=== PATIENT | female | born 1955 | race Caucasian/White ===

== ENCOUNTER 2020-08-05 09:47 | Outpatient (REF) | payer MEDICARE, MEDICAID, SELFPAY ==
--- NOTE | 2020-08-05 | MM_ITS ---
EXAMINATION: STEREOTACTIC TOMOSYNTHESIS-GUIDED VACUUM-ASSISTED BREAST BIOPSY, LEFT SPECIMEN RADIOGRAPH, LEFT POST PROCEDURE DIGITAL BREAST TOMOSYNTHESIS, LEFT CLINICAL INFORMATION: 2 irregular asymmetric densities with subtle radiating lines mid central left breast central and central outer aspect, only one visible on ultrasound. Age 65. Angy Score 6%. Stereotactic biopsy performed immediately following ultrasound-guided core biopsy left breast lesion, described in separate report. COMPARISON: Mammography 07/08/2020, 07/21/2020, left breast ultrasound 07/21/2020 and ultrasound-guided left breast biopsy 08/05/2020. TECHNIQUE/PROCEDURE: Informed consent was obtained from the patient after discussion of the benefits, risks, and alternatives to biopsy today. Patient appeared to understand. Gave opportunity for questions. Patient signed consent form. BIOPSY TABLE: [email or web address] Prone Biopsy System. LESION: Subtle asymmetric density mid central left breast. LOCAL ANESTHESIA: 4 mL 1% lidocaine; 10 mL 1% lidocaine with epinephrine. DERMATOTOMY: Single skin fang dermatotomy performed. NEEDLE: [employer] Eviva 9-gauge vacuum assisted core biopsy device. APPROACH: craniocaudal. TARGETING: Digital breast tomosynthesis used for targeting. CORES: Total 12 cores - for comprehensive sampling, 6 cores taken at Z depth and 6 cores taken 6 mm deeper. CLIP: RED - [employer] T-shaped marker. SPECIMEN RADIOGRAPH: Specimen radiograph is taken in separate room using digital mammography. There are scattered fibroglandular densities in the cores as expected. POST PROCEDURE UNILATERAL DIGITAL BREAST TOMOSYNTHESIS, LEFT: The post biopsy mammogram is performed in separate room using separate digital tomography equipment from the biopsy procedure. CC and ML views are obtained. Synthesized 2-D images are obtained from the 3-D tomography. There are scattered areas of fibroglandular density (breast composition category: b). There are 2 clip markers in position as expected, hydroureter butterfly shaped clip slightly lateral to midline corresponding to the ultrasound-guided core sampling and T shaped biopsy clip marker central breast corresponding to the stereotactic core sampling. No gross hematoma. The patient tolerated the procedure well. No immediate complications. Home instructions reviewed with the patient. Final pathology results are pending. IMPRESSION: 1. Digital tomosynthesis-guided core biopsy left breast with clip placement. 2. Ultrasound-guided core biopsy left breast also performed same visit, separate report 3. Specimen radiograph taken and post procedure mammogram. There is satisfactory positioning of the two biopsy clip markers. 4. Final pathology results pending. An addendum report will be issued.
--- NOTE | 2020-08-05 | US_ITS ---
EXAMINATION: ULTRASOUND GUIDED CORE BIOPSY BREAST, LEFT CLINICAL INFORMATION: 2 irregular asymmetric densities with subtle radiating lines mid central left breast central and central outer aspect, only one visible on ultrasound. Age 65. Angy Score 6%. COMPARISON: Mammography 07/08/2020, 07/21/2020, targeted left breast ultrasound 07/21/2020. FINDINGS: Proper informed consent is obtained from the patient after discussion of the procedure, potential risks and complications, and alternatives. Patient was given an opportunity for questions. The patient appeared to understand. The patient consented to the procedure and signed the consent form. GUIDANCE: Ultrasound-guided; aseptic technique. Prior to the biopsy procedure, targeted diagnostic ultrasound of the left breast is performed in order to reassess for ultrasound visualization of the second lesion noted on mammography. This imaging fails to reveal the second lesion which is subsequently sampled under stereotactic guidance, separate report. LESION: Irregular hypoechoic mass 1:00 position 2 cm from nipple measuring under 5 mm. Mild posterior shadowing. APPROACH: Mediolateral. ANESTHESIA: 8 mL 1% lidocaine. DERMATOTOMY: Single skin fang dermatotomy performed. NEEDLE: 14-gauge Achieve core biopsy device with 13.5-gauge co-axial guide needle. CORES: 6. CLIP: [employer]; shape: butterfly. The patient tolerated the procedure well. No immediate complications. Postprocedure mammography performed after the subsequent left breast stereotactic biopsy described in separate report. Pathology pending. IMPRESSION: 1. Status post ultrasound-guided core biopsy left breast. Clip placed: [employer]; shape: butterfly. 2. Stereotactic left breast biopsy subsequently performed same visit, separate report. 3. Pathology pending (two sites left breast). An addendum report will be issued.
== END 2020-08-05 09:48 | disposition home or self-care (01) ==
LOC: HO.MAMMO 09:47
PROVIDERS: PCP Internal Medicine; Visit Provider Surgery
DX: C50.412 Malignant neoplasm of upper-outer quadrant of left female breast (principal); Z17.0 Estrogen receptor positive status [ER+]; Z80.9 Family history of malignant neoplasm, unspecified; Z90.49 Acquired absence of other specified parts of digestive tract
CPT/HCPCS: 19081; 19083; 19283; 76642; 88305; 88342; 88360; 99203; A4648

== ENCOUNTER → 2020-08-11 13:54 | Outpatient (BNVA) | payer MEDICARE, MEDICAID, SELFPAY | PROVIDERS: PCP Internal Medicine; Referring Provider Internal Medicine; Visit Provider Surgery | DX: C50.912 Malignant neoplasm of unspecified site of left female breast (principal); Z98.890 Other specified postprocedural states | CPT/HCPCS: 99213 ==

== ENCOUNTER 2020-08-27 17:04 | Inpatient (IN) | payer MEDICARE, MEDICAID, SELFPAY ==
[2020-08-25 19:55] VITALS: BMI 23.0
--- NOTE | 2020-08-26 11:55 | HO.ANESPROP2 ---
HPI - Anesthesia Eval Consult details Narrative: 65yo F for L breast lumbpectomy, L sentinel node biopsy PMFSH Past Medical History Medical History Basal cell carcinoma Chronic cough Chronic kidney disease (CKD) Colonoscopy planned Depression Gout History of colon polyps (~2015) Invasive lobular carcinoma of left breast in female Melanoma Schizoaffective disorder Family History Family History Maternal Grandfather History of cancer of unknown primary site Other History of skin cancer Surgical History Surgical History H/O left breast biopsy History of partial colectomy Social History Social History Household Members: None Housing: Apartment Alcohol intake: never Smoking Status: Current every day smoker Tobacco Type: Cigar Packs Per Day: 1 Cigarettes Per Day: 20.0 Years Smoked: 55 Smoked in Last 30 Days: Yes Patient Interested in Nicotine Replacement: No Patient Given Instructions on How to Stop Smoking: Yes Date Education Initiated: 08/25/20 Second Hand Smoke Exposure: No Use of substances other than those prescribed or required for medical reasons: No Substance Use Type Other:: CRACK COCAINE H-NO CURRENT Currently Displaying Signs/Symptoms of Drug Intoxication Withdrawal: No Have you been hit, kicked, punched, or otherwise hurt by someone within the past year? If so, by whom?: No Do you feel safe in your current relationship?: No Current Relationship Advance Directives: No Advance Directives Information Provided: No Advance Directives on File: No Do you have thoughts of harming others: None Do you have a plan to hurt others: No Plan Recently lost weight without trying: No service: No Current occupational status: disabled Meds Allergies Allergy/AdvReac Type Severity Reaction Status Date / Time No Known Allergies Allergy Verified 08/11/20 15:57 Home Medications Medication Instructions Recorded Confirmed Type allopurinol 100 mg tablet 200 mg PO DAILY 08/05/20 08/25/20 History bupropion HCl 150 mg 24 hr tablet, 150 mg PO DAILY 08/05/20 08/25/20 History extended release cholecalciferol (vitamin D3) 25 25 mcg PO DAILY 08/05/20 08/25/20 History mcg (1,000 unit) capsule mecobalamin (vitamin B12) 1,000 1,000 mcg SUBLINGUAL DAILY 08/05/20 08/25/20 History mcg disintegrating tablet,sublingual olanzapine 15 mg tablet 15 mg PO BEDTIME 08/05/20 08/25/20 History Exam Exam Date and Time: August 26, 2020 1155 Height,Weight and Vital Signs: Height 5 ft 1 in Weight 55.338 kg Assessment and Plan Assessment Anesthesia Assessment: Chart Reviewed
[2020-08-27] VITALS (32 sets, daily range): BP systolic 80–126; BP diastolic 39–83; PULSE 64–117; RESP 12–20; TEMP 36.3–36.9; O2SAT 90–99
--- NOTE | 2020-08-27 | NM_ITS ---
EXAMINATION: NM LYMPH SCINTIGRAPHY CLINICAL INFORMATION: Left breast cancer. COMPARISON: None TECHNIQUE: Following explaining left breast lymphoscintigraphy procedure, benefits and risk a written consent was obtained in conjunction with the left breast needle localization. 2% lidocaine jelly cream was applied around the left breast areola 30 minutes prior to the procedure. The gel was cleaned in usual sterile manner. The area was cleaned with clear of consolidation. 0.5 mCi of lymphocytic divided in 4 equal doses was subdermally injected in 4 quadrants around the areola. Imaging was obtained at 30 and 50 minutes. FINDINGS: There is isotope activity seen in the 4 quadrants around the areola. At 50 minutes there is a solitary sentinel node activity seen in the left anterior axilla. No additional areas of activity seen. The soft tissues are normal. NM/NM sentinel node w imaging IMPRESSION: Solitary sentinel node activity in the left anterior axilla on left breast lymphoscintigraphy.
--- NOTE | 2020-08-27 07:59 | MM_ITS ---
EXAMINATION: MM MAMMOGRAM GUIDED NEEDLE LOCALIZATION BREAST, LEFT MM NEEDLE LOCALIZATION SPECIMEN FROM THE LEFT BREAST CLINICAL INFORMATION: 2 regions of invasive lobular carcinoma of the left breast. COMPARISON: August 05, 2020 and July 21, 2020 TECHNIQUE NEEDLE LOC: Proper informed consent is obtained from the patient after discussion of the procedure, potential risks and complications, and alternatives including declining the procedure today. Patient was given an opportunity for questions. The patient appeared to understand. The patient consented to the procedure and signed the consent form. GUIDANCE: Digital mammography. APPROACH: Superior. TARGET: Top hat and coil marker clips. ANESTHESIA: lidocaine 1%: 6 mL. The skin is prepped and local anesthesia administered. The needles are positioned and position assessed with mammography. The wires are hooked into position. [place] needle protector placed. The patient tolerated the procedure well and had no immediate complication. Following the procedure, 4% lidocaine ointment was administered to the left areola and covered with Tegaderm in anticipation of nuclear lymphoscintigraphy injection for sentinel lymph node mapping TECHNIQUE SPECIMEN RADIOGRAPH: Imaging of the excised specimen is performed using digital mammography in 1 view. FINDINGS SPECIMEN RADIOGRAPH: The specimen shows the needles and hookwires are delivered intact. The biopsy clip markers are identified in the specimen. Results were called to Dr. Herminio Jean in the operating room at the time of imaging. MM/MM needle loc LT IMPRESSION: 1. Status post left breast needle localization with wire hooked into position. 2. Post operative specimen radiograph obtained.
--- NOTE | 2020-08-27 08:01 | MM_ITS ---
EXAMINATION: MM MAMMOGRAM GUIDED NEEDLE LOCALIZATION BREAST, LEFT MM NEEDLE LOCALIZATION SPECIMEN FROM THE LEFT BREAST CLINICAL INFORMATION: 2 regions of invasive lobular carcinoma of the left breast. COMPARISON: August 05, 2020 and July 21, 2020 TECHNIQUE NEEDLE LOC: Proper informed consent is obtained from the patient after discussion of the procedure, potential risks and complications, and alternatives including declining the procedure today. Patient was given an opportunity for questions. The patient appeared to understand. The patient consented to the procedure and signed the consent form. GUIDANCE: Digital mammography. APPROACH: Superior. TARGET: Top hat and coil marker clips. ANESTHESIA: lidocaine 1%: 6 mL. The skin is prepped and local anesthesia administered. The needles are positioned and position assessed with mammography. The wires are hooked into position. [place] needle protector placed. The patient tolerated the procedure well and had no immediate complication. Following the procedure, 4% lidocaine ointment was administered to the left areola and covered with Tegaderm in anticipation of nuclear lymphoscintigraphy injection for sentinel lymph node mapping TECHNIQUE SPECIMEN RADIOGRAPH: Imaging of the excised specimen is performed using digital mammography in 1 view. FINDINGS SPECIMEN RADIOGRAPH: The specimen shows the needles and hookwires are delivered intact. The biopsy clip markers are identified in the specimen. Results were called to Dr. Herminio Jean in the operating room at the time of imaging. MM/MM needle loc ea add IMPRESSION: 1. Status post left breast needle localization with wire hooked into position. 2. Post operative specimen radiograph obtained.
--- NOTE | 2020-08-27 08:29 | MHC.SHP ---
Pre-Procedural Eval Section A Changes since office visit: Yes Patient answered all questions; No Cold of Flu in the past 2 weeks, No New Medical Problems and No Changes in Medication The History & Physical has been completed within 30 days and I have reviewed it.: Yes Section B Chief Complaint: Invasive Lobular Carcinoma of Left Breast Allergies: Allergies Allergy/AdvReac Type Severity Reaction Status Date / Time No Known Allergies Allergy Verified 08/11/20 15:57 Plan Diagnosis/Plan: Unchanged Patient has been examined and remains a candidate for the planned procedure
[2020-08-27] MEDS: ceFAZolin Sodium/Dextrose,Iso 2 GM/50 ML PIGGYBACK IV (08:33)
--- NOTE | 2020-08-27 13:16 | P.BOP_ITS ---
Brief Operative Note Date of procedure: 08/27/20 Pre-op diagnosis: Invasive lobular carcinoma left breast Post-op diagnosis: same Procedure: LEFT BREAST LUMPECTOMY WITH NEEDLE LOCALIZATION, SENTINEL NODE BIOPSY LEFT AXILLA Implants: NONE Surgeon: Herminio Jean MD Anesthesia: [facility] [employer] Indirect Fire Crewmember: Cecily Martin Estimated blood loss (mL): 20 Pathology: other ( LEFT BREAST LUMPECTOMY, SENTINEL NODES) Condition: stable Disposition: PACU
--- NOTE | 2020-08-27 13:19 | W.PM.OPN ---
Operative Note Operative Note Narrative: Date of procedure: 08/27/20 Pre-op diagnosis: Invasive lobular carcinoma left breast Post-op diagnosis: same Procedure: Left breast lumpectomy with needle localization, left sentinel node biopsy Indications for procedure: 65-year-old female patient with 2 areas of density located in the left breast in the central portion, status post ultrasound-guided and stereotactic guided core biopsies. Both lesions revealed invasive lobular carcinoma. She presents today for a needle localized lumpectomy left breast with sentinel node excision. Operative findings: Patient was found to have the marking clips and localizing wire within the specimen X-ray. Procedure details: The patient was brought to the OR and placed in a supine position. After administering general anesthesia the patient's left breast was prepped with ChloraPrep and draped in a sterile fashion. A surgical time-out was called and the consent confirmed. Patient received preoperative antibiotics and Venodyne boots were in place. Local anesthesia consisting of 0.75% Sensorcaine was infiltrated between the 2 localizing wires in the upper mid breast left side. This is in a transverse fashion. Incision was then made with a 15 blade carried out through subcutaneous tissue. Superior and inferior skin flaps were then created using electrocautery. A core of tissue to encompass the 2 localizing needles was performed and extended down to chest wall including the pectoralis muscle fascia posteriorly. The lesion including the 2 localizing needles was sent to Radiology for specimen x-ray. The specimen was then sent to pathology for immediate gross evaluation. Was determined that the margins were close in the inferior lateral portion of the specimen. Additional specimen of this margin was then obtained and sent as a permanent specimen. Attention was then directed to the left axilla. The gamma probe was used to localize areas of increased reactivity. A curvilinear incision was made below the hairline of the left axilla. This was then carried down through subcutaneous tissue up to the clavipectoral fascia. The axillary space was then entered. Using the gamma probe as a guide 3 radioactivity active lymph nodes were removed. These were sent as sentinel nodes. No additional palpable nodes could be identified within the axilla. No other radio activity was noted within the axillary compartment. Both incisions were irrigated with saline solution and suctioned dry. Both sites were checked for hemostasis which was assured using electrocautery. Beginning with the breast incision the deep breast fascia was reapproximated using interrupted 3 0 Polysorb sutures. The dermis was reapproximated using interrupted 3-0 Polysorb sutures. Skin was then closed using a running subcuticular 4-0 Polysorb suture. The axillary incision was closed in layers of once again using 3-0 Polysorb in the cloudy pectoral fascia and dermis. Skin was then closed using a running 4-0 Polysorb suture. Steri-Strips 2 x 2 gauze and Tegaderm were then applied to both incisions. The patient tolerated the procedure well. Sponge , instrument, and needle counts reported as correct. She was transported to PACU in stable condition. Implants: none Surgeon: Herminio Jean MD Anesthesia: GLMA Bucket Chucker: Cecily Martin Estimated blood loss (mL): 20 Pathology: other (left breast mass, sentinel nodes , inferior lateral border margin) Condition: stable Disposition: PACU Breast [place] Node Biopsy Substrate(s) used for sentinel node biopsy in the non-neoadjuvant setting: Radiotracer Substrate(s) used for sentinel node biopsy in the neoadjuvant setting: N/A All colored nodes or non-colored nodes present at the end of a dye filled lymphatic channel were removed, if dye was used as the substrate for localization: N/A All significantly radioactive nodes were removed, if radionuclide was used as the substrate for localization: Yes All palpably suspicious nodes were removed, if present: Yes If clips were placed in pathology-involved nodes, those nodes were identified and removed: N/A General Surg. - Synoptic Notes Breast [place] Node Biopsy Substrate(s) used for sentinel node biopsy in the non-neoadjuvant setting: Radiotracer Substrate(s) used for sentinel node biopsy in the neoadjuvant setting: N/A All colored nodes or non-colored nodes present at the end of a dye filled lymphatic channel were removed, if dye was used as the substrate for localization: N/A All significantly radioactive nodes were removed, if radionuclide was used as the substrate for localization: Yes All palpably suspicious nodes were removed, if present: Yes If clips were placed in pathology-involved nodes, those nodes were identified and removed: N/A
[2020-08-27] MEDS: Acetaminophen 325 MG TABLET 650 MG PO (14:19)
[2020-08-27] MEDS: oxyCODONE HCl Immed Release 5 MG TABLET PO (14:20)
[2020-08-27] MEDS: Albuterol Sulfate (0.083%) 2.5 MG/3 ML VIAL.NEB INHALE (15:06)
--- NOTE | 2020-08-27 16:41 | PC.NURSE ---
PATIENT BREAST DRESSING REMAINS CLEAN DRY INTACT. SOFT. NON-TENDER TO TOUCH
--- NOTE | 2020-08-27 16:47 | PC.NURSE ---
DR. SENIOR UPDATED PATIENT SBP 78-80'S ASYMPTOMATIC AT THIS TIME. LIKELY NEED TO BE ADMITTED
--- NOTE | 2020-08-27 16:53 | PC.NURSE ---
DR. ZAMBRANO AT BEDSIDE PLAN ORDERS LABS AND ADMIT OVERNIGHT FOR MONITORING. DR. SENIOR ANESTHESIA UPDATED PER M.D. NO ADDITIONAL IVF BOLUS OR EVELYN GTT AT THIS TIME
--- NOTE | 2020-08-27 17:12 | PC.NURSE ---
PHLEBOTOMY AT BEDSIDE FOR LABS
--- NOTE | 2020-08-27 17:17 | PM.EVENT ---
Event Note Event Note: Postoperatively, patient noted to be hypotensive and tachycardic after having an updraft treatment and pain medication; required several fluid boluses. Patient is awake and alert and denies any symptoms at this time. She reports feeling tired. Left breast incision is clean and intact without hematoma. Plan: Will keep patient as an extended stay in IM. Hospitalist consultation requested as well. Discussed with patient's daughter Ciara ([phone]).
[2020-08-27 17:29] LABS: Basophils Percent Auto 0.1 % (0-2); Eosinophils Percent Auto 0.1 % (0-4); Hematocrit 35.2 % (37-47); Hemoglobin 11.6 g/dl (12.0-16.0); Imm Gran Abs Auto 0.07 X10*3/uL (0.00-0.03); Imm Gran Pct Auto 0.5 % (0.0-0.4); Lymphocytes Absolute Auto 0.2 X10*3/uL (1.2-4.9); Lymphocytes Percent Auto 1.1 % (20-40); MANUAL DIFF FLAG SCAN; Mean Corpuscular Hemoglobin 35.7 pg (27.0-33.0); Mean Corpuscular Volume 108.3 fL (80-98); Mean Platelet Volume 9.6 fL (9.4-12.3); Monocytes Absolute Auto 0.2 X10*3/uL (0.1-1.2); Monocytes Percent Auto 1.1 % (2-11); Neutrophils Absolute Auto 14.5 X10*3/uL (2.0-8.3); Neutrophils Percent Auto 97.1 % (45-73); Platelet Count 119 X10*3/uL (160-400); Red Blood Count 3.25 X10*6/uL (4.20-5.50); Red Cell Distribution Width 13.2 % (11.0-16.0); SCAN SMEAR FLAG 1
[2020-08-27 17:53] LABS: Anion Gap 14 (12-20); Blood Urea Nitrogen 21 mg/dL (9-16); Calcium 7.6 mg/dL (8.4-10.2); Carbon Dioxide 21 mmol/L (22-29); Chloride 112 mmol/L (96-108); Creatinine Clr Calc Pharmacy 16.8; Estimated Glomerular Filt Rate 19; Glucose Random 207 mg/dL (60-115); Magnesium 1.6 mg/dL (1.6-2.6); Phosphorus 3.7 mg/dL (2.7-4.5); Potassium 3.4 mmol/l (3.3-5.1); Sodium 144 mmol/L (135-145)
[2020-08-27] MEDS: Dextrose 5 % and Lactated Ring 1,000 ML 80 ML IVCONT (18:18)
[2020-08-27 19:14] LABS: SLIDE REVIEW VERIFIED
[2020-08-27] MEDS: 0.9 % Sodium Chloride 1,000 ML 150 ML IVCONT (19:33)
[2020-08-27] MEDS: Midodrine HCl 5 MG TABLET PO ×2 (19:33→23:49)
--- NOTE | 2020-08-27 21:30 | CONS_ITS ---
DATE OF SERVICE: REASON FOR CONSULTATION: Postprocedure hypotension. HISTORY OF PRESENTING ILLNESS: This is a 65-year-old female patient with past medical history significant for chronic kidney disease stage 4, history of gout, history of schizoaffective disorder and bipolar disorder. The patient underwent an elective left breast lumpectomy with needle localization and left sentinel node biopsy. The patient was scheduled to be discharged home, but during the procedure and post procedure, the patient remained hypotensive with systolic blood pressure in high 80s, therefore the patient was admitted for close monitoring and treatment. During the procedure, the patient received 2 L of IV fluid, but BP remains low. Currently, patient is on IV fluids. BP remains 88/52. The patient is awake, alert, denies any symptoms of lightheadedness, dizziness. The patient is not aware of her baseline blood pressure. She denies any chest pain, palpitation. She has had no recent bout of fever, chills. She denies any recent bout of nausea, vomiting, diarrhea. She denies urinary symptoms of urgency, frequency, she has no cough or sputum production. The patient's labs from this morning revealed a WBC count of 15,000, hematocrit of 35, elevated MCV of 108, and platelet count of 119. Her electrolytes are stable except that the creatinine is elevated at 2.51 with the last creatinine of 1.86 on August of 2018. The patient's blood sugar is 207, although patient is not aware of diagnosis of diabetes. PAST MEDICAL HISTORY: Significant for: 1. History of schizoaffective disorder/bipolar disorder. 2. History of chronic kidney disease stage 4. 3. History of gout. 4. The patient has history of cocaine abuse in remote past. SOCIAL HISTORY: The patient lives alone. She denies history of alcohol abuse or illicit drug use. She continued to smoke 1 pack per day. FAMILY HISTORY: The patient's parents are . The patient's mother had history of stroke and father of respiratory issues. ALLERGIES: THE PATIENT HAS NO KNOWN DRUG ALLERGIES. CURRENT MEDICATIONS: Tylenol 650 mg q.6 hours as needed, albuterol inhaler as needed, allopurinol 200 mg daily, bupropion 150 mg daily, and vitamin D 25 mcg by mouth daily. The patient is also on vitamin B12 1000 mcg tablet daily, vitamin D3 25 mcg daily, and olanzapine 50 mg by mouth at bedtime. REVIEW OF SYSTEMS: GENERAL: The patient denies any fever, chills. CVS: No chest pain. No palpitations. SKIN: No rashes. GI: No nausea, vomiting, diarrhea. PHYSICAL EXAMINATION: GENERAL: The patient is resting comfortably, does not appear to be in acute distress. VITAL SIGNS: She is afebrile with O2 saturation 95% on 1.5 L nasal cannula. Respiratory rate is 14, pulse of 68, and blood pressure 88/52. HEENT: Pupils equal, round, and reactive to light and accommodation. NECK: Supple. No increased JVD. LUNGS: Clear to auscultation bilaterally with no wheeze or rhonchi. HEART: Regular rate rhythm. ABDOMEN: Soft, nontender. Bowel sounds are audible. EXTREMITIES: Without edema. BREASTS: There is an is small incision at left breast with no drainage and no surrounding hyperemia or swelling. NEURO: Nonfocal. LABORATORY DATA: Showed a sodium 144, potassium 3.4, chloride 112, bicarb of 21, BUN 21, and a creatinine of 2.51, blood sugar 207, calcium 7.6. WBC 15,000, hematocrit 35.2, neutrophil 97%. ASSESSMENT AND PLAN: This is a 65-year-old female patient, admitted for an elective left breast lumpectomy with needle localization and left sentinel node biopsy due to recently diagnosed invasive lobular carcinoma of left breast. During procedure, the patient became hypotensive and hence being admitted for continued monitoring and treatment. 1. Hypotension. The patient has no prior history of hypotension. The patient is not on any antihypertensive medications. Likely low blood pressure is secondary to anesthesia and olanzapine,will hold the medication. There is no evidence of infection or sepsis, but due to elevated WBC count, we will obtain a urinalysis. We will treat the patient with IV fluid. We will give midodrine. Follow blood pressure closely. Continue tele monitor to r/o arrythmias. If there is no improvement in the patient's blood pressure, then escalate care and transfer patient to ICU for pressors, but since the patient is asymptomatic, continue tele monitoring. 2. Acute on chronic kidney disease likely due to hypotension. Follow BMP at a.m. 3. Leukocytosis, likely reactive. We will rule out urinary tract infection and check a urinalysis. 4. History of bipolar disorder. Continue home medications. 5. History of gout with no acute exacerbation. MD Herminio Gannon MD NG/TYE / [id number] MTDD
[2020-08-27] MEDS: Lactated Ringers 500 ML 999 ML IVCONT ×2 (22:57→23:46)
--- NOTE | 2020-08-27 23:11 | PC.NURSE ---
P: BP 84/53, HR 74 I: Pt assessed. Pt drowsy but arousable. States I just feel tired. MD made aware. MD ordered 1L LR bolus. 2nd IV placed for maintenance fluids. Pt also has NS running at 150 ml/hr. E: Pt BP rechecked after LR bolus and still low 83/58 with machine and 90/60 manually. MD made aware. Will continue to monitor and reassess.
[2020-08-27] MEDS: 0.9 % Sodium Chloride Flush 3 ML SYRINGE IVFLUSH (23:47)
[2020-08-28] VITALS (9 sets, daily range): BP systolic 81–118; BP diastolic 48–78; PULSE 51–91; RESP 16–18; TEMP 36.1–37.2; O2SAT 91–100
--- NOTE | 2020-08-28 01:31 | PC.NURSE ---
P: midnight vital signs BP 85/50. I:assessed pt , no complaints of dizzyness, lightheadness.MD made aware, second dose of Midodrine 5mg ordered and given and second LR bolus given. E: Reassessed BP after bolus Pt ambulated to bathroom voiding clear yellow urine, clean catch sent to lab. BP 104/78 HR 91. Will continue to monitor BP's.
[2020-08-28 02:03] LABS: Glucose Urine UA NEG (NEG); Leukocyte Esterase Urine NEG (NEG); Nitrite Urine NEG (NEG); Urine Blood NEG (NEG); Urine Ketones NEG (NEG); Urine Protein NEG (NEG-TRACE)
[2020-08-28 02:11] LABS: Appearance Urine CLEAR; Color Urine STRAW
[2020-08-28] MEDS: 0.9 % Sodium Chloride 1,000 ML 150 ML IVCONT ×2 (03:22→19:10)
[2020-08-28 06:42] LABS: Basophils Percent Auto 0.2 % (0-2); Eosinophils Percent Auto 0.2 % (0-4); Hematocrit 30.1 % (37-47); Imm Gran Abs Auto 0.07 X10*3/uL (0.00-0.03); Imm Gran Pct Auto 0.5 % (0.0-0.4); Lymphocytes Absolute Auto 0.8 X10*3/uL (1.2-4.9); Lymphocytes Percent Auto 6.1 % (20-40); MANUAL DIFF FLAG SCAN; Mean Corpuscular HGB Conc 33.2 g/dl (31.0-35.0); Mean Corpuscular Hemoglobin 35.6 pg (27.0-33.0); Mean Corpuscular Volume 107.1 fL (80-98); Monocytes Absolute Auto 0.3 X10*3/uL (0.1-1.2); Monocytes Percent Auto 2.7 % (2-11); Neutrophils Absolute Auto 11.5 X10*3/uL (2.0-8.3); Neutrophils Percent Auto 90.3 % (45-73); Platelet Count 115 X10*3/uL (160-400); Red Blood Count 2.81 X10*6/uL (4.20-5.50); Red Cell Distribution Width 13.1 % (11.0-16.0); SCAN SMEAR FLAG 1; White Blood Count 12.7 X10*3/uL (4.8-10.8)
[2020-08-28 07:06] LABS: Anion Gap 14 (12-20); Blood Urea Nitrogen 23 mg/dL (9-16); Calcium 6.6 mg/dL (8.4-10.2); Carbon Dioxide 22 mmol/L (22-29); Chloride 114 mmol/L (96-108); Creatinine Clr Calc Pharmacy 17.9; Estimated Glomerular Filt Rate 21; Glucose Random 107 mg/dL (60-115); Potassium 3.9 mmol/l (3.3-5.1); Sodium 146 mmol/L (135-145)
--- NOTE | 2020-08-28 08:28 | P.PNGS_ITS ---
Subjective Subjective Interval history: A little more sore at left breast/axilla today but comfortable. Continues to deny dizziness/lightheadedness. OOB to bathroom. <Cecily Martin PA-C - Last Filed: 08/28/20 08:33> Physical Exam Vital Signs: Vital Signs: Vital Signs Temp Pulse Resp BP Pulse Ox 08/28/20 07:37 98.9 F 65 16 81/59 L 92 08/28/20 03:35 98.5 F 78 18 100/66 92 08/28/20 01:27 91 104/78 08/27/20 23:49 64 82/58 L 08/27/20 23:24 97.4 F 64 16 82/58 L 95 08/27/20 23:00 90/60 91 L 08/27/20 21:20 74 84/53 L 91 L 08/27/20 19:33 67 97/69 08/27/20 18:18 97.9 F 68 14 88/52 L 95 08/27/20 17:51 80 20 92/60 99 08/27/20 17:38 84 20 85/63 L 99 08/27/20 17:23 97.9 F 08/27/20 17:18 87 20 92/54 L 95 08/27/20 17:04 87 20 93/60 97 08/27/20 17:00 99 20 87/55 L 97 08/27/20 16:56 89 20 82/58 L 97 08/27/20 16:41 90 20 85/53 L 97 08/27/20 16:33 89 20 87/48 L 97 08/27/20 16:12 86 12 84/61 L 99 08/27/20 16:09 88 12 90/61 99 08/27/20 16:01 88 12 80/47 L 94 08/27/20 15:52 88 12 80/50 L 94 08/27/20 15:35 93 12 84/53 L 94 08/27/20 15:20 96 16 80/51 L 95 08/27/20 15:10 102 H 16 90/64 90 L 08/27/20 14:54 117 H 20 81/39 L 93 08/27/20 14:23 94 20 92 08/27/20 14:11 95 08/27/20 14:08 96 20 92 08/27/20 13:52 88 20 97 08/27/20 13:40 96 20 109/66 97 08/27/20 13:38 97 20 112/83 97 08/27/20 13:25 98 16 92/57 L 97 08/27/20 13:20 98 16 126/82 93 Body Mass Index 23.0 <Cecily Martin PA-C - Last Filed: 08/28/20 08:33> Const: General: comfortable, no acute distress and alert <Cecily Martin PA-C - Last Filed: 08/28/20 08:33> Orientation/consciousness: patient oriented x3 <Cecily Martin PA-C Last Filed: 08/28/20 08:33> Eyes: Sclerae: sclerae normal <Cecily Martin PA-C Last Filed: 08/28/20 08:33> Chest: Other: left breast/axillary dressings c/d/i, mild tenderness surrounding, no evidence of hematoma or erythema noted <Cecily Martin PA-C Last Filed: 08/28/20 08:33> Resp: Effort & Inspection: normal respiratory effort <Cecily Martin PA-C Last Filed: 08/28/20 08:33> Cardio: Rate: regular rate <Cecily Martin PA-C Last Filed: 08/28/20 08:33> Skin: General skin exam: no rashes or lesions noted <Cecily Martin PA-C Sherri Last Filed: 08/28/20 08:33> Neuro: General: patient oriented x3 <Cecily Martin PA-C Last Filed: 08/28/20 08:33> Extrem: General: Yes no clubbing, cyanosis or edema <Cecily Martin PA-C - Last Filed: 08/28/20 08:33> Progress Note: A&P Assessment and plan (1) Invasive lobular carcinoma of left breast in female: Status: Acute <REY Mejia Last Filed: 08/28/20 08:33> Assessment and Plan: Doing well post op, comfortable. Dressings c/d/i. Stable from surgical standpoint. <Cecily Martin REY - Last Filed: 08/28/20 08:33> (2) Kidney disease: Status: Acute <Cecily Martin REY - Last Filed: 08/28/20 08:33> Assessment and Plan: Renal function improved this am. Nephrology consult pending. < Cecily Bustamanteboderaina REY - Last Filed: 08/28/20 08:33> (3) Hypotension: Status: Acute <Cecily Martin REY - Last Filed: 08/28/20 08:33> Assessment and Plan: SBP remains low 80s despite IVF, midodrine (received 2 doses) but she remains asymptomatic. AM labs improved this am- Cr improved, WBC down. No evidence of infection. Hospitalists following, cont midodrine and IVF. Cont to monitor BP. <Cecily BustamanteREY aguilar - Last Filed: 08/28/20 08:33> Still with intermittent hypotension this morning. Discussed with Dr. Leonard; may be related to medications interacting with anesthesia. Discussed with patient's daughter this morning. Patient will need additional observation beyond the anesthesia. Agree with the above assessment and plan. Will check back later and reassess for discharge. <Herminio Jean MD - Last Filed: 08/28/20 08:41> Fall Risk Details Current Medications: Current Medications Generic Name Dose Route Start Last Admin Trade Name Freq PRN Reason Stop Dose Admin Acetaminophen 650 mg 08/27/20 17:47 Acetaminophen Supp 650 Mg Supp.Rect NE Q6H PRN Pain, Mild (Pain Scale 1-3) Allopurinol 200 mg 08/28/20 09:00 Allopurinol 100 Mg Tablet PO DAILY MATTHEW Bupropion HCl 150 mg 08/28/20 09:00 Bupropion Hcl Xl 150 Mg Tab.Er.24h PO DAILY MATTHEW Sodium Chloride 1,000 mls @ 150 mls/hr 08/27/20 18:45 08/28/20 03:22 Ns IVCONT 150 mls/hr .Q6H40M MATTHEW Administration Olanzapine 15 mg 08/27/20 21:00 08/27/20 22:10 Olanzapine 7.5 Mg Tablet PO Not Given BEDTIME MATTHEW Ondansetron HCl 4 mg 08/27/20 17:47 Ondansetron Hcl 4 Mg/2 Ml Vial IVPUSH Q8H PRN Nausea and Vomiting Oxycodone HCl 5 mg 08/27/20 17:47 Oxycodone Hcl Immed Release 5 Mg Tablet PO Q4H PRN Pain, Severe (Pain Scale 7-10) Sodium Chloride 3 ml 08/28/20 00:00 08/27/20 23:47 0.9 % Sodium Chloride Flush 3 Ml Syringe IVFLUSH 3 ml QSHIFT MATTHEW Administration Vitamin D 25 mcg 08/28/20 09:00 Cholecalciferol (Vitamin D3) 25 Mcg Tablet PO DAILY MATTHEW <Cecily Martin PA-C - Last Filed: 08/28/20 08:33> Time Spent With Patient Time: Total time spent is greater than 50% in coordination of care (as documented) at patient's floor/unit and/or counseling patient: <Cecily Martin PA-C - Last Filed: 08/28/20 08:33> Time with patient: 15 - 24 minutes <Cecily Martin PA-C - Last Filed: 08/28/20 08:33>
--- NOTE | 2020-08-28 08:42 | MHC.CM.PN ---
Patient rents a room and lives alone. Patient is functionally independent and her goal is to return home. CM has initiated and will follow for dc planning. Patient is here under Extended Stay and therefor does not require an IMM. PCP is from [facility].
[2020-08-28] MEDS: buPROPion HCl XL 150 MG TAB.ER.24H PO (09:11)
[2020-08-28] MEDS: Midodrine HCl 10 MG TABLET PO (09:11)
[2020-08-28] MEDS: allopurinoL 100 MG TABLET 200 MG PO (09:11)
[2020-08-28] MEDS: Cholecalciferol (Vitamin D3) 25 MCG TABLET PO (09:12)
[2020-08-28] MEDS: 0.9 % Sodium Chloride Flush 3 ML SYRINGE IVFLUSH ×2 (09:12→15:23)
--- NOTE | 2020-08-28 11:31 | ECG_ITS ---
Test Reason : CP Blood Pressure : / mmHG Vent. Rate : 049 BPM Atrial Rate : 049 BPM P-R Int : 150 ms QRS Dur : 082 ms QT Int : 462 ms P-R-T Axes : 026 047 052 degrees QTc Int : 417 ms Sinus bradycardia Low voltage QRS Nonspecific ST abnormality Abnormal ECG When compared with ECG of 13-JAN-2004 07:25, QRS voltage has decreased Heart rate has decreased Referred By: Rajeev Leonard Electronically Signed By:JACQUE MCCRARY MD
--- NOTE | 2020-08-28 12:10 | CA_ITS ---
Transthoracic Echocardiogram Patient (Last, First, Middle): Kim Love, Gender: Female Date of : 1955 Age: 65 Procedure Date: 08/28/2020 Procedure Type: Transthoracic Echocardiogram Location: [facility] [place] Height: 154.94 cm Weight: 54.43 kg BSA: 1.52 m2 Heart Rate: bpm BP: 81 / 59 mmHg Sole Molder: Referring MD: Ernesto Choe MD Software Installation Engineer: Ernesto Choe MD Symptoms: Low BP Study Quality: Fair ECG Rhythm: Sinus Conclusions: - 1. Normal LV systolic function with impaired relaxation filling pattern 2. Normal cardiac valvular Doppler 3. Normal RV systolic pressure with elevated right atrial pressure 4. No pericardial effusion Findings Left Ventricle Normal left ventricular size, thickness, and systolic function. The visually estimated ejection fraction is between 65-70%. Spectral Doppler is indicative of an impaired relaxation filling pattern. E/E prime ratio is between 8 and 15 consistent with indeterminate filling pressures. Right Ventricle Normal right ventricular cavity size and systolic function. Atria Both atria are normal in size. There is no evidence of interatrial shunt. Aortic Valve Normal aortic valve structure and function. There is no aortic valve stenosis. There is no aortic valve regurgitation. Mitral Valve Normal mitral valve structure and function. There is trace mitral valve regurgitation. There is no mitral valve stenosis. Pulmonic Valve The pulmonic valve is likely normal. Tricuspid Valve Normal tricuspid valve structure. There is mild tricuspid valve regurgitation. The right ventricular systolic pressure is normal. The right ventricular systolic pressure is 33 mmHg. Mildly elevated right atrial pressure. There is no evidence of pulmonary hypertension. Venous The inferior vena cava is mildly dilated and collapses less than 50% with inspiration. Pericardium/Pleural There is no evidence of pericardial effusion. Prior Study Comparison No prior study available for comparison. Measurements 2D Linear Measurements IVSd: 0.96 0.6-0.9/0.6-1.0 cm LVIDd: 4.39 3.9-5.3/4.2-5.9 cm LVIDd Index: 2.89 2.4-3.2/2.2-3.1 cm/m2 LVIDs: 2.65 2.0-3.6 cm LVPWd: 1.11 0.7-1.1 cm Ao Root: 2.90 2.1-3.5 cm LA Diam: 2.40 2.7-3.8/3.0-4.0 cm LAIDs Index: 1.58 1.5-2.3 cm/m2 LV Mass: 191.86 67-162/88-224 g LV Mass Index: 126.22 43-95/49-115 g/m2 LVOT Diam: 2.20 3.0+(-)1.3 cm Mitral Valve MV Pk E: 0.92 MV PK A: 0.85 MV Decel Time: 242.00 E/A: 1.10 E'Lateral: 9.68 E'Medial: 9.90 E/E' Med: 9.30 E/E' Lat: 9.50 PHT: 71.00 MVA PHT: 3.10 Decel [place]: 3.79 Aortic Valve AoV Pk Richi: 2.03 AoV Mn Richi: 1.47 AoV VTI: 0.48 AoV Pk Grad: 16.00 Aov Mn Grad: 10.00 KEM Cont.VTI: 2.73 LVOT LVOT Pk Richi: 1.38 LVOT Mn Richi: 0.96 LVOT VTI: 0.34 LVOT Pk Grad: 8.00 LVOT Mn Grad: 4.00 LVOT Diam: 2.20 LVOT Area: 3.80 Diastolic Function MV Pk E: 0.92 MV Pk A: 0.85 E/A: 1.10 E'Medial: 9.90 E/E' Med: 9.30 E' Laterial: 9.68 E/E' Lat: 9.50 Tricuspid Valve TR Pk Richi: 2.49 TR Pk Grad: 25.00 RA Press: 8.00 RVSP: 33.00 Great Vessels Aorta Ao Root-2D: 2.90 2.0-3.7 cm Pulmonary Valve PV Pk Richi: 1.38 Peak PV Grad: 8.00 Updated in Other Vendor System with Status of Final Ernesto Choe MD electronically signed on 08/29/2020 10:19:58 AM with status of Final
--- NOTE | 2020-08-28 13:00 | P.PNIM_ITS ---
Subjective Subjective Date of Service: 08/28/20 Interval History: patient offers no complaints denies pain denies lightheadedness dizziness, denies chest pain, no acute issues overnight blood pressure remains low. Review of Systems General no headache no dizziness no fever chills. CVS no chest pain, no palpitation. Respiratory no cough , no shortness of breath. Gastrointestinal no nausea ,no vomiting, no abdominal pain Physical Exam Vital Signs: Vital Signs: Selected Entries 08/28/20 11:01 Temperature 98.8 F Pulse Rate 53 Respiratory Rate 18 Blood Pressure 95/62 General patient resting comfortably in no acute distress. Neck is supple no JVD. CVS regular rate rhythm, Respiratory lungs clear to auscultation, no respiratory distress, no wheeze, no rhonchi. Gastrointestinal abdomen soft, nontender, bowel sounds audible, no no guarding , no rigidity. Extremities no clubbing cyanosis or edema. Neuro nonfocal patient moving all 4 extremity speech clear. Skin no rash Objective Data Current Medications Generic Name Dose Route Start Last Admin Trade Name Freq PRN Reason Stop Dose Admin Acetaminophen 650 mg 08/27/20 17:47 Acetaminophen Supp 650 Mg Supp.Rect [place] Q6H PRN Pain, Mild (Pain Scale 1-3) Allopurinol 200 mg 08/28/20 09:00 08/28/20 09:11 Allopurinol 100 Mg Tablet PO 200 mg DAILY MATTHEW Administration Bupropion HCl 150 mg 08/28/20 09:00 08/28/20 09:11 Bupropion Hcl Xl 150 Mg Tab.Er.24h PO 150 mg DAILY MATTHEW Administration Sodium Chloride 1,000 mls @ 150 mls/hr 08/27/20 18:45 08/28/20 12:43 Ns IVCONT Not Given .Q6H40M MATTHEW Olanzapine 15 mg 08/27/20 21:00 08/27/20 22:10 Olanzapine 7.5 Mg Tablet PO Not Given BEDTIME MATTHEW Ondansetron HCl 4 mg 08/27/20 17:47 Ondansetron Hcl 4 Mg/2 Ml Vial IVPUSH Q8H PRN Nausea and Vomiting Oxycodone HCl 5 mg 08/27/20 17:47 Oxycodone Hcl Immed Release 5 Mg Tablet PO Q4H PRN Pain, Severe (Pain Scale 7-10) Sodium Chloride 3 ml 08/28/20 00:00 08/28/20 09:12 0.9 % Sodium Chloride Flush 3 Ml Syringe IVFLUSH 3 ml QSHIFT MATTHEW Administration Vitamin D 25 mcg 08/28/20 09:00 08/28/20 09:12 Cholecalciferol (Vitamin D3) 25 Mcg Tablet PO 25 mcg DAILY MATTHEW Administration Labs CBC & Chem 7: 08/28/20 05:24 08/28/20 05:24 Assessment and Plan (1) Hypotension: Status: Acute (2) Acute worsening of stage 4 chronic kidney disease: Status: Acute (3) Invasive lobular carcinoma of left breast in female: Status: Acute (4) Bradycardia: Status: Acute Assessment and Plan: This is a 65-year-old female patient, admitted for an elective left breast lumpectomy with needle localization and left sentinel node biopsy due to recently diagnosed invasive lobular carcinoma of left breast. During procedure, the patient became hypotensive and hence being admitted for continued monitoring and treatment. 1. Hypotension/ bradycardia. persistent low blood pressure this morning patient remains asymptomatic, with no chest pain no shortness of breath no lightheadedness or dizziness tele monitor showed heart rate in mid 40s patient remained asymptomatic, will continue IV fluid my do drain, obtain ca rdiology consultation will hold olanzapine, no evidence of infection or sepsis, WBC trending down urinalysis unremarkable, continue tele monitor to rule out arrhythmia or heart block, if hypotension persists and patient become symptomatic then will escalate care and transfer patient to ICU for pressors, but since the patient is asymptomatic, continue tele monitoring. 2. Acute on chronic kidney disease stage IV likely due to hypotension. creatinine gradually trending down Follow BMP 3. Leukocytosis, likely reactive. trending down 4. History of bipolar disorder. Continue home medications. 5. History of gout with no acute exacerbation. 6. DVT prophylaxis on compression boots
--- NOTE | 2020-08-28 13:30 | HO.POSTANES ---
Post Anesthesia Evaluation Post Anesthesia Evaluation Vital Signs: Vital Signs Temp Pulse Resp BP Pulse Ox 08/28/20 11:01 98.8 F 53 18 95/62 92 08/28/20 09:11 86/48 L 08/28/20 07:37 98.9 F 65 16 81/59 L 92 08/28/20 03:35 98.5 F 78 18 100/66 92 Anesthesia: General LMA Mental Status: Awake Pain Control: Satisfactory Nausea/Vomiting: None Hydration: Adequate Anesthesia-Related Issues: No Anes. Related Issues
--- NOTE | 2020-08-28 13:57 | PM.CNCAR ---
History of Present Illness History of Present Illness Date of Consult: August 28, 2020 Requesting physician: Rajeev Leonard Consult reason: post-op evaluation and hypotension Chief complaint: hypotension post op s/p lft breast lumpectomy,copd Narrative: Thank you for consulting us on Kim for cardiology evaluation of low blood pressure and noted low heart rate with sinus bradycardia. She is a pleasant 65-year-old woman with prior history of bipolar disorder, chronic kidney disease, came in yesterday for elective surgery for breast cancer. Postoperatively noted to have persistent low blood pressure, she received more than 2 L of Ringer lactate and then more IV fluids. Blood pressure remained on the lower side. She was completely asymptomatic during this time without any symptoms of lightheadedness. Workup so far has been negative. EKG done this morning shows sinus bradycardia at 49 beats per minute. Patient denies chest pain, palpitations, lightheadedness, syncope, shortness of breath. She is on olanzapine and bupropion for her bipolar disorder. Both of these can cause orthostatic hypertension. Orthostatic vitals were not checked. Her heart rate was in the 80s and after getting midodrine this a.m. the heart rate are in the upper 40s. Review of Systems Review of Systems: Yes all other systems are reviewed and are negative PMFSH Past Medical History Medical History Basal cell carcinoma Chronic cough Chronic kidney disease (CKD) Colonoscopy planned Depression Gout History of colon polyps (~2015) Invasive lobular carcinoma of left breast in female Melanoma Schizoaffective disorder Family History Family History Maternal Grandfather History of cancer of unknown primary site Other History of skin cancer Surgical History Surgical History H/O left breast biopsy History of partial colectomy Social History Social History Household Members: None Housing: Apartment Alcohol intake: never Smoking Status: Current every day smoker Tobacco Type: Cigar Packs Per Day: 1 Cigarettes Per Day: 20.0 Years Smoked: 55 Smoked in Last 30 Days: Yes Patient Interested in Nicotine Replacement: No Patient Given Instructions on How to Stop Smoking: Yes Date Education Initiated: 08/25/20 Second Hand Smoke Exposure: No Use of substances other than those prescribed or required for medical reasons: No Substance Use Type Other:: CRACK COCAINE H-NO CURRENT Currently Displaying Signs/Symptoms of Drug Intoxication Withdrawal: No Have you been hit, kicked, punched, or otherwise hurt by someone within the past year? If so, by whom?: No Do you feel safe in your current relationship?: No Current Relationship Advance Directives: No Advance Directives Information Provided: No Advance Directives on File: No Do you have thoughts of harming others: None Do you have a plan to hurt others: No Plan Recently lost weight without trying: No service: No Current occupational status: disabled Meds Allergies Allergy/AdvReac Type Severity Reaction Status Date / Time No Known Allergies Allergy Verified 08/11/20 15:57 Home Medications Medication Instructions Recorded Confirmed Type allopurinol 100 mg tablet 200 mg PO DAILY 08/05/20 08/25/20 History bupropion HCl 150 mg 24 hr tablet, 150 mg PO DAILY 08/05/20 08/25/20 History extended release cholecalciferol (vitamin D3) 25 25 mcg PO DAILY 08/05/20 08/25/20 History mcg (1,000 unit) capsule mecobalamin (vitamin B12) 1,000 1,000 mcg SUBLINGUAL DAILY 08/05/20 08/25/20 History mcg disintegrating tablet,sublingual olanzapine 15 mg tablet 15 mg PO BEDTIME 08/05/20 08/25/20 History Physical Exam Vital Signs: Vital Signs: Vital Signs Temp Pulse Resp BP Pulse Ox 08/28/20 11:01 98.8 F 53 18 95/62 92 08/28/20 09:11 86/48 L 08/28/20 07:37 98.9 F 65 16 81/59 L 92 08/28/20 03:35 98.5 F 78 18 100/66 92 08/28/20 01:27 91 104/78 08/27/20 23:49 64 82/58 L 08/27/20 23:24 97.4 F 64 16 82/58 L 95 08/27/20 23:00 90/60 91 L 08/27/20 21:20 74 84/53 L 91 L 08/27/20 19:33 67 97/69 08/27/20 18:18 97.9 F 68 14 88/52 L 95 08/27/20 17:51 80 20 92/60 99 08/27/20 17:38 84 20 85/63 L 99 08/27/20 17:23 97.9 F 08/27/20 17:18 87 20 92/54 L 95 08/27/20 17:04 87 20 93/60 97 08/27/20 17:00 99 20 87/55 L 97 08/27/20 16:56 89 20 82/58 L 97 08/27/20 16:41 90 20 85/53 L 97 08/27/20 16:33 89 20 87/48 L 97 08/27/20 16:12 86 12 84/61 L 99 08/27/20 16:09 88 12 90/61 99 08/27/20 16:01 88 12 80/47 L 94 08/27/20 15:52 88 12 80/50 L 94 08/27/20 15:35 93 12 84/53 L 94 08/27/20 15:20 96 16 80/51 L 95 08/27/20 15:10 102 H 16 90/64 90 L 08/27/20 14:54 117 H 20 81/39 L 93 08/27/20 14:23 94 20 92 08/27/20 14:11 95 08/27/20 14:08 96 20 92 Body Mass Index 23.0 Const: General: cooperative, comfortable, no acute distress, well developed, alert and awake Nutritional Appearance: average body habitus Orientation/consciousness: patient oriented x3 Limitations: no limitations HENMT: Head: Yes normal to inspection, Yes normocephalic and Yes atraumatic Eyes: General: appearance normal, both eyes and all related structures Neck: Neck: Yes trachea midline and Yes no JVD Chest: Chest palpation & inspection: normal inspection of the chest Resp: Effort & Inspection: normal respiratory effort Auscultation: clear to auscultation bilaterally Cardio: Palpation: normal PMI Rate: regular rate and bradycardic Rhythm: regular rhythm Heart sounds: S1 normal heart sound present and S2 normal heart sound present Peripheral pulses: Peripheral pulses 2+ throughout GI: Inspection: Yes normal to inspection Auscultation: normal bowel sounds Skin: General skin exam: elasticity normal and turgor normal Neuro: General: patient oriented x3 and no focal motor deficits Extrem: General: Yes no clubbing, cyanosis or edema Psych: Mental Status: mental status grossly normal Speech and movement: Clear speech present Affect: normal affect Attitude: cooperative Thought process: Normal thought process present Results Labs and Meds Result diagrams: 08/28/20 05:24 08/28/20 05:24 Lab results: Laboratory Results - last 24 hr 08/27/20 08/27/20 08/28/20 17:15 17:15 01:18 WBC 15.0 H RBC 3.25 L Hgb 11.6 L Hct 35.2 L MCV 108.3 H MCH 35.7 H MCHC 33.0 RDW 13.2 Plt Count 119 L MPV 9.6 Immature Gran % (Auto) 0.5 H Neut % (Auto) 97.1 H Lymph % (Auto) 1.1 L [place] % (Auto) 1.1 L Eos % (Auto) 0.1 Baso % (Auto) 0.1 Lymph # (Auto) 0.2 L [place] # (Auto) 0.2 Eos # (Auto) 0.0 Baso # (Auto) 0.0 Abs Immat Gran (auto) 0.07 H Absolute Neuts (auto) 14.5 H Absolute Nucleated RBC 0.000 Nucleated RBC % (auto) 0.0 Smear Tech's Comments VERIFIED Sodium 144 Potassium 3.4 Chloride 112 H Carbon Dioxide 21 L Anion Gap 14 BUN 21 H Creatinine 2.51 H Estim Creat Clear Calc 16.8 Estimated GFR 19 Random Glucose 207 H Calcium 7.6 L Phosphorus 3.7 Magnesium 1.6 Urine Color STRAW Urine Appearance CLEAR Urine pH 6.0 Ur Specific Kimberly 1.010 Urine Protein NEG Urine Glucose (UA) NEG Urine Ketones NEG Urine Blood NEG Urine Nitrite NEG Ur Leukocyte Esterase NEG 08/28/20 08/28/20 05:24 05:24 WBC 12.7 H RBC 2.81 L Hgb 10.0 L Hct 30.1 L MCV 107.1 H MCH 35.6 H MCHC 33.2 RDW 13.1 Plt Count 115 L MPV 10.0 Immature Gran % (Auto) 0.5 H Neut % (Auto) 90.3 H Lymph % (Auto) 6.1 L [place] % (Auto) 2.7 Eos % (Auto) 0.2 Baso % (Auto) 0.2 Lymph # (Auto) 0.8 L [place] # (Auto) 0.3 Eos # (Auto) 0.0 Baso # (Auto) 0.0 Abs Immat Gran (auto) 0.07 H Absolute Neuts (auto) 11.5 H Absolute Nucleated RBC 0.000 Nucleated RBC % (auto) 0.0 Smear Tech's Comments Sodium 146 H Potassium 3.9 Chloride 114 H Carbon Dioxide 22 Anion Gap 14 BUN 23 H Creatinine 2.36 H Estim Creat Clear Calc 17.9 Estimated GFR 21 Random Glucose 107 D Calcium 6.6 L Phosphorus Magnesium Urine Color Urine Appearance Urine pH Ur Specific Kimberly Urine Protein Urine Glucose (UA) Urine Ketones Urine Blood Urine Nitrite Ur Leukocyte Esterase EKG shows sinus bradycardia with low-voltage QRS otherwise normal EKG Assessment and Plan (1) Hypotension: Problem details: low blood pressure without any clear symptoms. Not clearly suggestive of hypotension. Etiology is unclear, could be related to postanesthesia medication effect versus vaso dilatation from psychotropic medications, again unusual. Patient is completely asymptomatic at this time. Continue IV fluids. Continue to hold psychotropic medications if possible. Agree with midodrine, can lower the dose to 5 mg t.i.d.. See below. There is no indication for ICU monitoring or vasopressor therapy at this point in time. Continue to monitor BMP. No other interventions required. Status: Acute (2) Bradycardia: Problem details: Sinus bradycardia, developed after oral administration of midodrine therapy. This is interesting phenomenon. This is most likely due to vaso constriction induced by alpha agonist therapy and increased SVR. No indication for pacing. Continue to monitor on cardiac telemetry. Will sign of the case at current time. Status: Acute
--- NOTE | 2020-08-28 17:22 | CONS_ITS ---
DATE OF SERVICE: 08/28/2020 REASON FOR CONSULTATION: I was called to see this patient to assist in the management of chronic kidney disease and hypotension. HISTORY OF PRESENT ILLNESS: To summarize, Kim is a 65-year-old woman with history of schizoaffective disorder. 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 She also has chronic kidney disease stage 3 with baseline creatinine between 1.6 and 1.7 mg/dL. She underwent elective left breast lumpectomy with needle localization and left sentinel node biopsy. Subsequently, she developed hypotension and the serum creatinine was found to be 2.51. This consult has been requested for management of the acute kidney injury. PAST MEDICAL HISTORY: Ongoing medical problems include history of schizoaffective disorder/bipolar disorder, stage 3 chronic kidney disease, gout, history of cocaine abuse in the past. SOCIAL HISTORY: Lives alone. No history of any drug abuse at present. She smokes 1 pack per day. FAMILY HISTORY: Not significant for any kidney disease. ALLERGIES: NO KNOWN DRUG ALLERGIES. MEDICATIONS: At home included Tylenol, vitamin D, olanzapine, bupropion, allopurinol, lithium as per records. REVIEW OF SYSTEMS: No headache, nausea, or vomiting. No abdominal pain, diarrhea, or constipation. She denies any polyuria or polydipsia at present. PHYSICAL EXAMINATION: GENERAL: Kate Alvarez appears comfortable. HEENT: The mucosa is dry. NECK: Supple. No JVD. LUNGS: Air entry equal. No rales. HEART: S1 and S2 heard. No gallop. No rub. ABDOMEN: Soft, nontender. EXTREMITIES: No edema. No rash. No clubbing. VITAL SIGNS: Blood pressure was 95/62, afebrile, pulse 53 per minute. LABORATORY DATA: Hemoglobin 10.0, WBC 12.7, platelets 115. Sodium 146, potassium 3.9, BUN 23, creatinine 2.36. Urinalysis showed specific gravity 1.010, no protein, no blood by dipstick. IMPRESSION: 1. Acute kidney injury, superimposed on chronic kidney disease. Acute kidney injury is most likely due to hypoperfusion from low blood pressure. 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 Therefore, hypovolemia should be considered. We will workup for the same. 2. History of hypotension, most likely from hypovolemia. 3. Mild hypernatremia due to free water deficits, most likely related to underlying diabetes insipidus. History of hypocalcemia, which needs further workup, usually we expect hypercalcemia in the setting of lithium nephropathy. RECOMMENDATIONS: My recommendations include to obtain a spot urine for sodium, creatinine, osmolality and check serum osmolality. Agree with IV hydration with normal saline at the current rate to optimize the blood pressure. In the meantime, if she develops polyuria, we might have to lower the IV fluids. Encourage p.o. water to correct hypernatremia. I have discussed the case with Dr. Leonard and will be happy to follow her along with the team. Colin Durham MD BPA/MODL / [id number]
[2020-08-28] MEDS: Midodrine HCl 2.5 MG TABLET PO (21:11)
[2020-08-28 23:38] LABS: Osmolality Urine 126 mosm/kg (373-1093)
[2020-08-28 23:40] LABS: Creatinine Urine 26.56 mg/dL
[2020-08-29 00:37] LABS: SLIDE REVIEW VERIFIED
[2020-08-29] MEDS: 0.9 % Sodium Chloride 1,000 ML 150 ML IVCONT (02:09)
[2020-08-29 03:43] VITALS: BP 112/78; PULSE 51; RESP 18; TEMP 36.4; O2SAT 97
[2020-08-29 07:36] VITALS: BP 126/79; PULSE 59; RESP 18; TEMP 36.7; O2SAT 93
[2020-08-29 08:08] LABS: Blood Urea Nitrogen 23 mg/dL (9-16); Creatinine Clr Calc Pharmacy 18.7; Estimated Glomerular Filt Rate 22; Glucose Random 81 mg/dL (60-115)
--- NOTE | 2020-08-29 08:21 | P.PNGS_ITS ---
Subjective Subjective Interval history: says she feels well says she is ready to go home BP ok overnight Physical Exam Vital Signs: Vital Signs: Vital Signs Temp Pulse Resp BP Pulse Ox 08/29/20 07:36 98.1 F 59 18 126/79 93 08/29/20 03:43 97.5 F 51 18 112/78 97 08/28/20 23:12 97 F 51 18 118/74 91 L 08/28/20 21:11 61 101/71 08/28/20 20:00 97 F 80 18 118/72 100 08/28/20 16:00 97.4 F 60 18 90/58 L 93 08/28/20 11:01 98.8 F 53 18 95/62 92 08/28/20 09:11 86/48 L Body Mass Index 23.0 Const: General: comfortable and no acute distress Chest: Other: surgical site on breast and axilla clean, dry, no erythema or drainage Cardio: Rhythm: regular rhythm GI: Palpation (GI): Soft to palpation, nontender and no guarding Progress Note: A&P Assessment and plan (1) Invasive lobular carcinoma of left breast in female: Status: Acute Assessment and Plan: S/P lumpectomy, SLN biopsy was kept on extended stay due to hypotension postop BP overnight stable surgical sites clean she looks well ready to be discharged home - will dw Hospitalist dw her daughter Ciara Fall Risk Details Current Medications: Current Medications Generic Name Dose Route Start Last Admin Trade Name Freq PRN Reason Stop Dose Admin Acetaminophen 650 mg 08/27/20 17:47 Acetaminophen Supp 650 Mg Supp.Rect IL Q6H PRN Pain, Mild (Pain Scale 1-3) Allopurinol 200 mg 08/28/20 09:00 08/28/20 09:11 Allopurinol 100 Mg Tablet PO 200 mg DAILY MATTHEW Administration Bupropion HCl 150 mg 08/28/20 09:00 08/28/20 09:11 Bupropion Hcl Xl 150 Mg Tab.Er.24h PO 150 mg DAILY MATTHEW Administration Midodrine 2.5 mg 08/28/20 21:00 08/28/20 21:11 Midodrine Hcl 2.5 Mg Tablet PO 2.5 mg TID MATTHEW Administration Ondansetron HCl 4 mg 08/27/20 17:47 Ondansetron Hcl 4 Mg/2 Ml Vial IVPUSH Q8H PRN Nausea and Vomiting Oxycodone HCl 5 mg 08/27/20 17:47 Oxycodone Hcl Immed Release 5 Mg Tablet PO Q4H PRN Pain, Severe (Pain Scale 7-10) Sodium Chloride 3 ml 08/28/20 00:00 08/29/20 00:30 0.9 % Sodium Chloride Flush 3 Ml Syringe IVFLUSH Not Given QSHIFT MATTHEW Vitamin D 25 mcg 08/28/20 09:00 08/28/20 09:12 Cholecalciferol (Vitamin D3) 25 Mcg Tablet PO 25 mcg DAILY MATTHEW Administration Time Spent With Patient Time: Total time spent is greater than 50% in coordination of care (as do cumented) at patient's floor/unit and/or counseling patient: Time with patient: 15 - 24 minutes
[2020-08-29] MEDS: 0.9 % Sodium Chloride Flush 3 ML SYRINGE IVFLUSH (08:26)
[2020-08-29 08:27] VITALS: BP 126/79; PULSE 59
[2020-08-29 08:27] LABS: Anion Gap 9 (12-20); Calcium 6.7 mg/dL (8.4-10.2); Carbon Dioxide 21 mmol/L (22-29); Chloride 121 mmol/L (96-108); Potassium 4.1 mmol/l (3.3-5.1); Sodium 147 mmol/L (135-145)
[2020-08-29] MEDS: buPROPion HCl XL 150 MG TAB.ER.24H PO (08:27)
[2020-08-29] MEDS: Cholecalciferol (Vitamin D3) 25 MCG TABLET PO (08:27)
[2020-08-29] MEDS: Midodrine HCl 2.5 MG TABLET PO (08:27)
[2020-08-29] MEDS: allopurinoL 100 MG TABLET 200 MG PO (08:28)
[2020-08-29 08:29] LABS: Thyroid Stimulating Hormone 0.45 mIU/mL (0.32-4.0)
--- NOTE | 2020-08-29 08:33 | MHC.CM.PN ---
Discharge planned for today, home with no services. transportation to be arranged by patient
--- NOTE | 2020-08-29 10:37 | HO.PM.IMPN ---
Subjective Subjective Date of Service: 08/29/20 Interval History: patient offers no complaints denies pain denies lightheadedness dizziness, denies chest pain, no acute issues overnight, blood pressure improved to 126/70 with stable pulse. Review of Systems General no headache, no lightheadedness, no dizziness ,no fever chills. CVS no chest pain, no palpitation. Respiratory no cough , no shortness of breath. Gastrointestinal no nausea, no vomiting, no abdominal pain Physical Exam Vital Signs: Vital Signs: Vital Signs Temp Pulse Resp BP Pulse Ox 08/29/20 08:27 59 126/79 08/29/20 07:36 98.1 F 59 18 126/79 93 08/29/20 03:43 97.5 F 51 18 112/78 97 08/28/20 23:12 97 F 51 18 118/74 91 L 08/28/20 21:11 61 101/71 08/28/20 20:00 97 F 80 18 118/72 100 08/28/20 16:00 97.4 F 60 18 90/58 L 93 08/28/20 11:01 98.8 F 53 18 95/62 92 Body Mass Index 23.0 General patient resting comfortably in no acute distress. Neck is supple no JVD. CVS regular rate rhythm, Respiratory lungs clear to auscultation, no respiratory distress, no wheeze, no rhonchi. Gastrointestinal abdomen soft, nontender, bowel sounds audible, no no guarding , no rigidity. Extremities no clubbing cyanosis or edema. Neuro nonfocal patient moving all 4 extremity speech clear. Skin no rash Objective Data Labs CBC & Chem 7: 08/28/20 05:24 08/29/20 06:03 Assessment and Plan (1) Hypotension: Problem details: Status: Acute (2) Acute worsening of stage 4 chronic kidney disease: Status: Acute (3) Invasive lobular carcinoma of left breast in female: Status: Acute (4) Bradycardia: Problem details: Status: Acute Assessment and Plan: This is a 65-year-old female patient, admitted for an elective left breast lumpectomy with needle localization and left sentinel node biopsy due to recently diagnosed invasive lobular carcinoma of left breast. During procedure, the patient became hypotensive and hence being admitted for continued monitoring and treatment. 1. Hypotension/ bradycardia. blood pressure improved this morning, patient remains asymptomatic, with no chest pain no shortness of breath no lightheadedness or dizziness heart rate now on high 50s bradycardia was most likely related to use of midodrine switch since patient is asymptomatic with improvement in heart rate and BP patient is stable medically for discharge home. Will discontinue IV fluids and midodrine. 2. Acute on chronic kidney disease stage IV likely due to hypotension. creatinine gradually trending down currently 2.2 close to baseline 1.86 3. Leukocytosis, likely reactive. trending down, no evidence of infection normal urinalysis and no fevers. 4. History of bipolar disorder. Continue home medications. 5. History of gout with no acute exacerbation. 6. DVT prophylaxis on compression boots
--- NOTE | 2020-09-01 10:36 | P.DS_ITS ---
DS: Providers Provider Date of admission: 08/27/20 17:04 Primary care physician: Unknown Physician Consults: 08/27/20 17:47 Consult to Hospitalist Routine Consulting Provider: Hospitalist Reason for consultation: hypotension post operative, COPD Has provider been notified: No 08/27/20 18:39 Consult to Nephrology Routine Consulting Provider: Colin Durham Reason for consultation: acute on ckd Has provider been notified: Yes 08/28/20 11:35 Consult to Cardiology Routine Consulting Provider: Ernesto Choe Reason for consultation: bradycardia and persistent hypertension DS: Diagnosis Discharge Diagnosis (1) Hypotension: Status: Acute Problem details: Patient developed postoperative hypotension related to her medications and anesthesia. She was observed for extended recovery and noted to have continued hypotension on the day following surgery. A cardiology consultation was obtained and she was observed for another 24 hours. On postoperative day 2. Blood pressure was much improved and she remained asymptomatic. Patient was subsequently discharged home in stable condition. (2) Invasive lobular carcinoma of left breast in female: Status: Acute Problem details: On the day of admission the patient underwent lumpectomy and sentinel node biopsy left side for invasive lobular carcinoma. She tolerated the procedure well and there is no evidence of hematoma causing the patient's hypotension. She remained comfortable during her hospital stay with no significant breast or axillary pain. (3) Acute worsening of stage 4 chronic kidney disease: Status: Acute (4) Bradycardia: Status: Acute Problem details: DS: Summary Time Spent with Patient Time attestation: Total time spent providing and/or coordinating discharge services: <30 Physical Exam Vital Signs: Vital Signs: Body Mass Index 23.0 Const: Other: Thin female in no acute distress, awake and alert Neck: Other: supple, normal range of motion, no JVD Chest: Other: left breast and axillary incisions are clean, dry, and intact with intact dressings. No seroma or hematoma Resp: Other: breathing comfortably on room air, no shortness of breath GI: Other: soft and nondistended, normal bowel sounds Extrem: Other: normal range of motion, no edema DS: Data Data Completed and Pending Completed studies during hospitalization [Text1]: Procedures Excision of Left Axillary Lymphatic, Percutaneous Approach, Diagnostic (08/27/20) Excision of Left Breast, Open Approach (08/27/20) Pending studies at discharge: Pending at discharge 08/27/20 12:12 Surgical [PTH] Stat Discharge Plan Discharge Anticipated Discharge Date/Time: 08/29/20 08:28 Patient Disposition: Home, Self-Care Referrals: Herminio Jean MD [Physician] - 1 Week Physician,Unknown [Primary Care Provider] - Discharge Medications: New oxycodone 5 mg tablet 5 mg PO Q6H PRN (Reason: pain) Qty: 14 RF: 0 Continued olanzapine 15 mg tablet 15 mg PO BEDTIME RF: 0 bupropion HCl 150 mg tablet extended release 24 hr 150 mg PO DAILY RF: 0 allopurinol 100 mg tablet 200 mg PO DAILY RF: 0 cholecalciferol (vitamin D3) 25 mcg (1,000 unit) capsule 25 mcg PO DAILY RF: 0 mecobalamin (vitamin B12) 1,000 mcg tablet,disintegrating 1,000 mcg sublingual DAILY RF: 0 Discharge Orders: Discharge Order (Routine); Ordered 08/29/20 Ordered By: Ramon Sotelo Diet: advance to your usual diet Activity on Discharge: No heavy lifting Patient Instructions: Surgical Breast Biopsy (DC), Breast Cancer [place] Lymph Node Biopsy (DC) Discharge Date/Time: 08/29/20 10:15 Activity Restrictions/Additional Instructions: Apply Ice to left breast x 24 hours Remove tegaderm in three days Wear bra overnight for the first day Avoid heavy lifting and driving for one week Follow up in office in one week Visit Report Forms: Patient Portal Discharge page Care Plan Goals: ffup in office with Dr. Jean Health Concerns: breast cancer blood pressure control Plan of Treatment: ffup with Dr. Jean
== END 2020-08-29 10:15 | disposition home or self-care (01) | DRG 580 ==
LOC: HO.IMC 17:28
PROVIDERS: Hospitalist; Internal Medicine Hypertension Specialist; Admitting Provider Surgery; Visit Provider Surgery
PROC: 07B63ZX Excision of Left Axillary Lymphatic, Percutaneous Approach, Diagnostic (ICD-10-PCS; principal; 2020-08-27 11:00)
PROC: 07B63ZX Excision of Left Axillary Lymphatic, Percutaneous Approach, Diagnostic (ICD-10-PCS; CPT 19301; 2020-08-27 11:00)
DX: C50.912 Malignant neoplasm of unspecified site of left female breast (principal); N18.4 Chronic kidney disease, stage 4 (severe); N17.9 Acute kidney failure, unspecified; F25.0 Schizoaffective disorder, bipolar type; F14.11 Cocaine abuse, in remission; D72.829 Elevated white blood cell count, unspecified; I95.81 Postprocedural hypotension; M10.9 Gout, unspecified; F17.290 Nicotine dependence, other tobacco product, uncomplicated; F17.210 Nicotine dependence, cigarettes, uncomplicated; Z71.6 Tobacco abuse counseling; Z79.899 Other long term (current) drug therapy
CPT/HCPCS: 19281; 19282; 36415; 78195; 80048; 81003; 83735; 83935; 84100; 84300; 84443; 85025; 88307; 88329; 88342; 93005; 93306; 94640; 99024; A4648; J0690; J1100; J1885; J2250; J2370; J2405; J3010

== ENCOUNTER → 2020-09-02 13:42 | Outpatient (BNVA) | payer MEDICARE, MEDICAID, SELFPAY | PROVIDERS: Visit Provider Surgery | DX: Z48.3 Aftercare following surgery for neoplasm (principal); C50.912 Malignant neoplasm of unspecified site of left female breast | CPT/HCPCS: 99212 ==

== ENCOUNTER 2020-09-03 18:10 | Outpatient (REF) | payer MEDICARE, MEDICAID, SELFPAY ==
--- NOTE | 2020-09-03 18:15 | MR_ITS ---
EXAMINATION: MR BREAST WITHOUT AND WITH CONTRAST, BILATERAL CLINICAL INFORMATION: Multifocal left breast invasive lobular carcinoma. Surgery performed 08/27/2020. COMPARISON: Needle localization 08/27/2020. Mammogram ultrasound 07/21/2020. TECHNIQUE: Imaging was performed with a dedicated breast coil. Prior to the administration of contrast, bilateral axial T1 and bilateral axial T2-weighted sequences were obtained. After the uneventful administration of?5.5 mL of Gadavist, dynamic contrast-enhanced VIBRANT series through the breasts in the axial plane were performed. Subtracted images were performed and reviewed. A delayed sagittal sequence through both breasts was acquired. Additionally, CAD post-processing, including maximum intensity projections, 3-D reconstructions and kinetic analysis, were performed an independent workstation and reviewed by the interpreting radiologist is a portion of this exam. FINDINGS: The patient's fibroglandular tissue demonstrates moderate background enhancement. LEFT BREAST: There is a large area of postsurgical change extending from the 10 o'clock position laterally and inferiorly to the 3 o'clock position. There is a large T2 hyperintense fluid collection which is heterogeneous consistent with recent surgery. This measures approximately 6 cm in the transverse plane. There is no known information on the status of postsurgical margins. There is some circumferential nodular enhancement along the 12 o'clock position of the postsurgical site (image 66, sagittal reconstructed series). Recommend comparison with known surgical margins. In the deep retroareolar plane, 7.1 cm from the nipple, there is an enhancing focus with indistinct margins measuring 0.3 cm in size which demonstrates type II or plateau enhancement. Given the overall minimal background enhancement and the known invasive lobular carcinoma within the breast this finding is suspicious (image 62, series 100). This finding is just inferior to the lumpectomy bed by approximately 1 cm. No other definite MR specific evidence for additional remained disease within the left breast. There is diffuse anterior skin thickening consistent with postoperative edema. RIGHT BREAST: In the 6 o'clock position of the right breast, there is a reniform enhancing mass measuring 0.6 cm in size with increased signal intensity on the T2-weighted images consistent with an intramammary lymph node (image 81, series 100). Smaller nodular enhancing foci in the lower outer quadrant of the right breast also demonstrate increased signal intensity in the T2-weighted images and are most consistent with intramammary lymph nodes. There are stable mammographic findings in this location. In addition, a similar finding is noted at 2 o'clock, middle depth. No convincing suspicious [id number] or mass-like enhancement within the right breast. No abnormal skin thickening or nipple retraction. No abnormal architectural distortion. Review of the T2-weighted images demonstrates no fibrocystic changes or dilated ducts. Review of kinetic images reveals no additional findings. There are postoperative changes in the left axillary region limiting assessment. No convincing abnormal right axillary lymph nodes. Limited views of the chest and abdomen are unremarkable. MR/MR breast BI wo/w con IMPRESSION: 1. Somewhat limited MRI given the history of recent left breast surgery for multifocal invasive lobular carcinoma. Minimal nodular enhancement along the 12 o'clock position of the postoperative cavity. 2. Indeterminate focus of enhancement in the deep retroareolar plane of the left breast approximately 1 cm inferior-posterior to the resection site. It is difficult to completely exclude additional sites of carcinoma. Consider MRI-guided biopsy targeted to this area, as appropriate. 3. No convincing MR specific evidence of malignancy within the right breast. ASSESSMENT: LEFT BREAST: BI-RADS 4 - Suspicious abnormality - Biopsy should be considered. RIGHT BREAST: BI-RADS 2 - Benign Findings. RECOMMENDATIONS: Consider MRI-guided biopsy, left breast versus reexcision.
== END 2020-09-03 18:11 | disposition home or self-care (01) ==
LOC: HO.MRI 18:10
PROVIDERS: PCP Internal Medicine; Visit Provider Surgery
DX: C50.912 Malignant neoplasm of unspecified site of left female breast (principal)
CPT/HCPCS: 77049; A9585

== ENCOUNTER → 2020-09-08 14:25 | Outpatient (BNVA) | payer MEDICARE, MEDICAID, SELFPAY | PROVIDERS: PCP Internal Medicine; Visit Provider Surgery | DX: C50.912 Malignant neoplasm of unspecified site of left female breast (principal) | CPT/HCPCS: 99212 ==

== ENCOUNTER 2020-09-15 14:41 | Outpatient (REF) | payer MEDICARE, MEDICAID, SELFPAY ==
--- NOTE | 2020-09-15 14:46 | MM_ITS ---
EXAMINATION: BONE DENSITOMETRY CLINICAL INDICATION: Menopausal. COMPARISON: Baseline BD dated 11/03/2008. TECHNIQUE: Using a [employer] DXA System (software version: 13.1) manufactured by [employer], dual-energy x-ray absorptiometry was performed of the lumbar spine and left hip. The images are of good technical quality. Summary results are attached. FINDINGS: AP SPINE L1-L2 (excluding L3 and L4): The data of L1-L4 has been changed to exclude the L3 and L4 vertebral bodies, because degenerative changes at these levels may cause overestimation of lumbar spine density. It is uncertain if there is lumbar segmentation anomaly. Similar lumbar level numbering is used to be consistent with prior exam 11/03/2008. Current: BMD 0.792 g/cm2, Z-score -1.2, T-score -3.1, osteoporosis, 17.0% decrease from baseline (<5% change is not significant). Baseline: BMD 0.954 g/cm2. LEFT FEMUR, NECK: Current: BMD 0.664 g/cm2, Z-score -1.0, T-score -2.7, osteoporosis. Baseline: BMD 0.781 g/cm2. LEFT FEMUR, TOTAL: Current: BMD 0.629 g/cm2, Z-score -1.6, T-score -3.0, osteoporosis, 22.2% decrease from baseline (<5% change is not significant). Baseline: BMD 0.809 g/cm2. IDENTIFIED RISK FACTORS: Kidney disease. Current smoker. Menopause. HISTORY OF FRACTURE: None listed. MEDICATIONS: Calcium supplement or multivitamin. Vitamin D. MM/XR DEXA axial skeleton IMPRESSION: 1. DIAGNOSIS: Osteoporosis based on the lowest T-score value of -3.1 in the lumbar spine applying World Health Organization criteria. 2. 10-YEAR FRACTURE RISK PREDICTION, FRAX: According to the guidelines, FRAX calculation should only be performed on patients in the osteopenia bone density category. Therefore, FRAX was not performed on this patient.? 3. Treatment Recommendations: NOF guidelines recommend consideration for treatment in postmenopausal women and men age 50 and older presenting with the following: -A hip or vertebral (clinical or morphometric) fracture. -T-score less than or equal to -2.5 at the femoral neck or spine after appropriate evaluation to exclude secondary causes. -Low bone mass at the hip or spine and a 10-year fracture probability by FRAX of greater than or equal to 3% for hip fracture or greater than or equal to 20% for major osteoporotic fracture based on the [place] adapted WHO algorithm. 4. Other Recommendations: All treatment decisions require clinical judgment and consideration of individual patient factors, including patient preferences, comorbidities, previous drug use, risk factors not captured in the FRAX model (e.g. frailty, falls, vitamin D deficiency, increased bone turnover, interval significant decline in bone density) and possible under or overestimation of fracture risk by FRAX. Additional medical evaluation for secondary cause of low bone mineral density may be appropriate. FUTURE SCAN RECOMMENDATION: People with diagnosed cases of osteoporosis or at high risk for fracture should have regular bone mineral density tests. For patients eligible for Medicare, routine testing is allowed once every 2 years. The testing frequency can be increased to one year for patients who have rapidly progressing disease, those who are receiving or discontinuing medical therapy to restore bone mass, or have additional risk factors.
== END 2020-09-15 14:42 | disposition home or self-care (01) ==
LOC: HO.MAMMO 14:41
PROVIDERS: Visit Provider Internal Medicine
DX: N95.9 Unspecified menopausal and perimenopausal disorder (principal); Z91.89 Other specified personal risk factors, not elsewhere classified
CPT/HCPCS: 77080

== ENCOUNTER 2020-09-29 12:51 | Outpatient (REF) | payer MEDICARE, MEDICAID, SELFPAY ==
[2020-09-29 14:30] LABS: Blood Urea Nitrogen 25 mg/dL (9-16); Estimated Glomerular Filt Rate 23
== END 2020-09-29 12:52 | disposition home or self-care (01) ==
LOC: HO.LAB 12:51
PROVIDERS: PCP Internal Medicine; Visit Provider Surgery
DX: C50.912 Malignant neoplasm of unspecified site of left female breast (principal)
CPT/HCPCS: 82565; 84520

== ENCOUNTER 2020-10-07 09:10 | Outpatient (REF) | payer MEDICARE, MEDICAID, SELFPAY ==
--- NOTE | 2020-10-07 | MM_ITS ---
PROCEDURE: MR GUIDED BREAST BIOPSY WITH MARKER CLIP PLACEMENT AND POST PROCEDURE DIGITAL MAMMOGRAPHY, LEFT CLINICAL INFORMATION: Known breast cancer. Lumpectomy. Reexcision. Area of suspicious enhancement associated with the superior aspect of the postoperative cavity. Small focus of enhancement deep central left breast on MRI. Tissue diagnosis requested COMPARISON: Previous studies were reviewed PROCEDURAL DETAILS: Prone dedicated breast coil MRI was performed before and after the IV administration of gadolinium-based contrast to localize an area of abnormal enhancement identified on preprocedure imaging. Incisional biopsy of abnormal enhancement in the breast using rotating vacuum-assisted device. Marker clip placement. Postprocedure digital mammography. CONSENT: The procedure was discussed with the patient. They seemed to understand the indications, alternatives, potential risks and benefits and agreed to proceed. Site and side were confirmed. Final timeout was performed. CONTRAST TYPE: Gadavist CONTRAST AMOUNT: 5.5 mL MEDICATIONS: Lidocaine 1% without epinephrine in the superficial tissues Lidocaine 1% with epinephrine in the deeper tissues DEVICE: A 9-gauge rotating vacuum assisted directional biopsy probe. APPROACH: Lateral TECHNIQUE/FINDINGS: Precontrast and postcontrast MRI was used to localize the target. There is interval decrease in the postoperative cavity. There is involving postoperative change. There is uniform thin peripheral enhancement around the surgical cavity. The previously suggested nodular asymmetric enhancement along the superior margin did not persist. Therefore, the superior abnormality on the previous MRI was not targetable and no specimen from this area was obtained. There is a 0.3 cm enhancing focus in the deep central left breast. The area was properly prepared. A small amount of 1% lidocaine local anesthetic was instilled superficially. Lidocaine with epinephrine local anesthetic was instilled more deeply. The device was placed and breast MRI was used to document targeting. Multiple directional vacuum-assisted specimens were obtained. MARKER CLIP: A vlad shaped marker clip was placed at the site. Specimen was submitted in formalin. The device was removed. Manual pressure was applied. Hemostasis was achieved. The area was cleansed and dried and Steri-Strips were used to approximate the skin edges. A bulky pressure dressing was put in place. The patient was given verbal and written instructions regarding care of the site was educated regarding potential complications. POST PROCEDURE DIGITAL MAMMOGRAPHY: Breast density: There are scattered areas of fibroglandular density. BI-RADS version 5, category B. There is skin thickening and skin retraction and there is an area of architectural distortion consistent with lumpectomy. There is a biopsy cavity with a tissue marker present. MM/MM diagnostic mammo unilat LT IMPRESSION: No evidence of immediate complication following biopsy. The nodular enhancement along the superior margin of the surgical cavity does not persist and this area was not sampled. A small enhancing focus in the deep central left breast was sampled. Prone dedicated breast coil pre-and post-contrast MRI was used to localize the target. Incisional vacuum assisted breast biopsy was performed. Marker clip placement. Post procedure digital mammography BI-RADS code 99-clip localization An addendum will be generated when the final pathology results are available.
[2020-10-07] MEDS: Lidocaine HCl 1 % MPF 5 ML VIAL SUBCUT ×2 (11:56→11:58)
== END 2020-10-07 09:11 | disposition home or self-care (01) ==
LOC: HO.MRI 09:10
PROVIDERS: Visit Provider Surgery
DX: C50.012 Malignant neoplasm of nipple and areola, left female breast (principal); C50.912 Malignant neoplasm of unspecified site of left female breast
CPT/HCPCS: 19085; 77065; 88305; A4648; A9585

== ENCOUNTER → 2020-10-13 14:29 | Outpatient (BNVA) | payer MEDICARE, MEDICAID, SELFPAY | PROVIDERS: PCP Internal Medicine; Referring Provider Internal Medicine; Visit Provider Surgery | DX: C50.912 Malignant neoplasm of unspecified site of left female breast (principal) | CPT/HCPCS: 99212 ==

== ENCOUNTER 2020-11-05 07:32 | Day surgery (SDC) | payer MEDICARE, MEDICAID, SELFPAY ==
[2020-10-29 07:52] VITALS: BMI 24.9
--- NOTE | 2020-11-03 14:33 | P.CONAN_ITS ---
Documented by User: Carrie Zhong 11/04/20 12:14 HPI - Anesthesia Eval Consult details Narrative: 65yo F for p Breast Mass wider Excision Lumpectomy done 08/26/2020. Admitted post-op d/t hypotension (low=80's/50's) and bradycardia (low=40's). Asymptomatic. Observed for 2 days inpt, BP improved Day 2 post-op. Seen by Renal and Cardiology without change in regimen. ? r/t psychotropic meds and anesthesia. Reviewed with Dr Lien IZAGUIRRE Past Medical History Medical History Basal cell carcinoma Chronic cough Chronic kidney disease (CKD) Colonoscopy planned Depression Gout History of colon polyps (~2015) Hypotension after procedure Invasive lobular carcinoma of left breast in female Melanoma Schizoaffective disorder Family History Family History Maternal Grandfather History of cancer of unknown primary site Other History of skin cancer Surgical History Surgical History H/O left breast biopsy History of partial colectomy Social History Social History Household Members: None Housing: Apartment Alcohol intake: never Smoking Status: Current every day smoker Tobacco Type: Cigar Packs Per Day: 1 Cigarettes Per Day: 20.0 Years Smoked: 55 Smoked in Last 30 Days: Yes Second Hand Smoke Exposure: No Use of substances other than those prescribed or required for medical reasons: No Advance Directives: No Advance Directives Information Provided: Yes service: No Current occupational status: disabled Meds Allergies Allergy/AdvReac Type Severity Reaction Status Date / Time No Known Allergies Allergy Verified 09/08/20 15:06 Home Medications Medication Instructions Recorded Confirmed Type allopurinol 100 mg tablet 200 mg PO DAILY 08/05/20 10/29/20 History bupropion HCl 150 mg 24 hr tablet, 150 mg PO DAILY 08/05/20 10/29/20 History extended release cholecalciferol (vitamin D3) 25 25 mcg PO DAILY 08/05/20 10/29/20 History mcg (1,000 unit) capsule mecobalamin (vitamin B12) 1,000 1,000 mcg SUBLINGUAL DAILY 08/05/20 10/29/20 History mcg disintegrating tablet,sublingual olanzapine 15 mg tablet 15 mg PO BEDTIME 08/05/20 10/29/20 History Exam Exam Date and Time: November 03, 2020 1433 Height,Weight and Vital Signs: Height 5 ft 1 in Weight 59.874 kg Narrative Narrative: Echo 08/28/20: Conclusions: - 1. Normal LV systolic function with impaired relaxation filling pattern 2. Normal cardiac valvular Doppler 3. Normal RV systolic pressure with elevated right atrial pressure 4. No pericardial effusion EKG 08/28/20 Sinus bradycardia @ 49 Low voltage QRS Nonspecific ST abnormality Abnormal ECG When compared with ECG of 13-JAN-2004 07:25, QRS voltage has decreased Heart rate has decreased Documented by User: Hardik Daniels 11/05/20 08:56 [facility] Past Medical History Medical History Basal cell carcinoma Chronic cough Chronic kidney disease (CKD) Colonoscopy planned Depression Gout History of colon polyps (~2015) Hypotension after procedure Invasive lobular carcinoma of left breast in female Melanoma Schizoaffective disorder Family History Family History Maternal Grandfather History of cancer of unknown primary site Other History of skin cancer Family history of problems with anesthesia: No Surgical History Surgical History H/O left breast biopsy History of partial colectomy History of Problems with Anesthesia: Yes (Had bradycardia and hypotension.) Social History Social History Household Members: None Housing: Apartment Alcohol intake: never Smoking Status: Current every day smoker Tobacco Type: Cigar Packs Per Day: 1 Cigarettes Per Day: 20.0 Years Smoked: 55 Smoked in Last 30 Days: Yes Second Hand Smoke Exposure: No Use of substances other than those prescribed or required for medical reasons: No Advance Directives: No Advance Directives Information Provided: Yes service: No Current occupational status: disabled Meds Allergies Allergy/AdvReac Type Severity Reaction Status Date / Time No Known Allergies Allergy Verified 09/08/20 15:06 Home Medications Medication Instructions Recorded Confirmed Type allopurinol 100 mg tablet 200 mg PO DAILY 08/05/20 10/29/20 History bupropion HCl 150 mg 24 hr tablet, 150 mg PO DAILY 08/05/20 10/29/20 History extended release cholecalciferol (vitamin D3) 25 25 mcg PO DAILY 08/05/20 10/29/20 History mcg (1,000 unit) capsule mecobalamin (vitamin B12) 1,000 1,000 mcg SUBLINGUAL DAILY 08/05/20 10/29/20 History mcg disintegrating tablet,sublingual olanzapine 15 mg tablet 15 mg PO BEDTIME 08/05/20 10/29/20 History Exam Airway Mallampati Class: I TM Dist: >3cm Neck ROM: Full Denture: Upper Heart: ok Lungs: ok Assessment and Plan Assessment Anesthesia Assessment: Anesthesia Plan Discussed and Chart Reviewed Final Anesthetic Review NPO: Yes ASA Class: II Final Preanesthetic Review: No Changes in Pt Med Stat, Meds/Allgs Chart Reviewed, Consent Obtained/Reviewed and Anes Risks/Benef Reviewed Patient Risk: Intermediate Procedure Risk: Low Anesthetic Plan Anesthetic Plan: GA, MAC: and Agree w/ Assess. and Plan Disposition: Standard PACU
[2020-11-05] VITALS (11 sets, daily range): BP systolic 79–125; BP diastolic 38–85; PULSE 84–107; RESP 18; TEMP 36.2–36.8; O2SAT 92–98
[2020-11-05] MEDS: ceFAZolin Sodium/Dextrose,Iso 2 GM/50 ML PIGGYBACK IV (08:12)
[2020-11-05] MEDS: 0.9 % Sodium Chloride 1,000 ML 100 ML IVCONT (08:12)
[2020-11-05 08:24] LABS: Amphetamine Screen Urine Not Detected (Not Detect); Barbiturates, Urine Not Detected (Not Detect); Benzodiazepines Screen Urine Not Detected (Not Detect); Cannabinoid Screen Urine Not Detected (Not Detect); Cocaine Screen Urine Not Detected (Not Detect); Opiate Screen Urine Not Detected (Not Detect); Phencyclidine Screen Urine Not Detected (Not Detect)
--- NOTE | 2020-11-05 08:52 | MHC.SHP ---
Pre-Procedural Eval Section A The patient is an INPATIENT: No Changes since office visit: Yes Patient answered all questions; No Cold of Flu in the past 2 weeks, No New Medical Problems and No Changes in Medication The History & Physical has been completed within 30 days and I have reviewed it.: Yes Section B Chief Complaint: invasive lobular carcinoma of left female breast Allergies: Allergies Allergy/AdvReac Type Severity Reaction Status Date / Time No Known Allergies Allergy Verified 09/08/20 15:06 Plan Diagnosis/Plan: Unchanged I have reviewed the history and physical and performed a pertinent physical examination on my patient. No changes have occurred unless specified.
--- NOTE | 2020-11-05 10:03 | PM.OP ---
Brief Operative Note Date of Service: 11/05/20 Pre-op diagnosis: Lobular carcinoma left breast Post-op diagnosis: same Procedure: Wide excision left breast mass (lobular carcinoma) Implants: None Surgeon: Herminio Jean MD Anesthesia: MAC Sap Solution Manager Consultant: Cecily Martin Estimated blood loss (mL): 5 Pathology: other (Wide excision left breast, lobular carcinoma) Condition: stable Disposition: PACU
--- NOTE | 2020-11-05 10:04 | P.OP_ITS ---
Operative Note Operative Note Date of Service: 11/05/20 Narrative: Preoperative diagnosis: Lobular carcinoma left breast Postoperative diagnosis: Same Procedure: Wide excision left breast mass (lobular carcinoma) Surgeon: Herminio Jean MD Philosophy Lecturer: Cecily Martin. PAPamela Anesthesia: Mac Indications for procedure: This is a 65-year-old female patient presenting with a suspicious mammogram which revealed lobular carcinoma of the left breast. She is status post lumpectomy with needle localization, sentinel node biopsy. Pathology revealed tumor at margin in the inferior and deep margins on the final pathology. A wider excision of the lateral inferior margin previously had no tumor identified. She presents now for wider excision to assure complete excision of the lobular carcinoma. This includes the inferior and deep margins. Operative finding: Patient was found to have well-healed incision in the upper outer quadrant. Excision extended to the deep margin directly over the pectoralis muscle and included the inferior medial and lateral aspects of the previous excision site. The excision cavity was marked with hemoclips. Specimen: Wide excision left breast, lobular carcinoma Estimated blood loss: 5 mL Complications: None Procedure details: Patient was brought to the OR placed in a supine position. After administering general anesthesia the patient's left breast was prepped with ChloraPrep and draped in a sterile fashion. A surgical time-out was called and consent confirmed. Patient received preoperative antibiotics and Venodyne boots were in place. Local anesthesia consisting of 0.5% Sensorcaine mixed with 1% lidocaine with epinephrine was infiltrated in her previous excision site in the left upper outer quadrant. Incision was made through the previous incision and carried out through subcutaneous tissue. Superior and inferior skin flaps were then created using the electrocautery. Beginning superiorly dissection was continued down posteriorly to chest wall followed by dissection in the medial portion of the previous excision down to chest wall. Dissection along the chest wall was continued from medial to lateral superior to inferior dissection was then continued below the nipple into the lower outer quadrant. Dissection was then continued down to chest wall in the lesion excised. Specimen was marked with a short suture on the superior margin, long suture on the lateral margin, and looped suture on the deep margin. Specimen was passed off the table sent to pathology further examination. Wounds were irrigated with saline solution and suctioned dry. Hemostasis was assured using electrocautery. The excision cavity was then marked using hemoclips. Deep breast tissue was then reapproximated using interrupted 3 0 Polysorb sutures. Superficial breast tissue was reapproximated using interrupted 3-0 Polysorb sutures. Dermis was reapproximated using interrupted 3-0 Polysorb sutures. Skin was then closed using a subcuticular 4-0 Polysorb suture. Steri-Strips 2 x 2 gauze and Tegaderm were then applied. The patient tolerated the procedure well. Sponge, instrument, needle counts were reported as correct. The patient was transferred to PACU in stable condition.
--- NOTE | 2020-11-05 12:02 | HO.POSTANES ---
Post Anesthesia Evaluation Post Anesthesia Evaluation Vital Signs: Vital Signs Temp Pulse Resp BP Pulse Ox 11/05/20 11:52 98.2 F 11/05/20 11:30 100 18 125/71 96 11/05/20 11:12 107 H 18 113/77 95 11/05/20 10:54 100 18 116/76 94 11/05/20 10:37 103 H 18 98/61 98 11/05/20 10:32 100/66 97 11/05/20 10:27 90 18 104/61 92 11/05/20 10:25 87 18 101/64 95 11/05/20 10:18 84 18 90/67 96 11/05/20 10:12 97.9 F 85 18 79/38 L 96 11/05/20 07:54 97.2 F 93 18 118/85 97 Anesthesia: Monitored Mental Status: Awake Pain Control: Satisfactory Nausea/Vomiting: None Hydration: Adequate Anesthesia-Related Issues: No Anes. Related Issues
== END 2020-11-05 12:35 | disposition home or self-care (01) ==
PROVIDERS: Nurse Practitioner; PCP Internal Medicine; Visit Provider Surgery
PROC: (CPT 19120; principal; 2020-11-05 09:20)
DX: C50.912 Malignant neoplasm of unspecified site of left female breast (principal); Z85.820 Personal history of malignant melanoma of skin; N18.9 Chronic kidney disease, unspecified; F32.9 Major depressive disorder, single episode, unspecified; F17.290 Nicotine dependence, other tobacco product, uncomplicated; Z90.49 Acquired absence of other specified parts of digestive tract; Z79.899 Other long term (current) drug therapy
CPT/HCPCS: 19301; 80307; 88307; 88341; 88342; J0690; J2250; J3010

== ENCOUNTER → 2020-11-13 11:27 | Outpatient (BNVA) | payer MEDICARE, MEDICAID, SELFPAY | PROVIDERS: PCP Internal Medicine; Visit Provider Surgery | DX: C50.912 Malignant neoplasm of unspecified site of left female breast (principal) | CPT/HCPCS: 99212 ==

== ENCOUNTER → 2020-11-17 08:46 | Outpatient (BNV) | payer MEDICARE, MEDICAID, SELFPAY | PROVIDERS: PCP Internal Medicine; Referring Provider Surgery; Visit Provider Internal Medicine | DX: C50.812 Malignant neoplasm of overlapping sites of left female breast (principal) | CPT/HCPCS: 99202; 99204; 99214; 99442; G2211 ==

== ENCOUNTER → 2020-12-22 15:36 | Outpatient (BNVA) | payer MEDICARE, MEDICAID, SELFPAY | PROVIDERS: PCP Internal Medicine; Visit Provider Surgery | DX: C50.912 Malignant neoplasm of unspecified site of left female breast (principal) | CPT/HCPCS: 99212 ==

== ENCOUNTER → 2021-03-09 12:40 | Outpatient (BNVA) | payer MEDICARE, MEDICAID, SELFPAY | PROVIDERS: PCP Internal Medicine; Referring Provider Internal Medicine; Visit Provider Surgery | DX: C50.912 Malignant neoplasm of unspecified site of left female breast (principal) | CPT/HCPCS: 99212 ==

== ENCOUNTER 2021-04-15 12:45 | Outpatient (REF) | payer MEDICARE, MEDICAID, SELFPAY ==
--- NOTE | ~2021-04-15 | XR_ITS ---
EXAMINATION: BILATERAL HAND X-RAY CLINICAL INFORMATION: Pain COMPARISON: None TECHNIQUE: 3 views each hand FINDINGS: Left: Bone alignment is normal. No fracture or dislocation is seen. There is severe arthritis at the IP joints with joint space narrowing and osteophyte formation. Greatest at the PIP joint of the fourth finger. There is mild arthritis with joint space narrowing and osteophyte formation at the first SENIOR LIVING joint. Bones appear osteopenic. Soft tissues are unremarkable Right: Bone alignment is normal. No fracture or dislocation is seen. There is ankylosis of the DIP joint of the fourth liver. There is arthritis at the IP joints with joint space narrowing and osteophyte formation. There is arthritis at the first MCP and SENIOR LIVING joints with joint space narrowing and osteophyte formation. Bones appear osteopenic. Soft tissues are unremarkable. 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 Osteopenia..
--- NOTE | ~2021-04-15 | XR_ITS ---
EXAMINATION: BILATERAL HAND X-RAY CLINICAL INFORMATION: Pain COMPARISON: None TECHNIQUE: 3 views each hand FINDINGS: Left: Bone alignment is normal. No fracture or dislocation is seen. There is severe arthritis at the IP joints with joint space narrowing and osteophyte formation. Greatest at the PIP joint of the fourth finger. There is mild arthritis with joint space narrowing and osteophyte formation at the first ALF joint. Bones appear osteopenic. Soft tissues are unremarkable Right: Bone alignment is normal. No fracture or dislocation is seen. There is ankylosis of the DIP joint of the fourth liver. There is arthritis at the IP joints with joint space narrowing and osteophyte formation. There is arthritis at the first MCP and ALF joints with joint space narrowing and osteophyte formation. Bones appear osteopenic. Soft tissues are unremarkable. XR/XR hand RT min 3V IMPRESSION: Bilateral osteoarthritis at the IP and ALF joints and right first MCP joint. Osteopenia..
[2021-04-15 14:42] LABS: Alanine Aminotransferase 11 U/L (0-31); Alkaline Phosphatase 195 U/L (39-117); Anion Gap 13 (12-20); Aspartate Amino Transferase 15 U/L (5-31); Bilirubin Total 0.5 mg/dL (0.0-1.0); Blood Urea Nitrogen 17 mg/dL (9-16); C Reactive Protein 0.46 mg/dL (< or = 0.50); Calcium 8.9 mg/dL (8.4-10.2); Carbon Dioxide 24 mmol/L (22-29); Chloride 113 mmol/L (96-108); Estimated Glomerular Filt Rate 23; Glucose Random 79 mg/dL (60-115); Potassium 4.3 mmol/L (3.3-5.1); Rheumatoid Factor < 15.0 IU/mL (<15.0); Sodium 146 mmol/L (135-145); Total Protein 6.3 g/dL (6.5-8.0)
[2021-04-15 14:49] LABS: Erythrocyte Sedimentation Rate 30 MM/HR (0-20)
[2021-04-15 14:54] LABS: Uric Acid 6.3 mg/dL (2.4-5.7)
[2021-04-17 14:07] LABS: Cyclic Citrullinated Peptide <16 UNITS
== END 2021-04-15 12:46 | disposition home or self-care (01) ==
LOC: HO.LAB 12:45
PROVIDERS: PCP Internal Medicine; Visit Provider Student in an Organized Health Care Education/Training Program
DX: M79.641 Pain in right hand (principal); M79.642 Pain in left hand; M10.9 Gout, unspecified; Z79.899 Other long term (current) drug therapy
CPT/HCPCS: 36415; 73130; 80053; 84550; 85652; 86140; 86200; 86431; 99202

== ENCOUNTER → 2021-04-29 14:08 | Outpatient (BNVA) | payer MEDICARE, MEDICAID, SELFPAY | PROVIDERS: PCP Internal Medicine; Visit Provider Student in an Organized Health Care Education/Training Program | DX: M79.641 Pain in right hand (principal); M79.642 Pain in left hand | CPT/HCPCS: 99212 ==

== ENCOUNTER 2021-07-26 10:50 | Outpatient (REF) | payer MEDICARE, MEDICAID, SELFPAY ==
--- NOTE | ~2021-07-26 | CT_ITS ---
EXAMINATION: CT CHEST SCREENING CLINICAL INFORMATION: Nicotine dependence, cigarettes. COMPARISON: None. TECHNIQUE: Multidetector volumetric CT imaging of the chest is performed without contrast using low dose technique. Additional 2D coronal and sagittal reformatted images and axial 3D maximum intensity projection (MIP) images are generated on the CT workstation. This CT examination was performed using dose optimization techniques as appropriate, variously including the following: *Automated exposure control *Adjustment of mA and/or kV according to patient size (this includes techniques or standardized protocols for targeted exams where dose is matched to indication/reason for exam; i.e. extremities or head) *Use of iterative reconstruction technique DLP: 36 mGy-cm FINDINGS: LUNGS: The lungs are well-expanded and clear of acute pneumonic process. There is minimal subpleural thickening in the lingula likely scarring or atelectasis. No pulmonary nodules or mass seen. MEDIASTINUM: The thyroid lobes are symmetric and normal. The central trachea and the bronchi are widely patent. Heart size and the great vessels are normal caliber. No abnormal size mediastinal lymph nodes or mass seen. No pericardial effusion seen. There are scattered coronary artery calcifications. PLEURA: There is no pleural effusion. No pleural mass or thickening. AXILLA: No abnormal axillary lymph nodes. Deep in the left breast there are surgical seb and large scar from previous intervention. UPPER ABDOMEN: Visualized liver, spleen, pancreas and bilateral adrenal glands are unremarkable. OSSEOUS STRUCTURES: No lytic or sclerotic process seen. CT/CT lung screening IMPRESSION: No pulmonary nodule or mass seen. Subpleural parenchymal thickening in the lingula, likely atelectasis or scarring. ASSESSMENT: Lung-RADS category 1: Negative RECOMMENDATION: Low-dose annual CT chest.
== END 2021-07-26 10:51 | disposition home or self-care (01) ==
LOC: HO.CT 10:50
PROVIDERS: Visit Provider Physician Assistant Medical
DX: Z12.2 Encounter for screening for malignant neoplasm of respiratory organs (principal); F17.210 Nicotine dependence, cigarettes, uncomplicated
CPT/HCPCS: 71271

== ENCOUNTER 2021-08-03 13:52 | Outpatient (REF) | payer MEDICARE, MEDICAID, SELFPAY ==
--- NOTE | ~2021-08-03 | MM_ITS ---
EXAMINATION: MM DIAGNOSTIC DIGITAL BREAST TOMOSYNTHESIS, BILATERAL CLINICAL INFORMATION: Left biopsy 2 sites on 08/05/2020 (ILC - two foci), status post needle localization 08/27/2020. Benign MR guided biopsy left breast 10/07/2020 (benign breast tissue with fibrocystic changes; no atypia or malignancy). COMPARISON: Mammography: 10/07/2020, 08/27/2020, 08/05/2020, 07/21/2020, 07/08/2020, 07/03/2019 TECHNIQUE: Digital breast tomosynthesis is performed in both the craniocaudal and mediolateral oblique views along with computer-aided detection (CAD). Synthesized 2D images are generated from the tomosynthesis. Additional magnification left CC and magnification left ML views are provided. FINDINGS: There are scattered areas of fibroglandular density (ACR BI-RADS breast composition Category b). Right breast parenchymal pattern is similar to prior exams. There is an old biopsy clip marker anterior 4:00 position. Fibronodular parenchymal pattern is stable. There is no developing density or interval mass or architectural abnormality. No abnormal calcifications in either breast. Left breast post therapy changes are present with scarring and surgical clips upper breast. There is mild smooth skin thickening anteriorly. No suspicious changes. Results are provided to the patient at time of visit by the technologist. MM/MM tomosynthesis diagnostic BI IMPRESSION: No mammographic evidence of malignancy. Post therapy changes left breast. ASSESSMENT: BI-RADS 2: Benign RECOMMENDATION: Annual bilateral mammography. This patient's information was entered into a reminder system with a target due date for their next mammogram.
== END 2021-08-03 13:53 | disposition home or self-care (01) ==
LOC: HO.MAMMO 13:52
PROVIDERS: PCP Internal Medicine; Visit Provider Surgery
DX: Z85.3 Personal history of malignant neoplasm of breast (principal)
CPT/HCPCS: 77062; 77066

== ENCOUNTER → 2021-08-10 15:09 | Outpatient (BNVA) | payer MEDICARE, MEDICAID, SELFPAY | PROVIDERS: PCP Internal Medicine; Referring Provider Internal Medicine; Visit Provider Surgery | DX: C50.912 Malignant neoplasm of unspecified site of left female breast (principal) | CPT/HCPCS: 99212 ==

== ENCOUNTER → 2022-04-05 15:10 | Outpatient (BNVA) | payer MEDICARE, MEDICAID, SELFPAY | PROVIDERS: PCP Internal Medicine; Referring Provider Internal Medicine; Visit Provider Surgery | DX: C50.912 Malignant neoplasm of unspecified site of left female breast (principal) | CPT/HCPCS: 99212 ==

== ENCOUNTER 2022-08-09 14:25 | Outpatient (REF) | payer MEDICARE, MEDICAID, SELFPAY ==
--- NOTE | ~2022-08-09 | MM_ITS ---
EXAMINATION: MM DIAGNOSTIC DIGITAL BREAST TOMOSYNTHESIS, BILATERAL CLINICAL INFORMATION: Left breast ILC status post lumpectomy 08/27/2020. Benign left MR guided biopsy 10/07/2020. Due for yearly. COMPARISON: Mammography: 08/03/2021, 10/07/2020, 08/05/2020, 07/08/2020, 07/03/2019 TECHNIQUE: Digital breast tomosynthesis is performed in both the craniocaudal and mediolateral oblique views along with computer-aided detection (CAD). Synthesized 2D images are generated from the tomosynthesis. Additional magnification left CC x2 and magnification left ML are obtained. FINDINGS: There are scattered areas of fibroglandular density (ACR BI-RADS breast composition Category b). Left breast post therapy changes are again seen with mild reduced breast size and barring and surgical clips. Right breast has some fine fibronodular changes similar to prior exams. Neither breast shows interval mass or architectural abnormality or abnormal calcifications. Biopsy clip marker again seen anterior lower inner right breast. No significant changes. Results are provided to the patient at time of visit by the technologist. MM/MM tomosynthesis diagnostic BI IMPRESSION: -No mammographic evidence of malignancy. -Post therapy changes left breast. ASSESSMENT: BI-RADS 2: Benign RECOMMENDATION: Annual bilateral mammography. This patient's information was entered into a reminder system with a target due date for their next mammogram.
== END 2022-08-09 14:26 | disposition home or self-care (01) ==
LOC: HO.MAMMO 14:25
PROVIDERS: PCP Internal Medicine; Visit Provider Surgery
DX: Z85.3 Personal history of malignant neoplasm of breast (principal)
CPT/HCPCS: 77062; 77066

== ENCOUNTER → 2022-08-16 15:22 | Outpatient (BNVA) | payer MEDICARE, MEDICAID, SELFPAY | PROVIDERS: PCP Internal Medicine; Visit Provider Surgery | DX: C50.912 Malignant neoplasm of unspecified site of left female breast (principal) | CPT/HCPCS: 99212 ==

== ENCOUNTER 2022-09-16 16:29 | Outpatient (REF) | payer MEDICARE, MEDICAID, SELFPAY ==
--- NOTE | ~2022-09-16 | CT_ITS ---
EXAMINATION: CT CHEST SCREENING CLINICAL INFORMATION: Former smoker. Quit 1 year ago. 55 pack year history. COMPARISON: Previous chest CT most recent June 2021 TECHNIQUE: Multidetector volumetric CT imaging of the chest is performed without contrast using low dose technique. Additional 2D coronal and sagittal reformatted images and axial 3D maximum intensity projection (MIP) images are generated on the CT workstation. This CT examination was performed using dose optimization techniques as appropriate, variously including the following: *Automated exposure control *Adjustment of mA and/or kV according to patient size (this includes techniques or standardized protocols for targeted exams where dose is matched to indication/reason for exam; i.e. extremities or head) *Use of iterative reconstruction technique DLP: 44 mGy-cm FINDINGS: LUNGS: There is evidence of emphysema. There are increased peripheral markings in the anterior left upper lobe likely related to previous chest wall radiation. The lungs are otherwise clear. No endobronchial or endotracheal lesion. MEDIASTINUM: Normal heart size. Tortuous but normal caliber thoracic aorta. Atherosclerotic disease. No enlarged hilar or mediastinal lymph nodes. CORONARY ARTERY CALCIFICATION: Moderate PLEURA: There is no pleural effusion. No pleural mass or thickening. AXILLA: Postsurgical changes to the left breast. No chest wall mass or enlarged axillary lymph nodes. UPPER ABDOMEN: Unremarkable OSSEOUS STRUCTURES: Unremarkable. CT/CT lung screening IMPRESSION: Emphysema. Increased peripheral markings in the anterior left upper lobe similar to previous exam likely related to chest wall radiation. Moderate coronary artery calcification. ASSESSMENT: Lung-RADS category 2: Benign RECOMMENDATION: Annual low-dose chest CT follow-up recommended.
== END 2022-09-16 16:30 | disposition home or self-care (01) ==
LOC: HO.CT 16:29
PROVIDERS: PCP Internal Medicine; Visit Provider Physician Assistant Medical
DX: Z12.2 Encounter for screening for malignant neoplasm of respiratory organs (principal); Z87.891 Personal history of nicotine dependence
CPT/HCPCS: 71271

== ENCOUNTER 2022-10-25 14:36 | Outpatient (REF) | payer MEDICARE, MEDICAID, SELFPAY ==
--- NOTE | ~2022-10-25 | MM_ITS ---
EXAMINATION: BONE DENSITOMETRY CLINICAL INDICATION: Osteoporosis. COMPARISON: Previous BD dated 09/15/2020 and baseline BD dated 11/03/2008. TECHNIQUE: Using a [employer] DXA System (software version: 13.1) manufactured by [email or web address], dual-energy x-ray absorptiometry was performed of the lumbar spine and left hip. The images are of good technical quality. Summary results are attached. FINDINGS: AP SPINE L1-L2 (excluding L3 and L4): The data of L1-L4 has been changed to exclude the L3 and L4 vertebral bodies, because degenerative sclerosis at these levels may cause overestimation of lumbar spine density. Current: BMD 0.860 g/cm2, Z-score -0.9, T-score -2.5, osteoporosis, 8.6% increase from previous, 9.9% decrease from baseline (<5% change is not significant). Prior: BMD 0.792 g/cm2. Baseline: BMD 0.954 g/cm2. LEFT FEMUR, NECK: Current: BMD 0.738 g/cm2, Z-score -0.6, T-score -2.2, osteopenia. Prior: BMD 0.664 g/cm2. Baseline: BMD 0.781 g/cm2. LEFT FEMUR, TOTAL: Current: BMD 0.708 g/cm2, Z-score -1.0, T-score -2.4, osteopenia, 12.7% increase from previous, 12.4% decrease from baseline (<5% change is not significant). Prior: BMD 0.629 g/cm2. Baseline: BMD 0.809 g/cm2. IDENTIFIED RISK FACTORS: Menopause, osteoporosis, renal. HISTORY OF FRACTURE: Wrist. MEDICATIONS: Calcium supplements or multivitamin, vitamin D, aromatase inhibitors. MM/XR DEXA axial skeleton IMPRESSION: 1. DIAGNOSIS: Severe osteoporosis based on the lowest T-score value of -2.5 in the lumbar spine, and the history of a wrist fracture, applying World Health Organization criteria. 2. 10-YEAR FRACTURE RISK PREDICTION, FRAX: According to the guidelines, FRAX calculation should only be performed on patients in the osteopenia bone density category. Therefore, FRAX was not performed on this patient. 3. Treatment Recommendations: NOF guidelines recommend consideration for treatment in postmenopausal women and men age 50 and older presenting with the following: -A hip or vertebral (clinical or morphometric) fracture. -T-score less than or equal to -2.5 at the femoral neck or spine after appropriate evaluation to exclude secondary causes. -Low bone mass at the hip or spine and a 10-year fracture probability by FRAX of greater than or equal to 3% for hip fracture or greater than or equal to 20% for major osteoporotic fracture based on the [place] adapted WHO algorithm. 4. Other Recommendations: All treatment decisions require clinical judgment and consideration of individual patient factors, including patient preferences, comorbidities, previous drug use, risk factors not captured in the FRAX model (e.g. frailty, falls, vitamin D deficiency, increased bone turnover, interval significant decline in bone density) and possible under or overestimation of fracture risk by FRAX. Additional medical evaluation for secondary cause of low bone mineral density may be appropriate. FUTURE SCAN RECOMMENDATION: People with diagnosed cases of osteoporosis or at high risk for fracture should have regular bone mineral density tests. For patients eligible for Medicare, routine testing is allowed once every 2 years. The testing frequency can be increased to one year for patients who have rapidly progressing disease, those who are receiving or discontinuing medical therapy to restore bone mass, or have additional risk factors.
== END 2022-10-25 14:37 | disposition home or self-care (01) ==
LOC: HO.MAMMO 14:36
PROVIDERS: PCP Internal Medicine; Visit Provider Internal Medicine
DX: Z13.820 Encounter for screening for osteoporosis (principal); Z78.0 Asymptomatic menopausal state; M81.0 Age-related osteoporosis without current pathological fracture
CPT/HCPCS: 77080

== ENCOUNTER → 2023-02-14 14:53 | Outpatient (BNVA) | payer MEDICARE, MEDICAID, SELFPAY | PROVIDERS: PCP Internal Medicine; Visit Provider Surgery | DX: C50.412 Malignant neoplasm of upper-outer quadrant of left female breast (principal); F17.210 Nicotine dependence, cigarettes, uncomplicated; Z17.0 Estrogen receptor positive status [ER+]; Z92.3 Personal history of irradiation; Z79.810 Long term (current) use of selective estrogen receptor modulators (SERMs) | CPT/HCPCS: 99212 ==

== ENCOUNTER 2023-08-08 15:39 | Outpatient (REF) | payer MEDICARE, MEDICAID, SELFPAY ==
--- NOTE | ~2023-08-08 | MM_ITS ---
EXAMINATION: MM SCREENING DIGITAL BREAST TOMOSYNTHESIS, BILATERAL CLINICAL INFORMATION: Screening. Asymptomatic. The patient is status post lumpectomy in 2020 for right breast cancer and status post benign left MR biopsy. COMPARISON: Mammography: This study is compared with prior exams dating back to 2018. TECHNIQUE: Digital breast tomosynthesis is performed in both the craniocaudal and mediolateral oblique views along with computer-aided detection (CAD). Synthesized 2D images are generated from the tomosynthesis. FINDINGS: There are scattered areas of fibroglandular density (ACR BI-RADS breast composition Category b). There are no significant masses, abnormal calcifications, or other abnormalities. There are postsurgical changes in the superior aspect of the left breast from prior treated for breast cancer. There is a tissue marker at the lower inner quadrant of the right breast from prior, benign percutaneous MRI biopsy. MM/MM tomosynthesis screening BI IMPRESSION: No mammographic evidence of malignancy. ASSESSMENT: BI-RADS BI-RADS 2 - Benign Findings RECOMMENDATION: Routine annual mammography screening. 1 year F/U This examination should not preclude the clinical evaluation of a suspicious palpable abnormality. This patient's information was entered into a reminder system with a target due date for their next mammogram.
== END 2023-08-08 15:40 | disposition home or self-care (01) ==
LOC: HO.MAMMO 15:39
PROVIDERS: PCP Internal Medicine; Visit Provider Surgery
DX: Z12.31 Encounter for screening mammogram for malignant neoplasm of breast (principal)
CPT/HCPCS: 77063; 77067

== ENCOUNTER → 2023-08-08 16:00 | Outpatient (BNV) | payer MEDICARE, MEDICAID, SELFPAY | PROVIDERS: PCP Internal Medicine; Visit Provider Radiology Diagnostic Radiology | DX: Z12.31 Encounter for screening mammogram for malignant neoplasm of breast (principal) | CPT/HCPCS: 77063; 77067 ==

== ENCOUNTER 2023-08-29 15:36 | Outpatient (AMB) | payer MEDICARE, MEDICAID, SELFPAY ==
--- NOTE | 2023-08-29 15:37 | MHC.OFFVIS ---
Intake Vital Signs 08/29/23 15:44 Height 5 ft 1 in Weight 121 lb 8 oz BMI 23.0 BP 119/75 Blood Pressure Location Lt brachial Position Sitting Pulse 90 Intake Visit Reasons: Breast Exam, 6 mth follow up Intake Note: Patient is seen in office for6 month follow up visit, breast exam. Patient c/o: denies any changes or concerns at the time of visit Pump Erector Required: No Allergies No Known Allergies Allergy (Verified 08/29/23 15:51) Medication List - Last Reconciled 08/31/23 by Herminio Jean MD acetaminophen (Tylenol Extra Strength) 500 mg PO Q6H PRN alendronate 70 mg PO QWEEK alendronate 70 mg PO QWEEK bupropion HCl 1 tab PO QAM cholecalciferol (vitamin D3) 25 mcg PO DAILY mecobalamin (vitamin B12) 1,000 mcg sublingual DAILY olanzapine 15 mg PO BEDTIME tamoxifen 20 mg PO DAILY HPI HPI Comments History of Present Illness Details 68-year-old female patient returning for follow-up breast examination after treatment for left breast invasive lobular carcinoma. She was diagnosed with invasive lobular carcinoma, grade 2, 2.5 cm size, ER/[place] positive, HER2 Kaylynn negative and subsequently underwent left breast lumpectomy with needle localization and sentinel node biopsy on 08/27/2020. 0 of 3 sentinel lymph nodes revealed metastatic disease (pT2 N0(sn)(i-)). Because of positive margins she return to the OR for wider excision on 11/05/2020. The recurrence score was calculated at 19. Genetic testing performed on 08/10/2021 revealed no clinically significant mutations and no variance of unknown significance. She was evaluated by Dr. Marte and no chemotherapy recommended. Radiation was performed at [facility] [place] and completed in December 2020. She was placed on tamoxifen 20 mg p.o. q.day with the plan to switch to aromatase inhibitor after 2 years. Her last mammogram performed on 08/21/2023 revealed no mammographic evidence of malignancy (BI-RADS 2). Follow-up mammogram 1 year is recommended. She feels well and denies any ongoing breast symptoms. [facility] Medical History Personal history of nicotine dependence Hypotension after procedure Gout Chronic kidney disease (CKD) Chronic cough Depression Schizoaffective disorder Invasive lobular carcinoma of left breast in female (~2019) Basal cell carcinoma Melanoma History of colon polyps (~2016) Surgical History History of skin surgery History of tubal ligation History of left breast biopsy History of lumpectomy of left breast History of partial colectomy (~2015) Family History Maternal Grandfather History of cancer of unknown primary site Father Diabetes Heart disease Mother Stroke Daughter Atypical lobular hyperplasia (ALH) of breast Other History of skin cancer Social History Household Members: None Housing: Apartment Are you a primary home health care physician to a significant other at home: No Alcohol intake: never Patient Tobacco Use Status: Current everyday Tobacco user Tobacco use type: Cigarette Cigarettes Per Day: 15 Years Smoked: 50 (onset 10, 1/2-1ppd x 50yrs - 35pyh) e-Cigarette/Vaping Use: Never Used Second Hand Smoke Exposure: No service: No Current occupational status: disabled Review of Systems Const Denies chills, Denies fever(s), Denies headache(s) and Denies poor appetite ENT Denies dizziness and Denies headache(s) Card Denies chest pain, Denies rapid heart rate, Denies palpitations and Denies slow heart rate Resp Denies chest congestion, Reports cough, Denies pain on inspiration and Denies wheezing GI Denies abdominal pain, Denies bloating, Denies change in stool character, Denies constipation, Denies diarrhea, Denies nausea, Denies vomiting and Reports hematemesis Musc Denies back pain, Denies arthralgias, Denies joint swelling and Denies numbness Skin/Breast Denies change in pigmentation, Denies erythema and Denies rash Neuro Denies dizziness, Denies headache(s) and Denies numbness Psych Denies anxiety and Denies depression Endo Denies palpitations Dominic/Lymph Denies easy bleeding, Denies easy bruising and Denies lymphadenopathy Aller/Immun Denies wheezing Physical Exam Vital Signs: Last Vital Signs Pulse 90 08/29/23 15:44 BP 119/75 08/29/23 15:44 BMI result Body Mass Index 23.0 Const General: cooperative, healthy appearing, comfortable and no acute distress Chest Other: Left breast well-healed incision in the upper outer quadrant and axilla without new skin change, nipple discharge, palpable mass, or enlarged lymph nodes.. Right breast reveals no palpable mass, skin change, nipple discharge, or enlarged lymph nodes. Resp Effort & Inspection: normal respiratory effort, no audible wheezes and no cough GI Inspection: Yes normal to inspection Skin Other: Warm and dry, no rash General skin exam: no rashes or lesions noted Extrem Other: No edema General: Yes no clubbing, cyanosis or edema Assessment & Plan Assessment & Plan (1) Invasive lobular carcinoma of left breast in female: Onset Date: ~2019 Comment: (pT2 N0 (sn)(i-), ER/WI positive, HER2 negative - s/p lumpectomy/wide excision, s/p radiation - on tamoxifen) Code(s): C50.912 - Malignant neoplasm of unspecified site of left female breast Plan: 68-year-old female patient returning for follow-up breast examination after left breast lumpectomy/wider excision followed by radiation therapy. She is currently on tamoxifen and tolerating this well. Her most recent mammogram 08/21/2023 reveals no mammographic evidence of malignancy a routine follow-up is recommended in 1 year. Examination reveals no suspicious findings in either breast. I recommended follow-up examination in 6 months. She should call sooner for any new concerns. Coding Level of Care Code Est Pt Level 3 (54794) Diagnoses Invasive lobular carcinoma of left breast in female C50.912
[2023-08-29 15:44] VITALS: BP 119/75; PULSE 90; BMI 23.0
== END 2023-08-29 15:53 | disposition home or self-care (01) ==
PROVIDERS: PCP Internal Medicine; Visit Provider Surgery
DX: C50.912 Malignant neoplasm of unspecified site of left female breast (principal)
CPT/HCPCS: 99213

== ENCOUNTER → 2023-08-29 15:36 | Outpatient (BNVA) | payer MEDICARE, MEDICAID, SELFPAY | PROVIDERS: PCP Internal Medicine; Visit Provider Surgery | DX: C50.912 Malignant neoplasm of unspecified site of left female breast (principal) | CPT/HCPCS: 99212 ==

== ENCOUNTER 2023-10-16 10:04 | Outpatient (REF) | payer MEDICARE, MEDICAID, SELFPAY | END 2023-10-16 10:05 | disposition home or self-care (01) | LOC: HO.CT 10:04 | PROVIDERS: PCP Internal Medicine; Visit Provider Physician Assistant Medical | DX: Z12.2 Encounter for screening for malignant neoplasm of respiratory organs (principal); F17.210 Nicotine dependence, cigarettes, uncomplicated | CPT/HCPCS: 71271 ==

== ENCOUNTER 2023-11-17 10:49 | Outpatient (REF) | payer MEDICARE, MEDICAID, SELFPAY ==
--- NOTE | ~2023-11-17 | US_ITS ---
EXAMINATION: US DIAGNOSTIC ULTRASOUND BREAST, RIGHT CLINICAL INFORMATION: Abnormal lymph nodes identified on CT lung screening 10/16/2023 right axilla. Patient states recent vaccination in October 21. COMPARISON: Lung screening CT of the chest 10/16/2023. TECHNIQUE: Ultrasound of the right axilla is performed with real-time carias scale imaging and color Doppler. FINDINGS: No abnormal lymphadenopathy is identified. There is a normal lymph node with 1 mm cortex in the superior right axilla measuring 1.6 cm in diameter, with very prominent fatty hilum, and normal pedicle/morphology. This appears reactive. Just inferior to this, there is a second normal-appearing lymph node with 1 mm thick cortex and prominent fatty hilum with vascular pedicle and normal abiola morphology measuring 0.9 cm in diameter. This is also a reactive appearing lymph node. Results were provided to the patient at time of visit by the technologist. US/US breast RT limited mamm only IMPRESSION: No evidence of pathologic lymphadenopathy. Normal reactive lymph nodes right axilla. Recommend the patient return to routine screening. ASSESSMENT: BI-RADS 2 - Benign Findings RECOMMENDATION: 1 year F/U This patient's information was entered into a reminder system with a target due date for their next mammogram.
== END 2023-11-17 10:50 | disposition home or self-care (01) ==
LOC: HO.MAMMO 10:49
PROVIDERS: Absent Provider Physician Assistant Medical; PCP Internal Medicine; Visit Provider Internal Medicine
DX: Z13.89 Encounter for screening for other disorder (principal)
CPT/HCPCS: 76642

== ENCOUNTER → 2023-11-17 11:00 | Outpatient (BNV) | payer MEDICARE, MEDICAID, SELFPAY | PROVIDERS: Absent Provider Physician Assistant Medical; PCP Internal Medicine; Visit Provider Radiology Diagnostic Radiology | DX: N63.31 Unspecified lump in axillary tail of the right breast (principal) | CPT/HCPCS: 76642 ==

== ENCOUNTER 2023-11-17 11:55 | Outpatient (REF) | payer MEDICARE, MEDICAID, SELFPAY ==
--- NOTE | ~2023-11-17 | US_ITS ---
EXAMINATION: US RETROPERITONEAL LIMITED (RENAL ONLY) CLINICAL INFORMATION: Left upper pole lobulated kidney found incidentally on CT scan. COMPARISON: CT lung screening 10/16/2023. TECHNIQUE: Real-time imaging of the kidneys. FINDINGS: RIGHT KIDNEY: 9.6 x 3.8 x 3.7 cm (SAG x AP x TRV). Lobulated contour and echogenic. No renal calculi or hydronephrosis. Upper pole cyst measures 1.4 x 1.3 x 1.1 cm. Upper pole cyst measures 1.6 x 0.8 x 1.2 cm. Midpole cyst measures 1.0 x 0.9 x 0.6 cm. No further routine follow-up is needed. LEFT KIDNEY: 9.5 x 3.4 x 3.9 cm (SAG x AP x TRV). Lobulated contour and echogenicity. No renal calculi or hydronephrosis. Upper pole cyst measures 1.0 x 1.0 x 1.1 cm. Upper pole cyst measures 1.0 x 0.6 x 0.8 cm. No further routine follow-up is needed. US/US renal BI IMPRESSION: Numerous bilateral renal cysts without suspicious sonographic features. 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 Follow-up as clinically indicated.
== END 2023-11-17 11:56 | disposition home or self-care (01) ==
LOC: HO.US 11:55
PROVIDERS: PCP Internal Medicine; Visit Provider Internal Medicine
DX: N26.1 Atrophy of kidney (terminal) (principal)
CPT/HCPCS: 76642; 76775

== ENCOUNTER 2024-02-27 14:42 | Outpatient (AMB) | payer MEDICARE, MEDICAID, SELFPAY ==
--- NOTE | 2024-02-27 14:45 | A.OFFVIS_ITS ---
Vital Signs 02/27/24 14:52 Height 5 ft 1 in Weight 115 lb 8 oz BMI 21.8 BP 120/79 Blood Pressure Location Lt brachial Position Sitting Pulse 137 H Intake Visit Reasons: Breast Exam, 6 mth follow up Intake Note: Patient is seen in office for 6 month follow up visit, breast exam. Pt c/o: denies any concerns at the time of visit mm:08/08/23 us:11/17/23 Meter Reader Chief Required: No Community Health Advocate: Community Health Advocate Present Accompanied by: Daughter Allergies No Known Allergies Allergy (Verified 02/27/24 14:46) Medication List - Last Reconciled 02/27/24 by Herminio Jean MD acetaminophen (Tylenol Extra Strength) 500 mg PO Q6H PRN alendronate 70 mg PO QWEEK bupropion HCl XL 1 tab PO QAM cholecalciferol (vitamin D3) 25 mcg PO DAILY mecobalamin (vitamin B12) 1,000 mcg sublingual DAILY olanzapine 15 mg PO BEDTIME tamoxifen 20 mg PO DAILY HPI Comments Details: 68-year-old female patient returning for follow-up breast examination after treatment for left breast invasive lobular carcinoma. She was diagnosed with invasive lobular carcinoma, grade 2, 2.5 cm size, ER/[place] positive, HER2 Kaylynn negative and subsequently underwent left breast lumpectomy with needle localization and sentinel node biopsy on 08/27/2020. 0 of 3 sentinel lymph nodes revealed metastatic disease (pT2 N0(sn)(i-)). Because of positive margins she return to the OR for wider excision on 11/05/2020. The recurrence score was calculated at 19. Genetic testing performed on 08/10/2021 revealed no clinically significant mutations and no variance of unknown significance. She was evaluated by Dr. Marte and no chemotherapy recommended. Radiation was performed at [facility] [place] and completed in December 2020. She was placed on tamoxifen 20 mg p.o. q.day with the plan to switch to aromatase inhibitor after 2 years. Her last mammogram performed on 08/21/2023 revealed no mammographic evidence of malignancy (BI-RADS 2). Follow-up mammogram 1 year is recommended. She feels well and denies any ongoing breast symptoms. [facility] Medical History Personal history of nicotine dependence Hypotension after procedure Gout Chronic kidney disease (CKD) Chronic cough Depression Schizoaffective disorder Invasive lobular carcinoma of left breast in female (~2019) Basal cell carcinoma Melanoma History of colon polyps (~2015) Surgical History History of skin surgery History of tubal ligation History of left breast biopsy History of lumpectomy of left breast History of partial colectomy (~2015) Family History Maternal Grandfather History of cancer of unknown primary site Father Diabetes Heart disease Mother Stroke Daughter Atypical lobular hyperplasia (ALH) of breast Other History of skin cancer Social History Household Members: None Housing: Apartment Are you a primary child adolescent care to a significant other at home: No Alcohol intake: never Patient Tobacco Use Status: Current everyday Tobacco user Tobacco use type: Cigarette Years Smoked: 50 (onset 10, 1/2-1ppd x 50yrs - 35pyh) e-Cigarette/Vaping Use: Never Used Second Hand Smoke Exposure: No service: No Current occupational status: disabled Review of Systems Const Denies chills, Denies fever(s), Denies headache(s) and Denies poor appetite ENT Denies dizziness and Denies headache(s) Card Denies chest pain, Denies rapid heart rate, Denies palpitations and Denies slow heart rate Resp Denies chest congestion, Reports cough, Denies pain on inspiration and Denies wheezing GI Denies abdominal pain, Denies bloating, Denies change in stool character, Denies constipation, Denies diarrhea, Denies nausea, Denies vomiting and Reports hematemesis Musc Denies back pain, Denies arthralgias, Denies joint swelling and Denies numbness Skin/Breast Denies change in pigmentation, Denies erythema and Denies rash Neuro Denies dizziness, Denies headache(s) and Denies numbness Psych Denies anxiety and Denies depression Endo Denies palpitations Dominic/Lymph Denies easy bleeding, Denies easy bruising and Denies lymphadenopathy Aller/Immun Denies wheezing Physical Exam Vital Signs: Last Vital Signs Pulse 137 H 02/27/24 14:52 BP 120/79 02/27/24 14:52 BMI result Body Mass Index 21.8 Const General: cooperative, healthy appearing, comfortable and no acute distress Chest Other: Left breast well-healed incision in the upper outer quadrant and axilla without new skin change, nipple discharge, palpable mass, or enlarged lymph nodes.. Right breast reveals no palpable mass, skin change, nipple discharge, or enlarged lymph nodes. Resp Effort & Inspection: normal respiratory effort, no audible wheezes and no cough GI Inspection: Yes normal to inspection Skin Other: Warm and dry, no rash General skin exam: no rashes or lesions noted Extrem Other: No edema General: Yes no clubbing, cyanosis or edema Assessment & Plan Assessment & Plan (1) Invasive lobular carcinoma of left breast in female: Onset Date: ~2019 Comment: (pT2 N0 (sn)(i-), ER/TX positive, HER2 negative - s/p lumpectomy/wide excision, s/p radiation - on tamoxifen) Code(s): C50.912 - Malignant neoplasm of unspecified site of left female breast Category: Medical Plan: 68-year-old female patient returning for follow-up breast examination after left breast lumpectomy/wider excision followed by radiation therapy. She is currently on tamoxifen and tolerating this well. Her most recent mammogram 08/21/2023 reveals no mammographic evidence of malignancy a routine follow-up is recommended in 1 year. Examination reveals no suspicious findings in either breast. I recommended follow-up examination in 6 months. She should call sooner for any new concerns. Coding Level of Care Code Est Pt Level 3 (00169) Diagnoses Invasive lobular carcinoma of left breast in female C50.912
[2024-02-27 14:52] VITALS: BP 120/79; PULSE 137; BMI 21.8
== END 2024-02-27 15:04 | disposition home or self-care (01) ==
PROVIDERS: PCP Internal Medicine; Visit Provider Surgery
DX: C50.912 Malignant neoplasm of unspecified site of left female breast (principal)
CPT/HCPCS: 99213

== ENCOUNTER → 2024-02-27 14:42 | Outpatient (BNVA) | payer MEDICARE, MEDICAID, SELFPAY | PROVIDERS: PCP Internal Medicine; Visit Provider Surgery | DX: C50.912 Malignant neoplasm of unspecified site of left female breast (principal) | CPT/HCPCS: 99212 ==

== ENCOUNTER 2024-04-03 14:56 | Outpatient (REF) | payer MEDICARE, MEDICAID, SELFPAY ==
--- NOTE | ~2024-04-03 | XR_ITS ---
EXAMINATION: XR HIP, RIGHT CLINICAL INFORMATION: Right hip pain. COMPARISON: None available. TECHNIQUE: 2 views of the right hip. FINDINGS: Severe degenerative changes with joint space narrowing and hypertrophic change in the right hip. The bones are diffusely demineralized. There is subchondral sclerosis with cystic lucencies as well as remodeling of subjacent right hip articular surfaces. Evaluation for possible hip fracture limited due to extensive degenerative change and demineralization. Moderate degenerative changes on limited images of the right sacroiliac joint. XR/XR hip RT min 2V IMPRESSION: Severe degenerative changes in the right hip. Evaluation for possible hip fracture limited due to extensive degenerative change and demineralization. CT scan or MRI should be considered for further evaluation if there is clinical concern for fracture or other underlying pathology.
== END 2024-04-03 14:57 | disposition home or self-care (01) ==
LOC: HO.XRAY 14:56
PROVIDERS: PCP Registered Nurse; Visit Provider Registered Nurse
DX: M25.551 Pain in right hip (principal)
CPT/HCPCS: 73502

== ENCOUNTER 2024-08-09 15:26 | Outpatient (REF) | payer MEDICARE, MEDICAID, SELFPAY ==
--- NOTE | ~2024-08-09 | MM_ITS ---
EXAMINATION: MM SCREENING DIGITAL BREAST TOMOSYNTHESIS, BILATERAL CLINICAL INFORMATION: Screening. Asymptomatic. COMPARISON: Mammography: Comparison is made with available priors TECHNIQUE: Digital breast mammography with tomosynthesis is performed in both the craniocaudal and mediolateral oblique views along with computer-aided detection (CAD). FINDINGS: There are scattered areas of fibroglandular density (ACR BI-RADS breast composition Category b). Postsurgical changes to the left breast are stable. Right marker clip. There are no significant masses, abnormal calcifications, or other abnormalities. MM/MM tomosynthesis screening BI IMPRESSION: No mammographic evidence of malignancy. ASSESSMENT: BI-RADS BI-RADS 2 - Benign Findings RECOMMENDATION: Routine annual mammography screening. 1 year F/U This examination should not preclude the clinical evaluation of a suspicious palpable abnormality. This patient's information was entered into a reminder system with a target due date for their next mammogram. Electronically signed by: María Pereira DO 08/22/2024 09:42 PM EDT
== END 2024-08-09 15:27 | disposition home or self-care (01) ==
LOC: HO.MAMMO 15:26
PROVIDERS: PCP Internal Medicine; Visit Provider Internal Medicine
DX: Z12.31 Encounter for screening mammogram for malignant neoplasm of breast (principal)
CPT/HCPCS: 77063; 77067

== ENCOUNTER → 2024-08-09 15:45 | Outpatient (BNV) | payer MEDICARE, MEDICAID, SELFPAY | PROVIDERS: PCP Internal Medicine; Visit Provider Internal Medicine | DX: Z12.31 Encounter for screening mammogram for malignant neoplasm of breast (principal) | CPT/HCPCS: 77063; 77067 ==

== ENCOUNTER 2024-09-03 15:26 | Outpatient (AMB) | payer MEDICARE, MEDICAID, SELFPAY ==
--- NOTE | 2024-09-03 15:34 | A.OFFVIS_ITS ---
Vital Signs 3 09/03/24 15:36 Height 5 ft 1 in Weight 113 lb 8 oz BMI 21.4 BP 109/77 Blood Pressure Location Lt brachial Position Sitting Pulse 101 H Intake Visit Reasons: Breast Exam, 6 mth follow up Intake Note: Patient is seen in office for 6 month follow up visit, breast exam. Pt c/o: no concerns or changes since last visit mm: 08/09/24 Surgical Device Sales Representative Required: No Stonecutter Hand: Stonecutter Hand Present Accompanied by: Daughter Allergies No Known Allergies Allergy (Verified 09/03/24 15:35) Medication List - Last Reconciled 09/03/24 by Herminio Jean MD acetaminophen (Tylenol Extra Strength) 650 mg PO Q6H PRN alendronate 70 mg PO QWEEK bupropion HCl XL 1 tab PO QAM mecobalamin (vitamin B12) 1,000 mcg sublingual DAILY olanzapine 15 mg PO BEDTIME tamoxifen 20 mg PO DAILY HPI Comments Details: 69-year-old female patient returning for follow-up breast examination after treatment for left breast invasive lobular carcinoma. She was diagnosed with invasive lobular carcinoma, grade 2, 2.5 cm size, ER/MD positive, HER2 Kaylynn negative and subsequently underwent left breast lumpectomy with needle localization and sentinel node biopsy on 08/27/2020. 0 of 3 sentinel lymph nodes revealed metastatic disease (pT2 N0(sn)(i-)). Because of positive margins she return to the OR for wider excision on 11/05/2020. The recurrence score was calculated at 19. Genetic testing performed on 08/10/2021 revealed no clinically significant mutations and no variance of unknown significance. She was evaluated by Dr. Marte and no chemotherapy recommended. Radiation was performed at [facility] and completed in December 2020. She was placed on tamoxifen 20 mg p.o. q.day and remains on this without significant symptoms. Her latest mammogram performed on 08/09/2024 revealed no mammographic evidence of malignancy (BI-RADS 2). Follow-up mammogram in 1 year is recommended. She feels well and denies any ongoing breast symptoms at this time. [facility] Medical History Nicotine dependence, cigarettes, uncomplicated Hypotension after procedure Gout Chronic kidney disease (CKD) Chronic cough Depression Schizoaffective disorder Invasive lobular carcinoma of left breast in female (~2019) Basal cell carcinoma Melanoma History of colon polyps (~2016) Surgical History History of skin surgery History of tubal ligation History of left breast biopsy History of lumpectomy of left breast History of partial colectomy (~2015) Family History Maternal Grandfather History of cancer of unknown primary site Father Diabetes Heart disease Mother Stroke Daughter Atypical lobular hyperplasia (ALH) of breast Other History of skin cancer Social History Household Members: None Housing: Apartment Are you a primary respiratory care instructor to a significant other at home: No Alcohol intake: never Patient Tobacco Use Status: Current everyday Tobacco user Tobacco use type: Cigarette Years Smoked: 50 (onset 10, 1/2-1ppd x 50yrs - 35pyh) e-Cigarette/Vaping Use: Never Used Second Hand Smoke Exposure: No service: No Current occupational status: disabled Review of Systems Const Denies chills, Denies fever(s), Denies headache(s) and Denies poor appetite ENT Denies dizziness and Denies headache(s) Card Denies chest pain, Denies rapid heart rate, Denies palpitations and Denies slow heart rate Resp Denies chest congestion, Reports cough, Denies pain on inspiration and Denies wheezing GI Denies abdominal pain, Denies bloating, Denies change in stool character, Denies constipation, Denies diarrhea, Denies nausea, Denies vomiting and Reports hematemesis Musc Denies back pain, Denies arthralgias, Denies joint swelling and Denies numbness Skin/Breast Denies change in pigmentation, Denies erythema and Denies rash Neuro Denies dizziness, Denies headache(s) and Denies numbness Psych Denies anxiety and Denies depression Endo Denies palpitations Dominic/Lymph Denies easy bleeding, Denies easy bruising and Denies lymphadenopathy Aller/Immun Denies wheezing Physical Exam Const General: cooperative, healthy appearing, comfortable and no acute distress Chest Other: Left breast well-healed incision in the upper outer quadrant and axilla without new skin change, nipple discharge, palpable mass, or enlarged lymph nodes.. Right breast reveals no palpable mass, skin change, nipple discharge, or enlarged lymph nodes. Chest/axillae images: 2 1. Lumpectomy incision left breast upper outer quadrant Resp Effort & Inspection: normal respiratory effort, no audible wheezes and no cough GI Inspection: Yes normal to inspection Skin Other: Warm and dry, no rash General skin exam: no rashes or lesions noted Extrem Other: No edema General: Yes no clubbing, cyanosis or edema Assessment & Plan Assessment & Plan (1) Invasive lobular carcinoma of left breast in female: Onset Date: ~2019 Comment: (pT2 N0 (sn)(i-), ER/MD positive, HER2 negative - s/p lumpectomy/wide excision, s/p radiation - on tamoxifen) Code(s): C50.912 - Malignant neoplasm of unspecified site of left female breast Category: Medical Plan: 69-year-old female patient returning for follow-up breast examination after left breast lumpectomy/wider excision followed by radiation therapy. She is currently on tamoxifen and tolerating this well. Her most recent mammogram 08/09/2024 reveals no mammographic evidence of malignancy a routine follow-up is recommended in 1 year. Examination reveals no suspicious findings in either breast. I recommended follow-up examination in 6 months. She should call sooner for any new concerns. Coding Level of Care Code Est Pt Level 3 (32502) Complex EM visit Add On G2211 Diagnoses Invasive lobular carcinoma of left breast in female C50.912
[2024-09-03 15:36] VITALS: BP 109/77; PULSE 101; BMI 21.4
== END 2024-09-03 15:49 | disposition home or self-care (01) ==
LOC: HO.HGS 15:27
PROVIDERS: PCP Internal Medicine; Visit Provider Surgery
DX: C50.912 Malignant neoplasm of unspecified site of left female breast (principal)
CPT/HCPCS: 99213; G2211

== ENCOUNTER → 2024-09-03 15:26 | Outpatient (BNVA) | payer MEDICARE, MEDICAID, SELFPAY | PROVIDERS: PCP Internal Medicine; Visit Provider Surgery | DX: C50.412 Malignant neoplasm of upper-outer quadrant of left female breast (principal); Z17.0 Estrogen receptor positive status [ER+]; Z79.810 Long term (current) use of selective estrogen receptor modulators (SERMs); Z92.3 Personal history of irradiation | CPT/HCPCS: 99212 ==

== ENCOUNTER 2024-10-18 13:54 | Outpatient (REF) | payer MEDICARE, MEDICAID, SELFPAY | END 2024-10-18 13:55 | disposition home or self-care (01) | LOC: HO.CT 13:54 | PROVIDERS: PCP Internal Medicine; Visit Provider Physician Assistant Medical | DX: Z12.2 Encounter for screening for malignant neoplasm of respiratory organs (principal); F17.210 Nicotine dependence, cigarettes, uncomplicated | CPT/HCPCS: 71271 ==

== ENCOUNTER → 2024-10-18 13:56 | Outpatient (BNV) | payer MEDICARE, MEDICAID, SELFPAY | PROVIDERS: PCP Internal Medicine; Visit Provider Radiology Diagnostic Radiology | DX: Z12.2 Encounter for screening for malignant neoplasm of respiratory organs (principal); Z87.891 Personal history of nicotine dependence | CPT/HCPCS: 71271 ==

== ENCOUNTER 2024-11-28 14:02 | Outpatient (REF) | payer MEDICARE, MEDICAID, SELFPAY ==
--- NOTE | ~2024-11-28 | MM_ITS ---
EXAMINATION: DXA BONE DENSITY AXIAL HISTORY: Estrogen deficiency TECHNIQUE: Strategy Store Dual energy absorptiometry (DEXA) of the lumbar spine, total left hip, and femoral neck was performed. COMPARISON: Comparison is made with the prior examination dated 10/25/2022. FINDINGS: The bone mineral density of the lumbar spine is 0.762 with a T-score of -3.4, and a Z-score of -1.3. This represents a BMD change of -11.4% compared to the prior exam. This is statistically significant. The bone mineral density of the left total hip is 0.634 with a T-score of -3.0, and a Z-score of -1.2. This represents BMD change of -10.6% compared to the prior exam. This is statistically significant. The bone mineral density of the left femoral neck is 0.671 with a T-score of -2.6, and a Z-score of -0.7. This represents BMD change of -9.1% compared to the prior exam. MM/XR DEXA axial skeleton IMPRESSION: Based on bone mineral density, and according to World Health Organization (WHO) criteria, the diagnosis is consistent with osteoporosis. All bone density values are in grams per centimeter squared (g/cm2). Statistically, 68% of repeat scans fall within 1 SD (+/- 0.010 g/cm2 for AP spine L1-L4) and 1 SD (+/- 0.012 g/cm2 for femur total) FRAX is a trademark of the [employer] [place] [facility] Met[employer], a World Health Organization (WHO) Collaborating Center. Electronically signed by: Shiv Yadav MD 12/02/2024 12:40 PM [facility]
== END 2024-11-28 14:03 | disposition home or self-care (01) ==
LOC: HO.MAMMO 14:02
PROVIDERS: PCP Internal Medicine; Visit Provider Internal Medicine
DX: M81.0 Age-related osteoporosis without current pathological fracture (principal)
CPT/HCPCS: 77080

== ENCOUNTER → 2024-11-28 14:30 | Outpatient (BNV) | payer MEDICARE, MEDICAID, SELFPAY | PROVIDERS: PCP Internal Medicine; Visit Provider Radiology Diagnostic Radiology | DX: E28.39 Other primary ovarian failure (principal) | CPT/HCPCS: 77080 ==

== ENCOUNTER 2025-03-04 14:37 | Outpatient (AMB) | payer MEDICARE, MEDICAID, SELFPAY ==
--- NOTE | 2025-03-04 15:19 | MHC.OFFVIS ---
Vital Signs 03/04/25 15:29 Height 5 ft 1 in Weight 119 lb 8 oz BMI 22.6 BP 126/86 Blood Pressure Location Lt brachial Position Sitting Pulse 111 H Intake Visit Reasons: Breast Exam, 6 mth follow up Intake Note: Patient is seen in office for 6 month follow up visit, breast exam. Pt c/o: denies any concerns mm:08/09/24 Fire Investigator Required: No Embalmer/Funeral Director: Embalmer/Funeral Director Present Accompanied by: Daughter Allergies No Known Allergies Allergy (Verified 03/04/25 15:24) Medication List - Last Reconciled 03/04/25 by Herminio Jean MD acetaminophen (Tylenol Extra Strength) 650 mg PO Q6H PRN alendronate 70 mg PO QWEEK bupropion HCl XL 1 tab PO QAM empagliflozin (Jardiance) 10 mg PO DAILY mecobalamin (vitamin B12) 1,000 mcg sublingual DAILY olanzapine 15 mg PO BEDTIME tamoxifen 20 mg PO DAILY HPI Comments Details: 69-year-old female patient returning for follow-up breast examination after treatment for left breast invasive lobular carcinoma. She was diagnosed with invasive lobular carcinoma, grade 2, 2.5 cm size, ER/RI positive, HER2 Kaylynn negative and subsequently underwent left breast lumpectomy with needle localization and sentinel node biopsy on 08/27/2020. 0 of 3 sentinel lymph nodes revealed metastatic disease (pT2 N0(sn)(i-)). Because of positive margins she return to the OR for wider excision on 11/05/2020. The recurrence score was calculated at 19. Genetic testing performed on 08/10/2021 revealed no clinically significant mutations and no variance of unknown significance. She was evaluated by Dr. Marte and no chemotherapy recommended. Radiation was performed at [facility] and completed in December 2020. She was placed on tamoxifen 20 mg p.o. q.day and remains on this without significant symptoms. Her latest mammogram performed on 08/09/2024 revealed no mammographic evidence of malignancy (BI-RADS 2). Follow-up mammogram in 1 year is recommended. She feels well and denies any ongoing breast symptoms at this time. [facility] Medical History Nicotine dependence, cigarettes, uncomplicated Hypotension after procedure Gout Chronic kidney disease (CKD) Chronic cough Depression Schizoaffective disorder Invasive lobular carcinoma of left breast in female (~2019) Basal cell carcinoma Melanoma History of colon polyps (~2015) Surgical History History of skin surgery History of tubal ligation History of left breast biopsy History of lumpectomy of left breast History of partial colectomy (~2015) Family History Maternal Grandfather History of cancer of unknown primary site Father Diabetes Heart disease Mother Stroke Daughter Atypical lobular hyperplasia (ALH) of breast Other History of skin cancer Social History Household Members: None Housing: Apartment Are you a primary early breastfeeding care specialist to a significant other at home: No Alcohol intake: never Patient Tobacco Use Status: Current everyday Tobacco user Tobacco use type: Cigarette Years Smoked: 50 (onset 10, 1/2-1ppd x 50yrs - 35pyh) e-Cigarette/Vaping Use: Never Used Second Hand Smoke Exposure: No service: No Current occupational status: disabled Review of Systems Const All systems reviewed & are unremarkable except as noted in HPI and below Physical Exam Vital Signs: Last Vital Signs Pulse 111 H 03/04/25 15:29 BP 126/86 03/04/25 15:29 BMI result Body Mass Index 22.6 Const General: cooperative, healthy appearing, comfortable and no acute distress Chest Other: Left breast well-healed incision in the upper outer quadrant and axilla without new skin change, nipple discharge, palpable mass, or enlarged lymph nodes.. Right breast reveals no palpable mass, skin change, nipple discharge, or enlarged lymph nodes. Chest/axillae images: 1. 2. Resp Effort & Inspection: normal respiratory effort, no audible wheezes and no cough GI Inspection: Yes normal to inspection Skin Other: Warm and dry, no rash General skin exam: no rashes or lesions noted Neuro Other: Mobility Assessment: 1. 3 meter assessment time (seconds) 6 2. Gait observations: Normal balance and gait Extrem Other: No edema General: Yes no clubbing, cyanosis or edema Assessment & Plan Assessment & Plan (1) Invasive lobular carcinoma of left breast in female: Onset Date: ~2019 Comment: (pT2 N0 (sn)(i-), ER/RI positive, HER2 negative - s/p lumpectomy/wide excision, s/p radiation - on tamoxifen) Code(s): C50.912 - Malignant neoplasm of unspecified site of left female breast Category: Medical Plan: 69-year-old female patient returning for follow-up breast examination after left breast lumpectomy/wider excision followed by radiation therapy 4.5 years ago. She is currently on tamoxifen and tolerating this well. Her most recent mammogram 08/09/2024 reveals no mammographic evidence of malignancy a routine follow-up is recommended in 1 year. Examination reveals no suspicious findings in either breast. I recommended follow-up examination in 6 months. She should call sooner for any new concerns. Coding Level of Care Code Est Pt Level 3 (22789) Complex EM visit Add On G2211 Diagnoses Invasive lobular carcinoma of left breast in female C50.912
[2025-03-04 15:29] VITALS: BP 126/86; PULSE 111; BMI 22.6
--- OUTSIDE RECORDS SUMMARY | 2025-03-04 15:55 | XMS_ITS | Encounter Summary ---
Author Organization [employer] Address [address] [place] [address] [address] [place] [address] Care Team Providers Care Edging Supervisor Name Role Phone Waylon Ellis MD Primary Care Prov ider Encounter Details Date Type Department Care Team (Latest Contact Info) Description 09/19/2019 Abstract [facility] CONVERSIONS Dental, Provider, DDS Social History Tobacco Use Types Packs/Day Years Used Date Smoking Tobacco: Never Assessed Comments Unknown Sex and Gender Information Value Date Recorded Sex Assigned at Female 08/29/2022 10:17 AM EDT Legal Sex Female 10:17 AM EDT Gender Identity Female 08/29/2022 10:17 AM EDT Sexual Orientation Straight 08/29/2022 10 :17 AM EDT documented as of this encounter Plan of Treatment Upcoming Encounters Date Type Department Care Team (Late st Contact Info) Description 07/28/2025 2:00 PM EDT Office Visit [facility] [address] [place] [address] Grayson Hedrick documented as of this encounter Visit Diagnoses Not on filedocumented in this encounter Care Teams Edging Supervisor Relationship Specialty Start Date End Date Waylon Ellis MD [address] [place] [address] PCP - General Internal Medicine 03/17/20 documented as of this encounter
--- OUTSIDE RECORDS SUMMARY | 2025-03-04 15:55 | XMS_ITS | Encounter Summary ---
Author Organization [facility] Address [address] [place] [address] Phone Care Team Providers Care Cornetist Name Role Phone Don Herdick MD Primary Care Provider Unav ailable Encounter Details Date Type Department Care Team (Late Contact Info) Description 02/05/2024 Documentation Only [facility] [address] [place] [address] Mali Sanders [address] [place] [address] Social History Tobacco Use Types Packs/Day Years Used Date Smoking Tobacco: Every Day Cigarettes Alcohol Use Standard Drinks/Week Comments No 0 (1 standard drink = 0.6 oz pur e alcohol) Comments Unknown Sex and Gender Information Value Date Recorded Sex Assigned at Not on file Legal Sex Female 4:33 PM EST Gender Identity Not on file Sexual Orientation Not on file documented as of this encounter Plan of Treatment Upcoming Encounters Date Type Department Care Team (Late st Contact Info) Description 05/15/2025 4:00 PM EDT Office Visit [facility] [address] [place] [address] Matt Geronimo MD [address] [place] [address] documented as of this encounter Visit Diagnoses Not on filedocumented in this encounter Care Teams Cornetist Relationship Specialty Start Date End Date Don Hedrick MD [address] [place] [id number] PCP - General Internal Medicine 02/21/23 documented as of this encounter
--- OUTSIDE RECORDS SUMMARY | 2025-03-04 15:55 | XMS_ITS | Encounter Summary ---
Author Organization [facility] Address [address] [place] [address] Phone Care Team Providers Care Marble Helper Name Role Phone Don Hedrick MD Primary Care Provider Unav ailable Encounter Details Date Type Department Care Team (Late Contact Info) Description 02/05/2024 Documentation Only [facility] [address] [place] [address] Mali Sanders [address] [place] [address] Social History Tobacco Use Types [...] Visit [facility] [address] [place] [address] Matt Geronimo MD [address] [place] [address] documented as of this encounter Visit Diagnoses Not on filedocumented in this encounter Care Teams Marble Helper Relationship Specialty Start Date End Date Don Hedrick MD [address] [place] [id number] PCP - General Internal Medicine 02/21/23 documented as of this encounter
--- OUTSIDE RECORDS SUMMARY | 2025-03-04 15:55 | XMS_ITS | Encounter Summary ---
Author Organization [employer] Address [address] [place] [address] [address] [place] [address] Care Team Providers Care Manuscript Editor Name Role Phone Waylon Ellis MD Primary Care Prov ider Encounter Details Date Type Department Care Team (Latest Contact Info) Description 05/19/2021 Abstract [facility] CONVERSIONS Dental, Provider, DDS Social History Tobacco [...] Description 07/28/2025 2:00 PM EDT Office Visit [facility] [address] [place] [address] Grayson Hedrick documented as of this encounter Visit Diagnoses Not on filedocumented in this encounter Care Teams Manuscript Editor Relationship Specialty Start Date End Date Waylon Ellis MD [address] [place] [address] PCP - General Internal Medicine 03/17/20 documented as of this encounter
--- OUTSIDE RECORDS SUMMARY | 2025-03-04 15:55 | XMS_ITS | Encounter Summary ---
Author Organization [facility] Address [address] [place] [address] Phone Care Team Providers Care Utility Locate Technician Name Role Phone Don Hedrick MD Primary Care Provider Unav ailable Encounter Details Date Type Department Care Team (Late st Contact Info) Description 08/29/2022 Documentation Only [facility] [address] [place] [address] Surya Caldera MD [address] [place] [address] Social History Tobacco Use Types Packs/Day Years Used Date Smoking Tobacco: Smoker, Current Status Unknown Alcohol Use Standard Drinks/Week Comments No 0 [...] Visit [facility] [address] [place] [address] Matt Geronimo MD [address] [place] [address] documented as of this encounter Visit Diagnoses Not on filedocumented in this encounter Care Teams Utility Locate Technician Relationship Specialty Start Date End Date Don Hedrick MD [address] [place] [address] [place] [address] PCP - General Internal Medicine 02/21/23 documented as of this encounter
--- OUTSIDE RECORDS SUMMARY | 2025-03-04 15:56 | XMS_ITS | Encounter Summary ---
Author Organization [facility] Address [address] [place] [address] Phone Care Team Providers Care Sub Master Name Role Phone Don Hedrick MD Primary Care Provider Unav ailable Encounter Details Date Type Department Care Team (Late Contact Info) Description 06/27/2024 Documentation Only [facility] [address] [place] [address] Mali Sanders [address] [place] [address] Social History Tobacco Use Types [...] Visit [facility] [address] [place] [address] Matt Geronimo MD [address] [place] [address] documented as of this encounter Visit Diagnoses Not on filedocumented in this encounter Care Teams Sub Master Relationship Specialty Start Date End Date Don Hedrick MD [address] [place] [id number] PCP - General Internal Medicine 02/21/23 documented as of this encounter
--- OUTSIDE RECORDS SUMMARY | 2025-03-04 15:56 | XMS_ITS | Encounter Summary ---
Author Organization [facility] Address [address] [place] [address] Phone Care Team Providers Care Conche Loader And Unloader Name Role Phone Don Hedrick MD Primary Care Provider Unav ailable Encounter Details Date Type Department Care Team (Late st Contact Info) Description 02/14/2024 Documentation Only [facility] [address] [place] [address] Mali Sanders [address] [place] [address] Social History Tobacco Use Types [...] Visit [facility] [address] [place] [address] Matt Geronimo MD [address] [facility] [address] [place] [address] documented as of this encounter Visit Diagnoses Not on filedocumented in this encounter Care Teams Conche Loader And Unloader Relationship Specialty Start Date End Date Don Hedrick MD [address] [place] [phone] PCP - General Internal Medicine 02/21/23 documented as of this encounter
--- OUTSIDE RECORDS SUMMARY | 2025-03-04 15:56 | XMS_ITS | Clinical Summary ---
Author Organization [facility], Address [address] [place] [address] Phone Care Team Providers Care Business Control Manager Name Role Phone Don Hedrick MD Primary Care Provider Unav ailable Allergies Active Allergy Reactions Criticality Noted Date Comments Aspirin 07/10/2013 Other reaction(s): Pt Reports Contraindicated by Nephrology Nsaids 05/03/2022 secondary to kidney disease Medications buPROPion SR (WELLBUTRIN SR) 150 MG 12 hr tablet Take 1 tablet by mouth 2 (two) times a day Active OLANZapine (ZyPREXA) 15 MG tablet Comments: Filled Date: Jul 03 2017 12:00AM Patient Notes: FILL 06/10-TAKE 1 TABLET BY MOUTH AT BEDTIME Duration: 90 7 Active Acetaminophen 325 MG capsule Take 2 capsules by mouth 4 (four) times a day Active tamoxifen (NOLVADEX) 20 MG chemo tablet Take 20 mg by mouth 1 (one) time each day Swallow whole; do not split, chew, or crush. Take with water or any other nonalcoholic drink with or without food at around the same time(s) every day. Active alendronate (FOSAMAX) 70 MG tablet Take 70 mg by mouth every 7 (seven) days Take in the morning with a full glass of water, on an empty stomach, and do not take anything else by mouth or lie down for the next 30 min. 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,melanoma Hyperlipidemia 01/09/2020 Encounters Date Type Department Care Team Description 02/10/2025 2:00 PM EDT Office Visit [facility] [address] [place] [address] Elbert Rhoades MD Chronic kidney disease, stage 4 (severe) (HCC) (Primary Dx); Persistent proteinuria 02/10/2025 Documentation Only [facility] [address] [place] [address] [place], [place] 02/10/2025 Documentation Only [facility] [address] [place] [address] [place], [place] 02/10/2025 Documentation Only [facility] [address] [place] [address] [place], [place] 02/10/2025 Documentation Only [facility] [address] [place] [address] [place], [place] 02/10/2025 Documentation Only [facility] [address] [place] [address] [place], [place] 01/30/2025 Orders Only [facility] [address] [place] [address] Matt Geronimo MD from Last 3 Months Immunizations Immunization Administration Dates Next Due Hepatitis B 08/11/2023,01/31/2023,01/04/2023 Influenza Split 08/29/2013 Influenza Split High Dose Pr eservative Free IM 08/02/2016 Influenza Vaccine, Quadrivalent, Adjuvanted 10/2019 Influenza, Quadrivalent, Preservative Free 08/04,08/21/2017 Influenza, Quadrivalent, With Preservative 08/16,08/05/2016,09/14/2015 Influenza, Unspecified 08/11/2023 Pfizer SARS-COV-2 08/17/2021,01/30/2021,01/10/20 21 Pneumococcal Conjugate 13-Valent 06/30/2020 Pneumococcal Conjugate Pcv 20 08/11/2023 Pneumococcal Polysaccharide 08/11/2014 Tdap 02/19/2015 Zoster 09/14/2015 Family History Medical History Relation Comments Other Daughter ALH (Atypical lo bular hyperplasia) of the breast Diabetes Father Heart disease Father Cancer Maternal Grandfather of unknown primary site Stroke Mother Relation Status Comments Child Daughter Father Maternal Grandfather Mother Sibling Social History Tobacco Use Types Packs/Day Years Used Date Smoking Tobacco: Every Day Cigarettes Tobacco Cessation:Ready to Q uit: Not Asked; Counseling Given: Not Answered Alcohol Use Standard Drinks/Week Comments No 0 (1 standard drink = 0.6 oz pur e alcohol) Comments Unknown Sex and Gender Information Value Date Recorded Sex Assigned at Not on file Legal Sex Female 4:33 PM EST Gender Identity Not on file Sexual Orientation Not on file Last Filed Vital Signs Vital Sign Reading Time Taken Comments Blood Pressure 110/68 09/30/2024 4:23 PM EST Pulse 64 07/18/2023 3:08 PM EDT Temperature - - Respiratory Rate - - Oxygen Saturation - - Inhaled Oxygen Concentration - - Weight 56.7 kg (125 lb) 07/28/2020 7:53 PM EDT Height 154.9 cm (5' 1 ) 09/17/2019 12:00 PM EST Body Mass Index 23.62 09/17/2019 12:00 PM EST Plan of Treatment Upcoming Encounters Date Type Department Care Team (Late st Contact Info) Description 05/15/2025 4:00 PM EDT Office Visit [facility] [place], [address] [address] Matt Geronimo MD [address] [facility] [place] [address] Health Maintenance Due Date Last Done Comments Breast Cancer Screening 1955 Colorectal Cancer Screening: Annual FOBT 2004 Colorectal Cancer Screening: Colonoscopy 2004 Colorectal Cancer Screening: Sigmoidoscopy 2004 Influenza Vaccine (Season Ended) 2025 08/11/2023, 06/30/2020, 08/04/2019, Additional history exists Hepatitis B Vaccine Aged Out 08/11/2023, 01/31/2023, 01/04/2023 No longer eligible based on patient's age to complete this topic Pneumococcal Vaccine: 50+ Years Completed 08/11/2023, 06/30/2020, 08/11/2014 Pneumococcal Vaccine: Peds (0 to 5 Years) and At-Risk Patients (6 to 49 Years) Discontinued 08/11/2023, 06/30/2020, 08/11/2014 Procedures Procedure Name Priority Date/Time Associated Diagnosis Comments RENAL FUNCTION PANEL Routine 01/30/2025 4:34 PM EDT PTH, INTACT Routine 01/25/2025 12:34 PM EDT VITAMIN D 25 HYDROXY Routine 01/25/2025 12:34 PM EDT URINE ALBUMIN / CREATININE RATIO Routine 01/25/2025 12:34 PM EDT PROTEIN / CREATININE RATIO, URINE Routine 01/25/2025 12:34 PM EDT ANCA PANEL Routine 01/25/2025 12:34 PM EDT URINALYSIS WITH MICROSCOPIC Routine 01/25/2025 12:34 PM EDT CBC AND DIFFERENTIAL Routine 01/25/2025 12:34 PM EDT MICROSCOPIC EXAMINATION - DO NOT USE Routine 01/25/2025 12:34 PM EDT from Last 3 Months Results * (ABNORMAL) Renal Function Panel (01/30/2025 4:34 PM EDT) Glucose 106(H) 70 - 99 mg/dL [facility] BUN 44(H) 8 - 27 mg/dL [facility] Creatinine 2.82(H) 0.57 - 1.00 mg/dL [facility] eGFR CKD-EPI CR 2020 18(L) >59 mL/min/1.7 3 [facility] BUN/Creatinine Ratio 16 12 - 28 [facility] Sodium 145(H) 134 - 144 mmol/L [facility] Potassium 3.9 3.5 - 5.2 mmol/L [facility] Chloride 110(H) 96 - 106 mmol/L [facility] Bicarbonate (CO2) 16(L) 20 - 29 mmol/L [facility] Calcium 9.0 8.7 - 10.3 mg/dL [facility] Albumin 4.1 3.9 - 4.9 g/dL [facility] Phosphorus 3.9 3.0 - 4.3 mg/dL [facility] 01/30/2025 4:34 PM EDT 01/30/2025 us Matt Geronimo MD LAB BLOOD ORDERABLES Final Re sult [facility] [address] [place] [address] * Microscopic Examination (01/25/2025 12:34 PM EDT) WBC, Urine 0-5 0 - 5 /hpf [facility] RBC, Urine None seen 0 - 2 /hpf [facility] Squamous Epithelial, Urine 0-10 0 - 10 /hpf [facility] Casts None seen None seen /lpf [facility] Bacteria, Urine None seen None seen/Few [facility] 01/25/2025 12:3 4 PM EDT 01/25/2025 Elbert Rhoades MD [facility] Final [facility] [address] [place] [phone] * (ABNORMAL) ANCA Panel (MPO/PR3) (01/25/2025 12:34 PM EDT) MPO Abs 1.1(H) 0.0 - 0.9 units [facility] Antiproteinase 3 (OR-3) Abs <0.2 0.0 - 0.9 units [facility] C-ANCA <1:20 Neg:<1:20 titer [facility] Perinuclear (P-ANCA) <1:20 Neg:<1:20 titer [facility] Comment: The presence of positive fluorescence exhibiting P-ANCA or C-ANCA patterns alone is not specific for the diagnosis of Mendez's Granulomatosis (WG) or microscopic polyangiitis. Decisions about treatment should not be based solely on ANCA IFA results. ??The International ANCA Group Consensus recommends follow up testing of positive sera with both OR-3 and MPO-ANCA enzyme immunoassays. As many as 5% serum samples are positive only by EIA. Ref. AM J Clin Pathol 1999;111:507-513. Atypical p-ANCA <1:20 Neg:<1:20 titer [facility] Comment: The atypical pANCA pattern has been observed in a significant percentage of patients with ulcerative colitis, primary sclerosing cholangitis and autoimmune hepatitis. 01/25/2025 12:3 4 PM EDT 01/25/2025 Elbert Rhoades MD LAB BLOOD ORDERABLES Final Resu lt [facility] [address] [place] [address] * (ABNORMAL) Protein, Total, Random Urine w/Creatinine (Protein/Creat Ratio) (01/25/2025 12:34 PM EDT) Creatinine, Ur 23.0 Not Estab. mg/dL [facility] Protein, Ur 12.6 Not Estab. mg/dL [facility] Urine Protein/Creati nine Ratio 548(H) 0 - 200 mg/g creat [facility] 01/25/2025 12:3 4 PM EDT 01/25/2025 us Elbert Rhoades MD LAB URINE ORDERABLES Final Resu lt [facility] [address] [place] [address] * (ABNORMAL) Urine Albumin / Creatinine Ratio (01/25/2025 12:34 PM EDT) Albumin, Urine 27.5 Not Estab. ug/mL [facility] Albumin/Creatin ine Ratio 120(H) 0 - 29 mg/g creat [facility] Comment: ? Normal: ?0 - ??29 ? Moderately increased: 30 - 300 ? Severely increased: ? >300 01/25/2025 12:3 4 PM EDT 01/25/2025 Elbert Rhoades MD LAB URINE ORDERABLES Final Resu lt Performing Organization Address City/[facility]/ZIP Co de Phone Number DAHIANA [facility] [address] [place] [address] * Vitamin D 25 Hydroxy (01/25/2025 12:34 PM EDT) Vitamin D, 25-OH, Total 36.9 30.0 - 100.0 ng/mL [facility] Comment: Vitamin D deficiency has been defined by the [place] of [employer] and an Endocrine Society practice guideline as a level of serum 25-OH vitamin D less than 20 ng/mL (1,2). The Endocrine Society went on to further define vitamin D insufficiency as a level between 21 and 29 ng/mL (2). 1. IOM ([place] of [employer]). 2010. Dietary reference ?? intakes for calcium and D. [place]: The ?? National 360[employer] Press. 2. Palmira MF, Jess NC, Gissell HUGGINS, et al. ?? Evaluation, treatment, and prevention of vitamin D ?? deficiency: an Endocrine Society clinical practice ?? guideline. JCEM. 2010; 96(7):1911-30. 01/25/2025 12:3 4 PM EDT 01/25/2025 Elbert Rhoades MD LAB BLOOD ORDERABLES Final Resu lt Performing Organization Address City/[facility]/ZIP Co de Phone Number DAHIANA [facility] [address] [place] [address] * Urinalysis with microscopic (01/25/2025 12:34 PM EDT) Specific Lyles, Urine 1.006 1.005 - 1.030 [facility] [phone] pH Urine 6.0 5.0 - 7.5 [facility] Color, Urine Yellow Yellow [facility] Appearance Urine Clear Clear [facility] WBC Esterase Urine Negative Negative [facility] Protein, Ur Negative Negative/Tra ce [facility] Glucose, Ur Negative Negative [facility] [phone] Ketones, Urine Negative Negative [facility] Blood Urine Negative Negative [facility] Bilirubin Urine Negative Negative [facility] [phone] Urobilinogen Urine 0.2 0.2 - 1.0 mg/dL [facility] Nitrite, Urine Negative Negative [facility] Microscopic Examination Comment [facility] Comment:Microscopic follows if indicated. Other Microsc. Observations See below: [facility] Comment:Microscopic was inocencio cated and was performed. 01/25/2025 12:3 4 PM EDT 01/25/2025 us Elbert Rhoades MD LAB URINE ORDERABLES Final Resu lt [facility] [address] [place] [address] * (ABNORMAL) CBC and Differential (01/25/2025 12:34 PM EDT) WBC 5.7 3.4 - 10.8 x10E3/uL [facility] RBC 3.58(L) 3.77 - 5.28 x10E6/uL [facility] Hemoglobin 12.3 11.1 - 15.9 g/dL [facility] Hematocrit 35.6 34.0 - 46.6 % [facility] MCV 99(H) 79 - 97 fL [facility] MCH 34.4(H) 26.6 - 33.0 pg [facility] MCHC 34.6 31.5 - 35.7 g/dL [facility] RDW 11.3(L) 11.7 - 15.4 % [facility] Platelets 272 150 - 450 x10E3/uL [facility] Neutrophils Relative 51 Not Estab. % [facility] Lymphocytes Relative 37 Not Estab. % [facility] Monocytes 8 Not Estab. % [facility] Eosinophils Relative 3 Not Estab. % [facility] Basophils Relative 1 Not Estab. % [facility] Neutrophils Absolute 3.0 1.4 - 7.0 x10E3/uL [facility] Lymphocytes Absolute 2.1 0.7 - 3.1 x10E3/uL [facility] Monocytes Absolute 0.4 0.1 - 0.9 x10E3/uL [facility] Eosinophils Absolute 0.2 0.0 - 0.4 x10E3/uL [facility] Basophils Absolute 0.0 0.0 - 0.2 x10E3/uL [facility] Immature Granulocytes 0 Not Estab. % [facility] Immature Grans (Absolute) 0.0 0.0 - 0.1 x10E3/uL [facility] 01/25/2025 12:3 4 PM EDT 01/25/2025 us Elbert Rhoades MD LAB BLOOD ORDERABLES Final Resu lt [facility] [address] [place] [address] * (ABNORMAL) PTH, Intact (01/25/2025 12:34 PM EDT) PTH 159(H) 15 - 65 pg/mL [facility] 01/25/2025 12:3 4 PM EDT 01/25/2025 us Elbert Rhoades MD LAB BLOOD ORDERABLES Final Resu lt [facility] [address] [place] [address] from Last 3 Months Insurance Medicare Medicaid [place] Care Teams Business Control Manager Relationship Specialty Start Date End Date Don Hedrick MD [address] [facility] [place] [id number] PCP - General Internal Medicine 02/21/23
--- OUTSIDE RECORDS SUMMARY | 2025-03-04 15:56 | XMS_ITS | Encounter Summary ---
Author Organization [facility] Address [address] [place] [address] Phone Care Team Providers Care Documentation Specialist Name Role Phone Don Hedrick MD Primary Care Provider Unav ailable Encounter Details Date Type Department Care Team (Late st Contact Info) Description 02/10/2025 Documentation Only [facility] [address] [place] [address] Mali Sanders [address] [place] [address] Social History Tobacco Use Types [...] Visit [facility] [address] [place] [address] Matt Geronimo MD [address] [place] [address] documented as of this encounter Visit Diagnoses Not on filedocumented in this encounter Care Teams Documentation Specialist Relationship Specialty Start Date End Date Don Hedrick MD [address] [place] [id number] PCP - General Internal Medicine 02/21/23 documented as of this encounter
--- OUTSIDE RECORDS SUMMARY | 2025-03-04 15:56 | XMS_ITS | Encounter Summary ---
Author Organization [facility] Address [address] [place] [address] Phone Care Team Providers Care Canal Driver Name Role Phone Don Hedrick MD Primary Care Provider Unav ailable Encounter Details Date Type Department Care Team (Late Contact Info) Description 07/03/2024 Documentation Only [facility] [address] [place] [address] [place] Sanders [address] [place] [address] Social History Tobacco Use Types [...] Visit [facility] [address] [place] [address] Matt Geronimo MD [address] [place] [address] documented as of this encounter Visit Diagnoses Not on filedocumented in this encounter Care Teams Canal Driver Relationship Specialty Start Date End Date Don Hedrick MD [address] [place] [phone] PCP - General Internal Medicine 02/21/23 documented as of this encounter
--- OUTSIDE RECORDS SUMMARY | 2025-03-04 15:56 | XMS_ITS | Encounter Summary ---
Author Organization [facility] Address [address] [place] [address] Phone Care Team Providers Care Director Packaging Name Role Phone Don Hedrick MD Primary Care Provider Unav ailable Encounter Details Date Type Department Care Team (Late st Contact Info) Description 02/10/2025 Documentation Only [facility] [address] [place] [address] [place] Sanders [address] [place] [address] Social History Tobacco Use Types [...] Care [facility] [address] [place] [address] Matt Geronimo MD [address] [facility] [place] [address] documented as of this encounter Visit Diagnoses Not on filedocumented in this encounter Care Teams Director Packaging Relationship Specialty Start Date End Date Don Hedrick MD [address] [place] [phone] PCP - General Internal Medicine 02/21/23 documented as of this encounter
--- OUTSIDE RECORDS SUMMARY | 2025-03-04 15:56 | XMS_ITS | Encounter Summary ---
Author Organization [facility] Address [address] [place] [address] Phone Care Team Providers Care Inspecting Engineer Name Role Phone Don Hedrick MD Primary Care Provider Unav ailable Encounter Details Date Type Department Care Team (Late st Contact Info) Description 02/14/2024 Documentation Only [facility] [address] [place] [address] Mali Sanders [address] [place] [address] Social History Tobacco Use Types [...] Visit [facility] [address] [place] [address] Matt Geronimo MD [address] [place] [address] documented as of this encounter Visit Diagnoses Not on filedocumented in this encounter Care Teams Inspecting Engineer Relationship Specialty Start Date End Date Don Hedrick MD [address] [place] [phone] PCP - General Internal Medicine 02/21/23 documented as of this encounter
--- OUTSIDE RECORDS SUMMARY | 2025-03-04 15:56 | XMS_ITS | Encounter Summary ---
Author Organization [facility] Address [address] [place] [address] Phone Care Team Providers Care Postdoctoral Research Associate Name Role Phone Don Hedrick MD Primary Care Provider Unav ailable Encounter Details Date Type Department Care Team (Late Contact Info) Description 06/27/2024 Documentation Only [facility] [address] [place] [address] Mali Sanders [address] [place] [address] Social History Tobacco Use Types [...] Visit [facility] [address] [place] [address] Matt Geronimo MD [address] [place] [address] documented as of this encounter Visit Diagnoses Not on filedocumented in this encounter Care Teams Postdoctoral Research Associate Relationship Specialty Start Date End Date Don Hedrick MD [address] [place] [phone] PCP - General Internal Medicine 02/21/23 documented as of this encounter
--- OUTSIDE RECORDS SUMMARY | 2025-03-04 15:56 | XMS_ITS | Encounter Summary ---
Author Organization [facility] Address [address] [place] [address] Phone Care Team Providers Care Bobbin Dumper Name Role Phone Don Hedrick MD Primary Care Provider Unav ailable Encounter Details Date Type Department Care Team (Late st Contact Info) Description 02/10/2025 Documentation Only [facility] [address] [place] [address] Mali Sanders [address] [place] [address] Social History Tobacco Use Types [...] Visit [facility] [address] [place] [address] Matt Geronimo MD [address] [place] [address] documented as of this encounter Visit Diagnoses Not on filedocumented in this encounter Care Teams Bobbin Dumper Relationship Specialty Start Date End Date Don Hedrick MD [address] [place] [phone] PCP - General Internal Medicine 02/21/23 documented as of this encounter
--- OUTSIDE RECORDS SUMMARY | 2025-03-04 15:56 | XMS_ITS | Encounter Summary ---
Author Organization [facility] Address [address] [place] [address] Phone Care Team Providers Care Analytical Scientist Name Role Phone Don Hedrick MD Primary Care Provider Unav ailable Encounter Details Date Type Department Care Team (Late Contact Info) Description 07/03/2024 Documentation Only [facility] [address] [place] [address] Mali Sanders [address] [place] [address] Social History Tobacco Use Types [...] Visit [facility] [address] [place] [address] Matt Geronimo MD [address] [facility] [place] [address] documented as of this encounter Visit Diagnoses Not on filedocumented in this encounter Care Teams Analytical Scientist Relationship Specialty Start Date End Date Don Hedrick MD [address] [place] [phone] PCP - General Internal Medicine 02/21/23 documented as of this encounter
--- OUTSIDE RECORDS SUMMARY | 2025-03-04 15:56 | XMS_ITS | Encounter Summary ---
Author Organization [facility] Address [address] [place] [address] Phone Care Team Providers Care Centrifugal Station Operator Name Role Phone Don Hedrick MD Primary Care Provider Unav ailable Encounter Details Date Type Department Care Team (Late Contact Info) Description 07/03/2024 Documentation Only [facility] [address] [place] [address] Mali Sanders [address] [place] [address] Social History Tobacco Use Types [...] Visit [facility] [address] [place] [address] Matt Geronimo MD [address] [facility] [place] [address] documented as of this encounter Visit Diagnoses Not on filedocumented in this encounter Care Teams Centrifugal Station Operator Relationship Specialty Start Date End Date Don Hedrick MD [address] [place] [phone] PCP - General Internal Medicine 02/21/23 documented as of this encounter
--- OUTSIDE RECORDS SUMMARY | 2025-03-04 15:56 | XMS_ITS | Encounter Summary ---
Author Organization [facility] Address [address] [place] [address] Phone Care Team Providers Care Bricklayer Helper Name Role Phone Don Hedrick MD Primary Care Provider Unav ailable Encounter Details Date Type Department Care Team (Late Contact Info) Description 02/05/2024 Documentation Only [facility] [address] [place] [address] Mali Sanders [address] [place] [address] Social History Tobacco Use Types [...] Visit [facility] [address] [place] [place] [address] Matt Geronimo MD [address] [place] [address] documented as of this encounter Visit Diagnoses Not on filedocumented in this encounter Care Teams Bricklayer Helper Relationship Specialty Start Date End Date Don Hedrick MD [address] [place] [phone] PCP - General Internal Medicine 02/21/23 documented as of this encounter
--- OUTSIDE RECORDS SUMMARY | 2025-03-04 15:56 | XMS_ITS | Encounter Summary ---
Author Organization [facility] Address [address] [place] [address] Phone Care Team Providers Care Civil Defense Director Name Role Phone Don Hedrick MD Primary Care Provider Unav ailable Encounter Details Date Type Department Care Team (Late Contact Info) Description 02/05/2024 Documentation Only [facility] [address] [place] [address] Mali Sanders [address] [place] [address] Social History Tobacco Use Types [...] Visit [facility] [address] [place] [address] Matt Geronimo MD [address] [place] [address] documented as of this encounter Visit Diagnoses Not on filedocumented in this encounter Care Teams Civil Defense Director Relationship Specialty Start Date End Date Don Hedrick MD [address] [place] [phone] PCP - General Internal Medicine 02/21/23 documented as of this encounter
--- OUTSIDE RECORDS SUMMARY | 2025-03-04 15:56 | XMS_ITS | Encounter Summary ---
Author Organization [facility] Address [address] [place] [address] Phone Care Team Providers Care Flatwork Ironer Name Role Phone Don Hedrick MD Primary Care Provider Unav ailable Encounter Details Date Type Department Care Team (Late Contact Info) Description 02/05/2024 Documentation Only [facility] [address] [place] [address] Mali Sanders [address] [place] [address] Social History Tobacco Use Types [...] Visit [facility] [address] [place] [address] Matt Geronimo MD [address] [facility] [place] [address] documented as of this encounter Visit Diagnoses Not on filedocumented in this encounter Care Teams Flatwork Ironer Relationship Specialty Start Date End Date Don Hedrick MD [address] [place] [phone] PCP - General Internal Medicine 02/21/23 documented as of this encounter
--- OUTSIDE RECORDS SUMMARY | 2025-03-04 15:56 | XMS_ITS | Encounter Summary ---
Author Organization [employer] Address [address] [place] [address] Care Team Providers Care Curator Medical Museum Name Role Phone Waylon Ellis MD Primary Care Prov ider Reason for Visit * Reason Onset Date Comments Referral 11/09/2023 Encounter Details Date Type Department Care Team ([facility] st Contact Info) Description 11/09/2023 Telephone [facility] [address] [place], [place] [phone] Waylon Ellis MD [address] [place], [place] [phone] Referral Social History Tobacco Use Types Packs/Day Years Used Date Smoking Tobacco: Former Cigarettes 1 52 Passive Smoke Exposure: Never Smokeless Tobacco: Never Alcohol Use Standard Drinks/Week Comments Defer 0 (1 standard drink = 0.6 oz pur e alcohol) Depression Answer Date Recorded Patient Health Questionnaire-9 Score 0 06/12/2023 Housing Stability Answer Date Recorded What is your housing situation today? I have tawanna sandoval 08/14/[address] you li ve. Do you have problems with any of the following? None of the above 08/14/2023 Food Insecurity Answer Date Recorded Within the past 12 months, y ou worried that your food would run out before you got money to buy more: Never True 08/14/2023 Within the past 12 months,th e food you bought just didn't last and you didn't have enough money to get more: Never True Transportation Answer Date Recorded In the past 12 months, has l ack of transportation kept you from medical appts, meetings, work or from getting things needed for daily living? No 08/14/2023 Utilities Answer Date Recorded In the past 12 months, has t he electric, gas, oil or water company threatened to shut off services in your home? No 08/14/2023 Depression Answer Date Recorded Patient Health Questionnaire-2 Score 0 06/12/2023 Comments Unknown Sex and Gender Information Value Date Recorded Sex Assigned at Female 08/29/2022 10:17 AM EDT Legal Sex Female 10:17 AM EDT Gender Identity Female 08/29/2022 10:17 AM EDT Sexual Orientation Straight 08/29/2022 10 :17 AM EDT documented as of this encounter Miscellaneous Notes * Telephone Encounter - Lubna Wagner RN - 11/09/2023 1:58 PM EST TC placed to patient regarding message below. No answer. LM to call us back. TC placed to Raquel @ [phone] at Lung Cancer Screening, [facility]. Raquel states that they are following up on the recommendation for a R axillary ultrasound for patient based on findings from 10/16/23 CT Lung Screening. Need PCP to place order. Recommendations for f/u are below copied from report: RECOMMENDATION: Routine annual low-dose CT screening in 12 months. Right axillary ultrasound for enlarging right lymph nodes. Heterogeneous lobulated left renal upper pole, consider renal ultrasound. Routing high priority to Dr. El for review. * Telephone Encounter - Thomas Taylor - 11/09/2023 8:09 AM EST TC from pt requesting new referral after being evaluated by ( [facility]IC/ PCP/ URGENT CARE/ ER) DATE: 10/16 TIME: N/A Location: [address] [place] [address] Facility: [facility] Type of Specialist: Radiologist DX: Right axillary ultra sound documented in this encounter Plan of Treatment Upcoming Encounters Date Type Department Care Team ([facility] st Contact Info) Description 07/28/2025 2:00 PM EDT Office Visit [facility] [address] [place], [place] [phone] Grayson Hedrick documented as of this encounter Visit Diagnoses Not on filedocumented in this encounter Additional Health Concerns Assessment Noted Time PHQ-9 Depression Total Score: 0 06/12/20 23 1:28 PM EDT documented as of this encounter Care Teams Curator Medical Museum Relationship Specialty Start Date End Date Waylon Ellis MD [address] [place] [address] PCP - General Internal Medicine 03/17/20 documented as of this encounter
--- OUTSIDE RECORDS SUMMARY | 2025-03-04 15:56 | XMS_ITS | Clinical Summary ---
Author Organization [employer] Address [address] 7[address] [place] [address] Care Team Providers Care Dairy Inspector Name Role Phone Waylon Ellis MD Primary Care Prov ider Allergies Active Allergy Reactions Criticality Noted Date Comments Aspirin 07/10/2013 Other reaction(s): Pt Reports Contraindicated by Nephrology Nsaids 05/03/2022 secondary to kidney disease Medications alendronate (Fosamax) 70 MG tablet Take 1 tablet by mouth once a week. Active OLANZapine (ZyPREXA) 10 MG tablet Take 1 tablet by mouth at bed time. Active tamoxifen (Nolvadex) 20 MG chemo tablet Take 20 mg by mouth in the morning. 09/08/2023 Active buPROPion XL (Wellbutrin XL) 150 MG 24 hr tablet Take 150 mg by mouth in the morning. 09/08/2023 Active acetaminophen (Tylenol 8 Hour) 650 MG ER tabletIndicatio ns:Right hip pain TAKE 1 TABLET BY MOUTH EVERY 8 HOURS NEEDED FOR MODERATE PAIN. DO NOT CRUSH, CHEW, OR SPLIT 100 tablet 3 01/24/2025 Active Active Problems Problem Noted Date Diagnosed Date Colon polyp 03/22/2024 Substance abuse 03/22/2024 Tobacco dependence syndrome 03/22/2024 Chronic kidney disease, stage 4 (severe) 024 Secondary hyperparathyroidism 02/02/2024 Benign neoplasm of axillary lymph nodes 11/11/19 Assessment & Plan (11/11/2023 4:04 PM EST): Patient found incidentally with a right axillary node, she has hx of breast cancer, will order ultrasound. Atrophy of left kidney 11/11/2023 Assessment & Plan (11/11/2023 4:05 PM EST): Patient with left upper lobe lobulated, will order a kidney ultrasound Age-related osteoporosis wit hout current pathological fracture 06/12/2023 Assessment & Plan (12/19/2024 2:27 PM EST): Continue alendronate, recent dexa scan showed osteoporosis Assessment & Plan (05/07/2024 7:22 PM EDT): Continue alendronate, will monitor with dexa scan in 1 year Assessment & Plan (08/12/2023 12:44 PM EDT): Followed by hematology on alendronate Assessment & Plan (06/12/2023 1:36 PM EDT): Followed by hematology, patient is on alendronate weekly, vit d levels were adequate Bipolar disorder 03/10/2023 Assessment & Plan (08/12/2023 12:45 PM EDT): Followed by psych on bupropion and olanzapine Assessment & Plan (06/12/2023 1:37 PM EDT): Followed by psych on Olanzapine and bupropion Assessment & Plan (03/10/2023 12:38 PM EDT): Followed b psych on olanzapine and bupropion, no suicidal/homicidal ideas Invasive lobular carcinoma of breast in female 0 03/10/2023 Assessment & Plan (05/07/2024 7:23 PM EDT): Followed by oncology, she is on tamoxifen, will follow up reccomendations Assessment & Plan (06/12/2023 1:37 PM EDT): Followed by nathalie/onco, on tamoxifen Assessment & Plan (03/10/2023 12:20 PM EDT): Followed by oncology and surgery, last imaging test was negative, on tamoxifen completed chemo/rad Stage 4 chronic kidney disease 03/10/2023 Assessment & Plan (12/19/2024 2:27 PM EST): Followed by nephrology, she has remained with stable renal function Assessment & Plan (08/12/2023 12:42 PM EDT): Followed by nephrology, no sign of pulmonary congestion, no swelling/shortness of breath Assessment & Plan (06/12/2023 1:36 PM EDT): Followed by nephrology Assessment & Plan (03/10/2023 12:22 PM EDT): Followed by nephrology, ckd has remained stable, urinating, not anuric Screen for colon cancer 03/10/2023 Assessment & Plan (12/19/2024 2:26 PM EST): Will place referral for colon cancer screening Assessment & Plan (03/10/2023 12:41 PM EDT): Done in 2019, next due in 5 years Hyperlipidemia 01/09/2020 History of hemicolectomy 06/26/2018 Mood disorder 06/26/2018 Stage 3 chronic kidney disease 06/26/2018 Encounters Date Type Department Care Team Description 02/26/2025 Telephone [facility] [address] [place], [place] [phone] Maddie Madison [place] 01/22/2025 2:00 PM EDT Office Visit [facility] [address] [place] [address] Grayson Hedrick Dental calculus (Primary Dx) 01/21/2025 Refill [facility] [address] [place], [place] [phone] Kaila Crook FNP Right hip pain 12/19/2024 1:45 PM EST Telemedicine [facility] [address] [place] [address] Waylon Ellis MD Screen for colon cancer (Primary Dx); Stage 4 chronic kidney disease (CMS/HCC); Age-related osteoporosis without current pathological fracture 12/19/2024 Travel from Last 3 Months Immunizations Name Administration Dates Next Due Hep B, adult 08/11/2023,01/31/2023,01/04/2023 Influenza High-dose Quadriva lent Preservative Free 08/11/2023,08/15/2022,07/06/2021 Influenza Quadrivalent Adjuvanted 06/30/2020 Influenza injectable quadriv alent IIV4 with preservative 08/16/2018,08/05/2016,09/14/2015 Influenza injectable quadriv alent preservative free 08/04/2019,08/21/2017 Influenza, High Dose Seasona l, Preservative Free 08/02/2016 Influenza, IIV3, injectable 08/11/2014 Influenza, Split (incl. lina fied surface antigen) 08/29/2013 Pneumococcal Conjugate PCV 13 06/30/2020 Pneumococcal Conjugate PCV 20 08/11/2023 Pneumococcal Polysaccharide PPSV23 08/11/2014 RSV Adjuvant 10/12/2023 Tdap 02/19/2015 Zoster, live 09/14/2015 Social History Tobacco Use Types Packs/Day Years Used Date Smoking Tobacco: Former Cigarettes 1 52 Passive Smoke Exposure: Never Smokeless Tobacco: Never Tobacco Cessation:Counseling Given: Not Answered Alcohol Use Standard Drinks/Week Comments Defer 0 (1 standard drink = 0.6 oz pur e alcohol) Depression Answer Date Recorded Patient Health Questionnaire-9 Score 0 12/19/2024 Patient Health Questionnaire-9 Score 0 12/19/2024 Last PHQ-9: Questionnaire Data Not on file 0 12/19/2024 Housing Stability Answer Date Recorded What is your housing situation today? I have tawanna sandoval 12/19/[address] you li ve. Do you have problems with any of the following? None of the above 12/19/2024 Food Insecurity Answer Date Recorded Within the past 12 months, y ou worried that your food would run out before you got money to buy more: Never True 12/19/2024 Within the past 12 months,th e food you bought just didn't last and you didn't have enough money to get more: Never True Transportation Answer Date Recorded In the past 12 months, has l ack of transportation kept you from medical appts, meetings, work or from getting things needed for daily living? No 12/19/2024 Utilities Answer Date Recorded In the past 12 months, has t he electric, gas, oil or water company threatened to shut off services in your home? No 12/19/2024 Depression Answer Date Recorded Patient Health Questionnaire-2 Score 0 12/19/2024 Internet Access Answer Date Recorded Internet Access Q1 Yes 12/19/2024 Internet Access Q2 Not on file 12/19/2024 Comments Unknown Sex and Gender Information Value Date Recorded Sex Assigned at Female 08/29/2022 10:17 AM EDT Legal Sex Female 10:17 AM EDT Gender Identity Female 08/29/2022 10:17 AM EDT Sexual Orientation Straight 08/29/2022 10 :17 AM EDT Last Filed Vital Signs Vital Sign Reading Time Taken Comments Blood Pressure 108/62 01/22/2025 2:06 PM EDT Pulse 65 01/22/2025 2:06 PM EDT Temperature 35.9 ??C (96.7 ??F) 05/07/2024 2:09 PM ED T Respiratory Rate 16 05/07/2024 2:09 PM EDT Oxygen Saturation 95% 03/22/2024 2:19 PM EDT Inhaled Oxygen Concentration - - Weight 50.3 kg (111 lb) 05/07/2024 2:09 PM EDT Height 154.9 cm (5' 1 ) 05/07/2024 2:09 PM EDT Body Mass Index 20.97 05/07/2024 2:09 PM EDT Plan of Treatment Upcoming Encounters Date Type Department Care Team (Late st Contact Info) Description 07/28/2025 2:00 PM EDT Office Visit [facility] [address] [place] [address] Grayson Hedrick Health Maintenance Due Date Last Done Comments CT Colonography 1955 Colonoscopy 1955 Colorectal Cancer Screening 1955 Dental X-Ray: Bitewings 1955 Dental X-Ray: Full Mouth 1955 FIT DNA/Cologuard 1955 FIT 1955 FOBT 1955 Sigmoidoscopy 1955 Zoster Vaccines (3 of 3) 10/04/2024 08/09/2024, 08/30 DTaP/Tdap/Td Vaccines (2 - Td or Tdap) 02/19/2025 02/19/2015 Dental Oral Exam 07/26/2025 01/22/2025, , 12/27/2022 Dental Prophylaxis 07/26/2025 01/22/2025, 0 07/24/2024, 01/18/2024, Additional history exists Mammogram 08/09/2025 08/09/2024, 10/30, 08/08/2023, Additional history exists Alcohol/Substance Use Screening 12/19/2025 12/19/2024 Depression Screening 12/19/2025 12/19/2024, 12/19/19 SDOH Screening 12/19/2025 12/19/2024 Tobacco Screening 01/22/2026 01/22/2025 Hepatitis C Screening Completed 03/10/2023 Hepatitis B Vaccines Completed 08/11/2023, 01/31/2023, 01/04/2023 Pneumococcal Vaccine: 50+ Years Completed 08/11/2023, 06/30/2020, 08/11/2014 RSV Patients and Patients Aged 60 years or older Completed 10/12/2023 COVID-19 Vaccine Completed 07/08/2024, , 10/03/2022, Additional history exists Influenza Vaccine Completed 07/08/2024, , 08/15/2022, Additional history exists HIB Vaccines Aged Out No longer eligi ble based on patient's age to complete this topic HPV Vaccines Aged Out No longer eligi ble based on patient's age to complete this topic Hepatitis A Vaccines Aged Out No long er eligible based on patient's age to complete this topic IPV Vaccines Aged Out No longer eligi ble based on patient's age to complete this topic Meningococcal Vaccine Aged Out No cl ami eligible based on patient's age to complete this topic RSV under 20 months Aged Out No longe r eligible based on patient's age to complete this topic Rotavirus Vaccines Aged Out No longer eligible based on patient's age to complete this topic Procedures Procedure Name Priority Date/Time Associated Diagnosis Comments COMPREHENSIVE PERIODONTAL EVALUATION - NEW OR ESTABLISHED PATIENT Routine 01/22/2025 2:00 PM EDT PERIODIC ORAL EVALUATION - ESTABLISHED PATIENT Routine 01/22/2025 2:00 PM EDT Dental calculus CASE PRESENTATION, DETAILED AND EXTENSIVE TREATMENT PLANNING Routine 01/22/2025 2:00 PM EDT ORAL HYGIENE INSTRUCTIONS Routine 01/22/2025 2:00 PM EDT PROPHYLAXIS - ADULT Routine 01/22/2025 2 :00 PM EDT BI MAMMOGRAM SCREENING TOMOSYNTHESIS BILATERAL Routine 08/09/2024 3:30 PM EDT HEPATITIS C AB W/REFL TO HCV RNA, QN, PCR Routine 03/10/2023 11:46 AM EDT Stage 4 chronic kidney disease (CMS/HCC) from Last 3 Months or Most Recently Relevant to Health Maintenance Results * BI Mammogram Screening Tomosynthesis Bilateral (08/09/2024 3:30 PM EDT) Anatomical Region Laterality Modality Breast Bilateral Mammography 08/09/2024 3:30 PM EDT Narrative 08/22/2024 9:45 PM EDT ? [facility] ? [address] ?[place] [address] ? Mammography Report ? Signed ? Patient: Kim Love ?MR#: [id number] ? : 1955 ?Acct:[id number] ? Age/Sex: 69 / F ?ADM Date: 10//24 ? Loc: HO.MAMMO ? Attending Dr: Waylon Pedro MD ? Ordering Physician: Waylon Ellis MD ?Res ?? ults: 2Benign Findings ? Date of Service: 08/09/24 ?Follow Up: 1 Year From Orig ?? inal Mammogram ? Procedure(s): MM tomosynthesis screening BI ?? Accession Number(s): [id number] ? cc: Waylon Ellis MD ? EXAMINATION: ?? MM SCREENING DIGITAL BREAST TOMOSYNTHESIS, BILATERAL ? CLINICAL INFORMATION: ? Screening. Asymptomatic. ? COMPARISON: ?? Mammography: Comparison is made with available priors ? TECHNIQUE: ?? Digital breast mammography with tomosynthesis is performed in both the ?? craniocaudal and mediolateral oblique views along with computer-aided ?? detection (CAD). ? FINDINGS: ?? There are scattered areas of fibroglandular density (ACR BI-RADS breast ?? composition Category b). ?? Postsurgical changes to the left breast are stable. ?? Right marker clip. ?? There are no significant masses, abnormal calcifications, or other ?? abnormalities. ? MM/MM tomosynthesis screening BI ?? IMPRESSION: ?? No mammographic evidence of malignancy. ? ASSESSMENT: ? BI-RADS BI-RADS 2 - Benign Findings ? RECOMMENDATION: ?? Routine annual mammography screening. ? 1 year F/U ? This examination should not preclude the clinical evaluation of a ?? suspicious palpable abnormality. ? This patient's information was entered into a reminder system with a ?? target due date for their next mammogram. ? Electronically signed by: ??María Corisepideh DO ??08/22/2024 09:42 PM EDT ?? RP ? Dictated By: ?María Pereira DO ? Signed By: ?<Electronically signed by María Pereira, DO in OV> ? 08/22/24 2142 ? DD/ 1530 ? TD/TT: 08/09/24 1542 ? Associate Technician: ? Procedure Note Js, Image - 08/22/2024 [facility] [address] [place] [address] [place] [address] Mammography Report Signed Patient: Kim LoveMR#: [id number] : 5Acct:[id number] Age/Sex: 69 / FADM Date: 08/09/24 Loc: HO.MAMMO Attending Dr: Waylon Pedro MD Ordering Physician: Waylon Ellis ults: 2Benign Findings Date of Service: 08/09/24Follow Up: 1 Year From Orig ina Mammogram Procedure(s): MM tomosynthesis screening BI Accession Number(s): [id number] cc: Waylon Ellis MD EXAMINATION: MM SCREENING DIGITAL BREAST TOMOSYNTHESIS, BILATERAL CLINICAL INFORMATION: Screening. Asymptomatic. COMPARISON: Mammography: Comparison is made with available priors TECHNIQUE: Digital breast mammography with tomosynthesis is performed in both the craniocaudal and mediolateral oblique views along with computer-aided detection (CAD). FINDINGS: There are scattered areas of fibroglandular density (ACR BI-RADS breast composition Category b). Postsurgical changes to the left breast are stable. Right marker clip. There are no significant masses, abnormal calcifications, or other abnormalities. MM/MM tomosynthesis screening BI IMPRESSION: No mammographic evidence of malignancy. ASSESSMENT: BI-RADS BI-RADS 2 - Benign Findings RECOMMENDATION: Routine annual mammography screening. 1 year F/U This examination should not preclude the clinical evaluation of a suspicious palpable abnormality. This patient's information was entered into a reminder system with a target due date for their next mammogram. Electronically signed by: María Pereira DO 08/22/2024 09:42 PM EDT Dictated By: María Pereira DO Signed By: <Electronically signed by María Pereira DO in OV> 08/22/242141 DD/ 1530 TD/TT: 08/09/24 1542 Associate Technician: Waylon Pedro MD IMG BI PROCEDURES Edited Result - Final * Hepatitis C Antibody with Reflex to HCV, RNA, Quantitative, Real-Time PCR (03/10/2023 11:46 AM EDT) Hepatitis C Antibody NON-REACT JANINE NON-REACT JANINE [facility] Index 0.06 <1.00 [facility] Comment: HCV antibody was non-reactive. There is no laboratory evidence of HCV infection. In most cases, no further action is required. However, if recent HCV exposure is suspected, a test for HCV RNA (test code 31129) is suggested. For additional information please refer to http://education.BragBet/faq/LCJ79a3 (This link is being provided for informational/ educational purposes only.) Blood Venous blood specimen / Unknown 03/10/2023 11:46 AM EDT 03/10/2023 11:47 AM EDT Narrative [facility] - 03/11/2023 6:26 AM EDT FASTING:NO FASTING: NO Waylon Pedro MD LAB BLOOD ORDERABL ES Final Result [facility] [address], [place] [address] [facility] [place] [facility] [address] [place] [address] from Last 3 Months or Most Recently Relevant to Health [place] [id number] [facility] * Guarantor: Kim Love Account Type Relation to Patient Date of Phone Billing Address Personal/Family Self [address] MIRIAM [id number] Care Teams Dairy Inspector Relationship Specialty Start Date End Date Waylon Ellis MD [address] [place] [address] MIRIAM Samuels PCP - General Internal Medicine 03/17/20
--- OUTSIDE RECORDS SUMMARY | 2025-03-04 15:56 | XMS_ITS | Encounter Summary ---
Author Organization [facility] Address [address] [place] [address] Phone Care Team Providers Care Car Chaser Name Role Phone Don Hedrick MD Primary Care Provider Unav ailable Encounter Details Date Type Department Care Team (Late Contact Info) Description 02/05/2024 Documentation Only [facility] [address] [place] [address] Mali Sanders [address] [place] [address] Social History Tobacco Use Types [...] Visit [facility] [address] [place] [address] Matt Geronimo MD [address] [place] [address] documented as of this encounter Visit Diagnoses Not on filedocumented in this encounter Care Teams Car Chaser Relationship Specialty Start Date End Date Don Hedrick MD [address] [place] [id number] PCP - General Internal Medicine 02/21/23 documented as of this encounter
--- OUTSIDE RECORDS SUMMARY | 2025-03-04 15:56 | XMS_ITS | Encounter Summary ---
Author Organization [facility] Address [address] [place] [address] Phone Care Team Providers Care Cook Fishing Vessel Name Role Phone Don Hedrick MD Primary Care Provider Unav ailable Encounter Details Date Type Department Care Team (Late st Contact Info) Description 02/10/2025 Documentation Only [facility] [address] [place] [address] Mali Sanders [address] [place] [address] Social History Tobacco Use Types [...] [facility] [address] [place] [address] Matt Geronimo MD [address] [place] [address] documented as of this encounter Visit Diagnoses Not on filedocumented in this encounter Care Teams Cook Fishing Vessel Relationship Specialty Start Date End Date Don Hedrick MD [address] [place] [id number] PCP - General Internal Medicine 02/21/23 documented as of this encounter
--- OUTSIDE RECORDS SUMMARY | 2025-03-04 15:56 | XMS_ITS | Encounter Summary ---
Author Organization [facility] Address [address] [place] [address] Phone Care Team Providers Care Head Custodian Name Role Phone Don Hedrick MD Primary Care Provider Unav ailable Encounter Details Date Type Department Care Team (Late st Contact Info) Description 02/10/2025 Documentation Only [facility] [address] [place] [address] Mali Sanders [address] [place] [address] Social History Tobacco Use Types [...] Visit [facility] [address] [place] [address] Matt Geronimo MD [address] [facility] [place] [address] documented as of this encounter Visit Diagnoses Not on filedocumented in this encounter Care Teams Head Custodian Relationship Specialty Start Date End Date Don Hedrick MD [address] [place] [id number] PCP - General Internal Medicine 02/21/23 documented as of this encounter
--- OUTSIDE RECORDS SUMMARY | 2025-03-04 15:56 | XMS_ITS | Encounter Summary ---
Author Organization [employer] Address [address] [facility] 7 [place] [address] Care Team Providers Care Public Relations Specialist Name Role Phone Waylon Ellis MD Primary Care Prov ider Reason for Visit * Reason Onset Date Comments PT1 06/27/2023 Encounter Details Date Type Department Care Team ([facility] st Contact Info) Description 06/27/2023 Telephone [facility] [address] [place], [place] [phone] Waylon Ellis MD [address] [place] [address] PT1 Social History Tobacco Use Types Packs/Day Years Used Date Smoking Tobacco: Former Cigarettes 1 52 Passive Smoke Exposure: Never Smokeless Tobacco: Never Alcohol Use Standard Drinks/Week Comments Defer 0 (1 standard drink = 0.6 oz pur e alcohol) Depression Answer Date Recorded Patient Health Questionnaire-9 Score 0 06/12/2023 Depression Answer Date Recorded Patient Health Questionnaire-2 Score 0 06/12/2023 Comments Unknown Sex and Gender Information Value Date Recorded Sex Assigned at Female 08/29/2022 10:17 AM EDT Legal Sex Female 10:17 AM EDT Gender Identity Female 08/29/2022 10:17 AM EDT Sexual Orientation Straight 08/29/2022 10 :17 AM EDT documented as of this encounter Miscellaneous Notes * Telephone Encounter - Lidia Ackerman - 06/29/2023 1:03 PM EDT PT-1 submitted for patient. They will receive a letter of approval or denial in the mail. * Telephone Encounter - Cassandra Frances - 06/27/2023 9:47 AM EDT Tc from pt requesting PT1 for locations Location: 2 [place], [place] Specialty:[facility] Date&Time: Aug 09 Director Of Annual Giving: N/a Location: 2 [facility], [place], [place] Specialty: [facility] Date&Time: Nov Director Of Annual Giving: N/a Location:[address] [facility] 1st floor, [place], [place] Specialty: Lung Screening Date&Time: n/a Director Of Annual Giving:N/a Location:[address], [place], [place] Specialty:Cancer screening Date&Time:n/a Director Of Annual Giving: n/a Location: [address] [facility] [address], [place] [address] Specialty:[facility] Date&Time: n/a Director Of Annual Giving: n/a Location:[address] [place] [address] Specialty:[facility] Date&Time: N/a Director Of Annual Giving: n/a documented in this encounter Plan of Treatment Upcoming Encounters Date Type Department Care Team (Late st Contact Info) Description 07/28/2025 2:00 PM EDT Office Visit [facility] [address] [place] [address] Grayson Hedrick documented as of this encounter Visit Diagnoses Not on filedocumented in this encounter Additional Health Concerns Assessment Noted Time PHQ-9 Depression Total Score: 0 06/12/20 23 1:28 PM EDT documented as of this encounter Care Teams Public Relations Specialist Relationship Specialty Start Date End Date Waylon Ellis MD [address] [place] [address] PCP - General Internal Medicine 03/17/20 documented as of this encounter
== END 2025-03-04 15:32 | disposition home or self-care (01) ==
LOC: HO.HGS 14:43
PROVIDERS: PCP Internal Medicine; Visit Provider Surgery
DX: C50.912 Malignant neoplasm of unspecified site of left female breast (principal)
CPT/HCPCS: 99213; G2211

== ENCOUNTER → 2025-03-04 14:37 | Outpatient (BNVA) | payer MEDICARE, MEDICAID, SELFPAY | PROVIDERS: PCP Internal Medicine; Visit Provider Surgery | DX: Z85.3 Personal history of malignant neoplasm of breast (principal); Z92.3 Personal history of irradiation; Z98.890 Other specified postprocedural states; Z79.899 Other long term (current) drug therapy | CPT/HCPCS: 99212 ==

== ENCOUNTER → 2025-06-16 15:15 | Outpatient (AMB) | payer MEDICARE, MEDICAID, SELFPAY ==
--- NOTE | 2025-06-16 15:26 | MHC.OFFVIS ---
Vital Signs 06/16/25 15:29 Height 5 ft 0.59 in Weight 121 lb 0.54 oz BMI 23.2 BP 102/76 Blood Pressure Location Rt brachial Position Sitting Pulse 88 Pulse Source Pulse Oximeter Pulse Oximetry (%) 95 Oxygen Delivery Method Room Air Intake Visit Reasons: Osteoporosis Intake Note: New patient present today for Osteoporosis. [place] [facility] [place] [facility] Real Estate Marketing Coordinator Required: No Accompanied by: Daughter Allergies No Known Allergies Allergy (Verified 06/16/25 15:30) Medication List - Last Reconciled 06/16/25 by Shiv Ramos MD acetaminophen (Tylenol Extra Strength) 650 mg PO Q6H PRN bupropion HCl XL 1 tab PO QAM empagliflozin (Jardiance) 10 mg PO DAILY ketoconazole 2% appl topical mecobalamin (vitamin B12) 1,000 mcg sublingual DAILY olanzapine 15 mg PO BEDTIME tamoxifen 20 mg PO DAILY HPI Comments Details: 70 YO Female with PMHx CKD stage 4 and breast cancer is seen in consultation at the request of PCP for Osteoporosis. Sees Dr. Geronimo for nephrology First diagnosed in 5 yrs ago . Received treatment in the past with alendronate , from 5 yrs ]. Tolerated treatment well without complication. Currently on tamoxifen for breast cancer history of pathologic fracture in wrist R wrist for hard fall or ONJ. Has several servings of dietary calcium per day in the form of cheese , broccoli , yogurt ice cream . Not Takes Calcium supplement [] mg daily in divided doses. Not Takes of Vitamin D daily stooped by nephrology . Denies ever using PPI, anticoagulant, antiepileptic or glucocorticoid medication. Not Does weight bearing exercise . Fracture history: as above Height loss: No NETWORK COORDINATOR history: Menarche at age 11 - menopause at age 50 - nl menses Denies history of Kidney stones: has family history of Osteoporosis and hip fracture in sister . UTD on dental cleanings and sees dentist every 6 months. No planned upcoming dental work or extractions. Past tabacco use 4 yrs ago - no heavy ETOH abuse DXA dated 11/28/24 :HISTORY: Estrogen deficiency TECHNIQUE: [place] Dual energy absorptiometry (DEXA) of the lumbar spine, total left hip, and femoral neck was performed. COMPARISON: Comparison is made with the prior examination dated 10/25/2022. FINDINGS: The bone mineral density of the lumbar spine is 0.762 with a T-score of -3.4, and a Z-score of -1.3. This represents a BMD change of -11.4% compared to the prior exam. This is statistically significant. The bone mineral density of the left total hip is 0.634 with a T-score of -3.0, and a Z-score of -1.2. This represents BMD change of -10.6% compared to the prior exam. This is statistically significant. The bone mineral density of the left femoral neck is 0.671 with a T-score of -2.6, and a Z-score of -0.7. This represents BMD change of -9.1% compared to the prior exam. MM/XR DEXA axial skeleton IMPRESSION: Based on bone mineral density, and according to World Health Organization (WHO) criteria, the diagnosis is consistent with osteoporosis. Labs: [facility] Medical History (Updated 06/16/25 @ 15:19 by Shiv Ramos MD) Osteoporosis Nicotine dependence, cigarettes, uncomplicated Hypotension after procedure Gout Chronic kidney disease (CKD) Chronic cough Depression Schizoaffective disorder Invasive lobular carcinoma of left breast in female (~2019) Basal cell carcinoma Melanoma History of colon polyps (~2015) Surgical History History of skin surgery History of tubal ligation History of left breast biopsy History of lumpectomy of left breast History of partial colectomy (~2015) Family History Maternal Grandfather History of cancer of unknown primary site Father Diabetes Heart disease Mother Stroke Daughter Atypical lobular hyperplasia (ALH) of breast Other History of skin cancer Social History Household Members: None Housing: Apartment Are you a primary personal carer to a significant other at home: No Alcohol intake: never Patient Tobacco Use Status: Current everyday Tobacco user Tobacco use type: Cigarette Years Smoked: 50 (onset 10, 1/2-1ppd x 50yrs - 35pyh) e-Cigarette/Vaping Use: Never Used Second Hand Smoke Exposure: No service: No Current occupational status: disabled Physical Exam Vital Signs: Last Vital Signs Pulse 88 06/16/25 15:29 BP 102/76 06/16/25 15:29 Pulse Ox 95 06/16/25 15:29 Oxygen Delivery Method Room Air 06/16/25 15:29 BMI result Body Mass Index 23.2 There are no Cushingoid features. Absence of blue sclera. Absence of kyphosis. Thyroid gland is of nl size and weighs 15 gms. There are no thyroid nodules palpated. Lungs CTA. Heart S1 S2 Reg R/R Abdominal exam benign. Muscle strength 5/5 . Examination of spine reveals absence of tenderness on palpation Assessment & Plan Assessment & Plan (1) Osteoporosis: Code(s): M81.0 - Age-related osteoporosis without current pathological fracture Category: Medical Plan: This is a 70-year-old female with a history of osteoporosis in the setting of CKD stage 4 with breast cancer on tamoxifene and previously took alendronate for years. The patient is vitamin-D replete Plan is to stop alendronate as not indicated with this degree of renal insufficiency. Tamoxifen does have protective effect in terms of fracture . We will check PTH, alkaline phosphatase bone specific as indicated as a whether high bone turnover state is present. We will also check phosphorus as well as 24 hour urine for calcium and creatinine and creatinine clearance. We will have patient follow up with Nephrology to optimize CKD-BMD. Would continue with the tamoxifen. If patient has a fracture, may need to proceed with bone biopsy to rule out frozen bone if alkaline phosphatase and PTH are normal prior to initiating Prolia if the need arises Orders: Orders Alkaline Phosphatase Bone Today M81.0 - Age-related osteoporosis without current pathological fracture Phosphorus Today M81.0 - Age-related osteoporosis without current pathological fracture Calcium, 24 Hr Ur Today M81.0 - Age-related osteoporosis without current pathological fracture Parathyroid Hormone Intact Today M81.0 - Age-related osteoporosis without current pathological fracture Creatinine, 24 Hr Group Today M81.0 - Age-related osteoporosis without current pathological fracture Creatinine Clearance Urine 24U Today M81.0 - Age-related osteoporosis without current pathological fracture Medications: Discontinued alendronate Discontinued Reason: Doctor's Order 70 mg PO QWEEK 12 tabs 4RF Coding Level of Care Code New Pt Level 4 (77797) Diagnoses Osteoporosis M81.0
[2025-06-16 15:29] VITALS: BP 102/76; PULSE 88; O2SAT 95; BMI 23.2
--- OUTSIDE RECORDS SUMMARY | 2025-06-16 15:49 | XMS_ITS | Encounter Summary ---
Author Organization [employer] Address [address] [place] [address] 7 [place] [address] Care Team Providers Care Die Cast Engineer Name Role Phone Waylon Ellis MD Primary Care Prov ider Encounter Details Date Type Department Care Team (Latest Contact Info) Description 05/19/2021 Abstract [facility] CONVERSIONS Dental, Provider, DDS Social History [...] Description 07/28/2025 2:00 PM EDT Office Visit [facility] [address] [place] [address] Grayson Hedrick documented as of this encounter Visit Diagnoses Not on filedocumented in this encounter Care Teams Die Cast Engineer Relationship Specialty Start Date End Date Waylon Ellis MD [address] [place] [address] PCP - General Internal Medicine 03/17/20 documented as of this encounter
--- OUTSIDE RECORDS SUMMARY | 2025-06-16 15:49 | XMS_ITS | Encounter Summary ---
Author Organization [facility], Address [address] [place] [address] Phone Care Team Providers Care Second Shift Supervisor Name Role Phone Don Hedrick MD Primary Care Provider Unav ailable Encounter Details Date Type Department Care Team (Late st Contact Info) Description 02/05/2024 Documentation Only [facility] [address] [place] [place] [address] Mali Sanders [address] [place] [address] Social History Tobacco Use Types [...] Care Team (Late st Contact Info) Description 08/11/2025 3:30 PM EDT Office Visit [facility] [address] [place] [address] Matt Geronimo MD [address] [facility] [address] [place] [address] documented as of this encounter Visit Diagnoses Not on filedocumented in this encounter Care Teams Second Shift Supervisor Relationship Specialty Start Date End Date Don Hedrick MD [address] [place] [phone] PCP - General Internal Medicine 02/21/23 documented as of this encounter
== END ==
LOC: HO.ENCR 15:16
PROVIDERS: PCP Internal Medicine; Visit Provider Internal Medicine Endocrinology, Diabetes & Metabolism
DX: M81.0 Age-related osteoporosis without current pathological fracture (principal)
CPT/HCPCS: 99204

== ENCOUNTER → 2025-06-16 15:15 | Outpatient (BNVA) | payer MEDICARE, MEDICAID, SELFPAY | PROVIDERS: PCP Internal Medicine; Visit Provider Internal Medicine Endocrinology, Diabetes & Metabolism | DX: M81.0 Age-related osteoporosis without current pathological fracture (principal) | CPT/HCPCS: 99202 ==

== ENCOUNTER 2025-08-11 13:25 | Outpatient (REF) | payer MEDICARE, MEDICAID, SELFPAY ==
--- OUTSIDE RECORDS SUMMARY | 2025-08-11 13:28 | XMS_ITS | Encounter Summary ---
Author Organization [facility] [place], Address [address] [place] [address] Phone Care Team Providers Care Paving Block Cutter Name Role Phone Don Hedrick MD Primary Care Provider Unav ailable Encounter Details Date Type Department Care Team (Late st Contact Info) Description 07/03/2024 Documentation Only [facility] [address] [place] [address] Mali Sanders [address] [place] [address] Social History Tobacco Use Types [...] Visit [facility] [address] [place] [address] Matt Geronimo MD [address] [facility] [place] [address] documented as of this encounter Visit Diagnoses Not on filedocumented in this encounter Care Teams Paving Block Cutter Relationship Specialty Start Date End Date Don Hedrick MD [address] [place] [id number] PCP - General Internal Medicine 02/21/23 documented as of this encounter
--- OUTSIDE RECORDS SUMMARY | 2025-08-11 13:28 | XMS_ITS | Clinical Summary ---
Author Organization [facility], Address [address] [place] [address] Phone Care Team Providers Care Dump Truck Driver Off Highway Name Role Phone Don Hedrick MD Primary [...] (one) time each day in the morning 90 tablet 3 5 026 Active Empagliflozin 10 MG tablet Take 10 mg by mouth 1 (one) time each day in the morning 30 tablet 3 5 025 Discontin ued(Reord er (does not appear on AVS)) Active Problems Problem Noted Date Diagnosed Date Chronic kidney disease, stage 4 (severe) 024 Secondary hyperparathyroidism 02/02/2024 Other abnormal clinical findings 02/02/2024 Overview (02/02/2024): 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,melanoma Hyperlipidemia 01/09/2020 Encounters Date Type Department Care Team Description 08/05/2025 Documentation Only [facility] [address] [place] [address] Mali Sanders 08/05/2025 Documentation Only [facility] [address] [place] [address] Mali Sanders 08/04/2025 Refill [facility] [place] [address] [place] [address] Mali Sanders 05/15/2025 4:00 PM EDT Office Visit [facility] [address] [place] [address] Matt Geronimo MD Chronic kidney disease, stage 4 (severe) (HCC) (Primary Dx) 05/15/2025 Documentation Only [facility] [address] [place] [address] Mali Sanders 05/15/2025 Documentation Only [facility] [address] [place] [address] Mali Sanders from Last 3 Months Immunizations Immunization Administration [...] Sign Reading Time Taken Comments Blood Pressure 108/76 05/15/2025 4:24 PM EDT Pulse 86 05/15/2025 4:24 PM EDT Temperature - - Respiratory Rate [...] Visit [facility] [place], [address] [place] [address] Matt Geronimo MD [address] [place] [address] Health Maintenance Due Date Last Done Comments Breast Cancer Screening 1955 Colorectal Cancer Screening: Annual FOBT 2004 Colorectal Cancer Screening: Colonoscopy 2004 Colorectal Cancer Screening: Sigmoidoscopy 2004 Influenza Vaccine (#1) 2025 , 06/30/2020, 08/04/2019, Additional history exists Hepatitis B Vaccine Aged Out 08/11/2023, 01/31/2023, 01/04/2023 No longer eligible based on patient's age to complete this topic Pneumococcal Vaccine: 50+ Years Completed 08/11/2023, 06/30/2020, 08/11/2014 Pneumococcal Vaccine: Peds (0 to 5 Years) and At-Risk Patients (6 to 49 Years) Discontinued 08/11/2023, 06/30/2020, 08/11/2014 Procedures Procedure Name Priority Date/Time Associated Diagnosis Comments URINE ALBUMIN / CREATININE RATIO Routine 07/17/2025 4:38 PM EDT Chronic kidney disease, stage 4 (severe) (HCC) VITAMIN D 25 HYDROXY Routine 07/17/2025 4:38 PM EDT Chronic kidney disease, stage 4 (severe) (HCC) PROTEIN / CREATININE RATIO, URINE Routine 07/17/2025 4:38 PM EDT Chronic kidney disease, stage 4 (severe) (HCC) URINALYSIS WITH MICROSCOPIC Routine 07/17/2025 4:38 PM EDT Chronic kidney disease, stage 4 (severe) (HCC) RENAL FUNCTION PANEL Routine 07/17/2025 4:38 PM EDT Chronic kidney disease, stage 4 (severe) (HCC) PTH, INTACT Routine 07/17/2025 4:38 PM EDT Chronic kidney disease, stage 4 (severe) (HCC) IRON PANEL (FE, TIBC, TSAT) Routine 07/17/2025 4:38 PM EDT Chronic kidney disease, stage 4 (severe) (HCC) FERRITIN Routine 07/17/2025 4:38 PM EDT Chronic kidney disease, stage 4 (severe) (HCC) CBC AND DIFFERENTIAL Routine 07/17/2025 4:38 PM EDT Chronic kidney disease, stage 4 (severe) (HCC) MICROSCOPIC EXAMINATION - DO NOT USE Routine 07/17/2025 4:38 PM EDT from Last 3 Months Results * Microscopic Examination (07/17/2025 4:38 PM EDT) WBC, Urine 0-5 0 - 5 /hpf [facility] RBC, Urine None seen 0 - 2 /hpf [facility] Squamous Epithelial, Urine None seen 0 - 10 /hpf [facility] Casts None seen None seen /lpf [facility] Bacteria, Urine None seen None seen/Few [facility] 07/17/2025 4:38 PM EDT 07/17/2025 Matt Geronimo MD LAB MICROBIOLOGY - GENERAL OR DERABLES Final Result [facility] [address] [place] [address] * Iron Panel (Fe, TIBC, TSAT) (07/17/2025 4:38 PM EDT) Iron 126 27 - 139 ug/dL [facility] TIBC 252 250 - 450 ug/dL [facility] UIBC 126 118 - 369 ug/dL [facility] Iron Saturation (TSat) 50 15 - 55 % [facility] Blood Venous blood / Unknown 07/17/2025 4:38 PM EDT 07/17/2025 us Matt Geronimo MD LAB BLOOD ORDERABLES Final Re sult Performing Organization Address [facility]/ZIP Co de Phone Number [facility] [address] [place] [address] * (ABNORMAL) Protein, Total, Random Urine w/Creatinine (Protein/Creat Ratio) (07/17/2025 4:38 PM EDT) Creatinine, Ur 21.6 Not Estab. mg/dL [facility] Protein, Ur 7.7 Not Estab. mg/dL [facility] Urine Protein/Creati nine Ratio 356(H) 0 - 200 mg/g creat [facility] Urine Urine specimen obtained by clean catch procedure / Unknown 07/17/2025 4:38 PM EDT 07/17/2025 Matt Geronimo MD LAB URINE ORDERABLES Final Re sult Performing Organization Address [facility]/ZIP Co de Phone Number [facility] [address] [place] [address] * (ABNORMAL) Urine Albumin / Creatinine Ratio (07/17/2025 4:38 PM EDT) Albumin, Urine 24.3 Not Estab. ug/mL [facility] Albumin/Creatin ine Ratio 113(H) 0 - 29 mg/g creat [facility] Comment: Normal: 0 - 29 Moderately increased: 30 - 300 Severely increased: >300 Urine Urine specimen obtained by clean catch procedure / Unknown 07/17/2025 4:38 PM EDT 07/17/2025 Matt Geronimo MD LAB URINE ORDERABLES Final Re sult Performing Organization Address [facility]/ZIP Co de Phone Number [facility] [address] [place] [address] * Vitamin D 25 Hydroxy (07/17/2025 4:38 PM EDT) Vitamin D, 25-OH, Total 33.3 30.0 - 100.0 ng/mL [facility] Comment: Vitamin D deficiency has been defined by the [place] of Medicine and an Endocrine Society practice guideline as a level of serum 25-OH vitamin D less than 20 ng/mL (1,2). The Endocrine Society went on to further define vitamin D insufficiency as a level between 21 and 29 ng/mL (2). 1. IOM ([place] of Medicine). 2010. Dietary reference intakes for calcium and D. [place]: The National Academies Press. 2. Palmira MF, Jess YEH, Gissell HUGGINS, et al. Evaluation, treatment, and prevention of vitamin D deficiency: an Endocrine Society clinical practice guideline. JCEM. 2010; 96(7):1911-30. Blood Venous blood / Unknown 07/17/2025 4:38 PM EDT 07/17/2025 us Matt Geronimo MD LAB BLOOD ORDERABLES Final Re sult [facility] [address] [place] [address] * (ABNORMAL) Urinalysis with microscopic (07/17/2025 4:38 PM EDT) Specific [employer], Urine 1.007 1.005 - 1.030 [facility] pH Urine 6.0 5.0 - 7.5 [facility] [phone] Color, Urine Yellow Yellow [facility] [phone] Appearance Urine Clear Clear [facility] WBC Esterase Urine Negative Negative [facility] [phone] Protein, Ur Trace Negative/Tra ce [facility] Glucose, Ur Trace(A) Negative [facility] [phone] Ketones, Urine Negative Negative [facility] Blood Urine Negative Negative [facility] [phone] Bilirubin Urine Negative Negative [facility] [phone] Urobilinogen Urine 0.2 0.2 - 1.0 mg/dL [facility] Nitrite, Urine Negative Negative [facility] Microscopic Examination Comment [facility] [phone] Comment:Microscopic follows if indicated. Other Microsc. Observations See below: [facility] Comment:Microscopic was inocencio cated and was performed. Urine Urine specimen obtained by clean catch procedure / Unknown 07/17/2025 4:38 PM EDT 07/17/2025 us Matt Geronimo MD LAB URINE ORDERABLES Final Re sult [facility] [address] [place] [address] * (ABNORMAL) CBC and Differential (07/17/2025 4:38 PM EDT) WBC 6.0 3.4 - 10.8 x10E3/uL [facility] RBC 3.51(L) 3.77 - 5.28 x10E6/uL [facility] Hemoglobin 12.1 11.1 - 15.9 g/dL [facility] Hematocrit 34.7 34.0 - 46.6 % [facility] MCV 99(H) 79 - 97 fL [facility] MCH 34.5(H) 26.6 - 33.0 pg [facility] MCHC 34.9 31.5 - 35.7 g/dL [facility] RDW 11.5(L) 11.7 - 15.4 % [facility] Platelets 227 150 - 450 x10E3/uL [facility] Neutrophils Relative 68 Not Estab. % [facility] Lymphocytes Relative 20 Not Estab. % [facility] Monocytes 9 Not Estab. % [facility] Eosinophils Relative 2 Not Estab. % [facility] Basophils Relative 1 Not Estab. % [facility] Neutrophils Absolute 4.0 1.4 - 7.0 x10E3/uL [facility] Lymphocytes Absolute 1.2 0.7 - 3.1 x10E3/uL [facility] Monocytes Absolute 0.5 0.1 - 0.9 x10E3/uL [facility] Eosinophils Absolute 0.1 0.0 - 0.4 x10E3/uL [facility] Basophils Absolute 0.0 0.0 - 0.2 x10E3/uL [facility] Immature Granulocytes 0 Not Estab. % [facility] Immature Grans (Absolute) 0.0 0.0 - 0.1 x10E3/uL [facility] Blood Venous blood / Unknown 07/17/2025 4:38 PM EDT 07/17/2025 us Matt Geronimo MD LAB BLOOD ORDERABLES Final Re sult [facility] [address] [place] [address] * (ABNORMAL) PTH, Intact (07/17/2025 4:38 PM EDT) PTH 129(H) 15 - 65 pg/mL [facility] Blood Venous blood / Unknown 07/17/2025 4:38 PM EDT 07/17/2025 Matt Geronimo MD LAB BLOOD ORDERABLES Final Re sult Performing Organization Address [facility]/ZIP Co de Phone Number [facility] [address] [place] [address] * (ABNORMAL) Ferritin (07/17/2025 4:38 PM EDT) Pathologist [facility] Ferritin 292(H) 15 - 150 ng/mL [facility] Blood Venous blood / Unknown 07/17/2025 4:38 PM EDT 07/17/2025 Matt Geronimo MD LAB BLOOD ORDERABLES Final Re sult Performing Organization Address [facility]/ZIP Co de Phone Number [facility] [address] [place] [address] * (ABNORMAL) Renal Function Panel (07/17/2025 4:38 PM EDT) Pathologist [facility] Glucose 86 70 - 99 mg/dL [facility] BUN 35(H) 8 - 27 mg/dL [facility] Creatinine 2.75(H) 0.57 - 1.00 mg/dL [facility] eGFR CKD-EPI CR 2020 18(L) >59 mL/min/1.7 3 [facility] BUN/Creatinine Ratio 13 12 - 28 [facility] Sodium 142 134 - 144 mmol/L [facility] Potassium 4.2 3.5 - 5.2 mmol/L [facility] Chloride 107(H) 96 - 106 mmol/L [facility] Bicarbonate (CO2) 18(L) 20 - 29 mmol/L [facility] Calcium 8.7 8.7 - 10.3 mg/dL [facility] Phosphorus 3.7 3.0 - 4.3 mg/dL [facility] Albumin 4.1 3.9 - 4.9 g/dL [facility] Blood Venous blood / Unknown 07/17/2025 4:38 PM EDT 07/17/2025 us Matt Geronimo MD LAB BLOOD ORDERABLES Final Re sult [facility] [address] [place] [address] from Last 3 Months Insurance Medicare Medicaid [place] Care Teams Dump Truck Driver Off Highway Relationship Specialty Start Date End Date Don Hedrick MD [address] [place] [address] PCP - General Internal Medicine 02/21/23
--- OUTSIDE RECORDS SUMMARY | 2025-08-11 13:28 | XMS_ITS | Encounter Summary ---
Author Organization [facility] [place], Address [address] [place] [address] Phone Care Team Providers Care Pressing Machine Tender Name Role Phone Don Hedrick MD Primary Care Provider Unav ailable Encounter Details Date Type Department Care Team (Late st Contact Info) Description 06/27/2024 Documentation Only [facility] [address] [place] [address] Mali Sanders [address] [place] [address] Social History Tobacco Use Types [...] Visit [facility] [address] [place] [address] Matt Geronimo MD [address] [place] [address] documented as of this encounter Visit Diagnoses Not on filedocumented in this encounter Care Teams Pressing Machine Tender Relationship Specialty Start Date End Date Don Hedrick MD [address] [place] [address] PCP - General Internal Medicine 02/21/23 documented as of this encounter
--- OUTSIDE RECORDS SUMMARY | 2025-08-11 13:28 | XMS_ITS | Encounter Summary ---
Author Organization [facility] [place], Address [address] [place] [address] Phone Care Team Providers Care Geothermal Operations Engineer Name Role Phone Don Hedrick MD Primary Care Provider Unav ailable Encounter Details Date Type Department Care Team (Late st Contact Info) Description 02/05/2024 Documentation Only [facility] [address] [place] [address] Mali Sanders [address] [place] [address] Social History Tobacco Use Types [...] Visit [facility] [address] [place] [address] Matt Geronimo MD [address] [facility] [address] [facility] [place] [address] documented as of this encounter Visit Diagnoses Not on filedocumented in this encounter Care Teams Geothermal Operations Engineer Relationship Specialty Start Date End Date Don Hedrick MD [address] [place] [address] PCP - General Internal Medicine 02/21/23 documented as of this encounter
--- OUTSIDE RECORDS SUMMARY | 2025-08-11 13:28 | XMS_ITS | Encounter Summary ---
Author Organization [facility] [place], Address [address] [place] [address] Phone Care Team Providers Care Curator Name Role Phone Don Hedrick MD Primary Care Provider Unav ailable Encounter Details Date Type Department Care Team (Late st Contact Info) Description 02/05/2024 Documentation Only [facility] [address] [place] [address] Mali Sanders [address] [place] [address] Social History Tobacco Use Types [...] [facility] [address] [place] [address] Matt Geronimo MD [address] [place] [address] documented as of this encounter Visit Diagnoses Not on filedocumented in this encounter Care Teams Curator Relationship Specialty Start Date End Date Don Hedrick MD [address] [place] [address] PCP - General Internal Medicine 02/21/23 documented as of this encounter
--- OUTSIDE RECORDS SUMMARY | 2025-08-11 13:28 | XMS_ITS | Encounter Summary ---
Author Organization [facility] [place], Address [address] [place] [address] Phone Care Team Providers Care Telecommunications Technician Name Role Phone Don Hedrick MD Primary Care Provider Unav ailable Encounter Details Date Type Department Care Team (Late st Contact Info) Description 02/14/2024 Documentation Only [facility] [address] [place] [address] Mlai Sanders [address] [place] [address] Social History Tobacco Use Types [...] Visit [facility] [address] [place] [address] Matt Geronimo MD [address] [facility] [place] [address] documented as of this encounter Visit Diagnoses Not on filedocumented in this encounter Care Teams Telecommunications Technician Relationship Specialty Start Date End Date Don Hedrick MD [address] [place] [address] PCP - General Internal Medicine 02/21/23 documented as of this encounter
--- OUTSIDE RECORDS SUMMARY | 2025-08-11 13:28 | XMS_ITS | Encounter Summary ---
Author Organization [facility] [place], Address [address] [place] [address] Phone Care Team Providers Care Nuclear Scientist Name Role Phone Don Hedrick MD Primary Care Provider Unav ailable Encounter Details Date Type Department Care Team (Late st Contact Info) Description 07/03/2024 Documentation Only [facility] [address] [place] [address] Mali Sanders [address] [place] [address] Social History Tobacco Use Types [...] Visit [facility] [address] [place] [address] Matt Geronimo MD [address] [facility] [place] [address] documented as of this encounter Visit Diagnoses Not on filedocumented in this encounter Care Teams Nuclear Scientist Relationship Specialty Start Date End Date Don Hedrick MD [address] [place] [address] PCP - General Internal Medicine 02/21/23 documented as of this encounter
--- OUTSIDE RECORDS SUMMARY | 2025-08-11 13:28 | XMS_ITS | Encounter Summary ---
Author Organization [facility] [place], Address [address] [place] [address] Phone Care Team Providers Care Lathe Machine Operator Name Role Phone Don Hedrick MD Primary Care Provider Unav ailable Encounter Details Date Type Department Care Team (Late st Contact Info) Description 07/03/2024 Documentation Only [facility] [address] [address] Mali Sanders [address] [place] [address] Social History Tobacco Use Types [...] Visit [facility] [address] [place] [address] Matt Geronimo MD [address] [facility] [place] [address] documented as of this encounter Visit Diagnoses Not on filedocumented in this encounter Care Teams Lathe Machine Operator Relationship Specialty Start Date End Date Don Hedrick MD [address] [place] [address] PCP - General Internal Medicine 02/21/23 documented as of this encounter
--- OUTSIDE RECORDS SUMMARY | 2025-08-11 13:28 | XMS_ITS | Encounter Summary ---
Author Organization [facility] [place], Address [address] [place] [address] Phone Care Team Providers Care Coal Pipeline Operator Name Role Phone Don Hedrick MD Primary Care Provider Unav ailable Encounter Details Date Type Department Care Team (Late st Contact Info) Description 02/05/2024 Documentation Only [facility] [address] [place] [address] Mali Sanders [address] [place] [address] Social History Tobacco Use Types [...] Visit [facility] [address] [place] [address] Matt Geronimo MD [address] [facility] [place] [address] documented as of this encounter Visit Diagnoses Not on filedocumented in this encounter Care Teams Coal Pipeline Operator Relationship Specialty Start Date End Date Don Hedrick MD [address] [place] [address] PCP - General Internal Medicine 02/21/23 documented as of this encounter
--- OUTSIDE RECORDS SUMMARY | 2025-08-11 13:28 | XMS_ITS | Encounter Summary ---
Author Organization [facility] [place], Address [address] [place] [address] Phone Care Team Providers Care Sales Systems Engineer Name Role Phone Don Hedrick MD Primary Care Provider Unav ailable Encounter Details Date Type Department Care Team (Late st Contact Info) Description 08/29/2022 Documentation Only [facility] [address] [place] [address] Surya Caldera MD [address] [place] [address] Social History Tobacco Use Types [...] Visit [facility] [address] [place] [address] Matt Geronimo MD [address] [place] [address] documented as of this encounter Visit Diagnoses Not on filedocumented in this encounter Care Teams Sales Systems Engineer Relationship Specialty Start Date End Date Don eHdrick MD [address] [place] [address] [place] [address] PCP - General Internal Medicine 02/21/23 documented as of this encounter
--- OUTSIDE RECORDS SUMMARY | 2025-08-11 13:28 | XMS_ITS | Encounter Summary ---
Author Organization [facility] Address [address] [place] [address] 7 [place] [address] Care Team Providers Care Territory Business Manager Name Role Phone Waylon Ellis MD Primary Care Prov ider Encounter Details Date Type Department Care Team (Latest Contact Info) Description 05/19/2021 Abstract [facility] CONVERSIONS Dental, Provider, DDS Social History [...] Care Team (Late st Contact Info) Description 01/26/2026 2:15 PM EDT Office Visit [facility] [address] [place] [address] Grayson Hedrick documented as of this encounter Visit Diagnoses Not on filedocumented in this encounter Care Teams Territory Business Manager Relationship Specialty Start Date End Date Waylon Ellis MD [address] [place] [address] PCP - General Internal Medicine 03/17/20 documented as of this encounter
--- OUTSIDE RECORDS SUMMARY | 2025-08-11 13:28 | XMS_ITS | Encounter Summary ---
Author Organization [facility] [place], Address [address] [place] [address] Phone Care Team Providers Care Territory Account Manager Name Role Phone Don Hedrick MD Primary Care Provider Unav ailable Encounter Details Date Type Department Care Team (Late st Contact Info) Description 02/14/2024 Documentation Only [facility] [address] [place] [address] Mali Sanders [address] [place] [address] Social History Tobacco Use Types [...] Visit [facility] [address] [place] [address] Matt Geronimo MD [address] [place] [address] documented as of this encounter Visit Diagnoses Not on filedocumented in this encounter Care Teams Territory Account Manager Relationship Specialty Start Date End Date Don Hedrick MD [address] [place] [address] PCP - General Internal Medicine 02/21/23 documented as of this encounter
--- OUTSIDE RECORDS SUMMARY | 2025-08-11 13:28 | XMS_ITS | Encounter Summary ---
Author Organization [employer] [facility] Address [address] [place] [address] [address] [place] [address] Care Team Providers Care Relay Assembler Name Role Phone Waylon Ellis MD Primary Care Prov ider Encounter Details Date Type Department Care Team (Latest Contact Info) Description 09/19/2019 Abstract [facility] CONVERSIONS Dental, Provider, DDS Social History [...] Description 01/26/2026 2:15 PM EDT Office Visit [facility] [address] [place] [address] Grayson Hedrick documented as of this encounter Visit Diagnoses Not on filedocumented in this encounter Care Teams Relay Assembler Relationship Specialty Start Date End Date Waylon Ellis MD [address] [place] [address] PCP - General Internal Medicine 03/17/20 documented as of this encounter
--- OUTSIDE RECORDS SUMMARY | 2025-08-11 13:28 | XMS_ITS | Encounter Summary ---
Author Organization [facility] [place], Address [address] [place] [address] Phone Care Team Providers Care Mail Carrier Name Role Phone Don Hedrick MD Primary Care Provider Unav ailable Encounter Details Date Type Department Care Team (Late st Contact Info) Description 06/27/2024 Documentation Only [facility] [address] [place] [address] Mali Sanders [address] [place] [address] Social History Tobacco Use Types [...] Visit [facility] [address] [place] [address] Matt Geronimo MD [address] [facility] [place] [address] documented as of this encounter Visit Diagnoses Not on filedocumented in this encounter Care Teams Mail Carrier Relationship Specialty Start Date End Date Don Hedrick MD [address] [place] [address] PCP - General Internal Medicine 02/21/23 documented as of this encounter
--- OUTSIDE RECORDS SUMMARY | 2025-08-11 13:28 | XMS_ITS | Encounter Summary ---
Author Organization [facility] [place], Address [address] [place] [address] Phone Care Team Providers Care Buffer Nickel Name Role Phone Don Hedrick MD Primary Care Provider Unav ailable Encounter Details Date Type Department Care Team (Late st Contact Info) Description 02/05/2024 Documentation Only [facility] [address] [place] [address] Mali Sanders [address] [place] [address] Social History Tobacco Use Types [...] Visit [facility] [address] [place] [address] Matt Geronimo MD [address] [facility] [place] [address] documented as of this encounter Visit Diagnoses Not on filedocumented in this encounter Care Teams Buffer Nickel Relationship Specialty Start Date End Date Don Hedrick MD [address] [place] [phone] PCP - General Internal Medicine 02/21/23 documented as of this encounter
--- OUTSIDE RECORDS SUMMARY | 2025-08-11 13:29 | XMS_ITS | Encounter Summary ---
Author Organization [facility] [place], Address [address] [place] [address] Phone Care Team Providers Care Naval Aircrewman Helicopter Name Role Phone Don Hedrick MD Primary Care Provider Unav ailable Encounter Details Date Type Department Care Team (Late st Contact Info) Description 05/15/2025 Documentation Only [facility] [address] [place] [address] Mali Sanders [address] [place] [address] Social History Tobacco Use Types [...] Visit [facility] [address] [place] [address] Matt Geronimo MD [address] [facility] [place] [address] documented as of this encounter Visit Diagnoses Not on filedocumented in this encounter Care Teams Naval Aircrewman Helicopter Relationship Specialty Start Date End Date Don Hedrick MD [address] [place] [phone] PCP - General Internal Medicine 02/21/23 documented as of this encounter
--- OUTSIDE RECORDS SUMMARY | 2025-08-11 13:29 | XMS_ITS | Encounter Summary ---
Author Organization [facility] [place], Address [address] [place] [address] Phone Care Team Providers Care Esl Professor Name Role Phone Don Hedrick MD Primary Care Provider Unav ailable Encounter Details Date Type Department Care Team (Late st Contact Info) Description 08/05/2025 Documentation Only [facility] [address] [place] [place] [address] Mali Sanders [address] [place] [address] Social History Tobacco Use Types [...] Visit [facility] [address] [facility] [place] [place] [address] Matt Geronimo MD [address] [facility] [place] [address] documented as of this encounter Visit Diagnoses Not on filedocumented in this encounter Care Teams Esl Professor Relationship Specialty Start Date End Date Don Hedrick MD [address] [place] [phone] PCP - General Internal Medicine 02/21/23 documented as of this encounter
--- OUTSIDE RECORDS SUMMARY | 2025-08-11 13:29 | XMS_ITS | Encounter Summary ---
Author Organization [employer] Address [address] [facility] 7t [place] [address] Care Team Providers Care Polymer Chemist Name Role Phone Waylon Ellis MD Primary Care Prov ider Reason for Visit * Reason Onset Date Comments Referral 11/09/2023 Encounter Details Date Type Department Care Team ([facility] st Contact Info) Description 11/09/[address] [facility] MEDICINE [address] [place], [place] [phone] Waylon Ellis MD [address] [place], [place] [phone] Referral Social History Tobacco Use Types Packs/Day [...] us back. TC placed to Raquel @ [phone] at Lung Cancer Screening, [facility]. Raquel states that they are [...] CARE/ ER) DATE: 10/16 TIME: N/A Location: [address] [place] [address] Facility: [facility] Type of Specialist: Radiologist DX: Right axillary ultra sound documented in this encounter Plan of Treatment Upcoming Encounters Date Type Department Care Team ([facility] st Contact Info) Description 01/26/2026 2:15 PM EDT Office Visit [facility] ADULT DENTAL [address] [place], [place] [phone] Grayson Hedrick documented as of this encounter Visit Diagnoses Not on filedocumented in this encounter Additional Health Concerns Assessment Noted Time PHQ-9 Depression Total Score: 0 06/12/20 23 1:28 PM EDT documented as of this encounter Care Teams Polymer Chemist Relationship Specialty Start Date End Date Waylon Ellis MD [address] [place] [address] PCP - General Internal Medicine 03/17/20 documented as of this encounter
--- OUTSIDE RECORDS SUMMARY | 2025-08-11 13:29 | XMS_ITS | Encounter Summary ---
Author Organization [facility] [place], Address [address] [place] [address] Phone Care Team Providers Care Family Services Manager Name Role Phone Don Hedrick MD Primary Care Provider Unav ailable Encounter Details Date Type Department Care Team (Late st Contact Info) Description 02/10/2025 Documentation Only [facility] [address] [place] [address] Mali Sanders [address] [place], [place] [...] Visit [facility] [address] [place] [address] Matt Geronimo MD [address] [facility] [place] [address] documented as of this encounter Visit Diagnoses Not on filedocumented in this encounter Care Teams Family Services Manager Relationship Specialty Start Date End Date Don Hedrick MD [address] [place] [address] PCP - General Internal Medicine 02/21/23 documented as of this encounter
--- OUTSIDE RECORDS SUMMARY | 2025-08-11 13:29 | XMS_ITS | Encounter Summary ---
Author Organization [facility] [place], Address [address] [place] [address] Phone Care Team Providers Care Livestock Inspector Name Role Phone Don Hedrick MD Primary Care Provider Unav ailable Encounter Details Date Type Department Care Team (Late st Contact Info) Description 02/10/2025 Documentation Only [facility] [address] [place] [address] Mali Sanders [address] [place] [address] Social History Tobacco Use Types [...] [facility] [address] [place] [address] Matt Geronimo MD [address] [facility] [place] [address] documented as of this encounter Visit Diagnoses Not on filedocumented in this encounter Care Teams Livestock Inspector Relationship Specialty Start Date End Date Don Hedrick MD [address] [place] [phone] PCP - General Internal Medicine 02/21/23 documented as of this encounter
--- OUTSIDE RECORDS SUMMARY | 2025-08-11 13:29 | XMS_ITS | Encounter Summary ---
Author Organization [facility] [place], Address [address] [place] [address] Phone Care Team Providers Care Relay Operator Name Role Phone Don Hedrick MD Primary Care Provider Unav ailable Encounter Details Date Type Department Care Team (Late st Contact Info) Description 05/15/2025 Documentation Only [facility] [address] [place] [address] Mali Sanders [address] [place] [address] Social History Tobacco Use Types [...] Services Of [facility] [address] [place] [address] Matt Geronimo MD [address] [facility] [place] [address] documented as of this encounter Visit Diagnoses Not on filedocumented in this encounter Care Teams Relay Operator Relationship Specialty Start Date End Date Don Hedrick MD [address] [place] [address] PCP - General Internal Medicine 02/21/23 documented as of this encounter
--- OUTSIDE RECORDS SUMMARY | 2025-08-11 13:29 | XMS_ITS | Encounter Summary ---
Author Organization [facility] [place], Address [address] [place] [address] Phone Care Team Providers Care Linen Room Houseperson Name Role Phone Don Hedrick MD Primary Care Provider Unav ailable Encounter Details Date Type Department Care Team (Late st Contact Info) Description 02/10/2025 Documentation Only [facility] [address] [place] [address] Mali Sanders [address] [place] [address] Social History Tobacco Use [...] Visit [facility] [address] [place] [address] Matt Geronimo MD [address] [facility] [address] [place] [address] documented as of this encounter Visit Diagnoses Not on filedocumented in this encounter Care Teams Linen Room Houseperson Relationship Specialty Start Date End Date Don Hedrick MD [address] [place] [phone] PCP - General Internal Medicine 02/21/23 documented as of this encounter
--- OUTSIDE RECORDS SUMMARY | 2025-08-11 13:29 | XMS_ITS | Encounter Summary ---
Author Organization [facility] [place], Address [address] [place] [address] Phone Care Team Providers Care Billet Heater Name Role Phone Don Hedrick MD Primary Care Provider Unav ailable Encounter Details Date Type Department Care Team (Late st Contact Info) Description 02/05/2024 Documentation Only [facility] [address] [place] [address] Mali Sanders [address] [place] [address] Social History Tobacco Use Types [...] Visit [facility] [address] [place] [address] Matt Geronimo MD [address] [facility] [place] [address] documented as of this encounter Visit Diagnoses Not on filedocumented in this encounter Care Teams Billet Heater Relationship Specialty Start Date End Date Don Hedrick MD [address] [place] [phone] PCP - General Internal Medicine 02/21/23 documented as of this encounter
--- OUTSIDE RECORDS SUMMARY | 2025-08-11 13:29 | XMS_ITS | Encounter Summary ---
Author Organization [facility] [place], Address [address] [place] [address] Phone Care Team Providers Care Fisheries Director Name Role Phone Don Hedrick MD Primary Care Provider Unav ailable Encounter Details Date Type Department Care Team (Late st Contact Info) Description 02/05/2024 Documentation Only [facility] [address] [place] [address] Mali Sanders [address] [place] [address] Social History Tobacco Use Types [...] Visit [facility] [address] [place] [address] Matt Geronimo MD [address] [facility] [address] [place] [address] documented as of this encounter Visit Diagnoses Not on filedocumented in this encounter Care Teams Fisheries Director Relationship Specialty Start Date End Date Don Hedrick MD [address] [place] [address] PCP - General Internal Medicine 02/21/23 documented as of this encounter
--- OUTSIDE RECORDS SUMMARY | 2025-08-11 13:29 | XMS_ITS | Encounter Summary ---
Author Organization [facility] [place], Address [address] [place] [address] Phone Care Team Providers Care Corporate Executive Name Role Phone Don Hedrick MD Primary Care Provider Unav ailable Encounter Details Date Type Department Care Team (Late st Contact Info) Description 02/10/2025 Documentation Only [facility] [address] [place] [address] Mali Sanders [address] [place] [address] Social History Tobacco Use Types [...] Of [facility] [address] [place] [address] Matt Geronimo MD [address] [facility] [place] [address] documented as of this encounter Visit Diagnoses Not on filedocumented in this encounter Care Teams Corporate Executive Relationship Specialty Start Date End Date Don Hedrick MD [address] [place] [address] PCP - General Internal Medicine 02/21/23 documented as of this encounter
--- OUTSIDE RECORDS SUMMARY | 2025-08-11 13:29 | XMS_ITS | Encounter Summary ---
Author Organization [facility] [place], Address [address] [place] [address] Phone Care Team Providers Care Mold Checker Name Role Phone Don Hedrick MD Primary Care Provider Unav ailable Encounter Details Date Type Department Care Team (Late st Contact Info) Description 02/10/2025 Documentation Only [facility] [address] [place] [address] Mali Sanders [address] [place] [address] Social History Tobacco Use Types [...] Visit [facility] [address] [place] [address] Matt Geronimo MD [address] [facility] [place] [address] documented as of this encounter Visit Diagnoses Not on filedocumented in this encounter Care Teams Mold Checker Relationship Specialty Start Date End Date Don Hedrick MD [address] [place] [phone] PCP - General Internal Medicine 02/21/23 documented as of this encounter
--- OUTSIDE RECORDS SUMMARY | 2025-08-11 13:29 | XMS_ITS | Encounter Summary ---
Author Organization [facility] [place], Address [address] [place] [address] Phone Care Team Providers Care Machinist Linotype Name Role Phone Don Hedrick MD Primary Care Provider Unav ailable Encounter Details Date Type Department Care Team (Late st Contact Info) Description 08/05/2025 Documentation Only [facility] [address] [place] [address] Mali Sanders [address] [place] [address] Social History Tobacco Use Types [...] Visit [facility] [address] [place] [address] Matt Geronimo MD [address] [facility] [place] [address] documented as of this encounter Visit Diagnoses Not on filedocumented in this encounter Care Teams Machinist Linotype Relationship Specialty Start Date End Date Don Hedrick MD [address] [place] [address] PCP - General Internal Medicine 02/21/23 documented as of this encounter
--- OUTSIDE RECORDS SUMMARY | 2025-08-11 13:29 | XMS_ITS | Encounter Summary ---
Author Organization [employer] Address [address] [place] [address] 7 [place] [address] Care Team Providers Care Mounting Inspector Name Role Phone Waylon Ellis MD Primary Care Prov ider Reason for Visit * Reason Onset Date Comments PT1 06/27/2023 Encounter Details Date Type Department Care Team ([facility] Contact Info) Description 06/27/2023 Telephone [facility] MED & PEDS [address] [place], [place] [phone] Waylon Ellis MD [address] [place] [address] PT1 Social History Tobacco Use Types Packs/Day [...] pt requesting PT1 for locations Location: 2 [place], [place] Specialty:[facility] Date&Time: Aug 09 Recessing Machine Operator: N/a Location: 2 [facility], [place], [place] Specialty: [facility] Date&Time: Nov Recessing Machine Operator: N/a Location:[address] [facility] 1st floor, [place], [place] Specialty: Lung Screening Date&Time: n/a Recessing Machine Operator:N/a Location:[address], [place], [place] Specialty:Cancer screening Date&Time:n/a Recessing Machine Operator: n/a Location: [address] [facility] [address] [address] Specialty:[facility] Date&Time: n/a Recessing Machine Operator: n/a Location:[address] [place] [address] Specialty:[facility] Date&Time: N/a Recessing Machine Operator: n/a documented in this encounter Plan of Treatment Upcoming Encounters Date Type Department Care Team (Late st Contact Info) Description 01/26/2026 2:15 PM EDT Office Visit [facility] ADULT DENTAL [address] [place] [address] Grayson Hedrick documented as of this encounter Visit Diagnoses Not on filedocumented in this encounter Additional Health Concerns Assessment Noted Time PHQ-9 Depression Total Score: 0 06/12/20 23 1:28 PM EDT documented as of this encounter Care Teams Mounting Inspector Relationship Specialty Start Date End Date Waylon Ellis MD [address] [place] [address] PCP - General Internal Medicine 03/17/20 documented as of this encounter
--- OUTSIDE RECORDS SUMMARY | 2025-08-11 13:29 | XMS_ITS | Clinical Summary ---
Author Organization [employer] Address [address] [facility] 7[address] [place] [address] Care Team Providers Care Beater And Pulper Feeder Name Role Phone Waylon Ellis MD Primary [...] OR SPLIT 100 tablet 3 01/24/2025 Active Jardiance 10 MG Take 10 mg by mouth in the morning. Active Active Problems Problem Noted Date Diagnosed Date Colon polyp 03/22/2024 Substance abuse (CMS/HCC) 03/22/2024 Tobacco dependence syndrome 03/22/2024 Chronic kidney disease, stage 4 (severe) (CMS/HC C) 02/05/2024 Assessment & Plan (04/16/2025 4:05 PM EDT): Followed by nephrology, avoid nephrotoxic medications, will follow up reccomendations Secondary hyperparathyroidism 02/02/2024 Benign neoplasm of axillary [...] Invasive lobular carcinoma of breast in female ( CMS/HCC) 03/10/2023 Assessment & Plan (04/16/2025 4:06 PM EDT): On tamoxifen, followed by surgery and oncology, follow up reccomendations Assessment & Plan (05/07/2024 7:23 PM EDT): Followed by oncology, she is on tamoxifen, will follow up reccomendations Assessment & Plan (06/12/2023 1:37 PM EDT): Followed by nathalie/onco, on tamoxifen Assessment & Plan (03/10/2023 12:20 PM EDT): Followed by oncology and surgery, last imaging test was negative, on tamoxifen completed chemo/rad Stage 4 chronic kidney disease (CMS/HCC) 023 Assessment & Plan (12/19/2024 2:27 PM EST): [...] disorder 06/26/2018 Stage 3 chronic kidney disease (CMS/HCC) 018 Encounters Date Type Department Care Team Description 07/28/2025 2:00 PM EDT Office Visit [facility] [address] [place] [address] Grayson Hedrick Periodontal disease (Primary Dx); Dental calculus; Edentulism; Partial edentulism, class I from Last 3 Months Immunizations Immunization Administration Dates Next Due Hep B, adult [...] Reading Time Taken Comments Blood Pressure 108/62 07/28/2025 1:51 PM EDT Pulse 60 07/28/2025 1:51 PM EDT Temperature 35.9 C (96.7 F) 05/07/2024 2:09 PM EDT Respiratory Rate 16 05/07/2024 2:09 PM EDT [...] Description 01/26/2026 2:15 PM EDT Office Visit [facility] [address] [place] [address] Grayson Hedrick Health Maintenance Due Date Last Done Comments CT Colonography 1955 Dental X-Ray: Bitewings 1955 Dental X-Ray: Full Mouth 1955 FIT DNA/Cologuard 1955 FIT 1955 FOBT 1955 Sigmoidoscopy 1955 Zoster Vaccines (3 of 3) 10/04/2024 08/09/2024, 08/30 DTaP/Tdap/Td Vaccines (2 - Td or Tdap) 02/19/2025 02/19/2015 Colonoscopy 05/19/2025 05/19/2020 Colorectal Cancer Screening 05/19/2025 COVID-19 Vaccine ( season) 2025 07/08/2024, 10/12/2023, 10/03/2022, Additional history exists Influenza Vaccine (#1) 2025 , 08/11/2023, 08/15/2022, Additional history exists Mammogram 08/09/2025 08/09/2024, 10/30, 08/08/2023, Additional history exists Alcohol/Substance Use Screening 12/19/2025 12/19/2024 Depression Screening 12/19/2025 12/19/2024, 12/19/19 SDOH Screening 12/19/2025 12/19/2024 Tobacco Screening 01/22/2026 01/22/2025 Dental Oral Exam 01/26/2026 07/28/2025, , 01/18/2024, Additional history exists Dental Prophylaxis 01/26/2026 07/28/2025, 0 01/22/2025, 07/24/2024, Additional history exists Hepatitis C Screening Completed 03/10/2023 Hepatitis B Vaccines Completed 08/11/2023, 01/31/2023, 01/04/2023 Pneumococcal Vaccine: 50+ Years Completed 08/11/2023, 06/30/2020, 08/11/2014 RSV Patients and Patients Aged 60 years or older Completed 10/12/2023 HIB Vaccines Aged Out No longer eligi [...] patient's age to complete this topic Meningococcal B Vaccine Aged Out No l onger eligible based on patient's age to complete [...] Procedure Name Priority Date/Time Associated Diagnosis Comments PERIODIC ORAL EVALUATION - ESTABLISHED PATIENT Routine 07/28/2025 2:00 PM EDT Periodontal disease Edentulism Partial edentulism, class I ORAL HYGIENE INSTRUCTIONS Routine 07/28/2025 2:00 PM EDT Periodontal disease Edentulism Partial edentulism, class I CASE PRESENTATION, DETAILED AND EXTENSIVE TREATMENT PLANNING Routine 07/28/2025 2:00 PM EDT Periodontal disease Edentulism Partial edentulism, class I PROPHYLAXIS - ADULT Routine 07/28/2025 2 :00 PM EDT Periodontal disease Edentulism Partial edentulism, class I BI MAMMOGRAM SCREENING TOMOSYNTHESIS BILATERAL Routine 08/09/2024 3:30 PM EDT HEPATITIS C AB W/REFL TO HCV RNA, QN, PCR Routine 03/10/2023 11:46 AM EDT Stage 4 chronic kidney disease (CMS/HCC) HM COLONOSCOPY Routine 05/19/2020 from Last 3 Months or Most Recently Relevant to Health Maintenance Results * BI Mammogram Screening Tomosynthesis Bilateral (08/09/2024 3:30 PM EDT) Anatomical Region Laterality Modality Breast Bilateral Mammography 08/09/2024 3:30 PM EDT Narrative 08/22/2024 9:45 PM EDT [facility] [address] [place] [address] Mammography Report Signed Patient: Kim Love MR#: [id number] : 1955 Acct:[id number] Age/Sex: 69 / F ADM Date: 08/09/24 Loc: HO.MAMMO Attending Dr: Waylon Pedro MD Ordering Physician: Waylon Ellis MD Res ults: 2Benign Findings Date of Service: 08/09/24 Follow Up: 1 Year From Orig inal Mammogram Procedure(s): MM tomosynthesis screening BI Accession Number(s): [id number] cc: Waylon Ellis MD EXAMINATION: MM SCREENING [...] signed by María Pereira DO in OV> 08/22/24 2142 DD/ 1530 TD/TT: 08/09/24 1542 Resident Care Associate: Procedure Note Padminiter, Image - 08/22/2024 [facility] [address] [place], [place] [address] Mammography Report Signed Patient: Kim Love#: [id number] : 5Acct:[id number] Age/Sex: 69 / FADM Date: 08/09/24 Loc: HO.MAMMO Attending Dr: Waylon Pedro MD Ordering Physician: Waylon Ellis ults: 2Benign Findings Date of Service: 08/09/24Follow Up: 1 Year From Orig inal Mammogram Procedure(s): MM tomosynthesis screening BI Accession Number(s): [id number] cc: Waylon Ellis MD EXAMINATION: MM SCREENING [...] María Pereira DO 08/22/2024 09:42 PM EDT RP Dictated By: María Pereira DO Signed By: <Electronically signed by María Pereira DO in OV> 08/22/24 2142 DD/ 1530 TD/TT: 08/09/24 1542 Resident Care Associate: Waylon Pedro MD [facility] PROCEDURES Edited Result - Final * Hepatitis C Antibody with Reflex to HCV, RNA, Quantitative, Real-Time PCR (03/10/2023 11:46 AM EDT) Hepatitis C Antibody NON-REACT JANINE NON-REACT JANINE [employer] Index 0.06 <1.00 [employer] Comment: HCV antibody was non-reactive. There is no laboratory evidence of HCV infection. In most cases, no further action is required. However, if recent HCV exposure is suspected, a test for HCV RNA (test code 29621) is suggested. For additional information please refer to http://education.Box Upon a Time/faq/KNC86j2 (This link is being provided for informational/ educational purposes only.) Blood Venous blood specimen / Unknown 03/10/2023 11:46 AM EDT 03/10/2023 11:47 AM EDT Narrative [facility] - 03/11/2023 6:26 AM EDT FASTING:NO FASTING: NO us Waylon Pedro MD LAB BLOOD ORDERABL ES Final Result [facility] [address], [place] [address] [facility] [address] [place] [address] * Hm Colonoscopy (05/19/2020) Colonoscopy Normal Normal Narrative Ellie Torres - 05/19/2020 Recommended 5 year follow up per Gi note on 12/27/2024 Historical Provider HEALTH MAINTENANCE Final Result from Last 3 Months or Most Recently Relevant to Health Maintenance Insurance [place] [address] [place] [phone] [facility]ICAID STAND ADULT * Guarantor: Kim Love Account Type Relation to Patient Date of Phone Billing Address Personal/Family Self [address] [place] Care Teams Beater And Pulper Feeder Relationship Specialty Start Date End Date Waylon Ellis MD [address] [place] [address] [place] [address] PCP - General Internal Medicine 03/17/20
== END 2025-08-11 13:26 | disposition home or self-care (01) ==
LOC: HO.LAB 13:25
PROVIDERS: Visit Provider Internal Medicine Endocrinology, Diabetes & Metabolism
DX: Z13.89 Encounter for screening for other disorder (principal)

== ENCOUNTER 2025-08-12 16:07 | Outpatient (REF) | payer MEDICARE, MEDICAID, SELFPAY ==
--- OUTSIDE RECORDS SUMMARY | 2025-08-11 15:30 | XMS_ITS | Encounter Summary ---
Author Organization [facility], Address [address] [place] [address] Phone Care Team Providers Care Clay Puddler Name Role Phone Don Hedrick MD Primary Care Provider Unav ailable Encounter Details Date Type Department Care Team (Late st Contact Info) Description 08/11/2025 3:30 PM EDT Office Visit [facility], [address] [place] [address] Matt Geronimo MD [address] [facility] [address] [place] [address] Chronic kidney disease, stage 4 [...] 1. Chronic kidney disease, stage 4 (severe) ([facility]) Kim Love, a 70-year-old female with a [...] note was prepared with the help of Pinstant Karma software which the patient consented to. Matt Geronimo MD Oracle Applications Analyst Hand Bindery Assembly Worker [facility], [address] [place] [facility] [phone] Orders Placed This Encounter ??? CBC and [...] Office Visit [facility], [address] [place] [address] Matt Geronimo MD [address] [place] [address] [place] [phone] Scheduled Orders Name Type Priority Associated Diagnoses [...] Primary documented in this encounter Care Teams Clay Puddler Relationship Specialty Start Date End Date Don Hedrick MD [address] [place] [phone] PCP - General Internal Medicine 02/21/23 documented as of this encounter
--- NOTE | ~2025-08-12 | MM_ITS ---
EXAMINATION: MM SCREENING DIGITAL BREAST TOMOSYNTHESIS, BILATERAL CLINICAL INFORMATION: Screening. Asymptomatic. History of left breast cancer in 2020 status post likely. COMPARISON: Mammography: Comparison is made with available priors TECHNIQUE: Digital breast mammography with tomosynthesis is performed in both the craniocaudal and mediolateral oblique views along with computer-aided detection (CAD). FINDINGS: There are scattered areas of fibroglandular density. Left post lumpectomy changes are stable. Right marker clip. There are no significant masses, abnormal calcifications, or other abnormalities. MM/MM tomosynthesis screening BI IMPRESSION: No mammographic evidence of malignancy. ASSESSMENT: BI-RADS Category 2: Benign RECOMMENDATION: Routine annual mammography screening. 1 year F/U This examination should not preclude the clinical evaluation of a suspicious palpable abnormality. This patient's information was entered into a reminder system with a target due date for their next mammogram. Electronically signed by: María Pereira DO 08/12/2025 05:18 PM EDT
--- OUTSIDE RECORDS SUMMARY | 2025-08-12 18:35 | XMS_ITS | Encounter Summary ---
Author Organization [facility], Address [address] [place] [address] Phone Care Team Providers Care Extruder Operator Name Role Phone Don Hedrick MD Primary Care Provider Unav ailable Encounter Details Date Type Department Care Team (Late Contact Info) Description 05/15/2025 Documentation Only [facility] [address] [address] Mali Sanders [address] [place] [address] Social History Tobacco Use Types [...] Visit [facility] [address] [place] [address] Matt Geronimo MD [address] [place] [address] documented as of this encounter Visit Diagnoses Not on filedocumented in this encounter Care Teams Extruder Operator Relationship Specialty Start Date End Date Don Hedrick MD [address] [place] [phone] PCP - General Internal Medicine 02/21/23 documented as of this encounter
--- OUTSIDE RECORDS SUMMARY | 2025-08-12 18:35 | XMS_ITS | Encounter Summary ---
Author Organization [facility], Address [address] [place] [address] Phone Care Team Providers Care Laborer Gold Leaf Name Role Phone Don Hedrick MD Primary Care Provider Unav ailable Encounter Details Date Type Department Care Team (Late Contact Info) Description 05/15/2025 Documentation Only [facility] [address] [place] [address] Mali Sanders [address] [place] [address] Social History Tobacco Use Types [...] Visit [facility] [address] [place] [address] Matt Geronimo MD [address] [place] [address] documented as of this encounter Visit Diagnoses Not on filedocumented in this encounter Care Teams Laborer Gold Leaf Relationship Specialty Start Date End Date Don Hedrick MD [address] [place] [phone] PCP - General Internal Medicine 02/21/23 documented as of this encounter
--- OUTSIDE RECORDS SUMMARY | 2025-08-12 18:35 | XMS_ITS | Encounter Summary ---
Author Organization [facility], Address [address] [place] [address] Phone Care Team Providers Care Ring Maker Name Role Phone Don Hedrick MD Primary Care Provider Unav ailable Encounter Details Date Type Department Care Team (Late Contact Info) Description 02/05/2024 Documentation Only [facility] [address] [place] [address] Mali Sanders [address] [place] [address] Social History Tobacco Use Types [...] Visit [facility] [address] [place] [address] Matt Geronimo MD [address] [address] [place] [address] documented as of this encounter Visit Diagnoses Not on filedocumented in this encounter Care Teams Ring Maker Relationship Specialty Start Date End Date Don Hedrick MD [address] [place] [phone] PCP - General Internal Medicine 02/21/23 documented as of this encounter
--- OUTSIDE RECORDS SUMMARY | 2025-08-12 18:35 | XMS_ITS | Encounter Summary ---
Author Organization [facility] [place], Address [address] [place] [address] Phone Care Team Providers Care Worm Grower Name Role Phone Don Hedrick MD Primary Care Provider Unav ailable Encounter Details Date Type Department Care Team (Late st Contact Info) Description 02/10/2025 Documentation Only [facility] [address] [place] [place] [address] Mali Sanders [address] [place] [address] Social History Tobacco Use Types [...] [facility] [address] [place] [place] [address] Matt Geronimo MD [address] [facility] [address] [place] [address] documented as of this encounter Visit Diagnoses Not on filedocumented in this encounter Care Teams Worm Grower Relationship Specialty Start Date End Date Don Hedrick MD [address] [place] [phone] PCP - General Internal Medicine 02/21/23 documented as of this encounter
--- OUTSIDE RECORDS SUMMARY | 2025-08-12 18:35 | XMS_ITS | Encounter Summary ---
Author Organization [facility] [place], Address [address] [place] [address] Phone Care Team Providers Care Therapist Radiation Name Role Phone Don Hedrick MD Primary Care Provider Unav ailable Encounter Details Date Type Department Care Team (Late st Contact Info) Description 02/10/2025 Documentation Only [facility] [address] [place] [address] Mali Sanders [address] [place] [address] Social History Tobacco Use Types [...] Visit [facility] [address] [place] [address] Matt Geronimo MD [address] [facility] [address] [place] [address] documented as of this encounter Visit Diagnoses Not on filedocumented in this encounter Care Teams Therapist Radiation Relationship Specialty Start Date End Date Don Hedrick MD [address] [place] [address] PCP - General Internal Medicine 02/21/23 documented as of this encounter
--- OUTSIDE RECORDS SUMMARY | 2025-08-12 18:35 | XMS_ITS | Encounter Summary ---
Author Organization [employer] Address [address] [place] [address] 7t [place] [address] Care Team Providers Care Grocery Deliverer Name Role Phone Waylon Ellis MD Primary Care Prov ider Encounter Details Date Type Department Care Team (Latest Contact Info) Description 09/19/[address] [facility] CONVERSIONS Dental, Provider, DDS Social History [...] Description 01/26/2026 2:15 PM EDT Office Visit [facility] [address] [place] [address] Grayson Hedrick documented as of this encounter Visit Diagnoses Not on filedocumented in this encounter Care Teams Grocery Deliverer Relationship Specialty Start Date End Date Waylon Ellis MD [address] [place] [address] PCP - General Internal Medicine 03/17/20 documented as of this encounter
--- OUTSIDE RECORDS SUMMARY | 2025-08-12 18:35 | XMS_ITS | Encounter Summary ---
Author Organization [facility] [place], Address [address] [place] [address] Phone Care Team Providers Care Svp Research And Strategic Analysis Name Role Phone Don Hedrick MD Primary Care Provider Unav ailable Encounter Details Date Type Department Care Team (Late Contact Info) Description 07/03/2024 Documentation Only [facility] [address] [place] [address] Mali Sanders [address] [place] [address] Social History Tobacco Use Types [...] Visit [facility] [address] [place] [address] Matt Geronimo MD [address] [facility] [place] [address] documented as of this encounter Visit Diagnoses Not on filedocumented in this encounter Care Teams Svp Research And Strategic Analysis Relationship Specialty Start Date End Date Don Hedrick MD [address] [place] [address] PCP - General Internal Medicine 02/21/23 documented as of this encounter
--- OUTSIDE RECORDS SUMMARY | 2025-08-12 18:35 | XMS_ITS | Encounter Summary ---
Author Organization [facility] [place], Address [address] [place] [address] Phone Care Team Providers Care Tie Binder Name Role Phone Don Hedrick MD Primary Care Provider Unav ailable Encounter Details Date Type Department Care Team (Late Contact Info) Description 07/03/2024 Documentation Only [facility] [address] [place] [address] Mali Sanders [address] [place] [address] Social History Tobacco Use Types [...] [facility] [address] [place] [address] Matt Geronimo MD [address] [place] [address] documented as of this encounter Visit Diagnoses Not on filedocumented in this encounter Care Teams Tie Binder Relationship Specialty Start Date End Date Don Hedrick MD [address] [place] [address] PCP - General Internal Medicine 02/21/23 documented as of this encounter
--- OUTSIDE RECORDS SUMMARY | 2025-08-12 18:35 | XMS_ITS | Clinical Summary ---
Author Organization [facility], Address [address] [address] Phone Care Team Providers Care Cargo Service Agent Name Role Phone Don Hedrick MD Primary [...] Encounters Date Type Department Care Team Description 08/11/2025 3:30 PM EDT Office Visit [facility] [address] [place] [address] Matt Geronimo MD Chronic kidney disease, stage 4 (severe) (HCC) (Primary Dx) 08/05/2025 Documentation Only [facility] [address] [place] [address] Tommy, Mali 08/05/2025 Documentation Only [facility] [address] [place] [address] Tommy, Mali 08/04/2025 Refill [facility] [address] [place] [address] Tommy, Mali 05/15/2025 4:00 PM EDT Office Visit [facility] [address] [place] [address] Matt Geronimo MD Chronic kidney disease, stage 4 (severe) (HCC) (Primary Dx) 05/15/2025 Documentation Only [facility] [address] [place] [address] Tommy, Mali 05/15/2025 Documentation Only [facility] [address] [place] [address] Mali Sanders from Last 3 Months Immunizations [...] Pressure 115/78 08/11/2025 3:02 PM EDT Pulse 86 05/15/2025 4:24 PM [...] Visit [facility] [place], [address] [place] [address] Matt Geronimo MD [address] [facility] [place] [address] Health Maintenance Due Date Last Done Comments [...] Urine 0-5 0 - 5 /hpf [facility] RBC, Urine None seen 0 - 2 /hpf [facility] Squamous Epithelial, Urine None seen 0 - 10 /hpf [facility] Casts None seen None seen /lpf [facility] Bacteria, Urine None seen None seen/Few [facility] 07/17/2025 4:38 PM EDT 07/17/2025 us Matt Geronimo MD LAB MICROBIOLOGY - GENERAL OR DERABLES Final Result [facility] [address] [place] [address] * Iron Panel (Fe, TIBC, TSAT) (07/17/2025 4:38 PM EDT) Pathologist [facility] Iron 126 27 - 139 ug/dL [facility] TIBC 252 250 - 450 ug/dL [facility] UIBC 126 118 - 369 ug/dL [facility] Iron Saturation (TSat) 50 15 - 55 % [facility] Blood Venous blood / Unknown 07/17/2025 4:38 PM EDT 07/17/2025 Matt Geronimo MD LAB BLOOD ORDERABLES Final Re sult Performing Organization Address [facility] [[email or web address]] Co de Phone Number [facility] [address] [place] [address] * (ABNORMAL) Protein, Total, Random Urine w/Creatinine (Protein/Creat Ratio) (07/17/2025 4:38 PM EDT) Creatinine, Ur 21.6 Not Estab. mg/dL [facility] Protein, Ur 7.7 Not Estab. mg/dL [facility] Urine Protein/Creati nine Ratio 356(H) 0 - 200 mg/g creat [facility] Urine Urine specimen obtained by clean catch procedure / Unknown 07/17/2025 4:38 PM EDT 07/17/2025 Matt Geronimo MD LAB URINE ORDERABLES Final Re sult Performing Organization Address [facility] [[email or web address]] Co de Phone Number [facility] [address] [place] [address] * (ABNORMAL) Urine Albumin / Creatinine Ratio (07/17/2025 4:38 PM EDT) Albumin, Urine 24.3 Not Estab. ug/mL [facility] Albumin/Creatin ine Ratio 113(H) 0 - 29 mg/g creat [facility] Comment: Normal: 0 - 29 Moderately increased: 30 - 300 Severely increased: >300 Urine Urine specimen obtained by clean catch procedure / Unknown 07/17/2025 4:38 PM EDT 07/17/2025 Matt Geronimo MD LAB URINE ORDERABLES Final Re sult Performing Organization Address [facility]/ZIP Co de Phone Number [facility] [address] [place] [address] * Vitamin D 25 Hydroxy (07/17/2025 4:38 PM EDT) Vitamin D, 25-OH, Total 33.3 30.0 - 100.0 ng/mL [facility] Comment: Vitamin D deficiency has been defined by the [place] of Medicine and an Endocrine Society practice guideline as a level of serum 25-OH vitamin D less than 20 ng/mL (1,2). The Endocrine Society went on to further define vitamin D insufficiency as a level between 21 and 29 ng/mL (2). 1. IOM ([place] of Medicine). 2010. Dietary reference intakes for [...] ORDERABLES Final Re sult Performing Organization Address [facility]/ZIP Co de Phone Number [facility] [address] [place] [address] * (ABNORMAL) Urinalysis with microscopic (07/17/2025 4:38 PM EDT) Specific [place], Urine 1.007 1.005 - 1.030 [facility] [phone] pH Urine 6.0 5.0 - 7.5 [facility] Color, Urine Yellow Yellow [facility] Appearance Urine Clear Clear [facility] WBC Esterase Urine Negative Negative [facility] Protein, Ur Trace Negative/Tra ce [facility] Glucose, Ur Trace(A) Negative [facility] Ketones, Urine Negative Negative [facility] Blood Urine Negative Negative [facility] Bilirubin Urine Negative Negative [facility] Urobilinogen Urine 0.2 0.2 - 1.0 mg/dL [facility] Nitrite, Urine Negative Negative [facility] Microscopic Examination Comment [facility] Comment:Microscopic follows if indicated. Other Microsc. Observations See below: [facility] Comment:Microscopic was inocencio cated and was performed. Urine Urine specimen obtained by clean catch procedure / Unknown 07/17/2025 4:38 PM EDT 07/17/2025 us Matt Geronimo MD LAB URINE ORDERABLES Final Re sult [facility] [address] [place] [address] * (ABNORMAL) CBC and Differential (07/17/2025 4:38 PM EDT) WBC 6.0 3.4 - 10.8 x10E3/uL [facility] RBC 3.51(L) 3.77 - 5.28 x10E6/uL [facility] Hemoglobin 12.1 11.1 - 15.9 g/dL [facility] Hematocrit 34.7 34.0 - 46.6 % [facility] MCV 99(H) 79 - 97 fL [facility] MCH 34.5(H) 26.6 - 33.0 pg [facility] MCHC 34.9 31.5 - 35.7 g/dL [facility] RDW 11.5(L) 11.7 - 15.4 % [facility] Platelets 227 150 - 450 x10E3/uL [facility] Neutrophils Relative 68 Not Estab. % [facility] Lymphocytes Relative 20 Not Estab. % [facility] Monocytes 9 Not Estab. % [facility] Eosinophils Relative 2 Not Estab. % [facility] Basophils Relative 1 Not Estab. % [facility] Neutrophils Absolute 4.0 1.4 - 7.0 x10E3/uL [facility] Lymphocytes Absolute 1.2 0.7 - 3.1 x10E3/uL [facility] Monocytes Absolute 0.5 0.1 - 0.9 x10E3/uL [facility] Eosinophils Absolute 0.1 0.0 - 0.4 x10E3/uL [facility] Basophils Absolute 0.0 0.0 - 0.2 x10E3/uL [facility] Immature Granulocytes 0 Not Estab. % [facility] Immature Grans (Absolute) 0.0 0.0 - 0.1 x10E3/uL [facility] Blood Venous blood / Unknown 07/17/2025 4:38 PM EDT 07/17/2025 us Matt Geronimo MD LAB BLOOD ORDERABLES Final Re sult [facility] [address] [place] [address] * (ABNORMAL) PTH, Intact (07/17/2025 4:38 PM EDT) [facility] PTH 129(H) 15 - 65 pg/mL [facility] Blood Venous blood / Unknown 07/17/2025 4:38 PM EDT 07/17/2025 Matt Geronimo MD LAB BLOOD ORDERABLES Final Re sult [facility] [address] [place] [address] * (ABNORMAL) Ferritin (07/17/2025 4:38 PM EDT) [facility] Ferritin 292(H) 15 - 150 ng/mL [facility] Blood Venous blood / Unknown 07/17/2025 4:38 PM EDT 07/17/2025 Matt Geronimo MD LAB BLOOD ORDERABLES Final Re sult [facility] [address] [place] [address] * (ABNORMAL) Renal Function Panel (07/17/2025 4:38 PM EDT) [facility] Glucose 86 70 - 99 mg/dL [facility] BUN 35(H) 8 - 27 mg/dL [facility] Creatinine 2.75(H) 0.57 - 1.00 mg/dL [facility] eGFR CKD-EPI CR 2020 18(L) >59 mL/min/1.7 3 [facility] BUN/Creatinine Ratio 13 12 - 28 [facility] Sodium 142 134 - 144 mmol/L [facility] Potassium 4.2 3.5 - 5.2 mmol/L [facility] Chloride 107(H) 96 - 106 mmol/L [facility] Bicarbonate (CO2) 18(L) 20 - 29 mmol/L [facility] Calcium 8.7 8.7 - 10.3 mg/dL [facility] Phosphorus 3.7 3.0 - 4.3 mg/dL [facility] Albumin 4.1 3.9 - 4.9 g/dL [facility] Blood Venous blood / Unknown 07/17/2025 4:38 PM EDT 07/17/2025 us Matt Geronimo MD LAB BLOOD ORDERABLES Final Re sult [facility] [address] [place] [address] from Last 3 Months Insurance Medicare Medicaid [place] Care Teams Cargo Service Agent Relationship Specialty Start Date End Date Don Hedrick MD [address] [place] [address] MIRIAM Samuels [phone] PCP - General Internal Medicine 02/21/23
--- OUTSIDE RECORDS SUMMARY | 2025-08-12 18:35 | XMS_ITS | Encounter Summary ---
Author Organization [employer] Address [address] [place] [address] 7t [place] [address] Care Team Providers Care Purification Operator Name Role Phone Waylon Ellis MD Primary Care Prov ider Encounter Details Date Type Department Care Team ([facility] st Contact Info) Description 08/12/2025 Orders Only [facility] [address] [place], [place] [phone] Waylon Ellis MD [address] [place], [place] [phone] Social History Tobacco Use Types Packs/Day Years [...] [facility] [address] [place] [address] Grayson Hedrick documented as of this encounter Procedures Procedure Name Priority Date/Time Associated Diagnosis Comments BI MAMMOGRAM SCREENING TOMOSYNTHESIS BILATERAL Routine 08/12/2025 4:08 PM EDT documented in this encounter Results * BI Mammogram Screening Tomosynthesis Bilateral (08/12/2025 4:08 PM EDT) Anatomical Region Laterality Modality Breast Bilateral Mammography 08/12/2025 4:08 PM EDT Narrative 08/12/2025 5:21 PM EDT [facility] [address] [place] [address] Mammography Report Signed Patient: Kim Love MR#: [id number] : 1955 Acct:[id number] Age/Sex: 70 / F ADM Date: 08/12/25 Loc: HO.MAMMO Attending Dr: Waylon Pedro MD Ordering Physician: Waylon Ellis MD Res ults: 2Benign Date of Service: 08/12/25 Follow Up: 1 Year From Orig inal Mammogram Procedure(s): MM tomosynthesis screening BI Accession Number(s): [id number] cc: Waylon Ellis MD Reason For Exam: SCREENING EXAMINATION: MM SCREENING DIGITAL BREAST TOMOSYNTHESIS, BILATERAL CLINICAL INFORMATION: Screening. Asymptomatic. History of left breast cancer in 2020 status post likely. COMPARISON: Mammography: Comparison is made with available priors TECHNIQUE: Digital breast mammography with tomosynthesis is performed in both the craniocaudal and mediolateral oblique views along with computer-aided detection (CAD). FINDINGS: There are scattered areas of fibroglandular density. Left post lumpectomy changes are stable. Right marker clip. There are no significant masses, abnormal calcifications, or other abnormalities. MM/MM tomosynthesis screening BI IMPRESSION: No mammographic evidence of malignancy. ASSESSMENT: BI-RADS Category 2: Benign RECOMMENDATION: Routine annual mammography screening. 1 year F/U This examination should not preclude the clinical evaluation of a suspicious palpable abnormality. This patient's information was entered into a reminder system with a target due date for their next mammogram. Electronically signed by: María Pereira DO 08/12/2025 05:18 PM EDT Dictated By: María Pereira DO Signed By: <Electronically signed by María Pereira DO in OV> 08/12/25 1718 DD/ 1608 TD/TT: 08/12/25 1629 Medical Billing Service: Procedure Note Donotuseinterpreter, Image - 08/12/2025 [facility] [address] [place] [address] Mammography Report Signed Patient: Kim LoveMR#: [id number] : 5Acct:[id number] Age/Sex: 70 / FADM Date: 08/12/25 Loc: HO.MAMMO Attending Dr: Waylon Pedro MD Ordering Physician: Waylon Ellis ults: 2Benign Date of Service: 08/12/25Follow Up: 1 Year From Orig inal Mammogram Procedure(s): MM tomosynthesis screening BI Accession Number(s): [id number] cc: Waylon Ellis MD Reason For Exam: SCREENING EXAMINATION: MM SCREENING DIGITAL BREAST TOMOSYNTHESIS, BILATERAL CLINICAL INFORMATION: Screening. Asymptomatic. History of left breast cancer in 2020 status post likely. COMPARISON: Mammography: Comparison is made with available priors TECHNIQUE: Digital breast mammography with tomosynthesis is performed in both the craniocaudal and mediolateral oblique views along with computer-aided detection (CAD). FINDINGS: There are scattered areas of fibroglandular density. Left post lumpectomy changes are stable. Right marker clip. There are no significant masses, abnormal calcifications, or other abnormalities. MM/MM tomosynthesis screening BI IMPRESSION: No mammographic evidence of malignancy. ASSESSMENT: BI-RADS Category 2: Benign RECOMMENDATION: Routine annual mammography screening. 1 year F/U This examination should not preclude the clinical evaluation of a suspicious palpable abnormality. This patient's information was entered into a reminder system with a target due date for their next mammogram. Electronically signed by: María Pereira DO 08/12/2025 05:18 PM EDT Dictated By: María Pereira DO Signed By: <Electronically signed by María Pereira DO in OV> 08/12/25 1718 DD/ 1608 TD/TT: 08/12/25 1629 Medical Billing Service: us Waylon Pedro MD IMG BI PROCEDURES Final Result documented in this encounter Visit Diagnoses Not on filedocumented in this encounter Additional Health Concerns Assessment Noted Time PHQ-9 Depression Total Score: 0 12/19/19 25 1:22 PM EST documented as of this encounter Care Teams Purification Operator Relationship Specialty Start Date End Date Waylon Ellis MD [address] [place] [address] PCP - General Internal Medicine 03/17/20 documented as of this encounter
--- OUTSIDE RECORDS SUMMARY | 2025-08-12 18:35 | XMS_ITS | Encounter Summary ---
Author Organization [facility] [place], Address [address] [place] [address] Phone Care Team Providers Care Chief Safety Officer Name Role Phone Don Hedrick MD Primary Care Provider Unav ailable Encounter Details Date Type Department Care Team (Late st Contact Info) Description 02/14/2024 Documentation Only [facility] [address] [place] [address] Mali Sanders [address] [place] [address] Social History Tobacco Use Types [...] Visit [facility] [address] [place] [address] Matt Geronimo MD [address] [place] [address] documented as of this encounter Visit Diagnoses Not on filedocumented in this encounter Care Teams Chief Safety Officer Relationship Specialty Start Date End Date Don Hedrick MD [address] [place] [address] PCP - General Internal Medicine 02/21/23 documented as of this encounter
--- OUTSIDE RECORDS SUMMARY | 2025-08-12 18:35 | XMS_ITS | Encounter Summary ---
Author Organization [facility] [place], Address [address] [place] [address] Phone Care Team Providers Care Visitor Services Information Assistant Name Role Phone Don Hedrick MD Primary Care Provider Unav ailable Encounter Details Date Type Department Care Team (Late Contact Info) Description 02/05/2024 Documentation Only [facility] [address] [place] [place] [address] Mali Sanders [address] [place] [address] Social History Tobacco Use Types [...] Visit [facility] [address] [place] [place] [address] Matt Geronimo MD [address] [place] [address] documented as of this encounter Visit Diagnoses Not on filedocumented in this encounter Care Teams Visitor Services Information Assistant Relationship Specialty Start Date End Date Don Hedrick MD [address] [place] [address] PCP - General Internal Medicine 02/21/23 documented as of this encounter
--- OUTSIDE RECORDS SUMMARY | 2025-08-12 18:35 | XMS_ITS | Encounter Summary ---
Author Organization [facility] [place], Address [address] [place] [address] Phone Care Team Providers Care Milling/Polishing Operator Name Role Phone Don Hedrick MD Primary Care Provider Unav ailable Encounter Details Date Type Department Care Team (Late Contact Info) Description 06/27/2024 Documentation Only [facility] [address] [place] [address] Mali Sanders [address] [place] [address] Social History Tobacco Use Types [...] Visit [facility] [address] [place] [address] Matt Geronimo MD [address] [facility] [place] [address] documented as of this encounter Visit Diagnoses Not on filedocumented in this encounter Care Teams Milling/Polishing Operator Relationship Specialty Start Date End Date Don Hedrick MD [address] [place] [address] PCP - General Internal Medicine 02/21/23 documented as of this encounter
--- OUTSIDE RECORDS SUMMARY | 2025-08-12 18:35 | XMS_ITS | Encounter Summary ---
Author Organization [facility] [place], Address [address] [place] [address] Phone Care Team Providers Care Loan Review Officer Name Role Phone Don Hedrick MD Primary Care Provider Unav ailable Encounter Details Date Type Department Care Team (Late st Contact Info) Description 02/10/2025 Documentation Only [facility] [address] [place] [address] Mali Sanders [address] [place] [address] Social History Tobacco Use Types [...] [facility] [address] [place] [address] Matt Geronimo MD [address] [place] [address] documented as of this encounter Visit Diagnoses Not on filedocumented in this encounter Care Teams Loan Review Officer Relationship Specialty Start Date End Date Don Hedrick MD [address] [place] [phone] PCP - General Internal Medicine 02/21/23 documented as of this encounter
--- OUTSIDE RECORDS SUMMARY | 2025-08-12 18:35 | XMS_ITS | Encounter Summary ---
Author Organization [facility] [place], Address [address] [place] [address] Phone Care Team Providers Care Residential Supervisor Name Role Phone Don Hedrick MD Primary Care Provider Unav ailable Encounter Details Date Type Department Care Team (Late st Contact Info) Description 02/10/2025 Documentation Only [facility] [address] [place] [address] Mali Sanders [address] [place] [address] Social History Tobacco Use Types [...] Visit [facility] [address] [place] [address] Matt Geronimo MD [address] [facility] [place] [address] documented as of this encounter Visit Diagnoses Not on filedocumented in this encounter Care Teams Residential Supervisor Relationship Specialty Start Date End Date Don Hedrick MD [address] [place] [address] PCP - General Internal Medicine 02/21/23 documented as of this encounter
--- OUTSIDE RECORDS SUMMARY | 2025-08-12 18:35 | XMS_ITS | Encounter Summary ---
Author Organization [facility] [place], Address [address] [place] [address] Phone Care Team Providers Care Test Cell Technician Name Role Phone Don Hedrick MD Primary Care Provider Unav ailable Encounter Details Date Type Department Care Team (Late st Contact Info) Description 02/14/2024 Documentation Only [facility] [address] [address] Mali Sanders [address] [place] [address] Social History Tobacco Use Types [...] Visit [facility] [address] [address] Matt Geronimo MD [address] [place] [address] documented as of this encounter Visit Diagnoses Not on filedocumented in this encounter Care Teams Test Cell Technician Relationship Specialty Start Date End Date Don Hedrick MD [address] [place] [address] PCP - General Internal Medicine 02/21/23 documented as of this encounter
--- OUTSIDE RECORDS SUMMARY | 2025-08-12 18:35 | XMS_ITS | Encounter Summary ---
Author Organization [facility] [place], Address [address] [place] [address] Phone Care Team Providers Care Nail Feeder Name Role Phone Don Hedrick MD Primary Care Provider Unav ailable Encounter Details Date Type Department Care Team (Late Contact Info) Description 02/05/2024 Documentation Only [facility] [address] [place] [address] Mali Sanders [address] [place] [address] Social History Tobacco Use Types [...] Visit [facility] [address] [place] [place] [address] Matt Geronimo MD [address] [place] [address] documented as of this encounter Visit Diagnoses Not on filedocumented in this encounter Care Teams Nail Feeder Relationship Specialty Start Date End Date Don Hedrick MD [address] [place] [address] PCP - General Internal Medicine 02/21/23 documented as of this encounter
--- OUTSIDE RECORDS SUMMARY | 2025-08-12 18:35 | XMS_ITS | Encounter Summary ---
Author Organization [facility] [place], Address [address] [place] [address] Phone Care Team Providers Care Supervisor Tree Trimming Name Role Phone Don Hedrick MD Primary Care Provider Unav ailable Encounter Details Date Type Department Care Team (Late st Contact Info) Description 08/29/2022 Documentation Only [facility] [address] [place] [address] Surya Caldera MD [address] [place] [address] Social History Tobacco Use Types [...] [facility] [address] [place] [address] Matt Geronimo MD [address] [place] [address] documented as of this encounter Visit Diagnoses Not on filedocumented in this encounter Care Teams Supervisor Tree Trimming Relationship Specialty Start Date End Date Don Hedrick MD [address] [place] [phone] PCP - General Internal Medicine 02/21/23 documented as of this encounter
--- OUTSIDE RECORDS SUMMARY | 2025-08-12 18:35 | XMS_ITS | Encounter Summary ---
Author Organization [facility] [place], Address [address] [place] [address] Phone Care Team Providers Care Process Mechanic Name Role Phone Don Hedrick MD Primary Care Provider Unav ailable Encounter Details Date Type Department Care Team (Late Contact Info) Description 02/05/2024 Documentation Only [facility] [address] [place] [address] Mali Sanders [address] [place] [address] Social History Tobacco Use Types [...] [facility] [address] [place] [address] Matt Geronimo MD [address] [place] [address] documented as of this encounter Visit Diagnoses Not on filedocumented in this encounter Care Teams Process Mechanic Relationship Specialty Start Date End Date Don Hedrick MD [address] [place] [address] PCP - General Internal Medicine 02/21/23 documented as of this encounter
--- OUTSIDE RECORDS SUMMARY | 2025-08-12 18:35 | XMS_ITS | Encounter Summary ---
Author Organization [facility] [place], Address [address] [place] [address] Phone Care Team Providers Care Liquid Floor And Wall Applier Name Role Phone Don Hedrick MD Primary Care Provider Unav ailable Encounter Details Date Type Department Care Team (Late Contact Info) Description 02/05/2024 Documentation Only [facility] [address] [place] [place] [address] Mali Sanders [address] [place] [address] Social History Tobacco Use Types [...] Visit [facility] [address] [place] [place] [address] Matt Geronimo MD [address] [place] [address] documented as of this encounter Visit Diagnoses Not on filedocumented in this encounter Care Teams Liquid Floor And Wall Applier Relationship Specialty Start Date End Date Don Hedrick MD [address] [place] [address] PCP - General Internal Medicine 02/21/23 documented as of this encounter
--- OUTSIDE RECORDS SUMMARY | 2025-08-12 18:35 | XMS_ITS | Encounter Summary ---
Author Organization [employer] Address [address] [place] [address] 7 [place] [address] Care Team Providers Care Bottom Stainer Name Role Phone Waylon Ellis MD Primary Care Prov ider Encounter Details Date Type Department Care Team (Latest Contact Info) Description 05/19/2021 Abstract [facility] CONVERSIONS Dental, Provider, DDS Social History [...] Description 01/26/2026 2:15 PM EDT Office Visit [facility] ADULT DENTAL [address] [place] [address] Grayson Hedrick documented as of this encounter Visit Diagnoses Not on filedocumented in this encounter Care Teams Bottom Stainer Relationship Specialty Start Date End Date Waylon Ellis MD [address] [place] [address] PCP - General Internal Medicine 03/17/20 documented as of this encounter
--- OUTSIDE RECORDS SUMMARY | 2025-08-12 18:35 | XMS_ITS | Encounter Summary ---
Author Organization [facility] [place], Address [address] [place] [address] Phone Care Team Providers Care Film Technician Name Role Phone Don Hedrick MD Primary Care Provider Unav ailable Encounter Details Date Type Department Care Team (Late Contact Info) Description 02/05/2024 Documentation Only [facility] [address] [place] [address] Mali Sanders [address] [place] [address] Social History Tobacco Use Types [...] Visit [facility] [address] [place] [address] Matt Geronimo MD [address] [place] [address] documented as of this encounter Visit Diagnoses Not on filedocumented in this encounter Care Teams Film Technician Relationship Specialty Start Date End Date Don Hedrick MD [address] [place] [phone] PCP - General Internal Medicine 02/21/23 documented as of this encounter
--- OUTSIDE RECORDS SUMMARY | 2025-08-12 18:35 | XMS_ITS | Encounter Summary ---
Author Organization [facility] [place], Address [address] [place] [address] Phone Care Team Providers Care Glass Handler Name Role Phone Don Hedrick MD Primary Care Provider Unav ailable Encounter Details Date Type Department Care Team (Late st Contact Info) Description 02/10/2025 Documentation Only [facility] [address] [place] [address] Mali Sanders [address] [place] [address] Social History Tobacco Use Types [...] Visit [facility] [address] [place] [address] Matt Geronimo MD [address] [place] [address] documented as of this encounter Visit Diagnoses Not on filedocumented in this encounter Care Teams Glass Handler Relationship Specialty Start Date End Date Don Hedrick MD [address] [place] [address] PCP - General Internal Medicine 02/21/23 documented as of this encounter
--- OUTSIDE RECORDS SUMMARY | 2025-08-12 18:35 | XMS_ITS | Encounter Summary ---
Author Organization [facility] [place], Address [address] [place] [address] Phone Care Team Providers Care Forestry Professor Name Role Phone Don Hedrick MD Primary Care Provider Unav ailable Encounter Details Date Type Department Care Team (Late Contact Info) Description 07/03/2024 Documentation Only [facility] [address] [place] [address] Mali Sanders [address] [place] [address] Social History Tobacco Use Types [...] Visit [facility] [address] [place] [address] Matt Geronimo MD [address] [facility] [place] [address] documented as of this encounter Visit Diagnoses Not on filedocumented in this encounter Care Teams Forestry Professor Relationship Specialty Start Date End Date Don Hedrick MD [address] [place] [address] PCP - General Internal Medicine 02/21/23 documented as of this encounter
--- OUTSIDE RECORDS SUMMARY | 2025-08-12 18:35 | XMS_ITS | Encounter Summary ---
Author Organization [facility] [place], Address [address] [place] [address] Phone Care Team Providers Care Postal Transportation Clerk Name Role Phone Don Hedrick MD Primary Care Provider Unav ailable Encounter Details Date Type Department Care Team (Late Contact Info) Description 06/27/2024 Documentation Only [facility] [address] [place] [address] Mali Sanders [address] [place] [address] Social History Tobacco Use Types [...] Visit [facility] [address] [place] [address] Matt Geronimo MD [address] [facility] [place] [address] documented as of this encounter Visit Diagnoses Not on filedocumented in this encounter Care Teams Postal Transportation Clerk Relationship Specialty Start Date End Date Don Hedrick MD [address] [place] [address] PCP - General Internal Medicine 02/21/23 documented as of this encounter
--- OUTSIDE RECORDS SUMMARY | 2025-08-12 18:36 | XMS_ITS | Encounter Summary ---
Author Organization [employer] Address [address] [place] [address] 7 [place] [address] Care Team Providers Care Wool And Pelt Grader Name Role Phone Waylon Ellis MD Primary Care Prov ider Reason for Visit * Reason Onset Date Comments PT1 06/27/2023 Encounter Details Date Type Department Care Team ([facility] Contact Info) Description 06/27/2023 Telephone [facility] MED & PEDS [address] [place], [place] [phone] Waylon Ellis MD [address] [place] [address] PT1 Social History Tobacco Use Types Packs/Day [...] pt requesting PT1 for locations Location: [address] [place], [place] Specialty:[facility] Date&Time: Aug 09 Back Tender Insulation Board: N/a Location: 2 [facility], [place], [place] Specialty: [facility] Date&Time: Nov Back Tender Insulation Board: N/a Location:[address] [facility] 1st floor, [place], [place] Specialty: Lung Screening Date&Time: n/a Back Tender Insulation Board:N/a Location:[address], [place], [place] Specialty:Cancer screening Date&Time:n/a Back Tender Insulation Board: n/a Location: [address] [facility] [address] [address] Specialty:[facility] Date&Time: n/a Back Tender Insulation Board: n/a Location:[address] [place] [address] Specialty:[facility] Date&Time: N/a Back Tender Insulation Board: n/a documented in this encounter Plan of Treatment Upcoming Encounters Date Type Department Care Team (Late st Contact Info) Description 01/26/2026 2:15 PM EDT Office Visit [facility] ADULT DENTAL [address] [place] [address] Grayson Hedrick documented as of this encounter Visit Diagnoses Not on filedocumented in this encounter Additional Health Concerns Assessment Noted Time PHQ-9 Depression Total Score: 0 06/12/20 23 1:28 PM EDT documented as of this encounter Care Teams Wool And Pelt Grader Relationship Specialty Start Date End Date Waylon Ellis MD [address] [place] [address] PCP - General Internal Medicine 03/17/20 documented as of this encounter
--- OUTSIDE RECORDS SUMMARY | 2025-08-12 18:36 | XMS_ITS | Encounter Summary ---
Author Organization [employer] Address [address] [facility] 7t [place] [address] Care Team Providers Care Food Tester Name Role Phone Waylon Ellis MD Primary Care Prov ider Reason for Visit * Reason Onset Date Comments Referral 11/09/2023 Encounter Details Date Type Department Care Team ([facility] st Contact Info) Description 11/09/2023 Telephone [facility] MEDICINE [address] [place], [place] [phone] Waylon Ellis MD [address] [place], [place] [phone] Referral Social History Tobacco Use Types Packs/Day [...] us back. TC placed to Raquel @ [phone] at [facility] Cancer Screening, [facility]. Raquel states that they are following up [...] CARE/ ER) DATE: 10/16 TIME: N/A Location: [address] [place] [address] Facility: [facility] Type of Specialist: Radiologist DX: Right axillary ultra sound documented in this encounter Plan of Treatment Upcoming Encounters Date Type Department Care Team ([facility] st Contact Info) Description 01/26/2026 2:15 PM EDT Office Visit [facility] ADULT DENTAL [address] [place], [place] [phone] Grayson Hedrick documented as of this encounter Visit Diagnoses Not on filedocumented in this encounter Additional Health Concerns Assessment Noted Time PHQ-9 Depression Total Score: 0 06/12/20 23 1:28 PM EDT documented as of this encounter Care Teams Food Tester Relationship Specialty Start Date End Date Waylon Ellis MD [address] [place] [address] PCP - General Internal Medicine 03/17/20 documented as of this encounter
--- OUTSIDE RECORDS SUMMARY | 2025-08-12 18:36 | XMS_ITS | Encounter Summary ---
Author Organization [facility] [place], Address [address] [place] [address] Phone Care Team Providers Care Nailer Machine Name Role Phone Don Hedrick MD Primary Care Provider Unav ailable Encounter Details Date Type Department Care Team (Late Contact Info) Description 08/05/2025 Documentation Only [facility] [address] [place] [address] Mali Sanders [address] [place] [address] Social History Tobacco Use Types [...] [facility] [address] [place] [address] Matt Geronimo MD [address] [place] [address] documented as of this encounter Visit Diagnoses Not on filedocumented in this encounter Care Teams Nailer Machine Relationship Specialty Start Date End Date Don Hedrick MD [address] [place] [address] PCP - General Internal Medicine 02/21/23 documented as of this encounter
--- OUTSIDE RECORDS SUMMARY | 2025-08-12 18:36 | XMS_ITS | Encounter Summary ---
Author Organization [facility] [place], Address [address] [place] [address] Phone Care Team Providers Care Clinical Project Leader Name Role Phone Don Hedrick MD Primary Care Provider Unav ailable Encounter Details Date Type Department Care Team (Late Contact Info) Description 08/05/2025 Documentation Only [facility] [address] [place] [address] Mali Sanders [address] [place] [address] Social History Tobacco Use Types [...] [facility] [address] [place] [address] Matt Geronimo MD [address] [place] [address] documented as of this encounter Visit Diagnoses Not on filedocumented in this encounter Care Teams Clinical Project Leader Relationship Specialty Start Date End Date Don Hedrick MD [address] [place] [address] PCP - General Internal Medicine 02/21/23 documented as of this encounter
--- OUTSIDE RECORDS SUMMARY | 2025-08-12 18:36 | XMS_ITS | Clinical Summary ---
Author Organization [employer] Address [address] [facility] 7t [place] [address] Care Team Providers Care Machine Heel Sprayer Name Role Phone Waylon Ellis MD Primary [...] Encounters Date Type Department Care Team Description 08/12/2025 Orders Only [facility] MED & PEDS [address] [place] [address] Waylon Ellis MD 07/28/2025 2:00 PM EDT Office Visit [facility] ADULT DENTAL [address] [place] [address] Grayson Hedrick Periodontal disease (Primary Dx); Dental [...] Description 01/26/2026 2:15 PM EDT Office Visit [facility] ADULT DENTAL [address] [place] [address] Grayson Hedrick Health Maintenance Due Date Last [...] 08/11/2023, 08/15/2022, Additional history exists Mammogram 08/09/2025 08/12/2025, 07/30, 11/17/2023, Additional history exists Alcohol/Substance Use Screening 12/19/2025 [...] TOMOSYNTHESIS BILATERAL Routine 08/12/2025 4:08 PM EDT PERIODIC ORAL EVALUATION - ESTABLISHED [...] Periodontal disease Edentulism Partial edentulism, class I HEPATITIS C AB W/REFL TO HCV RNA, QN, PCR Routine 03/10/2023 11:46 AM EDT Stage 4 chronic kidney disease (CMS/HCC) HM COLONOSCOPY Routine 05/19/2020 from Last 3 Months or Most Recently Relevant to Health Maintenance Results * BI Mammogram Screening Tomosynthesis Bilateral (08/12/2025 4:08 PM EDT) Anatomical Region Laterality Modality Breast Bilateral Mammography 08/12/2025 4:08 PM EDT Narrative 08/12/2025 5:21 PM EDT [facility] [address] [place] [address] Mammography Report Signed Patient: Kim Love MR#: [id number] : 1955 Acct:[id number] Age/Sex: 70 / F ADM Date: 08/12/25 Loc: HO.MAMMO Attending Dr: Waylon Pedro MD Ordering Physician: Waylon Ellis MD Res ults: 2Benign Date of Service: 08/12/25 Follow Up: 1 Year From Orig inal Mammogram Procedure(s): MM tomosynthesis screening BI Accession Number(s): [id number] cc: Waylon Ellis MD Reason For Exam: [...] María Pereira DO 08/12/2025 05:18 PM EDT RP Dictated By: María Pereira DO Signed By: <Electronically signed by María Pereira DO in OV> 08/12/25 1718 DD/ 1608 TD/TT: 08/12/25 1629 Lead Military Analyst: Procedure Note Donjeffter, Image - 08/12/2025 [facility] [address] [place] [address] [place] [address] Mammography Report Signed Patient: Kim LoveMR#: [id number] : 5Acct:[id number] Age/Sex: 70 / FADM Date: 08/12/25 Loc: HO.MAMMO Attending Dr: Waylon Pedro MD Ordering Physician: Waylon Ellis ults: 2Benign Date of Service: 08/12/25Follow Up: 1 Year From Orig inal Mammogram Procedure(s): MM tomosynthesis screening BI Accession Number(s): [id number] cc: Waylon Ellis MD Reason For Exam: [...] María Pereira DO 08/12/2025 05:18 PM EDT RP Dictated By: María Pereira DO Signed By: <Electronically signed by María Pereira DO in OV> 08/12/25 1718 DD/ 1608 TD/TT: 08/12/25 1629 Lead Military Analyst: Wyalon Pedro MD [facility] BI PROCEDURES Final Result * Hepatitis C Antibody with Reflex to HCV, RNA, Quantitative, Real-Time PCR (03/10/2023 11:46 AM EDT) Hepatitis C Antibody NON-REACT JANINE NON-REACT JANINE [employer] Index 0.06 <1.00 [employer] Comment: HCV antibody was non-reactive. There is no laboratory evidence of HCV infection. In most cases, no further action is required. However, if recent HCV exposure is suspected, a test for HCV RNA (test code 72622) is suggested. For additional information please refer to http://education.[employer]/faq/OHG29j8 (This link is being provided for informational/ educational purposes only.) Blood Venous blood specimen / Unknown 03/10/2023 11:46 AM EDT 03/10/2023 11:47 AM EDT Narrative [facility] - 03/11/2023 6:26 AM EDT FASTING:NO FASTING: NO Waylon Pedro MD LAB BLOOD ORDERABL ES Final Result [facility] [address], [place] [address] [facility] [address] [place] [address] * Colonoscopy (05/19/2020) Colonoscopy Normal Normal Narrative Ellie Torres - 05/19/2020 Recommended 5 year follow up per Gi note on 12/27/2024 Historical Provider HEALTH MAINTENANCE Final Result from Last 3 Months or Most Recently Relevant to Health Maintenance Insurance MEDICARE [facility] [place]ICAID STAND ADULT Care Teams Machine Heel Sprayer Relationship Specialty Start Date End Date Waylon Ellis MD [address] [place] [address] MIRIAM Samuels [address] PCP - General Internal Medicine 03/17/20
== END 2025-08-12 16:08 | disposition home or self-care (01) ==
LOC: HO.MAMMO 16:07
PROVIDERS: Visit Provider Internal Medicine
DX: Z12.31 Encounter for screening mammogram for malignant neoplasm of breast (principal)
CPT/HCPCS: 77063; 77067

== ENCOUNTER → 2025-08-12 16:30 | Outpatient (BNV) | payer MEDICARE, MEDICAID, SELFPAY | PROVIDERS: Visit Provider Internal Medicine | DX: Z12.31 Encounter for screening mammogram for malignant neoplasm of breast (principal) | CPT/HCPCS: 77063; 77067 ==

== ENCOUNTER 2025-08-16 09:40 | Outpatient (REF) | payer MEDICARE, MEDICAID, SELFPAY ==
--- OUTSIDE RECORDS SUMMARY | 2025-08-11 15:30 | XMS_ITS | Encounter Summary ---
Author Organization [facility], Address [address] [place] [address] Phone Care Team Providers Care Painter Ordnance Name Role Phone Don Hedrick MD Primary Care Provider Unav ailable Encounter Details Date Type Department Care Team (Late st Contact Info) Description 08/11/2025 3:30 PM EDT Office Visit [facility], [address] [place] [address] Matt Geronimo MD [address] [place] [address] Chronic kidney disease, stage 4 (severe) (HCC) (Primary Dx) Social History Tobacco Use Types Packs/Day Years [...] on file documented as of this encounter Last Filed Vital Signs Vital Sign Reading Time Taken Comments Blood Pressure 115/78 08/11/2025 3:02 PM EDT Pulse - - Temperature - - Respiratory Rate - - Oxygen Saturation - - Inhaled Oxygen Concentration - - Weight - - Height - - Body Mass Index - - documented in this encounter Progress Notes * Matt Geronimo MD - 08/11/2025 3:30 PM EDT Images from the original note were not included. PATIENT: Kim Love DOB: 1955 ENCOUNTER: 08/11/2025 PCP: Don Hedrick MD HPI: In the interval since our last visit I have had the opportunity to review the following, if available: -laboratory data, imaging studies, and cardiovascular data -current medications from the patient; any changes from previous (including information from the patient's pharmacy, CIS, and Care Everywhere) During this visit I had the opportunity for a full review of systems and limited physical exam as outlined below, with the pertinent findings noted and others found to be negative or noncontributory to the current assessment of this patient. ROS: Constitutional: No fever. Respiratory: No shortness of breath. Cardiovascular: No chest pain. Gastrointestinal: No abdominal pain, nausea or vomiting. Genitourinary: No hematuria. All other systems reviewed and are negative. PAST MEDICAL HISTORY: Patient Active Problem List Diagnosis Date Noted ??? Chronic kidney disease, stage 4 (severe) (HCC) 02/05/2024 ??? Secondary hyperparathyroidism (HCC) 02/02/2024 ??? Other abnormal clinical findings 02/02/2024 ??? Hyperlipidemia 01/09/2020 PAST SURGICAL HISTORY: Past Surgical History: Procedure Laterality Date ??? BREAST LUMPECTOMY Left ??? HEMICOLECTOMY ??? SKIN SURGERY ??? TUBAL LIGATION SOCIAL HISTORY: Social History Tobacco Use ??? Smoking status: Every Day Types: Cigarettes ??? Smokeless tobacco: Not on file Substance Use Topics ??? Alcohol use: No FAMILY HISTORY: Family History Problem Relation Age of Onset ??? Stroke Mother ??? Diabetes Father ??? Heart disease Father ??? Cancer Maternal Grandfather of unknown primary site ??? Other Daughter ALH (Atypical lobular hyperplasia) of the breast MEDICATIONS: Outpatient Encounter Medications as of 08/11/2025 Medication Sig Dispense Refill ??? Acetaminophen 325 MG capsule Take 2 capsules by mouth 4 (four) times a day ??? alendronate (FOSAMAX) 70 MG tablet Take 70 mg by mouth every 7 (seven) days Take in the morningwith a full glass of water, on an empty stomach, and do not take anything else by mouth or lie downfor the next 30 min. ??? buPROPion SR (WELLBUTRIN SR) 150 MG 12 hr tablet Take 1 tablet by mouth 2 (two) times a day ??? Empagliflozin 10 MG tablet Take 10 mg by mouth 1 (one) time each day in the morning 90 tablet 3 ??? OLANZapine (ZyPREXA) 15 MG tablet Comments: Filled Date: Jul 03 2017 12:00AM Patient Notes: FILL 06/10-TAKE 1 TABLET BY MOUTH AT BEDTIME Duration: 90 ??? tamoxifen (NOLVADEX) 20 MG chemo tablet Take 20 mg by mouth 1 (one) time each day Swallow whole; do not split, chew, or crush. Take with water or any other nonalcoholic drink with or without foodat around the same time(s) every day. No facility-administered encounter medications on file as of 08/11/2025. MEDICATION REVIEW: I have reviewed the patient's current medications. ALLERGIES: is allergic to aspirin and nsaids. PHYSICAL EXAM: BP 115/78 Constitutional: No apparent distress Cardiovascular: No friction rub. Pulmonary/Chest: No rales. Abdominal: Soft and non-tender. Extremities: Edema None LABS: Chemistry Lab Units 07/17/25 1638 01/30/25 1634 01/25/25 1234 07/24/24 1648 04/02/24 1621 02/12/24 1245 10/31/23 1540 CREATININE mg/dL 2.75* 2.82* -- 2.17* 2.82* -- 2.7* BUN mg/dL 35* 44* -- 38* 45* -- 27* POTASSIUM mmol/L 4.2 3.9 -- 4.1 4.3 -- 4.2 SODIUM mmol/L 142 145* -- 142 143 -- 145 CO2 mmol/L 18* 16* -- 16* 16* -- 23 CHLORIDE mmol/L 107* 110* -- 108* 111* -- 108* ALBUMIN g/dL 4.1 4.1 -- 4.1 4.3 4.0 4.3 EGFRNAFR ML/MIN/1.73 M2 -- -- -- -- -- -- 19 WBC AUTO x10E3/uL 6.0 -- 5.7 7.6 -- -- 7.5 HEMATOCRIT % 34.7 -- 35.6 36.9 -- -- 38.4 HEMOGLOBIN g/dL 12.1 -- 12.3 12.6 -- -- 12.5 PLATELETS AUTO x10E3/uL 227 -- 272 249 -- -- 244 Bone Mineral Lab Units 07/17/25 1638 01/30/25 1634 01/25/25 1234 07/24/24 1648 04/02/24 1621 10/31/23 1540 CALCIUM mg/dL 8.7 9.0 -- 8.8 8.9 9.1 PHOSPHORUS mg/dL 3.7 3.9 -- 3.3 3.9 3.5 PTH pg/mL 129* -- 159* 86* -- -- VITAMIN D NG/ML -- -- -- -- -- 101.0* VIT D 25 HYDROXY ng/mL 33.3 -- 36.9 39.8 39.6 -- Urine Lab Units 07/17/25 1638 01/25/25 1234 07/24/24 1648 10/31/23 1611 PROT/CREAT RATIO UR mg/g creat 356* 548* 258* 0.40* ALB MG/G CREAT UR mg/g creat 113* 120* -- 196.2* 21.3 No components found for: PROCRERATIO LABORATORY REVIEW: I have reviewed the labs noted above as well as in the chart, in CIS and in Care Everywhere. DOCUMENTATION REVIEW: I have reviewed the applicable outside notes located in the chart, in CIS and in Care Everywhere. ASSESSMENT: 1. 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 Recent June labs show stable renal function with creatinine 2.75 and eGFR 18, consistent with labs from six months prior. Proteinuria has improved significantly to 356 mg with albuminuria at 113 mg. Patient is being prepared for renal transplant activation. Plan: - Check ANCA/NPO on next labs - Continue follow-up visits every 3-4 months - Transplant list activation expected around February 22 - Next visit scheduled for October or November Anemia of CKD Assessment: Anemia secondary to chronic kidney disease remains stable with hemoglobin at 12.1. Plan: - Continue monitoring Invasive lobular carcinoma Assessment: History of invasive lobular carcinoma diagnosed in October 2020. Patient continues oncology follow-up. Plan: - Continue follow-up with oncologist This note was prepared with the help of GOkey software which the patient consented to. Matt Geronimo MD Surgical Appliances Salesperson Panel Builder [facility], [address] [place] [facility] [phone] Orders Placed This Encounter ??? CBC and Differential ??? Ferritin ??? Iron Panel (Fe, TIBC, TSAT) ??? Phosphorus ??? PTH, Intact ??? Renal Function Panel ??? Urinalysis with microscopic ??? Protein, Total, Random Urine w/Creatinine (Protein/Creat Ratio) ??? Vitamin D 25 Hydroxy ??? Urine Albumin / Creatinine Ratio ??? Proteinase 3 AB ??? Myeloperoxidase AB ??? ANCA AB Scrn with titer documented in this encounter Plan of Treatment Upcoming Encounters Date Type Department Care Team (Late st Contact Info) Description 11/24/2025 4:15 PM EST Office Visit [facility], [address] [place] [address] Matt Geronimo MD [address] [place] [address] [place] [phone] Scheduled Orders Name Type Priority Associated Diagnoses Orde r Schedule CBC and Differential Lab Routine Chronic kidney disease, stage 4 (severe) (HCC) Expected: 08/11/2025, Expires: 09/11/2026 Ferritin Lab Routine Chronic kidney disease, stage 4 (severe) (HCC) Expected: 08/11/2025, Expires: 09/11/2026 Iron Panel (Fe, TIBC, TSAT) Lab Routine Chronic kidney disease, stage 4 (severe) (HCC) Expected: 08/11/2025, Expires: 09/11/2026 Phosphorus Lab Routine Chronic kidney disease, stage 4 (severe) (HCC) Expected: 08/11/2025, Expires: 09/11/2026 PTH, Intact Lab Routine Chronic kidney disease, stage 4 (severe) (HCC) Expected: 08/11/2025, Expires: 09/11/2026 Renal Function Panel Lab Routine Chronic kidney disease, stage 4 (severe) (HCC) Expected: 08/11/2025, Expires: 09/11/2026 Urinalysis with microscopic Lab Routine Chronic kidney disease, stage 4 (severe) (HCC) Expected: 08/11/2025, Expires: 09/11/2026 Protein, Total, Random Urine w/Creatinine (Protein/Creat Ratio) Lab Routine Chronic kidney disease, stage 4 (severe) (HCC) Expected: 08/11/2025, Expires: 09/11/2026 Vitamin D 25 Hydroxy Lab Routine Chronic kidney disease, stage 4 (severe) (HCC) Expected: 08/11/2025, Expires: 09/11/2026 Urine Albumin / Creatinine Ratio Lab Routine Chronic kidney disease, stage 4 (severe) (HCC) Expected: 08/11/2025, Expires: 09/11/2026 Proteinase 3 AB Lab Routine Chronic kidney disease, stage 4 (severe) (HCC) Expected: 08/11/2025, Expires: 09/11/2026 Myeloperoxidase AB Lab Routine Chronic kidney disease, stage 4 (severe) (HCC) Expected: 08/11/2025, Expires: 09/11/2026 ANCA AB Scrn with titer Lab Routine Chronic kidney disease, stage 4 (severe) (HCC) Expected: 08/11/2025, Expires: 09/11/2026 documented as of this encounter Visit Diagnoses Diagnosis Chronic kidney disease, stage 4 (severe) (HCC)- Primary documented in this encounter Care Teams Painter Ordnance Relationship Specialty Start Date End Date Don Hedrick MD [address] [place] [phone] PCP - General Internal Medicine 02/21/23 documented as of this encounter
--- OUTSIDE RECORDS SUMMARY | 2025-08-16 09:42 | XMS_ITS | Encounter Summary ---
Author Organization [facility] [place], Address [address] [place] [address] Phone Care Team Providers Care Biomass Plant Manager Name Role Phone Don Hedrick MD Primary Care Provider Unav ailable Encounter Details Date Type Department Care Team (Late Contact Info) Description 02/05/2024 Documentation Only [facility] [address] [place] [address] Mali Sanders [address] [place] [address] Social History Tobacco Use Types [...] [facility] [address] [place] [address] Matt Geronimo MD [address] [place] [address] documented as of this encounter Visit Diagnoses Not on filedocumented in this encounter Care Teams Biomass Plant Manager Relationship Specialty Start Date End Date Don Hedrick MD [address] [place] [address] PCP - General Internal Medicine 02/21/23 documented as of this encounter
--- OUTSIDE RECORDS SUMMARY | 2025-08-16 09:42 | XMS_ITS | Encounter Summary ---
Author Organization [employer] Address [address] [place] [address] 7 [place] [address] Care Team Providers Care Manager Pet Name Role Phone Waylon Ellis MD Primary Care Prov ider Encounter Details Date Type Department Care Team (Latest Contact Info) Description 05/19/2021 Abstract [facility] CONVERSIONS Dental, Provider, DDS Social History Tobacco [...] Care Team (Late st Contact Info) Description 10/20/2025 10:45 AM EST Telemedicine [facility] P[facility]S [address] [place] [address] Waylon Ellis MD [address] [place] [address] 01/26/2026 2:15 PM EDT Office Visit [facility] ADULT D[facility]AL [address] [place] [address] Grayson Hedrick documented as of this encounter Visit Diagnoses Not on filedocumented in this encounter Care Teams Manager Pet Relationship Specialty Start Date End Date Waylon Ellis MD [address] [place] [address] PCP - General Internal Medicine 03/17/20 documented as of this encounter
--- OUTSIDE RECORDS SUMMARY | 2025-08-16 09:42 | XMS_ITS | Clinical Summary ---
Author Organization [facility], Address [address] [place] [address] Phone Care Team Providers Care Commercial Counsel Name Role Phone Don Hedrick MD Primary [...] Visit [facility] [address] [place] [id number] [phone] Matt Geronimo MD Chronic kidney disease, stage 4 (severe) (HCC) (Primary Dx) 08/05/2025 Documentation Only [facility] [address] [place] [address] Mali Sanders 08/05/2025 Documentation Only [facility] [address] [place] [address] Mali Sanders 08/04/2025 Refill [facility] [address] [place] [address] Mali Sanders from Last 3 Months Immunizations [...] Visit [facility] [address] [place] [address] Matt Geronimo MD [address] [place] [address] [place] [address] Health Maintenance Due Date Last Done Comments [...] Urine 0-5 0 - 5 /hpf [facility] RBC, Urine None seen 0 - 2 /hpf [facility] Squamous Epithelial, Urine None seen 0 - 10 /hpf [facility] Casts None seen None seen /lpf [facility] Bacteria, Urine None seen None seen/Few [facility] 07/17/2025 4:38 PM EDT 07/17/2025 Matt Geronimo MD LAB MICROBIOLOGY - GENERAL OR DERABLES Final Result Performing Organization Address City/[facility]/ZIP Co de Phone Number [facility] [address] [place] [address] * Iron Panel (Fe, TIBC, TSAT) (07/17/2025 4:38 PM EDT) Iron 126 27 - 139 ug/dL [facility] TIBC 252 250 - 450 ug/dL [facility] UIBC 126 118 - 369 ug/dL [facility] Iron Saturation (TSat) 50 15 - 55 % [facility] Blood Venous blood / Unknown 07/17/2025 4:38 PM EDT 07/17/2025 Matt Geronimo MD LAB BLOOD ORDERABLES Final Re sult Performing Organization Address City/[facility]/ZIP Co de Phone Number [facility] [address] [place] [address] * (ABNORMAL) Protein, Total, Random Urine w/Creatinine (Protein/Creat Ratio) (07/17/2025 4:38 PM EDT) Creatinine, Ur 21.6 Not Estab. mg/dL [facility] Protein, Ur 7.7 Not Estab. mg/dL [facility] Urine Protein/Creati nine Ratio 356(H) 0 - 200 mg/g creat [facility] Urine Urine specimen obtained by clean catch procedure / Unknown 07/17/2025 4:38 PM EDT 07/17/2025 Matt Geronimo MD LAB URINE ORDERABLES Final Re sult Performing Organization Address [facility] Co de Phone Number [facility] [address] [place] [address] * (ABNORMAL) Urine Albumin / Creatinine Ratio (07/17/2025 4:38 PM EDT) Albumin, Urine 24.3 Not Estab. ug/mL [facility] Albumin/Creatin ine Ratio 113(H) 0 - 29 mg/g creat [facility] Comment: Normal: 0 - 29 Moderately increased: 30 - 300 Severely increased: >300 Urine Urine specimen obtained by clean catch procedure / Unknown 07/17/2025 4:38 PM EDT 07/17/2025 Matt Geronimo MD LAB URINE ORDERABLES Final Re sult Performing Organization Address City/[facility]/ZIP Co de Phone Number [facility] [address] [place] [address] * Vitamin D 25 Hydroxy (07/17/2025 4:38 PM EDT) Vitamin D, 25-OH, Total 33.3 30.0 - 100.0 ng/mL [facility] Comment: Vitamin D deficiency has been defined by the [place] of Medicine and an Endocrine Society practice guideline as a level of serum 25-OH vitamin D less than 20 ng/mL (1,2). The Endocrine Society went on to further define vitamin D insufficiency as a level between 21 and 29 ng/mL (2). 1. IOM ([place] of Medicine). 2010. Dietary reference intakes for [...] BLOOD ORDERABLES Final Re sult [facility] [address] [place] [address] * (ABNORMAL) Urinalysis with microscopic (07/17/2025 4:38 PM EDT) Specific [place], Urine 1.007 1.005 - 1.030 [facility] pH Urine 6.0 5.0 - 7.5 [facility] Color, Urine Yellow Yellow [facility] Appearance Urine Clear Clear [facility] WBC Esterase Urine Negative Negative [facility] Protein, Ur Trace Negative/Tra ce [facility] Glucose, Ur Trace(A) Negative [facility] [phone] Ketones, Urine Negative Negative [facility] [place] Blood Urine Negative Negative [facility] [phone] Bilirubin Urine Negative Negative [facility] [place] Urobilinogen Urine 0.2 0.2 - 1.0 mg/dL [facility] Nitrite, Urine Negative Negative [facility] [place] Microscopic Examination Comment [facility] Comment:Microscopic follows if indicated. Other Microsc. Observations See below: [facility] Comment:Microscopic was inocencio cated and was performed. Urine Urine specimen obtained by clean catch procedure / Unknown 07/17/2025 4:38 PM EDT 07/17/2025 us Matt Geronimo MD LAB URINE ORDERABLES Final Re sult [facility] [address] [place] [address] * (ABNORMAL) CBC and Differential (07/17/2025 4:38 PM EDT) WBC 6.0 3.4 - 10.8 x10E3/uL [facility] RBC 3.51(L) 3.77 - 5.28 x10E6/uL [facility] Hemoglobin 12.1 11.1 - 15.9 g/dL [facility] Hematocrit 34.7 34.0 - 46.6 % [facility] MCV 99(H) 79 - 97 fL [facility] MCH 34.5(H) 26.6 - 33.0 pg [facility] MCHC 34.9 31.5 - 35.7 g/dL [facility] RDW 11.5(L) 11.7 - 15.4 % [facility] Platelets 227 150 - 450 x10E3/uL [facility] Neutrophils Relative 68 Not Estab. % [facility] Lymphocytes Relative 20 Not Estab. % [facility] Monocytes 9 Not Estab. % [facility] Eosinophils Relative 2 Not Estab. % [facility] Basophils Relative 1 Not Estab. % [facility] Neutrophils Absolute 4.0 1.4 - 7.0 x10E3/uL [facility] Lymphocytes Absolute 1.2 0.7 - 3.1 x10E3/uL [facility] Monocytes Absolute 0.5 0.1 - 0.9 x10E3/uL [facility] Eosinophils Absolute 0.1 0.0 - 0.4 x10E3/uL [facility] Basophils Absolute 0.0 0.0 - 0.2 x10E3/uL [facility] Immature Granulocytes 0 Not Estab. % [facility] Immature Grans (Absolute) 0.0 0.0 - 0.1 x10E3/uL [facility] Blood Venous blood / Unknown 07/17/2025 4:38 PM EDT 07/17/2025 Matt Geronimo MD LAB BLOOD ORDERABLES Final Re sult [facility] [address] [place] [phone] * (ABNORMAL) PTH, Intact (07/17/2025 4:38 PM EDT) PTH 129(H) 15 - 65 pg/mL [facility] Blood Venous blood / Unknown 07/17/2025 4:38 PM EDT 07/17/2025 Matt Geronimo MD LAB BLOOD ORDERABLES Final Re sult [facility] [address] [place] [address] * (ABNORMAL) Ferritin (07/17/2025 4:38 PM EDT) Pathologist [facility] Ferritin 292(H) 15 - 150 ng/mL [facility] Blood Venous blood / Unknown 07/17/2025 4:38 PM EDT 07/17/2025 us Matt Geronimo MD LAB BLOOD ORDERABLES Final Re sult [facility] [address] [place] [address] * (ABNORMAL) Renal Function Panel (07/17/2025 4:38 PM EDT) Pathologist [facility] Glucose 86 70 - 99 mg/dL [facility] BUN 35(H) 8 - 27 mg/dL [facility] Creatinine 2.75(H) 0.57 - 1.00 mg/dL [facility] eGFR CKD-EPI CR 2020 18(L) >59 mL/min/1.7 3 [facility] BUN/Creatinine Ratio 13 12 - 28 [facility] Sodium 142 134 - 144 mmol/L [facility] Potassium 4.2 3.5 - 5.2 mmol/L [facility] Chloride 107(H) 96 - 106 mmol/L [facility] Bicarbonate (CO2) 18(L) 20 - 29 mmol/L [facility] Calcium 8.7 8.7 - 10.3 mg/dL [facility] Phosphorus 3.7 3.0 - 4.3 mg/dL [facility] Albumin 4.1 3.9 - 4.9 g/dL [facility] Blood Venous blood / Unknown 07/17/2025 4:38 PM EDT 07/17/2025 us Matt Geronimo MD LAB BLOOD ORDERABLES Final Re sult [facility] [address] [place] [address] from Last 3 Months Insurance Medicare Medicaid [place] Care Teams Commercial Counsel Relationship Specialty Start Date End Date Don Hedrick MD [address] [place] [address] PCP - General Internal Medicine 02/21/23
--- OUTSIDE RECORDS SUMMARY | 2025-08-16 09:42 | XMS_ITS | Encounter Summary ---
Author Organization [facility] [place], Address [address] [place] [address] Phone Care Team Providers Care Change Control Specialist Name Role Phone Don Hedrick MD Primary Care Provider Unav ailable Encounter Details Date Type Department Care Team (Late st Contact Info) Description 08/29/2022 Documentation Only [facility] [address] [place] [address] Surya Caldera MD [address] [place] [address] Social History Tobacco Use Types [...] [facility] [address] [place] [address] Matt Geronimo MD [address] [place] [address] documented as of this encounter Visit Diagnoses Not on filedocumented in this encounter Care Teams Change Control Specialist Relationship Specialty Start Date End Date Don Hedrick MD [address] [place] [address] PCP - General Internal Medicine 02/21/23 documented as of this encounter
--- OUTSIDE RECORDS SUMMARY | 2025-08-16 09:42 | XMS_ITS | Encounter Summary ---
Author Organization [facility] [place], Address [address] [place] [address] Phone Care Team Providers Care Cheese Packer Name Role Phone Don Hedrick MD Primary Care Provider Unav ailable Encounter Details Date Type Department Care Team (Late Contact Info) Description 02/05/2024 Documentation Only [facility] [address] [address] Mali Sanders [address] [place] [address] Social History Tobacco Use Types [...] Visit [facility] [address] [address] Matt Geronimo MD [address] [place] [address] documented as of this encounter Visit Diagnoses Not on filedocumented in this encounter Care Teams Cheese Packer Relationship Specialty Start Date End Date Don Hedrick MD [address] [place] [address] PCP - General Internal Medicine 02/21/23 documented as of this encounter
--- OUTSIDE RECORDS SUMMARY | 2025-08-16 09:42 | XMS_ITS | Encounter Summary ---
Author Organization [employer] Address [address] [place] [address] 7 [place] [address] Care Team Providers Care Railroad Track Repair Supervisor Name Role Phone Waylon Ellis MD Primary Care Prov ider Encounter Details Date Type Department Care Team (Latest Contact Info) Description 09/19/2019 Abstract [facility] CONVERSIONS Dental, Provider, DDS Social [...] Info) Description 10/20/2025 10:45 AM EST Telemedicine [facility] [address] [place] [address] Waylon Ellis MD [address] [place] [address] 01/26/2026 2:15 PM EDT Office Visit [facility] ADULT [facility] [address] [place] [address] Grayson Hedrick documented as of this encounter Visit Diagnoses Not on filedocumented in this encounter Care Teams Railroad Track Repair Supervisor Relationship Specialty Start Date End Date Waylon Ellis MD [address] [place] [address] PCP - General Internal Medicine 03/17/20 documented as of this encounter
--- OUTSIDE RECORDS SUMMARY | 2025-08-16 09:43 | XMS_ITS | Encounter Summary ---
Author Organization [facility] [place], Address [address] [place] [address] Phone Care Team Providers Care Forepart Rounder Name Role Phone Don Hedrick MD Primary Care Provider Unav ailable Encounter Details Date Type Department Care Team (Late st Contact Info) Description 02/14/2024 Documentation Only [facility] [address] [place] [address] Mali Sanders [address] [place], [...] Visit [facility] [address] [place] [address] Matt Geronimo MD [address] [facility] [place] [address] documented as of this encounter Visit Diagnoses Not on filedocumented in this encounter Care Teams Forepart Rounder Relationship Specialty Start Date End Date Don Hedrick MD [address] [place] [address] PCP - General Internal Medicine 02/21/23 documented as of this encounter
--- OUTSIDE RECORDS SUMMARY | 2025-08-16 09:43 | XMS_ITS | Encounter Summary ---
Author Organization [employer] Address [address] [place] [address] 7t [place] [address] Care Team Providers Care Manpower Development Specialist Name Role Phone Waylon Ellis MD Primary Care Prov ider Encounter Details Date Type Department Care Team ([facility] st Contact Info) Description 08/12/2025 Orders Only [facility] [address] [place], [place] [phone] Waylon Ellis MD [address] [place], [place] [phone] Social History Tobacco Use Types Packs/Day Years [...] Upcoming Encounters Date Type Department Care Team ([facility] st Contact Info) Description 10/20/2025 10:45 AM EST Telemedicine [facility] [address] [place] [address] Waylon Ellis MD [address] [place] [address] 01/26/2026 2:15 PM EDT Office Visit [facility] ADULT [facility] [address] [place] [address] Grayson Hedrick documented as of this encounter Procedures Procedure Name Priority Date/Time Associated Diagnosis Comments BI MAMMOGRAM SCREENING TOMOSYNTHESIS BILATERAL Routine 08/12/2025 4:08 PM EDT documented in this encounter Results * BI Mammogram Screening Tomosynthesis Bilateral (08/12/2025 4:08 PM EDT) Anatomical Region Laterality Modality Breast Bilateral Mammography 08/12/2025 4:08 PM EDT Narrative 08/12/2025 5:21 PM EDT [facility] [address] [place] [address] Mammography Report Signed Patient: Kim Love MR#: [id number] : 1955 Acct:[id number] Age/Sex: 70 / F ADM Date: 08/12/25 Loc: HOAgustinaMAMMO Attending Dr: Waylon Pedro MD Ordering Physician: Waylon Ellis MD Res ults: 2Benign Date of Service: 08/12/25 Follow Up: 1 Year From Orig ina Mammogram Procedure(s): MM tomosynthesis screening BI Accession Number(s): [id number] cc: Waylon Ellis MD Reason For Exam: [...] 08/12/25 1718 DD/ 1608 TD/TT: 08/12/25 1629 Drafter Directional Survey: Procedure Note Donotuseinterpreter, Image - 08/12/2025 [facility] [address] [place] [address] Mammography Report Signed Patient: Kim LoveMR#: [id number] : 5Acct:[id number] Age/Sex: 70 / FADM Date: 08/12/25 Loc: HO.MAMMO Attending Dr: Waylon Pedro MD Ordering Physician: Waylon Ellis ults: 2Benign Date of Service: 08/12/25Follow Up: 1 Year From Orig ina Mammogram Procedure(s): MM tomosynthesis screening BI Accession Number(s): [id number] cc: Waylon Ellis MD Reason For Exam: [...] 08/12/25 1718 DD/ 1608 TD/TT: 08/12/25 1629 Drafter Directional Survey: us Waylon Pedro MD IMG BI PROCEDURES Final Result documented in this encounter Visit Diagnoses Not on filedocumented in this encounter Additional Health Concerns Assessment Noted Time PHQ-9 Depression Total Score: 0 12/19/19 1:22 PM EST documented as of this encounter Care Teams Manpower Development Specialist Relationship Specialty Start Date End Date Waylon Ellis MD [address] [place] [address] PCP - General Internal Medicine 03/17/20 documented as of this encounter
--- OUTSIDE RECORDS SUMMARY | 2025-08-16 09:43 | XMS_ITS | Encounter Summary ---
Author Organization [facility] [place], Address [address] [place] [address] Phone Care Team Providers Care Microbiology Technician Name Role Phone Don Hedrick MD Primary Care Provider Unav ailable Encounter Details Date Type Department Care Team (Late Contact Info) Description 07/03/2024 Documentation Only [facility] [address] [place] [address] Mali Sanders [address] [place] [address] Social History Tobacco Use [...] Visit [facility] [address] [place] [address] Matt Geronimo MD [address] [facility] [facility] [facility] [address] [place] [address] documented as of this encounter Visit Diagnoses Not on filedocumented in this encounter Care Teams Microbiology Technician Relationship Specialty Start Date End Date Don Hedrick MD [address] [place] [address] PCP - General Internal Medicine 02/21/23 documented as of this encounter
--- OUTSIDE RECORDS SUMMARY | 2025-08-16 09:43 | XMS_ITS | Encounter Summary ---
Author Organization [facility] [place], Address [address] [place] [address] Phone Care Team Providers Care Anesthesia Resident Name Role Phone Don Hedrick MD Primary Care Provider Unav ailable Encounter Details Date Type Department Care Team (Late Contact Info) Description 08/05/2025 Documentation Only [facility] [address] [place] [address] Mali Sanders [address] [place] [address] Social History Tobacco Use [...] Visit [facility] [address] [place] [address] Matt Geronimo MD [address] [facility] [place] [address] documented as of this encounter Visit Diagnoses Not on filedocumented in this encounter Care Teams Anesthesia Resident Relationship Specialty Start Date End Date Don Hedrick MD [address] [place] [address] PCP - General Internal Medicine 02/21/23 documented as of this encounter
--- OUTSIDE RECORDS SUMMARY | 2025-08-16 09:43 | XMS_ITS | Encounter Summary ---
Author Organization [facility] [place], Address [address] [place] [address] Phone Care Team Providers Care Lighthouse Keeper Name Role Phone Don Hedrick MD Primary Care Provider Unav ailable Encounter Details Date Type Department Care Team (Late Contact Info) Description 06/27/2024 Documentation Only [facility] [address] [place] [address] Mali Sanders [address] [place] [address] Social History Tobacco Use Types [...] [facility] [address] [place] [address] Matt Geronimo MD [address] [place] [address] documented as of this encounter Visit Diagnoses Not on filedocumented in this encounter Care Teams Lighthouse Keeper Relationship Specialty Start Date End Date Don Hedrick MD [address] [place] [address] PCP - General Internal Medicine 02/21/23 documented as of this encounter
--- OUTSIDE RECORDS SUMMARY | 2025-08-16 09:43 | XMS_ITS | Encounter Summary ---
Author Organization [facility] [place], Address [address] [place] [address] Phone Care Team Providers Care Art Consultant Name Role Phone Don Hedrick MD Primary Care Provider Unav ailable Encounter Details Date Type Department Care Team (Late Contact Info) Description 08/05/2025 Documentation Only [facility] [address] [place] [address] Mali Sanders [address] [place] [address] Social History Tobacco Use Types [...] Visit [facility] [address] [place] [place] [address] Matt Geronimo MD [address] [place] [address] documented as of this encounter Visit Diagnoses Not on filedocumented in this encounter Care Teams Art Consultant Relationship Specialty Start Date End Date Don Hedrick MD [address] [place] [address] PCP - General Internal Medicine 02/21/23 documented as of this encounter
--- OUTSIDE RECORDS SUMMARY | 2025-08-16 09:43 | XMS_ITS | Encounter Summary ---
Author Organization [facility] [place], Address [address] [place] [address] Phone Care Team Providers Care Container Shop Welder Name Role Phone Don Hedrick MD Primary Care Provider Unav ailable Encounter Details Date Type Department Care Team (Late Contact Info) Description 06/27/2024 Documentation Only [facility] [address] [place] [address] Mali Sanders [address] [place] [address] Social History Tobacco Use Types [...] [facility] [address] [place] [address] Matt Geronimo MD [address] [facility] [address] [place] [address] documented as of this encounter Visit Diagnoses Not on filedocumented in this encounter Care Teams Container Shop Welder Relationship Specialty Start Date End Date Don Hedrick MD [address] [place] [address] PCP - General Internal Medicine 02/21/23 documented as of this encounter
--- OUTSIDE RECORDS SUMMARY | 2025-08-16 09:43 | XMS_ITS | Clinical Summary ---
Author Organization [employer] Address [address] [facility] 7t [place] [address] Care Team Providers Care Pc Technician Name Role Phone Waylon Ellis MD Primary [...] Department Care Team Description 08/12/2025 Orders Only [facility] MED & PEDS [address] [place] [address] Waylon Ellis MD 07/28/2025 2:00 PM EDT Office Visit [facility] ADULT DENTAL [address] [place] [address] Grayson Hedrick Periodontal disease (Primary Dx); Dental [...] Info) Description 10/20/2025 10:45 AM EST Telemedicine [facility] [address] [place] [address] Waylon Ellis MD 505 [place] [address] 01/26/2026 2:15 PM EDT Office Visit [facility] ADULT DENTAL [address] [place] [address] Grayson Hedrick Health Maintenance Due Date Last [...] 2025 , 08/11/2023, 08/15/2022, Additional history exists Alcohol/Substance Use Screening 12/19/2025 12/19/2024 Depression Screening 12/19/2025 12/19/2024, 12/19/19 SDOH Screening 12/19/2025 12/19/2024 Tobacco Screening 01/22/2026 01/22/2025 Dental Oral Exam 01/26/2026 07/28/2025, , 01/18/2024, Additional history exists Dental Prophylaxis 01/26/2026 07/28/2025, 0 01/22/2025, 07/24/2024, Additional history exists Mammogram 08/12/2026 08/12/2025, 07/30, 11/17/2023, Additional history exists Hepatitis C Screening Completed 03/10/2023 Pneumococcal Vaccine: 50+ Years Completed 08/11/2023, 06/30/2020, 08/11/2014 RSV Patients and Patients Aged 60 years or older Completed 10/12/2023 Hepatitis B Vaccines Completed 08/11/2025, 08/11/2023, 01/31/2023, Additional history exists HIB Vaccines Aged Out [...] EDT Narrative 08/12/2025 5:21 PM EDT [facility] [address] [place], [place] [id number] Mammography Report Signed Patient: Kim Love MR#: [id number] : 1955 Acct:[id number] Age/Sex: 70 / F ADM Date: 08/12/25 Loc: HO.MAMMO Attending Dr: Waylon Pedro MD Ordering Physician: Waylon Ellis MD Res ults: 2Benign Date of Service: 08/12/25 Follow Up: 1 Year From Orig inal Mammogram Procedure(s): MM tomosynthesis screening BI Accession Number(s): [id number] cc: Waylon Ellis MD Reason For Exam: [...] 08/12/25 1718 DD/ 1608 TD/TT: 08/12/25 1629 Lathe Set Up Operator: Procedure Note Donotuseinterpreter, Image - 08/12/2025 [facility] [address] [place], [place] [address] Mammography Report Signed Patient: Kim LoveMR#: [id number] : 5Acct:[id number] Age/Sex: 70 / FADM Date: 08/12/25 Loc: HO.MAMMO Attending Dr: Waylon Pedro MD Ordering Physician: Waylon Ellis ults: 2Benign Date of Service: 08/12/25Follow Up: 1 Year From Orig ina Mammogram Procedure(s): MM tomosynthesis screening BI Accession Number(s): [id number] cc: Waylon Ellis MD Reason For Exam: [...] 08/12/25 1718 DD/ 1608 TD/TT: 08/12/25 1629 Lathe Set Up Operator: Waylon Pedro MD IM BI PROCEDURES Final Result * Hepatitis C Antibody with Reflex to HCV, RNA, Quantitative, Real-Time PCR (03/10/2023 11:46 AM EDT) Hepatitis C Antibody NON-REACT JANINE NON-REACT JANINE [employer] [facility] [employer] Diagnost Index 0.06 <1.00 [facility] Comment: HCV antibody was non-reactive. There is no laboratory evidence of HCV infection. In most cases, no further action is required. However, if recent HCV exposure is suspected, a test for HCV RNA (test code 51430) is suggested. For additional information please refer to http://education.Bingo.com/faq/SQO86p8 (This link is being provided for informational/ educational purposes only.) Blood Venous blood specimen / Unknown 03/10/2023 11:46 AM EDT 03/10/2023 11:47 AM EDT Narrative [facility] - 03/11/2023 6:26 AM EDT FASTING:NO FASTING: NO Waylon Pedro MD LAB BLOOD ORDERABL ES Final Result [facility] [address], [place] [address] [employer] [place] [employer] [facility] [address] [place] [address] * Hm Colonoscopy (05/19/2020) Colonoscopy Normal Normal Narrative Ellie Torres - 05/19/2020 Recommended 5 year follow up per Gi note on 12/27/2024 [facility] Provider HEALTH MAINTENANCE Final Result from Last 3 Months or Most Recently Relevant to Health Maintenance Insurance [place] [address] [place] [id number] [facility] MEDICAID STAND ADULT * Guarantor: Kim Love Account Type Relation to Patient Date of Phone Billing Address Personal/Family Self [address] [place] SAMUELS13 Care Teams Pc Technician Relationship Specialty Start Date End Date Waylon Ellis MD [address] [place] [address] [place] Samuels PCP - General Internal Medicine 03/17/20
--- OUTSIDE RECORDS SUMMARY | 2025-08-16 09:43 | XMS_ITS | Encounter Summary ---
Author Organization [facility], Address [address] [place] [address] Phone Care Team Providers Care Executive Vice President Name Role Phone Don Hedrick MD Primary Care Provider Unav ailable Encounter Details Date Type Department Care Team (Late st Contact Info) Description 02/14/2024 Documentation Only [facility] [address] [place] [address] Mali Sanders [address] [place] [address] Social History Tobacco Use Types [...] Visit [facility] [address] [place] [address] Matt Geronimo MD [address] [facility] [address] [facility] [place] [address] documented as of this encounter Visit Diagnoses Not on filedocumented in this encounter Care Teams Executive Vice President Relationship Specialty Start Date End Date Don Hedrick MD [address] [place] [address] PCP - General Internal Medicine 02/21/23 documented as of this encounter
--- OUTSIDE RECORDS SUMMARY | 2025-08-16 09:43 | XMS_ITS | Encounter Summary ---
Author Organization [employer] Address [address] [place] [address] 7 [place] [address] Care Team Providers Care Supervisor Metalizing Name Role Phone Waylon Ellis MD Primary Care Prov ider Reason for Visit * Reason Onset Date Comments PT1 06/27/2023 Encounter Details Date Type Department Care Team ([facility] Contact Info) Description 06/27/[address] [facility] MED [facility]EDS [address] [place], [place] [phone] Waylon Ellis MD [address] [place] [address] PT1 Social History Tobacco Use Types Packs/Day [...] pt requesting PT1 for locations Location: 2 [place], [place] Specialty:[facility] Date&Time: Aug 09 [place] Line Attendant: N/a Location: 2 [facility], [place], [place] Specialty: [facility] Date&Time: Nov [place] Line Attendant: N/a Location:[address] [facility] 1st floor, [place], [place] Specialty: Lung Screening Date&Time: n/a [place] Line Attendant:N/a Location:[address], [place], [place] Specialty:Cancer screening Date&Time:n/a [place] Line Attendant: n/a Location: [address] [facility] [address] [address] Specialty:[facility] Date&Time: n/a [place] Line Attendant: n/a Location:[address] [place] [address] Specialty:[facility] Date&Time: N/a [place] Line Attendant: n/a documented in this encounter Plan of Treatment Upcoming Encounters Date Type Department Care Team ([facility] st Contact Info) Description 10/20/2025 10:45 AM EST Telemedicine [facility] MED & PEDS [address] [place] [address] Waylon Ellis MD [address] [place] [address] 01/26/2026 2:15 PM EDT Office Visit [facility] ADULT DENTAL [address] [place] [address] Grayson Hedrick documented as of this encounter Visit Diagnoses Not on filedocumented in this encounter Additional Health Concerns Assessment Noted Time PHQ-9 Depression Total Score: 0 06/12/20 1:28 PM EDT documented as of this encounter Care Teams Supervisor Metalizing Relationship Specialty Start Date End Date Waylon Ellis MD [address] [place] [address] PCP - General Internal Medicine 03/17/20 documented as of this encounter
--- OUTSIDE RECORDS SUMMARY | 2025-08-16 09:43 | XMS_ITS | Encounter Summary ---
Author Organization [facility] [place], Address [address] [place] [address] Phone Care Team Providers Care Rn Intake Name Role Phone Don Hedrick MD Primary Care Provider Unav ailable Encounter Details Date Type Department Care Team (Late Contact Info) Description 02/05/2024 Documentation Only [facility] [address] [place] [address] Mali Snaders [address] [place] [address] Social History Tobacco Use Types [...] Visit [facility] [address] [place] [address] Matt Geronimo MD [address] [facility] [place] [address] documented as of this encounter Visit Diagnoses Not on filedocumented in this encounter Care Teams Rn Intake Relationship Specialty Start Date End Date Don Hedrick MD [address] [place] [address] PCP - General Internal Medicine 02/21/23 documented as of this encounter
--- OUTSIDE RECORDS SUMMARY | 2025-08-16 09:43 | XMS_ITS | Encounter Summary ---
Author Organization [facility] [place], Address [address] [place] [address] Phone Care Team Providers Care Naval Marine Engineer Name Role Phone Don Hedrick MD Primary Care Provider Unav ailable Encounter Details Date Type Department Care Team (Late st Contact Info) Description 02/10/2025 Documentation Only [facility] [address] [place] [address] Mali Sanders [address] [place] [address] Social History Tobacco Use Types [...] Visit [facility] [address] [place] [address] Matt Geronimo MD [address] [facility] [place] [address] documented as of this encounter Visit Diagnoses Not on filedocumented in this encounter Care Teams Naval Marine Engineer Relationship Specialty Start Date End Date Don Hedrick MD [address] [place] [address] PCP - General Internal Medicine 02/21/23 documented as of this encounter
--- OUTSIDE RECORDS SUMMARY | 2025-08-16 09:43 | XMS_ITS | Encounter Summary ---
Author Organization [facility] [place], Address [address] [place] [address] Phone Care Team Providers Care Dyeing Machine Feeder Name Role Phone Don Hedrick MD Primary Care Provider Unav ailable Encounter Details Date Type Department Care Team (Late st Contact Info) Description 02/10/2025 Documentation Only [facility] [address] [place] [address] Mali Sanders [address] [place] [address] Social History Tobacco Use Types [...] Visit [facility] [address] [place] [address] Matt Geronimo MD [address] [facility] [place] [address] documented as of this encounter Visit Diagnoses Not on filedocumented in this encounter Care Teams Dyeing Machine Feeder Relationship Specialty Start Date End Date Don Hedrick MD [address] [place] [address] PCP - General Internal Medicine 02/21/23 documented as of this encounter
--- OUTSIDE RECORDS SUMMARY | 2025-08-16 09:43 | XMS_ITS | Encounter Summary ---
Author Organization [facility] [place], Address [address] [place] [address] Phone Care Team Providers Care Aquatic Centre Manager Name Role Phone Don Hedrick MD Primary Care Provider Unav ailable Encounter Details Date Type Department Care Team (Late Contact Info) Description 05/15/2025 Documentation Only [facility] [address] [place] [address] Mali Sanders [address] [place] [address] Social History Tobacco Use Types [...] Visit [facility] [address] [place] [place] [address] Matt Geronimo MD [address] [facility] [place] [address] documented as of this encounter Visit Diagnoses Not on filedocumented in this encounter Care Teams Aquatic Centre Manager Relationship Specialty Start Date End Date Don Hedrick MD [address] [place] [address] PCP - General Internal Medicine 02/21/23 documented as of this encounter
--- OUTSIDE RECORDS SUMMARY | 2025-08-16 09:43 | XMS_ITS | Encounter Summary ---
Author Organization [facility] [place], Address [address] [place] [address] Phone Care Team Providers Care Subassembly Supervisor Name Role Phone Don Hedrick MD Primary Care Provider Unav ailable Encounter Details Date Type Department Care Team (Late st Contact Info) Description 02/10/2025 Documentation Only [facility] [address] [place] [address] Mali Sanders [address] [place] [address] Social History Tobacco Use Types [...] [facility]plant [facility] [address] [place] [address] Matt Geronimo MD [address] [place] [address] documented as of this encounter Visit Diagnoses Not on filedocumented in this encounter Care Teams Subassembly Supervisor Relationship Specialty Start Date End Date Don Hedrick MD [address] [place] [address] PCP - General Internal Medicine 02/21/23 documented as of this encounter
--- OUTSIDE RECORDS SUMMARY | 2025-08-16 09:43 | XMS_ITS | Encounter Summary ---
Author Organization [facility] [place], Address [address] [place] [address] Phone Care Team Providers Care Kitchen Food Assembler Name Role Phone Don Hedrick MD Primary Care Provider Unav ailable Encounter Details Date Type Department Care Team (Late st Contact Info) Description 02/10/2025 Documentation Only [facility] [address] [place] [address] Mali Sanders [address] [place] [address] Social History Tobacco Use Types [...] Visit [facility] [address] [place] [address] Matt Geronimo MD [address] [facility] [place] [address] documented as of this encounter Visit Diagnoses Not on filedocumented in this encounter Care Teams Kitchen Food Assembler Relationship Specialty Start Date End Date Don Hedrick MD [address] [place] [address] PCP - General Internal Medicine 02/21/23 documented as of this encounter
--- OUTSIDE RECORDS SUMMARY | 2025-08-16 09:43 | XMS_ITS | Encounter Summary ---
Author Organization [facility] [place], Address [address] [place] [address] Phone Care Team Providers Care Dye Feeder Name Role Phone Don Hedrick MD Primary Care Provider Unav ailable Encounter Details Date Type Department Care Team (Late Contact Info) Description 02/05/2024 Documentation Only [facility] [address] [address] Mali Sanders [address] [place] [address] Social History Tobacco Use Types [...] Visit [facility] [address] [place] [address] Matt Geronimo MD [address] [facility] [place] [address] documented as of this encounter Visit Diagnoses Not on filedocumented in this encounter Care Teams Dye Feeder Relationship Specialty Start Date End Date Don Hedrick MD [address] [place] [address] PCP - General Internal Medicine 02/21/23 documented as of this encounter
--- OUTSIDE RECORDS SUMMARY | 2025-08-16 09:43 | XMS_ITS | Encounter Summary ---
Author Organization [facility] [place], Address [address] [place] [address] Phone Care Team Providers Care Credit Union Field Examiner Name Role Phone Don Hedrick MD Primary Care Provider Unav ailable Encounter Details Date Type Department Care Team (Late Contact Info) Description 05/15/2025 Documentation Only [facility] [address] [place] [address] Mali Sanders [address] [place] [address] Social History Tobacco Use Types [...] Services Of [facility] [address] [place] [place] [address] Matt Geronimo MD [address] [address] [place] [address] documented as of this encounter Visit Diagnoses Not on filedocumented in this encounter Care Teams Credit Union Field Examiner Relationship Specialty Start Date End Date Don Hedrick MD [address] [place] [address] PCP - General Internal Medicine 02/21/23 documented as of this encounter
--- OUTSIDE RECORDS SUMMARY | 2025-08-16 09:43 | XMS_ITS | Encounter Summary ---
Author Organization [facility] [place], Address [address] [place] [address] Phone Care Team Providers Care Retail Sales Manager Name Role Phone Don Hedrick MD Primary Care Provider Unav ailable Encounter Details Date Type Department Care Team (Late st Contact Info) Description 02/10/2025 Documentation Only [facility] [address] [place] [address] Mali Sanders [address] [place] [address] Social History Tobacco Use Types [...] [facility] [address] [place] [address] Matt Geronimo MD [address] [facility] [place] [address] documented as of this encounter Visit Diagnoses Not on filedocumented in this encounter Care Teams Retail Sales Manager Relationship Specialty Start Date End Date Don Hedrick MD [address] [place] [address] PCP - General Internal Medicine 02/21/23 documented as of this encounter
--- OUTSIDE RECORDS SUMMARY | 2025-08-16 09:43 | XMS_ITS | Encounter Summary ---
Author Organization [facility] [place], Address [address] [place] [address] Phone Care Team Providers Care Child Life Assistant Name Role Phone Don Hedrick MD Primary Care Provider Unav ailable Encounter Details Date Type Department Care Team (Late Contact Info) Description 07/03/2024 Documentation Only [facility] [address] [place] [place] [address] Mali Sanders [address] [place] [address] Social History Tobacco Use Types [...] Visit [facility] [address] [place] [place] [address] Matt Geronimo MD [address] [facility] [place] [address] documented as of this encounter Visit Diagnoses Not on filedocumented in this encounter Care Teams Child Life Assistant Relationship Specialty Start Date End Date Don Hedrick MD [address] [place] [address] PCP - General Internal Medicine 02/21/23 documented as of this encounter
--- OUTSIDE RECORDS SUMMARY | 2025-08-16 09:43 | XMS_ITS | Encounter Summary ---
Author Organization [employer] Address [address] [facility] 7t [place] [address] Care Team Providers Care Upholstery Bundler Name Role Phone Waylon Ellis MD Primary Care Prov ider Reason for Visit * Reason Onset Date Comments Referral 11/09/2023 Encounter Details Date Type Department Care Team ([facility] st Contact Info) Description 11/09/2023 Telephone [facility] [address] [place], [place] [phone] Waylon Ellis MD [address] [place], [place] [phone] Referral Social History Tobacco Use Types Packs/Day [...] us back. TC placed to Raquel @ [phone] at [facility] [place], [facility] Raquel states that they are following up [...] CARE/ ER) DATE: 10/16 TIME: N/A Location: [address] [place] [address] Facility[place] [facility] Type of Specialist: Radiologist DX: Right axillary ultra sound documented in this encounter Plan of Treatment Upcoming Encounters Date Type Department Care Team ([facility] st Contact Info) Description 10/20/2025 10:45 AM EST Telemedicine [facility] MED & PEDS [address] [place], [place] [address] Waylon Ellis MD [address] [place] [address] 01/26/2026 2:15 PM EDT Office Visit [facility] ADULT DENTAL [address] [place] [address] Grayson Hedrick documented as of this encounter Visit Diagnoses Not on filedocumented in this encounter Additional Health Concerns Assessment Noted Time PHQ-9 Depression Total Score: 0 06/12/20 23 1:28 PM EDT documented as of this encounter Care Teams Upholstery Bundler Relationship Specialty Start Date End Date Waylon Ellis MD [address] [place] [address] PCP - General Internal Medicine 03/17/20 documented as of this encounter
--- OUTSIDE RECORDS SUMMARY | 2025-08-16 09:43 | XMS_ITS | Encounter Summary ---
Author Organization [facility] [place], Address [address] [place] [address] Phone Care Team Providers Care Dedenter Name Role Phone Don Hedrick MD Primary Care Provider Unav ailable Encounter Details Date Type Department Care Team (Late Contact Info) Description 07/03/2024 Documentation Only [facility] [address] [place] [address] Mali Sanders [address] [place] [address] Social History Tobacco Use Types [...] Transplant Services [facility] [address] [place] [address] Matt Geronimo MD [address] [facility] [address] [place] [address] documented as of this encounter Visit Diagnoses Not on filedocumented in this encounter Care Teams Dedenter Relationship Specialty Start Date End Date Don Hedrick MD [address] [place] [address] PCP - General Internal Medicine 02/21/23 documented as of this encounter
--- OUTSIDE RECORDS SUMMARY | 2025-08-16 09:43 | XMS_ITS | Encounter Summary ---
Author Organization [facility] [place], Address [address] [place] [address] Phone Care Team Providers Care Flat Examiner Name Role Phone Don Hedrick MD Primary Care Provider Unav ailable Encounter Details Date Type Department Care Team (Late Contact Info) Description 02/05/2024 Documentation Only [facility] [address] [place] [address] Mali Sanders [address] [place] [address] Social History Tobacco Use Types [...] Visit [facility] [address] [place] [place] [address] Matt Geronimo MD [address] [facility] [place] [address] documented as of this encounter Visit Diagnoses Not on filedocumented in this encounter Care Teams Flat Examiner Relationship Specialty Start Date End Date Don Hedrick MD [address] [place] [address] PCP - General Internal Medicine 02/21/23 documented as of this encounter
--- OUTSIDE RECORDS SUMMARY | 2025-08-16 09:43 | XMS_ITS | Encounter Summary ---
Author Organization [facility], Address [address] [place] [address] Phone Care Team Providers Care Transfer And Pumphouse Operator Name Role Phone Don Hedrick MD Primary Care Provider Unav ailable Encounter Details Date Type Department Care Team (Late Contact Info) Description 02/05/2024 Documentation Only [facility] [facility] [address] [place] [address] Mali Sanders [address] [place] [address] Social History Tobacco Use Types [...] Visit [facility] [address] [place] [address] Matt Geronimo MD [address] [place] [address] documented as of this encounter Visit Diagnoses Not on filedocumented in this encounter Care Teams Transfer And Pumphouse Operator Relationship Specialty Start Date End Date Don Hedrick MD [address] [place] [id number] PCP - General Internal Medicine 02/21/23 documented as of this encounter
[2025-08-16 11:37] LABS: Parathyroid Hormone Intact 267.0 pg/mL (8.7-77.1)
[2025-08-16 11:38] LABS: Estimated Glomerular Filt Rate 16
[2025-08-16 12:37] LABS: Creatinine, mg/dL 20.74; Creatinine, mg/dL 21.15
[2025-08-16 15:03] LABS: Total Volume 24 Hour Urine 2225 mL
[2025-08-16 15:04] LABS: Creatinine (CrCl) 2.93 mg/dL (0.5-1.4)
[2025-08-18 16:47] LABS: Calcium/Creatinine Ratio 24 mg/g creat (30-275); Creatinine 24Hr Urine 0.56 g/24 h (0.50-2.15)
== END 2025-08-16 09:41 | disposition home or self-care (01) ==
LOC: HO.LAB 09:40
PROVIDERS: PCP Internal Medicine; Visit Provider Internal Medicine Endocrinology, Diabetes & Metabolism
DX: M81.0 Age-related osteoporosis without current pathological fracture (principal)
CPT/HCPCS: 36415; 82340; 82565; 82570; 82575; 83970; 84075; 84100

== ENCOUNTER 2025-10-13 14:02 | Outpatient (AMB) | payer MEDICARE, MEDICAID, SELFPAY ==
--- NOTE | 2025-10-13 14:20 | A.OFFVIS_ITS ---
Vital Signs 3 10/13/25 14:29 Height 5 ft 1 in Weight 132 lb BMI 24.9 BP 134/89 Blood Pressure Location Lt brachial Position Sitting Pulse 106 H Intake Visit Reasons: 6 month breast exam Intake Note: Patient is seen in office for 6 month follow up visit, breast exam. Pt c/o: denies any concerns or changes mm: 08/12/25 Automation Controls Engineer Required: No Livestock Judging Coach: Livestock Judging Coach Present Accompanied by: Daughter Allergies No Known Allergies Allergy (Verified 10/13/25 15:21) Medication List - Last Reconciled 10/13/25 by Herminio Jean MD acetaminophen (Tylenol Extra Strength) 650 mg PO Q6H PRN bupropion HCl XL 1 tab PO QAM empagliflozin (Jardiance) 10 mg PO DAILY ketoconazole 2% appl topical mecobalamin (vitamin B12) 1,000 mcg sublingual DAILY olanzapine 15 mg PO BEDTIME tamoxifen 20 mg PO DAILY HPI Comments Details: 70-year-old female patient returning for follow-up breast examination after treatment for left breast invasive lobular carcinoma. She was diagnosed with invasive lobular carcinoma, grade 2, 2.5 cm size, ER/FL positive, HER2 Kaylynn negative and subsequently underwent left breast lumpectomy with needle localization and sentinel node biopsy on 08/27/2020. 0 of 3 sentinel lymph nodes revealed metastatic disease (pT2 N0(sn)(i-)). Because of positive margins she return to the OR for wider excision on 11/05/2020. The recurrence score was calculated at 19. Genetic testing performed on 08/10/2021 revealed no clinically significant mutations and no variance of unknown significance. She was evaluated by Dr. Marte and no chemotherapy recommended. Radiation was performed at [facility] and completed in December 2020. She was placed on tamoxifen 20 mg p.o. q.day and remains on this without significant symptoms. Her most recent mammogram of 08/12/2025 revealed no mammographic evidence of malignancy (BI-RADS 2). Follow-up mammogram is scheduled for 08/18/2026. She feels well and denies any new breast symptoms on either side. [facility] Medical History Osteoporosis Nicotine dependence, cigarettes, uncomplicated Hypotension after procedure Gout Chronic kidney disease (CKD) Chronic cough Depression Schizoaffective disorder Invasive lobular carcinoma of left breast in female (~2019) Basal cell carcinoma Melanoma History of colon polyps (~2015) Surgical History History of skin surgery History of tubal ligation History of left breast biopsy History of lumpectomy of left breast History of partial colectomy (~2015) Family History Maternal Grandfather History of cancer of unknown primary site Father Diabetes Heart disease Mother Stroke Daughter Atypical lobular hyperplasia (ALH) of breast Other History of skin cancer Social History Household Members: None Housing: Apartment Are you a primary resident care provider to a significant other at home: No Alcohol intake: never Patient Tobacco Use Status: Current everyday Tobacco user Tobacco use type: Cigarette Years Smoked: 50 (onset 10, 1/2-1ppd x 50yrs - 35pyh) e-Cigarette/Vaping Use: Never Used Second Hand Smoke Exposure: No service: No Current occupational status: disabled Review of Systems Const All systems reviewed & are unremarkable except as noted in HPI and below Physical Exam Vital Signs: Last Vital Signs Pulse 106 H 10/13/25 14:29 BP 134/89 10/13/25 14:29 BMI result Body Mass Index 24.9 Const General: cooperative, healthy appearing, comfortable and no acute distress Chest Other: Left breast well-healed incision in the upper outer quadrant and axilla without new skin change, nipple discharge, palpable mass, or enlarged lymph nodes.. Right breast reveals no palpable mass, skin change, nipple discharge, or enlarged lymph nodes. Chest/axillae images: 2 1. 2. Resp Effort & Inspection: normal respiratory effort, no audible wheezes and no cough GI Inspection: Yes normal to inspection Skin Other: Warm and dry, no rash General skin exam: no rashes or lesions noted Neuro Other: Mobility Assessment: 1. 3 meter assessment time (seconds) 6 2. Gait observations: Normal balance and gait Extrem Other: No edema General: Yes no clubbing, cyanosis or edema Assessment & Plan Assessment & Plan (1) Invasive lobular carcinoma of left breast in female: Onset Date: ~2019 Comment: (pT2 N0 (sn)(i-), ER/FL positive, HER2 negative - s/p lumpectomy/wide excision, s/p radiation - on tamoxifen) Code(s): C50.912 - Malignant neoplasm of unspecified site of left female breast Category: Medical Plan: 70-year-old female patient returning for follow-up breast examination following a history of a left breast infiltrating lobular carcinoma, grade 2, 2.5 cm diameter, HR positive, HER2 Kaylynn negative. She underwent lumpectomy, sentinel node biopsy followed by wider excision for positive margins. She then underwent radiation therapy followed by tamoxifen which she continues on without any additional symptoms. Her most recent mammogram of 08/12/2025 revealed no mammographic evidence of malignancy (BI-RADS 2). Examination today revealed normal postoperative changes in the left breast with no suspicious changes in either side. She is now 5 years following her surgery. I recommended follow-up in 6 months for routine breast examination after which she will be seen yearly. She is welcome to call sooner for any new concerns. Coding Level of Care Code Est Pt Level 3 (92325) Add On Problem Visit Only Diagnoses Invasive lobular carcinoma of left breast in female C50.912
[2025-10-13 14:29] VITALS: BP 134/89; PULSE 106; BMI 24.9
--- OUTSIDE RECORDS SUMMARY | 2025-10-13 20:28 | XMS_ITS | Encounter Summary ---
Author Organization [employer] Address [address] [place] [address] 7 [place] [address] Care Team Providers Care Night Clerk Auditor Name Role Phone Waylon Ellis MD Primary Care Prov ider Encounter Details Date Type Department Care Team (Latest Contact Info) Description 09/19/2019 Abstract [facility] CONVERSIONS Dental, Provider, DDS Social History [...] Info) Description 10/20/2025 10:45 AM EST Telemedicine [facility] MED & PEDS [address] [place] [address] Waylon Ellis MD [address] [place] [address] 01/26/2026 2:15 PM EDT Office Visit [facility] ADULT DENTAL [address] [place] [address] Grayson Hedrick documented as of this encounter Visit Diagnoses Not on filedocumented in this encounter Care Teams Night Clerk Auditor Relationship Specialty Start Date End Date Waylon Ellis MD [address] [place] [address] PCP - General Internal Medicine 03/17/20 documented as of this encounter
--- OUTSIDE RECORDS SUMMARY | 2025-10-13 20:28 | XMS_ITS | Encounter Summary ---
Author Organization [employer] Address [address] [place] [address] 7 [place] [address] Care Team Providers Care Customer Complaint Service Supervisor Name Role Phone Waylon Ellis MD Primary Care Prov ider Reason for Visit * Reason Onset Date Comments PT1 06/27/2023 Encounter Details Date Type Department Care Team ([facility] Contact Info) Description 06/27/2023 Telephone [facility] MED & PEDS [address] [place], [place] [phone] Waylon Ellis MD [address] [place] [address] PT1 Social History Tobacco Use Types Packs/Day [...] pt requesting PT1 for locations Location: [address] [place], [place] Specialty:[facility] Date&Time: Aug 09 Principal Statistical Programmer: N/a Location: [address] [facility], [place], [place] Specialty: [facility] Date&Time: Nov Principal Statistical Programmer: N/a Location:[address] [facility] 1st floor, [place], [place] Specialty: Lung Screening Date&Time: n/a Principal Statistical Programmer:N/a Location:[address], [place], [place] Specialty:Cancer screening Date&Time:n/a Principal Statistical Programmer: n/a Location: [address] [facility] [address], [place] [address] Specialty:[facility] Date&Time: n/a Principal Statistical Programmer: n/a Location:[address] [place] [address] Specialty:[facility] Date&Time: N/a Principal Statistical Programmer: n/a documented in this encounter Plan of Treatment Upcoming Encounters Date Type Department Care Team ([facility] st Contact Info) Description 10/20/2025 10:45 AM EST Telemedicine [facility] MED [facility] PEDS [address] [place] [address] Waylon Ellis MD [address] [place] [address] 01/26/2026 2:15 PM EDT Office Visit [facility] ADULT DENTAL [address] [place] [address] Grayson Hedrick documented as of this encounter Visit Diagnoses Not on filedocumented in this encounter Additional Health Concerns Assessment Noted Time PHQ-9 Depression Total Score: 0 06/12/20 1:28 PM EDT documented as of this encounter Care Teams Customer Complaint Service Supervisor Relationship Specialty Start Date End Date Waylon Ellis MD [address] [place] [address] PCP - General Internal Medicine 03/17/20 documented as of this encounter
--- OUTSIDE RECORDS SUMMARY | 2025-10-13 20:28 | XMS_ITS | Encounter Summary ---
Author Organization [employer] Address [address] [place] [address] 7 [place] [address] Care Team Providers Care Monitor Car Operator Name Role Phone Waylon Ellis MD Primary Care Prov ider Encounter Details Date Type Department Care Team (Latest Contact Info) Description 05/19/2021 Abstract [facility] CONVERSIONS Dental, Provider, DDS Social History [...] Info) Description 10/20/2025 10:45 AM EST Telemedicine [facility] MED & PEDS [address] [place] [address] Waylon Ellis MD [address] [place] [address] 01/26/2026 2:15 PM EDT Office Visit [facility] ADULT DENTAL [address] [place] [address] Grayson Hedrick documented as of this encounter Visit Diagnoses Not on filedocumented in this encounter Care Teams Monitor Car Operator Relationship Specialty Start Date End Date Waylon Ellis MD [address] [place] [address] PCP - General Internal Medicine 03/17/20 documented as of this encounter
--- OUTSIDE RECORDS SUMMARY | 2025-10-13 20:28 | XMS_ITS | Encounter Summary ---
Author Organization [employer] Address [address] [facility] [address] [place] [address] Care Team Providers Care Employee Relations Assistant Name Role Phone Waylon Ellis MD Primary Care Prov ider Reason for Visit * Reason Onset Date Comments Referral 11/09/2023 Encounter Details Date Type Department Care Team ([facility] st Contact Info) Description 11/09/2023 Telephone [facility] MEDIC[facility] [address] [place], [place] [phone] Waylon Ellis MD [address] [address] [place], [place] [phone] Referral Social History Tobacco Use Types Packs/Day [...] us back. TC placed to Raquel @ [phone] at Lung Cancer Screening, [facility]. Raquel states that they are [...] CARE/ ER) DATE: 10/16 TIME: N/A Location: [address] [place] [address] Facility: [facility] Type of Specialist: Radiologist DX: Right axillary ultra sound documented in this encounter Plan of Treatment Upcoming Encounters Date Type Department Care Team ([facility] st Contact Info) Description 10/20/2025 10:45 AM EST Telemedicine [facility] MED & PEDS [address] [place], [place] [phone] Waylon Ellis MD [address] [place] [address] 01/26/2026 2:15 PM EDT Office Visit [facility] ADULT DENTAL [address] [place] [address] Grayson Hedrick documented as of this encounter Visit Diagnoses Not on filedocumented in this encounter Additional Health Concerns Assessment Noted Time PHQ-9 Depression Total Score: 0 06/12/20 23 1:28 PM EDT documented as of this encounter Care Teams Employee Relations Assistant Relationship Specialty Start Date End Date Waylon Ellis MD [address] [place] [address] PCP - General Internal Medicine 03/17/20 documented as of this encounter
--- OUTSIDE RECORDS SUMMARY | 2025-10-13 20:28 | XMS_ITS | Clinical Summary ---
Author Organization [employer] Address [address] [facility] 7t [place] [address] Care Team Providers Care Correspondence Review Clerk Name Role Phone Waylon Ellis MD Primary [...] Encounters Date Type Department Care Team Description 08/16/2025 Orders Only GENERIC EXTERNAL DATA DEPARTMENT Provider, Generic External Data 08/12/2025 Orders Only [facility] PEDS [address] [place] [address] Waylon Ellis MD 07/28/2025 2:00 PM EDT Office Visit [facility] [address] [place] [address] Grayson Hedrick Periodontal disease (Primary Dx); Dental [...] 10/20/2025 10:45 AM EST Telemedicine [facility] [address] [place] [address] Waylon Ellis MD [address] [place] [address] 01/26/2026 2:15 PM EDT Office Visit [facility] [address] [place] [address] Antonio Hedrickouard Health Maintenance Due Date Last Done Comments [...] Procedure Name Priority Date/Time Associated Diagnosis Comments ALKALINE PHOSPHATASE, BONE SPECIFIC Routine 08/16/2025 10:12 AM EDT CREATININE, SERUM Routine 08/16/2025 10: 12 AM EDT PTH, INTACT WITHOUT CALCIUM Routine 08/16/2025 10:12 AM EDT PHOSPHATE ( PHOSPHORUS) Routine 08/16/2025 10:12 AM EDT CALCIUM, 24 HOUR URINE (W/ CREATININE) Routine 08/16/2025 8:00 AM EDT CREATININE, 24 HR GROUP Routine 08/16/2025 8:00 AM EDT CREATININE CLEARANCE Routine 08/16/2025 8:00 AM EDT BI MAMMOGRAM SCREENING TOMOSYNTHESIS BILATERAL Routine 08/12/2025 [...] Recently Relevant to Health Maintenance Results * (ABNORMAL) Creatinine, Serum (08/16/2025 10:12 AM EDT) Creatinine, Serum 2.93(H) 0.5 - 1.4 mg/dL [facility] Estimated Glomerular Filt Rate 16 [facility] Comment:Chronic Kidney Disea se: Estimated GFR < 60 mL/min/1.43j9Ovjhzz Kidney Disease: Estimated GFR < 15 mL/min/1.73m2 08/16/2025 10:1 2 AM EDT 08/16/2025 10:12 AM EDT us Generic External Data Provider LAB BLOOD ORDERAB LES Final Result [facility] [address] [place] [phone] * Alkaline Phosphatase, Bone Specific (08/16/2025 10:12 AM EDT) Alkaline Phosphatase, Bone Specific 11.9 5.6 - 29.0 mcg/L [facility] Comment:Reference Range, Pre menopausal (mcg/L) 35-45 years 5.0-18.2THIS TEST WAS PERFORMED AT:[employer] [id number] [place] [address]HODJTYPSUE RILEY MD,PHD 08/16/2025 10:1 2 AM EDT 08/16/2025 10:12 AM EDT us Generic External Data Provider LAB BLOOD ORDERAB LES Final Result Performing Organization Address [facility] Co de Phone Number [facility] [address] [place] [phone] * Phosphate (As Phosphorus) (08/16/2025 10:12 AM EDT) Phosphorus 3.3 2.7 - 4.5 mg/dL [facility] 08/16/2025 10:1 2 AM EDT 08/16/2025 10:12 AM EDT Generic External Data Provider LAB BLOOD ORDERAB LES Final Result Performing Organization Address [facility] Co de Phone Number [facility] [address] [place] [phone] * (ABNORMAL) PTH, Intact Without Calcium (08/16/2025 10:12 AM EDT) Parathyroid Hormone, Intact 267.0(H) 8.7 - 77.1 pg/mL [facility] 08/16/2025 10:1 2 AM EDT 08/16/2025 10:12 AM EDT Generic External Data Provider LAB BLOOD ORDERAB LES Final Result Performing Organization Address [facility] Co de Phone Number [facility] [address] [place] [phone] * (ABNORMAL) CREATININE, 24 HR GROUP (08/16/2025 8:00 AM EDT) Creatinine, 24 Hour Urine 0.5(L) 1.0 - 2.0 G/Day [facility] Creatinine, Urine 21.15 [facility] Urine Total Volume 24 Hour 2,225 mL [facility] 08/16/2025 8:00 AM EDT 08/16/2025 11:54 AM EDT Narrative [facility] - 08/16/2025 3:03 PM EDT [id number] Generic External Data Provider LAB URINE ORDERAB LES Final Result Performing Organization Address [facility]/ZIP Co de Phone Number [facility] [address] [place] [phone] * (ABNORMAL) Calcium, 24 Hour Urine W/ Creatinine (08/16/2025 8:00 AM EDT) Calcium, 24 Hour Urine 13(A) mg/24 h [facility] Comment:Reference Range 35-2 50 Low calcium diet 35-200 Calcium/Creatini ne Ratio 24(A) 30 - 275 mg/g creat [facility] Creatinine, 24 Hour Urine 0.56 0.50 - 2.15 g/24 h [facility] Comment:THIS TEST WAS PERFOR MED AT:[employer] [place] [id number] MENDOZA MD 08/16/2025 8:00 AM EDT 08/16/2025 11:39 AM EDT Narrative [facility] - 08/18/2025 4:47 PM EDT [id number] Generic External Data Provider LAB URINE ORDERAB LES Final Result Performing Organization Address [facility] Co de Phone Number [facility] [address] [place] [phone] * (ABNORMAL) Creatinine Clearance (08/16/2025 8:00 AM EDT) Creatinine, Serum 2.93(H) 0.5 - 1.4 mg/dL [facility] Creatinine Clearance 10.9(L) 85 - 125 mL/min [facility] Creatinine, 24 Hour Urine 0.5(L) 1.0 - 2.0 G/Day [facility] Creatinine, Urine 20.74 [facility] Urine Total Volume 24 Hour 2,225 mL [facility] 08/16/2025 8:00 AM EDT 08/16/2025 11:39 AM EDT Narrative [facility] - 08/16/2025 3:04 PM EDT [id number] us Generic External Data Provider LAB BLOOD ORDERAB LES Final Result [facility] [address] [place] [phone] [phone] * BI Mammogram Screening Tomosynthesis Bilateral (08/12/2025 4:08 PM EDT) Anatomical Region Laterality Modality Breast Bilateral Mammography 08/12/2025 4:08 PM EDT Narrative 08/12/2025 5:21 PM EDT [address] [place] [address] Mammography Report Signed Patient: Kim Love MR#: [id number] : 1955 Acct:[id number] Age/Sex: 70 / F ADM Date: 08/12/25 Loc: HO.MAMMO Attending Dr: Waylon Pedro MD Ordering Physician: Waylon Ellis MD Res ults: 2Benign Date of Service: 08/12/25 Follow Up: 1 Year From [facility] Mammogram Procedure(s): MM tomosynthesis screening BI Accession Number(s): [id number] cc: Waylon Ellis MD Reason For Exam: [...] Pereira DO Signed By: <Electronically signed by Maíra Pereira DO in OV> 08/12/25 1718 DD/ 1608 TD/TT: 08/12/25 1629 [employer] Dispatcher: Procedure Note Donotuseinterpreter, Image - 08/12/2025 [facility] [address] [place] [address] Mammography Report Signed Patient: Kim LoveMR#: [id number] : 5Acct:[id number] Age/Sex: 70 / FADM Date: 08/12/25 Loc: HO.MAMMO Attending Dr: Waylon Pedro MD Ordering Physician: Waylon Ellis ults: 2Benign Date of Service: 08/12/25Follow Up: 1 Year From [facility] Mammogram Procedure(s): MM tomosynthesis screening BI Accession Number(s): [id number] cc: Waylon Ellis MD Reason For Exam: [...] 08/12/25 1718 DD/ 1608 TD/TT: 08/12/25 1629 [employer] Dispatcher: Waylon Pedro MD IMG BI PROCEDURES Final Result * Hepatitis C Antibody with Reflex to HCV, RNA, Quantitative, Real-Time PCR (03/10/2023 11:46 AM EDT) Pathologist [facility] Hepatitis C Antibody NON-REACT JANINE NON-REACT JANINE [employer] Index 0.06 <1.00 [employer] Comment: HCV antibody was non-reactive. There is no laboratory evidence of HCV infection. In most cases, no further action is required. However, if recent HCV exposure is suspected, a test for HCV RNA (test code 09852) is suggested. For additional information please refer to http://education.Stayful/faq/CPD90g4 (This link is being provided for informational/ educational purposes only.) Blood Venous blood specimen / Unknown 03/10/2023 11:46 AM EDT 03/10/2023 11:47 AM EDT Narrative [facility] - 03/11/2023 6:26 AM EDT FASTING:NO FASTING: NO Waylon Pedro MD LAB BLOOD ORDERABL ES Final Result [facility] [address], [place] [address] [employer] [place] [employer]Ad [address] [place] [address] * Hm Colonoscopy (05/19/2020) Colonoscopy Normal Normal Narrative Ellie Torres - 05/19/2020 Recommended 5 year follow up per Gi note on 12/27/2024 us Historical Provider HEALTH MAINTENANCE Final Result from Last 3 Months or Most Recently Relevant to Health Maintenance Insurance MEDICARE [facility] STANDARD DENTAL-[facility] MEDICAID STAND ADULT * Guarantor: Kim Love Account Type Relation to Patient Date of Phone Billing Address Personal/Family Self [address] MIRIAM SAMUELS13 Care Teams Correspondence Review Clerk Relationship Specialty Start Date End Date ElWaylon Munoz MD [address] [place] [address] MIRIAM Samuels13 PCP - General Internal Medicine 03/17/20
== END 2025-10-13 14:49 | disposition home or self-care (01) ==
LOC: HO.HGS 14:03
PROVIDERS: PCP Internal Medicine; Visit Provider Surgery
DX: C50.912 Malignant neoplasm of unspecified site of left female breast (principal)
CPT/HCPCS: 99213; G2211

== ENCOUNTER → 2025-10-13 14:02 | Outpatient (BNVA) | payer MEDICARE, MEDICAID, SELFPAY | PROVIDERS: PCP Internal Medicine; Visit Provider Surgery | DX: M81.0 Age-related osteoporosis without current pathological fracture (principal); Z08 Encounter for follow-up examination after completed treatment for malignant neoplasm; Z85.3 Personal history of malignant neoplasm of breast | CPT/HCPCS: 99212 ==

== ENCOUNTER 2025-10-13 14:58 | Outpatient (AMB) | payer MEDICARE, MEDICAID, SELFPAY ==
--- NOTE | 2025-10-13 15:15 | MHC.OFFVIS ---
Vital Signs 10/13/25 15:23 Height 5 ft 0.63 in Weight 132 lb 4.438 oz BMI 25.3 BP 104/72 Blood Pressure Location Rt brachial Position Sitting Pulse 102 H Pulse Source Pulse Oximeter Pulse Oximetry (%) 95 Oxygen Delivery Method Room Air Intake Visit Reasons: f/u osteoporosis with CKD stage 4 Intake Note: Patient present today for Osteoporosis with CKD stage 4 follow up. Internal Communications Specialist Required: No Accompanied by: Daughter Allergies No Known Allergies Allergy (Verified 10/13/25 15:21) HPI Comments Details: 70 YO Female with PMHx CKD stage 4 and breast cancer is seen in consultation at the request of PCP for Osteoporosis. Sees Dr. Geronimo for nephrology First diagnosed in 5 yrs ago . Received treatment in the past with alendronate , from 5 yrs ]. Tolerated treatment well without complication. Currently on tamoxifen for breast cancer history of pathologic fracture in wrist R wrist for hard fall or ONJ. Has several servings of dietary calcium per day in the form of cheese , broccoli , yogurt ice cream . Not Takes Calcium supplement [] mg daily in divided doses. Not Takes of Vitamin D daily stooped by nephrology . Denies ever using PPI, anticoagulant, antiepileptic or glucocorticoid medication. Not Does weight bearing exercise . Fracture history: as above Height loss: No JOURNAL ENTRY AUDIT CLERK history: Menarche at age 11 - menopause at age 50 - nl menses Denies history of Kidney stones: has family history of Osteoporosis and hip fracture in sister . UTD on dental cleanings and sees dentist every 6 months. No planned upcoming dental work or extractions. Past tabacco use 4 yrs ago - no heavy ETOH abuse DXA dated 11/28/24 :HISTORY: Estrogen deficiency TECHNIQUE: InfoNow Dual energy absorptiometry (DEXA) of the lumbar spine, total left hip, and femoral neck was performed. COMPARISON: Comparison is made with the prior examination dated 10/25/2022. FINDINGS: The bone mineral density of the lumbar spine is 0.762 with a T-score of -3.4, and a Z-score of -1.3. This represents a BMD change of -11.4% compared to the prior exam. This is statistically significant. The bone mineral density of the left total hip is 0.634 with a T-score of -3.0, and a Z-score of -1.2. This represents BMD change of -10.6% compared to the prior exam. This is statistically significant. The bone mineral density of the left femoral neck is 0.671 with a T-score of -2.6, and a Z-score of -0.7. This represents BMD change of -9.1% compared to the prior exam. MM/XR DEXA axial skeleton IMPRESSION: Based on bone mineral density, and according to World Health Organization (WHO) criteria, the diagnosis is consistent with osteoporosis. Labs: No fx since last visit . Considering renal transplant [facility] Medical History Osteoporosis Nicotine dependence, cigarettes, uncomplicated Hypotension after procedure Gout Chronic kidney disease (CKD) Chronic cough Depression Schizoaffective disorder Invasive lobular carcinoma of left breast in female (~2019) Basal cell carcinoma Melanoma History of colon polyps (~2015) Surgical History History of skin surgery History of tubal ligation History of left breast biopsy History of lumpectomy of left breast History of partial colectomy (~2015) Family History Maternal Grandfather History of cancer of unknown primary site Father Diabetes Heart disease Mother Stroke Daughter Atypical lobular hyperplasia (ALH) of breast Other History of skin cancer Social History Household Members: None Housing: Apartment Are you a primary resident care provider to a significant other at home: No Alcohol intake: never Patient Tobacco Use Status: Current everyday Tobacco user Tobacco use type: Cigarette Years Smoked: 50 (onset 10, 1/2-1ppd x 50yrs - 35pyh) e-Cigarette/Vaping Use: Never Used Second Hand Smoke Exposure: No service: No Current occupational status: disabled Physical Exam Vital Signs: Last Vital Signs Pulse 102 H 10/13/25 15:23 BP 104/72 10/13/25 15:23 Pulse Ox 95 10/13/25 15:23 Oxygen Delivery Method Room Air 10/13/25 15:23 BMI result Body Mass Index 25.3 Assessment & Plan Assessment & Plan (1) Osteoporosis: Code(s): M81.0 - Age-related osteoporosis without current pathological fracture Category: Medical Plan: This is a 70-year-old female with a history of osteoporosis in the setting of CKD stage 4 with breast cancer on tamoxifene and previously took alendronate for 5 years. The patient is vitamin-D replete. Workup shows increase PTH but normal bone specific alkaline phosphatase. Plan is to continue . Tamoxifen does have protective effect in terms of fracture . . We will have patient follow up with Nephrology to optimize CKD-BMD. Would continue with the tamoxifen. If patient has a fracture, may need to proceed with bone biopsy to rule out frozen bone but unlikely considering the increase PTH. At this point, I would turn her to the care of her marine diesel technician, oncologist and primary care. Should she have a osteoporotic fracture or goes for transplant, she should returned back to endocrinology post-transplant to discuss possible initiation of Prolia. Coding Level of Care Code Est Pt Level 3 (37785) Diagnoses Osteoporosis M81.0
[2025-10-13 15:23] VITALS: BP 104/72; PULSE 102; O2SAT 95; BMI 25.3
== END 2025-10-13 15:38 | disposition home or self-care (01) ==
LOC: HO.ENCR 14:58
PROVIDERS: PCP Internal Medicine; Visit Provider Internal Medicine Endocrinology, Diabetes & Metabolism
DX: M81.0 Age-related osteoporosis without current pathological fracture (principal)
CPT/HCPCS: 99213

== ENCOUNTER 2025-10-20 15:20 | Outpatient (REF) | payer MEDICARE, MEDICAID, SELFPAY ==
--- NOTE | ~2025-10-20 | CT_ITS ---
EXAMINATION: CT LUNG SCREENING HISTORY: F17.210 - Nicotine dependence, cigarettes, uncomplicated TECHNIQUE: Low dose axial images were obtained from the sternal notch to upper abdomen without IV contrast per standard departmental protocol. Sagittal and coronal reformatted images were also obtained and reviewed. One or more of the following techniques was used for dose reduction: Automated exposure control, adjustment of the mA and/or kV according to patient size, use of iterative reconstruction technique. DLP: 46 mGy-cm COMPARISON: Comparison is made with the prior examination dated 10/18/2024. FINDINGS: Lung nodules: There are punctate nodules in the right upper lobe (series 5, image 41) and in the lower lobe (series 5, image 93). No suspicious pulmonary nodules are identified. Emphysema: mild Coronary Calcification: mild Aortic Arch Calcification: mild. There is dilatation of the ascending thoracic aorta measuring up to 3.5 cm in diameter. Potentially Significant Incidentals : none Additional Chest Findings: There is no pleural or pericardial effusion. No mediastinal or axillary lymphadenopathy is identified. There are postsurgical changes in the right breast. Visualized upper abdomen: The visualized portions of the liver, spleen, and adrenals have an unremarkable unenhanced appearance. CT/CT lung screening IMPRESSION: No suspicious pulmonary nodules are identified. LUNG-RADS ASSESSMENT: Lung-RADS 2: Benign MANAGEMENT: Continue annual screening with LDCT in 12 months Category S: N/A Electronically signed by: Shiv Yadav MD 10/21/2025 07:34 AM [facility]
--- OUTSIDE RECORDS SUMMARY | 2025-10-20 10:45 | XMS_ITS | Encounter Summary ---
Author Organization [employer] Address [address] [place] [address] 7[address] [place] [address] Care Team Providers Care Satellite Tv Installer Name Role Phone Waylon Ellis MD Primary Care Prov ider Encounter Details Date Type Department Care Team ([facility] st Contact Info) Description 10/20/2025 10:[address] [facility] P[facility] [address] [place], [place] [phone] Waylon Ellis MD [address] [place], [place] [phone] Age-related osteoporosis without current pathological fracture (Primary Dx); Substance abuse (CMS/HCC) (HCC); Bipolar disorder, in full remission, most recent episode mixed (CMS/HCC); Right hip pain; Chronic kidney disease, stage 4 (severe) (CMS/HCC) (HCC); Invasive lobular carcinoma of breast in female (CMS/HCC) (HCC) Social History Tobacco Use Types Packs/Day Years [...] the past 12 months, has t he [employer], gas, oil or water [employer] threatened to shut off services in your [...] AM EDT documented as of this encounter Progress Notes * Waylon Pedro MD - 10/20/2025 10:45 AM EST Subjective Patient ID: Kim Love is a 70 y.o. female who presents for No chief complaint on file.. HPI Patient was followed for chronic conditions Review of Systems Constitutional: Negative for chills, fatigue and fever. Respiratory: Negative for cough and shortness of breath. Cardiovascular: Negative for chest pain and palpitations. Objective Physical Exam Neurological: General: No focal deficit present. Mental Status: She is oriented to person, place, and time. Psychiatric: Mood and Affect: Mood normal. Behavior: Behavior normal. Assessment/Plan Problem List Items Addressed This Visit Bipolar disorder (HCC) Invasive lobular carcinoma of breast in female (CMS/HCC) (HCC) On tamoxifen, has remained stable, followed by oncology Age-related osteoporosis without current pathological fracture - Primary Saw endo, for now will leave on current therapy since she has no history of fracture, follow up as needed Substance abuse (CMS/HCC) (HCC) Chronic kidney disease, stage 4 (severe) (CMS/HCC) (HCC) (Chronic) Followed by nephrology, no changes will be made, she is on transplant list, last blood work was stable Other Visit Diagnoses Right hip pain Cont Relevant Medications acetaminophen (Tylenol 8 Hour) 650 MG ER tablet documented in this encounter Miscellaneous Notes * Assessment & Plan Note - Waylon Pedro MD - 10/20/2025 11:08 AM ESTAssociated Problem(s): Invasive lobular carcinoma of breast in female (CMS/[facility]) ([facility]) On tamoxifen, has remained stable, followed by oncology * Assessment & Plan Note - Waylon Pdero MD - 10/20/2025 11:07 AM ESTAssociated Problem(s): Age-related osteoporosis without current pathological fracture Saw endo, for now will leave on current therapy since she has no history of fracture, follow up as needed * Assessment & Plan Note - Waylon Pedro MD - 10/20/2025 11:06 AM ESTAssociated Problem(s): Chronic kidney disease, stage 4 (severe) (CMS/[facility]) ([facility]) Followed by nephrology, no changes will be made, she is on transplant list, last blood work was stable documented in this encounter Plan of Treatment Upcoming Encounters Date Type Department Care Team (Late st Contact Info) Description 01/26/2026 2:15 PM EDT Office Visit [facility] [address] [place] [address] Grayson Hedrick documented as of this encounter Visit Diagnoses Diagnosis Age-related osteoporosis without current pathological fracture- Primary Substance abuse (CMS/[facility]) ([facility]) Other, mixed, or unspecified nondependent drug abuse, unspecified Bipolar disorder, in full remission, most recent episode mixed (CMS/HCC) Right hip pain Pain in joint, pelvic region and thigh Chronic kidney disease, stage 4 (severe) (CMS/HCC) (HCC) Invasive lobular carcinoma of breast in female (CMS/HCC) (HCC) documented in this encounter Additional Health Concerns Assessment Noted Time PHQ-9 Depression Total Score: 0 12/19/19 25 1:22 PM EST documented as of this encounter Care Teams Satellite Tv Installer Relationship Specialty Start Date End Date Waylon Ellis MD [address] [place] [phone] PCP - General Internal Medicine 03/17/20 documented as of this encounter
--- OUTSIDE RECORDS SUMMARY | 2025-10-20 18:25 | XMS_ITS | Encounter Summary ---
Author Organization [facility], Address [address] [place] [address] Phone Care Team Providers Care Promotions Associate Name Role Phone Don Hedrick MD Primary Care Provider Unav ailable Encounter Details Date Type Department Care Team (Late Contact Info) Description 02/05/2024 Documentation Only [facility] [address] [place] [address] Mali Sanders [address] [place] [address] Social History Tobacco Use [...] [facility] [address] [place] [place] [address] Matt Geronimo MD [address] [facility] [place] [address] documented as of this encounter Visit Diagnoses Not on filedocumented in this encounter Care Teams Promotions Associate Relationship Specialty Start Date End Date Don Hedrick MD [address] [place] [phone] PCP - General Internal Medicine 02/21/23 documented as of this encounter
--- OUTSIDE RECORDS SUMMARY | 2025-10-20 18:25 | XMS_ITS | Encounter Summary ---
Author Organization [facility] [place], Address [address] [place] [address] Phone Care Team Providers Care Event Decorator And Designer Name Role Phone Don Hedrick MD Primary Care Provider Unav ailable Encounter Details Date Type Department Care Team (Late Contact Info) Description 02/05/2024 Documentation Only [facility] [address] [place] [address] Mali Sanders [address] [place] [address] Social History Tobacco Use Types [...] Visit [facility] [address] [place] [address] Matt Geronimo MD [address] [facility] [address] [place] [address] documented as of this encounter Visit Diagnoses Not on filedocumented in this encounter Care Teams Event Decorator And Designer Relationship Specialty Start Date End Date Don Hedrick MD [address] [place] [phone] PCP - General Internal Medicine 02/21/23 documented as of this encounter
--- OUTSIDE RECORDS SUMMARY | 2025-10-20 18:25 | XMS_ITS | Clinical Summary ---
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,melanoma Hyperlipidemia 01/09/2020 Encounters Date Type Department Care Team Description 10/06/2025 Documentation Only [facility] [address] [place] [address] Mali Sanders 08/11/2025 3:30 PM EDT Office Visit [facility] [address] [place] [address] Matt Geronimo MD Chronic kidney disease, stage 4 (severe) (HCC) (Primary Dx) 08/05/2025 Documentation Only [facility] [address] [place] [address] Mali Sanders 08/05/2025 Documentation Only [facility] [address] [place] [address] Mali Sanders 08/04/2025 Refill [facility] [address] [place] [address] Mali Sanders from Last 3 Months Immunizations [...] Visit [facility] [address] [place] [address] Matt Geronimo MD [address] [place] [address] [place] [address] Health Maintenance Due Date Last Done Comments Breast Cancer Screening 1955 Colorectal Cancer Screening: Annual FOBT 2004 Colorectal Cancer Screening: Colonoscopy 2004 Colorectal Cancer Screening: Sigmoidoscopy 2004 Influenza Vaccine (#1) 2025 3, 06/30/2020, 08/04/2019, Additional history exists Pneumococcal Vaccine: 50+ Years Completed 08/11/2023, 06/30/2020, 08/11/2014 Pneumococcal Vaccine: Peds (0 to 5 Years) and At-Risk Patients (6 to 49 Years) Discontinued 08/11/2023, 06/30/2020, 08/11/2014 Hepatitis B Vaccine Aged Out 08/11/2025, 08/11/2023, 01/31/2023, Additional history exists No longer eligible based on patient's age to complete this topic Insurance Medicaid [place] [address] MIRIAM SAMUELS13 Care Teams Respooler Relationship Specialty Start Date End Date Don Hedrick MD [address] [facility] MIRIAM Samuels [phone] PCP - General Internal Medicine 02/21/23
--- OUTSIDE RECORDS SUMMARY | 2025-10-20 18:25 | XMS_ITS | Encounter Summary ---
Author Organization [employer] Address [address] [place] [address] 7 [place] [address] Care Team Providers Care Executive Account Manager Name Role Phone Waylon Ellis MD Primary Care Prov ider Encounter Details Date Type Department Care Team (Latest Contact Info) Description 05/19/[address] [facility] CONVERSIONS Dental, Provider, DDS Social [...] Description 01/26/2026 2:15 PM EDT Office Visit [facility] [address] [place] [address] Grayson Hedrick documented as of this encounter Visit Diagnoses Not on filedocumented in this encounter Care Teams Executive Account Manager Relationship Specialty Start Date End Date Waylon Ellis MD [address] [place] [address] PCP - General Internal Medicine 03/17/20 documented as of this encounter
--- OUTSIDE RECORDS SUMMARY | 2025-10-20 18:25 | XMS_ITS | Encounter Summary ---
Author Organization [facility] [place], Address [address] [place] [address] Phone Care Team Providers Care Diet Attendant Name Role Phone Don Hedrick MD Primary Care Provider Unav ailable Encounter Details Date Type Department Care Team (Late Contact Info) Description 02/05/2024 Documentation Only [facility] [address] [place] [address] Mali Sanders [address] [place] [address] Social History Tobacco Use Types [...] Visit [facility] [address] [place] [address] Matt Geronimo MD [address] [facility] [place] [address] documented as of this encounter Visit Diagnoses Not on filedocumented in this encounter Care Teams Diet Attendant Relationship Specialty Start Date End Date Don Hedrick MD [address] [place] [phone] PCP - General Internal Medicine 02/21/23 documented as of this encounter
--- OUTSIDE RECORDS SUMMARY | 2025-10-20 18:25 | XMS_ITS | Encounter Summary ---
Author Organization [facility] [place], Address [address] [place] [address] Phone Care Team Providers Care Manager Visual Name Role Phone Don Hedrick MD Primary Care Provider Unav ailable Encounter Details Date Type Department Care Team (Late st Contact Info) Description 02/10/2025 Documentation Only [facility] [address] [place] [address] Mali Sanders [address] [place] [address] Social History Tobacco Use Types [...] Visit [facility] [address] [place] [address] Matt Geronimo MD [address] [facility] [place] [address] documented as of this encounter Visit Diagnoses Not on filedocumented in this encounter Care Teams Manager Visual Relationship Specialty Start Date End Date Don Herdick MD [address] [place] [address] PCP - General Internal Medicine 02/21/23 documented as of this encounter
--- OUTSIDE RECORDS SUMMARY | 2025-10-20 18:25 | XMS_ITS | Encounter Summary ---
Author Organization [employer] Address [address] [place] [address] 7t [place] [address] Care Team Providers Care Veneer Drier Name Role Phone Waylon Ellis MD Primary Care Prov ider Encounter Details Date Type Department Care Team (Latest Contact Info) Description 09/19/2019 Abstract [facility] CONVERSIONS Dental, Provider, DDS Social [...] Visit [facility] [address] [place] [address] Grayson Hedrick documented as of this encounter Visit Diagnoses Not on filedocumented in this encounter Care Teams Veneer Drier Relationship Specialty Start Date End Date Waylon Ellis MD [address] [place] [address] PCP - General Internal Medicine 03/17/20 documented as of this encounter
--- OUTSIDE RECORDS SUMMARY | 2025-10-20 18:25 | XMS_ITS | Encounter Summary ---
Author Organization [facility] [place] [place], Address [address] [place] [address] Phone Care Team Providers Care Hardscape Foreman Name Role Phone Don Hedrick MD Primary Care Provider Unav ailable Encounter Details Date Type Department Care Team (Late st Contact Info) Description 02/14/2024 Documentation Only [facility] [address] [place] [address] Mali Sanders [address] [place] [address] Social History Tobacco Use Types [...] [facility] [address] [place] [address] Matt Geronimo MD [address] [facility] [place] [address] documented as of this encounter Visit Diagnoses Not on filedocumented in this encounter Care Teams Hardscape Foreman Relationship Specialty Start Date End Date Don Hedrick MD [address] [place] [phone] PCP - General Internal Medicine 02/21/23 documented as of this encounter
--- OUTSIDE RECORDS SUMMARY | 2025-10-20 18:25 | XMS_ITS | Encounter Summary ---
Author Organization [facility] [place], Address [address] [place] [address] Phone Care Team Providers Care Manager Business Planning Name Role Phone Don Hedrick MD Primary Care Provider Unav ailable Encounter Details Date Type Department Care Team (Late Contact Info) Description 07/03/2024 Documentation Only [facility] [address] [place] [address] Mali Sanders [address] [place] [address] Social History Tobacco Use Types [...] [facility] [address] [place] [address] Matt Geronimo MD [address] [place] [address] documented as of this encounter Visit Diagnoses Not on filedocumented in this encounter Care Teams Manager Business Planning Relationship Specialty Start Date End Date Don Hedrick MD [address] [place] [address] PCP - General Internal Medicine 02/21/23 documented as of this encounter
--- OUTSIDE RECORDS SUMMARY | 2025-10-20 18:25 | XMS_ITS | Encounter Summary ---
Author Organization [facility] [place], Address [address] [place] [address] Phone Care Team Providers Care Furnace Operator Name Role Phone Don Hedrick MD Primary Care Provider Unav ailable Encounter Details Date Type Department Care Team (Late Contact Info) Description 02/05/2024 Documentation Only [facility] [address] [place] [address] Mali Sanders [address] [place] [address] Social History Tobacco Use Types [...] [facility] [address] [place] [address] Matt Geronimo MD [address] [facility] [place] [address] documented as of this encounter Visit Diagnoses Not on filedocumented in this encounter Care Teams Furnace Operator Relationship Specialty Start Date End Date Don Hedrick MD [address] [place] [phone] PCP - General Internal Medicine 02/21/23 documented as of this encounter
--- OUTSIDE RECORDS SUMMARY | 2025-10-20 18:25 | XMS_ITS | Encounter Summary ---
Author Organization [facility] [place], Address [address] [place] [address] Phone Care Team Providers Care Cad Cam Programmer Name Role Phone Don Hedrick MD Primary Care Provider Unav ailable Encounter Details Date Type Department Care Team (Late Contact Info) Description 02/05/2024 Documentation Only [facility] [address] [place] [address] Mali Sanders [address] [place] [address] Social History Tobacco Use Types [...] Visit [facility] [address] [place] [address] Matt Geronimo MD [address] [place] [address] documented as of this encounter Visit Diagnoses Not on filedocumented in this encounter Care Teams Cad Cam Programmer Relationship Specialty Start Date End Date Don Hedrick MD [address] [place] [address] PCP - General Internal Medicine 02/21/23 documented as of this encounter
--- OUTSIDE RECORDS SUMMARY | 2025-10-20 18:25 | XMS_ITS | Encounter Summary ---
Author Organization [facility] [place], Address [address] [place] [address] Phone Care Team Providers Care Superintendent Ammunition Storage Name Role Phone Don Hedrick MD Primary Care Provider Unav ailable Encounter Details Date Type Department Care Team (Late st Contact Info) Description 08/29/2022 Documentation Only [facility] [address] [place] [address] Surya Caldera MD [address] [place] [address] Social History Tobacco Use Types [...] Visit [facility] [address] [place] [address] Matt Geronimo MD [address] [facility] [address] [place] [address] documented as of this encounter Visit Diagnoses Not on filedocumented in this encounter Care Teams Superintendent Ammunition Storage Relationship Specialty Start Date End Date Don Hedrick MD [address] [place] [phone] PCP - General Internal Medicine 02/21/23 documented as of this encounter
--- OUTSIDE RECORDS SUMMARY | 2025-10-20 18:25 | XMS_ITS | Encounter Summary ---
Author Organization [facility] [place], Address [address] [place] [address] Phone Care Team Providers Care Director Of Search Engine Marketing Name Role Phone Don Hedrick MD Primary Care Provider Unav ailable Encounter Details Date Type Department Care Team (Late Contact Info) Description 07/03/2024 Documentation Only [facility] [address] [place] [address] Mali Sanders [address] [place] [address] Social History Tobacco Use Types [...] Visit [facility] [address] [place] [address] Matt Geronimo MD [address] [place] [address] documented as of this encounter Visit Diagnoses Not on filedocumented in this encounter Care Teams Director Of Search Engine Marketing Relationship Specialty Start Date End Date Don Hedrick MD [address] [place] [phone] PCP - General Internal Medicine 02/21/23 documented as of this encounter
--- OUTSIDE RECORDS SUMMARY | 2025-10-20 18:25 | XMS_ITS | Encounter Summary ---
Author Organization [facility] [place], Address [address] [place] [address] Phone Care Team Providers Care Production Helper Name Role Phone Don Hedrick MD Primary Care Provider Unav ailable Encounter Details Date Type Department Care Team (Late st Contact Info) Description 02/14/2024 Documentation Only [facility] [address] [place] [address] Mali Sanders [address] [place] [address] Social History Tobacco Use Types [...] [facility] [address] [place] [address] Matt Geronimo MD [address] [facility] [address] [facility] [place] [address] documented as of this encounter Visit Diagnoses Not on filedocumented in this encounter Care Teams Production Helper Relationship Specialty Start Date End Date Don Hedrick MD [address] [place] [phone] PCP - General Internal Medicine 02/21/23 documented as of this encounter
--- OUTSIDE RECORDS SUMMARY | 2025-10-20 18:25 | XMS_ITS | Encounter Summary ---
Author Organization [facility] [place], Address [address] [place] [address] Phone Care Team Providers Care Research And Development Researcher Name Role Phone Don Hedrick MD Primary Care Provider Unav ailable Encounter Details Date Type Department Care Team (Late Contact Info) Description 07/03/2024 Documentation Only [facility] [address] [place] [address] Mali Sanders [address] [place] [address] Social History Tobacco Use Types [...] Visit [facility] [address] [place] [address] Matt Geronimo MD [address] [place] [address] documented as of this encounter Visit Diagnoses Not on filedocumented in this encounter Care Teams Research And Development Researcher Relationship Specialty Start Date End Date Don Hedrick MD [address] [place] [phone] PCP - General Internal Medicine 02/21/23 documented as of this encounter
--- OUTSIDE RECORDS SUMMARY | 2025-10-20 18:25 | XMS_ITS | Encounter Summary ---
Author Organization [facility] [place], Address [address] [place] [address] Phone Care Team Providers Care Genetic Technologist Name Role Phone Don Hedrick MD Primary Care Provider Unav ailable Encounter Details Date Type Department Care Team (Late st Contact Info) Description 02/10/2025 Documentation Only [facility] [address] [place] [address] Mali Sanders [address] [place] [address] Social History Tobacco Use Types [...] Visit [facility] [address] [place] [address] Matt Geronimo MD [address] [facility] [place] [address] documented as of this encounter Visit Diagnoses Not on filedocumented in this encounter Care Teams Genetic Technologist Relationship Specialty Start Date End Date Don Hedrick MD [address] [place] [address] PCP - General Internal Medicine 02/21/23 documented as of this encounter
--- OUTSIDE RECORDS SUMMARY | 2025-10-20 18:25 | XMS_ITS | Encounter Summary ---
Author Organization [facility] [place], Address [address] [place] [address] Phone Care Team Providers Care Cloth Cutter Name Role Phone Don Hedrick MD Primary Care Provider Unav ailable Encounter Details Date Type Department Care Team (Late Contact Info) Description 05/15/2025 Documentation Only [facility] [address] [place] [address] Mali Sanders [address] [place] [address] Social History Tobacco Use Types [...] Visit [facility] [address] [place] [address] Matt Geronimo MD [address] [place] [address] documented as of this encounter Visit Diagnoses Not on filedocumented in this encounter Care Teams Cloth Cutter Relationship Specialty Start Date End Date Don Hedrick MD [address] [place] [phone] PCP - General Internal Medicine 02/21/23 documented as of this encounter
--- OUTSIDE RECORDS SUMMARY | 2025-10-20 18:25 | XMS_ITS | Encounter Summary ---
Author Organization [facility] [place], Address [address] [place] [address] Phone Care Team Providers Care Acute Care Assistant Name Role Phone Don Hedrick MD Primary Care Provider Unav ailable Encounter Details Date Type Department Care Team (Late st Contact Info) Description 02/10/2025 Documentation Only [facility] [address] [place] [address] Mali Sanders [address] [place] [address] Social History Tobacco Use Types [...] [facility] [address] [place] [address] Matt Geronimo MD [address] [facility] [facility] [place] [address] documented as of this encounter Visit Diagnoses Not on filedocumented in this encounter Care Teams Acute Care Assistant Relationship Specialty Start Date End Date Don Hedrick MD [address] [place] [phone] PCP - General Internal Medicine 02/21/23 documented as of this encounter
--- OUTSIDE RECORDS SUMMARY | 2025-10-20 18:25 | XMS_ITS | Encounter Summary ---
Author Organization [facility] [place], Address [address] [place] [address] Phone Care Team Providers Care Hose Mender Name Role Phone Don Hedrick MD Primary Care Provider Unav ailable Encounter Details Date Type Department Care Team (Late Contact Info) Description 02/05/2024 Documentation Only [facility] [address] [place] [address] Mali Sanders [address] [place] [address] Social History Tobacco Use Types [...] Visit [facility] [address] [place] [address] Matt Geronimo MD [address] [facility] [address] [place] [address] documented as of this encounter Visit Diagnoses Not on filedocumented in this encounter Care Teams Hose Mender Relationship Specialty Start Date End Date Don Hedrick MD [address] [place] [phone] PCP - General Internal Medicine 02/21/23 documented as of this encounter
--- OUTSIDE RECORDS SUMMARY | 2025-10-20 18:25 | XMS_ITS | Encounter Summary ---
Author Organization [facility] [place], Address [address] [place] [address] Phone Care Team Providers Care Rn Support Services Name Role Phone Don Hedrick MD Primary Care Provider Unav ailable Encounter Details Date Type Department Care Team (Late st Contact Info) Description 02/10/2025 Documentation Only [facility] [address] [place] [address] Mali Sanders [address] [place] [address] Social History Tobacco Use Types [...] Visit [facility] [address] [place] [address] Matt Geronimo MD [address] [facility] [place] [address] documented as of this encounter Visit Diagnoses Not on filedocumented in this encounter Care Teams Rn Support Services Relationship Specialty Start Date End Date Don Hedrick MD [address] [place] [address] PCP - General Internal Medicine 02/21/23 documented as of this encounter
--- OUTSIDE RECORDS SUMMARY | 2025-10-20 18:25 | XMS_ITS | Encounter Summary ---
Author Organization [facility] [place], Address [address] [place] [address] Phone Care Team Providers Care Aircraft Engine Assembler Name Role Phone Don Hedrick MD Primary Care Provider Unav ailable Encounter Details Date Type Department Care Team (Late Contact Info) Description 06/27/2024 Documentation Only [facility] [address] [place] [address] Mali Sanders [address] [place] [address] Social History Tobacco Use Types [...] Visit [facility] [address] [place] [address] Matt Geronimo MD [address] [facility] [place] [address] documented as of this encounter Visit Diagnoses Not on filedocumented in this encounter Care Teams Aircraft Engine Assembler Relationship Specialty Start Date End Date Don Hedrick MD [address] [place] [phone] PCP - General Internal Medicine 02/21/23 documented as of this encounter
--- OUTSIDE RECORDS SUMMARY | 2025-10-20 18:25 | XMS_ITS | Encounter Summary ---
Author Organization [facility] [place], Address [address] [place] [address] Phone Care Team Providers Care Aircraft Captain Name Role Phone Don Hedrick MD Primary Care Provider Unav ailable Encounter Details Date Type Department Care Team (Late Contact Info) Description 05/15/2025 Documentation Only [facility] [address] [place] [address] Mali Sanders [address] [place] [address] Social History Tobacco Use Types [...] Visit [facility] [address] [place] [address] Matt Geronimo MD [address] [place] [address] documented as of this encounter Visit Diagnoses Not on filedocumented in this encounter Care Teams Aircraft Captain Relationship Specialty Start Date End Date Don Hedrick MD [address] [place] [phone] PCP - General Internal Medicine 02/21/23 documented as of this encounter
--- OUTSIDE RECORDS SUMMARY | 2025-10-20 18:25 | XMS_ITS | Encounter Summary ---
Author Organization [facility] [place], Address [address] [place] [address] Phone Care Team Providers Care Computational Theory Scientist Name Role Phone Don Hedrick MD Primary Care Provider Unav ailable Encounter Details Date Type Department Care Team (Late Contact Info) Description 06/27/2024 Documentation Only [facility] [address] [address] Mali Sanders [address] [place] [address] Social History Tobacco Use Types [...] [facility] [address] [address] Matt Geronimo MD [address] [facility] [place] [address] documented as of this encounter Visit Diagnoses Not on filedocumented in this encounter Care Teams Computational Theory Scientist Relationship Specialty Start Date End Date Don Hedrick MD [address] [place] [phone] PCP - General Internal Medicine 02/21/23 documented as of this encounter
--- OUTSIDE RECORDS SUMMARY | 2025-10-20 18:26 | XMS_ITS | Encounter Summary ---
Author Organization [facility] [place], Address [address] [place] [address] Phone Care Team Providers Care Gas Processing Plant Operator Name Role Phone Don Hedrick MD Primary Care Provider Unav ailable Encounter Details Date Type Department Care Team (Late Contact Info) Description 08/05/2025 Documentation Only [facility] [address] [place] [address] Mali Sanders [address] [place] [address] Social History Tobacco Use Types [...] [facility] [address] [place] [address] Matt Geronimo MD [address] [place] [address] documented as of this encounter Visit Diagnoses Not on filedocumented in this encounter Care Teams Gas Processing Plant Operator Relationship Specialty Start Date End Date Don Hedrick MD [address] [place] [address] PCP - General Internal Medicine 02/21/23 documented as of this encounter
--- OUTSIDE RECORDS SUMMARY | 2025-10-20 18:26 | XMS_ITS | Encounter Summary ---
Author Organization [employer] Address [address] [place] [address] Care Team Providers Care Molder Pipe Covering Name Role Phone Waylon Ellis MD Primary Care Prov ider Reason for Visit * Reason Onset Date Comments Referral 11/09/2023 Encounter Details Date Type Department Care Team ([facility] st Contact Info) Description 11/09/2023 Telephone [facility] MEDICINE [address] [place], [place] [phone] Waylon Ellis MD [address] [place], [place] [phone] Referral Social History Tobacco Use Types Packs/Day [...] us back. TC placed to Raquel @ [phone] at Lung Cancer Screening, [facility]. Raquel states that they are following up [...] CARE/ ER) DATE: 10/16 TIME: N/A Location: [address] [place] [address] Facility: [facility] Type of Specialist: Radiologist DX: Right axillary ultra sound documented in this encounter Plan of Treatment Upcoming Encounters Date Type Department Care Team ([facility] st Contact Info) Description 01/26/2026 2:15 PM EDT Office Visit [facility] ADULT DENTAL [address] [place], [place] [phone] Grayson Hedrick documented as of this encounter Visit Diagnoses Not on filedocumented in this encounter Additional Health Concerns Assessment Noted Time PHQ-9 Depression Total Score: 0 06/12/20 23 1:28 PM EDT documented as of this encounter Care Teams Molder Pipe Covering Relationship Specialty Start Date End Date Waylon Ellis MD [address] [place] [phone] PCP - General Internal Medicine 03/17/20 documented as of this encounter
--- OUTSIDE RECORDS SUMMARY | 2025-10-20 18:26 | XMS_ITS | Clinical Summary ---
Author Organization [employer] Address [address] [place] [address] Care Team Providers Care Mount Loader Name Role Phone Waylon Ellis MD Primary [...] 20 mg by mouth in the morning. 09/08/20 23 Active buPROPion XL (Wellbutrin XL) 150 MG 24 hr tablet Take 150 mg by mouth in the morning. 09/08/20 23 Active Jardiance 10 MG Take 10 mg by mouth in the morning. Active acetaminophen (Tylenol 8 Hour) 650 MG ER tabletIndicati ons:Right hip pain Take 1 tablet (650 mg) by mouth every 8 (eight) hours if needed for moderate pain. Do not crush, chew, or split. 100 tablet 3 10/20/20 25 026 Active acetaminophen (Tylenol 8 Hour) 650 MG ER tabletIndicati ons:Right hip pain TAKE 1 TABLET BY MOUTH EVERY 8 HOURS NEEDED FOR MODERATE PAIN. DO NOT CRUSH, CHEW, OR SPLIT 100 tablet 3 01/25/20 25 025 Discontinued(Re order (will not trigger notification to Pharmacy)) Active Problems Problem Noted Date Diagnosed Date Colon polyp 03/22/2024 Substance abuse (CMS/HCC) 03/22/2024 Tobacco dependence syndrome 03/22/2024 Chronic kidney disease, stage 4 (severe) (CMS/HC C) 02/05/2024 Assessment & Plan (10/20/2025 11:06 AM EST): Followed by nephrology, no changes will be made, she is on transplant list, last blood work was stable Assessment & Plan (04/16/2025 4:05 PM EDT): [...] current pathological fracture 06/12/2023 Assessment & Plan (10/20/2025 11:07 AM EST): Jeremy edmond, for now will leave on current therapy since she has no history of fracture, follow up as needed Assessment & Plan (12/19/2024 2:27 PM EST): [...] lobular carcinoma of breast in female ( [facility]/HCC) 03/10/2023 Assessment & Plan (10/20/2025 11:08 AM EST): On tamoxifen, has remained stable, followed by oncology Assessment & Plan (04/16/2025 4:06 PM EDT): [...] completed chemo/rad Stage 4 chronic kidney disease ([facility]/HCC) 023 Assessment & Plan (12/19/2024 2:27 PM [...] Encounters Date Type Department Care Team Description 10/20/2025 10:45 AM EST Telemedicine [facility] MED [facility]ED[facility] [address] [place] [address] Waylon Ellis MD Age-related osteoporosis without current pathological fracture (Primary Dx); Substance abuse (CMS/HCC) ([facility]); Bipolar disorder, in full remission, most recent episode mixed (CMS/HCC); Right hip pain; Chronic kidney disease, stage 4 (severe) (CMS/HCC) (HCC); Invasive lobular carcinoma of breast in female (CMS/HCC) ([facility]) 10/20/2025 Travel 08/16/2025 Orders Only GENERIC EXTERNAL DATA DEPARTMENT Provider, Generic External Data 08/12/2025 Orders Only [facility] [address] [place] [address] Waylon Ellis MD 07/28/2025 2:00 PM EDT Office Visit [facility] ADULT DENTAL [address] [place] [address] Grayson Hedrick Periodontal disease (Primary Dx); Dental [...] Description 01/26/2026 2:15 PM EDT Office Visit [facility] [address] [place] [address] Grayson Hedrick Health Maintenance Due Date Last Done Comments CT Colonography 1955 Dental X-Ray: Bitewings 1955 Dental X-Ray: Full Mouth 1955 FIT DNA/Cologuard 1955 FIT 1955 FOBT 1955 Sigmoidoscopy 1955 Colonoscopy 05/19/2025 05/19/2020 Colorectal Cancer Screening 05/19/2025 Alcohol/Substance Use Screening 12/19/2025 12/19/2024 Depression Screening 12/19/2025 12/19/2024, 12/19/19 SDOH Screening 12/19/2025 12/19/2024 Tobacco Screening 01/22/2026 01/22/2025 Dental Oral Exam 01/26/2026 07/28/2025, , 01/18/2024, Additional history exists Dental Prophylaxis 01/26/2026 07/28/2025, 0 01/22/2025, 07/24/2024, Additional history exists COVID-19 Vaccine ( season) 2026 08/26/2025, 07/08/2024, 10/12/2023, Additional history exists Mammogram 08/12/2026 08/12/2025, 07/30, 11/17/2023, Additional history exists DTaP/Tdap/Td Vaccines (3 - Td or Tdap) 08/26/2035 08/26/2025, 02/19/2015 Hepatitis C Screening Completed 03/10/2023 Pneumococcal Vaccine: 50+ Years Completed 08/11/2023, 06/30/2020, 08/11/2014 RSV Patients and Patients Aged 60 years or older Completed 10/12/2023 Influenza Vaccine Completed 08/26/2025, , 08/11/2023, Additional history exists Zoster Vaccines Completed 08/26/2025, 07/30, 09/14/2015 Hepatitis B Vaccines Completed 09/16/2025, 08/11/2025, 08/11/2025, Additional history exists HIB Vaccines Aged Out [...] Creatinine, Serum 2.93(H) 0.5 - 1.4 mg/dL [facility] Estimated Glomerular Filt Rate 16 [facility] Comment:Chronic Kidney Disea se: Estimated GFR < 60 mL/min/1.49d3Tlguje Kidney Disease: Estimated GFR < 15 mL/min/1.73m2 08/16/2025 10:1 2 AM EDT 08/16/2025 10:12 AM EDT us Generic External Data Provider LAB BLOOD ORDERAB LES Final Result [facility] [address] [place] [phone] * Alkaline Phosphatase, Bone Specific (08/16/2025 10:12 AM EDT) Alkaline Phosphatase, Bone Specific 11.9 5.6 - 29.0 mcg/L [facility] Comment:Reference Range, Pre menopausal (mcg/L) 35-45 years 5.0-18.2THIS TEST WAS PERFORMED AT:[employer] [id number] [place] [id number] W. MASON,MD,PHD 08/16/2025 10:1 2 AM EDT 08/16/2025 10:12 AM EDT us Generic External Data Provider LAB BLOOD ORDERAB LES Final Result Performing Organization Address City/[facility]/ZIP Co de Phone Number [facility] [address] [place] [phone] * Phosphate (As Phosphorus) (08/16/2025 10:12 AM EDT) Phosphorus 3.3 2.7 - 4.5 mg/dL [facility] 08/16/2025 10:1 2 AM EDT 08/16/2025 10:12 AM EDT Generic External Data Provider LAB BLOOD ORDERAB LES Final Result Performing Organization Address [facility]/ZIP Co de Phone Number [facility] [address] [place] [address] [phone] * (ABNORMAL) PTH, Intact Without Calcium (08/16/2025 10:12 AM EDT) Parathyroid Hormone, Intact 267.0(H) 8.7 - 77.1 pg/mL [facility] 08/16/2025 10:1 2 AM EDT 08/16/2025 10:12 AM EDT Generic External Data Provider LAB BLOOD ORDERAB LES Final Result Performing Organization Address [facility] de Phone Number [facility] [address] [place] [address] [phone] * (ABNORMAL) CREATININE, 24 HR GROUP (08/16/2025 8:00 AM EDT) Creatinine, 24 Hour Urine 0.5(L) 1.0 - 2.0 G/Day [facility] Creatinine, Urine 21.15 [facility] Urine Total Volume 24 Hour 2,225 mL [facility] 08/16/2025 8:00 AM EDT 08/16/2025 11:54 AM EDT Narrative [facility] - 08/16/2025 3:03 PM EDT [id number] Generic External Data Provider LAB URINE ORDERAB LES Final Result Performing Organization Address [facility] Number [facility] [address] [place] [phone] * (ABNORMAL) Calcium, 24 Hour Urine W/ Creatinine (08/16/2025 8:00 AM EDT) Calcium, 24 Hour Urine 13(A) mg/24 h [facility] Comment:Reference Range 35-2 50 Low calcium diet 35-200 Calcium/Creatini ne Ratio 24(A) 30 - 275 mg/g creat [facility] Creatinine, 24 Hour Urine 0.56 0.50 - 2.15 g/24 h [facility] Comment:THIS TEST WAS PERFOR MED AT:[id number] [place] [phone] MENDOZA MD 08/16/2025 8:00 AM EDT 08/16/2025 11:39 AM EDT [facility] - 08/18/2025 4:47 PM EDT [id number] Generic External Data Provider LAB URINE ORDERAB LES Final Result Performing Organization Address [facility] de Phone Number [facility] [address] [place] [phone] * (ABNORMAL) Creatinine Clearance (08/16/2025 8:00 AM EDT) Creatinine, Serum 2.93(H) 0.5 - 1.4 mg/dL [facility] Creatinine Clearance 10.9(L) 85 - 125 mL/min [facility] Creatinine, 24 Hour Urine 0.5(L) 1.0 - 2.0 G/Day [facility] Creatinine, Urine 20.74 [facility] Urine Total Volume 24 Hour 2,225 mL [facility] 08/16/2025 8:00 AM EDT 08/16/2025 11:39 AM EDT [facility] - 08/16/2025 3:04 PM EDT [id number] Generic External Data Provider LAB BLOOD ORDERAB LES Final Result Performing Organization Address [facility] de Phone Number [facility] [address] [place] [phone] * BI Mammogram Screening Tomosynthesis Bilateral (08/12/2025 4:08 PM EDT) Anatomical Region Laterality Modality Breast Bilateral Mammography 08/12/2025 4:08 PM EDT Narrative 08/12/2025 5:21 PM EDT [facility] [address] [place] [address] Mammography Report Signed Patient: Kim Love MR#: [id number] : 1955 Acct:[id number] Age/Sex: 70 / F ADM Date: 08/12/25 Loc: HO.MAMMO Attending Dr: Waylon Pedro MD Ordering Physician: Waylon Ellis MD Res ults: 2Benign Date of Service: 08/12/25 Follow Up: 1 Year From Orig inal Mammogram Procedure(s): MM tomosynthesis screening BI Accession Number(s): [id number] cc: Waylon Ellis MD Reason For Exam: SCREENING EXAMINATION: MM SCREENING DIGITAL BREAST TOMOSYNTHESIS, BILATERAL CLINICAL INFORMATION: Screening. Asymptomatic. History of left breast cancer in 2019 status post likely. COMPARISON: Mammography: Comparison is [...] 08/12/25 1718 DD/ 1608 TD/TT: 08/12/25 1629 Banquet Coordinator: Procedure Note Padminiter, Image - [facility] [address] [place], [place] [id number] Mammography Report Signed Patient: Kim LoveMR#: [id number] : 5Acct:[id number] Age/Sex: 70 / FADM Date: 08/12/25 Loc: HO.MAMMO Attending Dr: Waylon Pedro MD Ordering Physician: Waylon Ellis ults: 2Benign Date of Service: 08/12/25Follow Up: 1 Year From Orig ina Mammogram Procedure(s): MM tomosynthesis screening BI Accession Number(s): [id number] cc: Waylon Ellis MD Reason For Exam: [...] 08/12/25 1718 DD/ 1608 TD/TT: 08/12/25 1629 Banquet Coordinator: Waylon Pedro MD [facility] BI PROCEDURES Final Result * Hepatitis C Antibody with Reflex to HCV, RNA, Quantitative, Real-Time PCR (03/10/2023 11:46 AM EDT) Hepatitis C Antibody NON-REACT JANINE NON-REACT JANINE [employer] [facility] Index 0.06 <1.00 [facility] Comment: HCV antibody was non-reactive. There is no laboratory evidence of HCV infection. In most cases, no further action is required. However, if recent HCV exposure is suspected, a test for HCV RNA (test code 65299) is suggested. For additional information please refer to [email or web address]Linear/faq/[email or web address] (This link is being provided for informational/ educational purposes only.) Blood Venous blood specimen / Unknown 03/10/2023 11:46 AM EDT 03/10/2023 11:47 AM EDT Narrative [facility] - 03/11/2023 6:26 AM EDT FASTING:NO FASTING: NO Waylon Pedro MD LAB BLOOD ORDERABL ES Final Result [facility] [address], [place] [address] [employer] [place] [facility] [address] [place] [phone] * Hm Colonoscopy (05/19/2020) Colonoscopy Normal Normal Narrative Ellie Torres - 05/19/2020 Recommended 5 year follow up per Gi note on 12/27/2024 Historical Provider HEALTH MAINTENANCE Final Result from Last 3 Months or Most Recently Relevant to Health Maintenance Insurance MEDICARE [facility] STANDARD DENTAL-[facility] MEDICAID STAND ADULT * Guarantor: Kim Love Account Type Relation to Patient Date of Phone Billing Address Personal/Family Self [address] M[place] [id number] Care Teams Mount Loader Relationship Specialty Start Date End Date Waylon Ellis MD [address] [place] [address] M[place] Samuels PCP - General Internal Medicine 03/17/20
--- OUTSIDE RECORDS SUMMARY | 2025-10-20 18:26 | XMS_ITS | Encounter Summary ---
Author Organization [facility], Address [address] [place] [address] Phone Care Team Providers Care Web Retailer Name Role Phone Don Hedrick MD Primary Care Provider Unav ailable Encounter Details Date Type Department Care Team (Late st Contact Info) Description 02/10/2025 Documentation Only [facility] [address] [place] [address] Mali Sanders [address] [place] [address] Social History Tobacco Use Types [...] [facility] [address] [place] [address] Matt Geronimo MD [address] [place] [address] documented as of this encounter Visit Diagnoses Not on filedocumented in this encounter Care Teams Web Retailer Relationship Specialty Start Date End Date Don Hedrick MD [address] [place] [phone] PCP - General Internal Medicine 02/21/23 documented as of this encounter
--- OUTSIDE RECORDS SUMMARY | 2025-10-20 18:26 | XMS_ITS | Encounter Summary ---
Author Organization [facility], Address [address] [place] [address] Phone Care Team Providers Care Unit Manager Rn Name Role Phone Don Hedrick MD Primary Care Provider Unav ailable Encounter Details Date Type Department Care Team (Late Contact Info) Description 10/06/2025 Documentation Only [facility] [address] [place] [address] Mali Sanders [address] [place] [address] Social History Tobacco Use Types [...] Visit [facility] [address] [place] [address] Matt Geronimo MD [address] [place] [address] documented as of this encounter Visit Diagnoses Not on filedocumented in this encounter Care Teams Unit Manager Rn Relationship Specialty Start Date End Date Don Hedrick MD [address] [place] [phone] PCP - General Internal Medicine 02/21/23 documented as of this encounter
--- OUTSIDE RECORDS SUMMARY | 2025-10-20 18:26 | XMS_ITS | Encounter Summary ---
Author Organization [employer] Address [address] [place] [address] 7 [place] [address] Care Team Providers Care Candy Separator Enrobing Name Role Phone Waylon Ellis MD Primary Care Prov ider Reason for Visit * Reason Onset Date Comments PT1 06/27/2023 Encounter Details Date Type Department Care Team ([facility] Contact Info) Description 06/27/2023 Telephone [facility] [address] [place], [place] [phone] Waylon Ellis MD [address] [place] [address] PT1 Social History Tobacco Use Types Packs/Day [...] pt requesting PT1 for locations Location: 2 [place], [place] Specialty:[facility] Date&Time: Aug 09 Cnc Mechanic: N/a Location: [address] [facility], [place], [place] Specialty: [facility] Date&Time: Nov Cnc Mechanic: N/a Location:[address] [facility] 1st floor, [place], [place] Specialty: Lung Screening Date&Time: n/a Cnc Mechanic:N/a Location:[address], [place], [place] Specialty:Cancer screening Date&Time:n/a Cnc Mechanic: n/a Location: [address] [facility] [address], [place] [address] Specialty:[facility] Date&Time: n/a Cnc Mechanic: n/a Location:[address] [place] [address] Specialty:[facility] Date&Time: N/a Cnc Mechanic: n/a documented in this encounter Plan of Treatment Upcoming Encounters Date Type Department Care Team (Late st Contact Info) Description 01/26/2026 2:15 PM EDT Office Visit [facility] ADULT [facility] [address] [place] [address] Grayson Hedrick documented as of this encounter Visit Diagnoses Not on filedocumented in this encounter Additional Health Concerns Assessment Noted Time PHQ-9 Depression Total Score: 0 06/12/20 23 1:28 PM EDT documented as of this encounter Care Teams Candy Separator Enrobing Relationship Specialty Start Date End Date Waylon Ellis MD [address] [place] [address] PCP - General Internal Medicine 03/17/20 documented as of this encounter
--- OUTSIDE RECORDS SUMMARY | 2025-10-20 18:26 | XMS_ITS | Encounter Summary ---
Author Organization [employer] Address [address] [place] [address] Care Team Providers Care Driver Education Road Instructor Name Role Phone Waylon Ellis MD Primary Care Prov ider Encounter Details Date Type Department Care Team (Latest Contact Info) Description 10/20/2025 Travel Social History Tobacco Use Types Packs/Day Years [...] is your housing situation today? I have atwanna sandoval 12/19/[address] you [...] [facility] ADULT [facility] [address] [place] [address] Grayson Hedrick documented as of this encounter Visit Diagnoses Not on filedocumented in this encounter Additional Health Concerns Assessment Noted Time PHQ-9 Depression Total Score: 0 12/19/19 25 1:22 PM EST documented as of this encounter Care Teams Driver Education Road Instructor Relationship Specialty Start Date End Date Waylon Ellis MD [address] [place] [address] PCP - General Internal Medicine 03/17/20 documented as of this encounter
--- OUTSIDE RECORDS SUMMARY | 2025-10-20 18:26 | XMS_ITS | Encounter Summary ---
Author Organization [facility], Address [address] [place] [address] Phone Care Team Providers Care Theater Set Production Designer Name Role Phone Don Hedrick MD Primary Care Provider Unav ailable Encounter Details Date Type Department Care Team (Late Contact Info) Description 08/05/2025 Documentation Only [facility] [address] [place] [address] Mali Sanders [address] [place] [address] Social History Tobacco Use Types [...] [facility] [address] [place] [address] Matt Geronimo MD [address] [place] [place] [address] documented as of this encounter Visit Diagnoses Not on filedocumented in this encounter Care Teams Theater Set Production Designer Relationship Specialty Start Date End Date Don Hedrick MD [address] [place] [phone] PCP - General Internal Medicine 02/21/23 documented as of this encounter
== END 2025-10-20 15:21 | disposition home or self-care (01) ==
LOC: HO.CT 15:20
PROVIDERS: PCP Internal Medicine; Visit Provider Physician Assistant Medical
DX: F17.210 Nicotine dependence, cigarettes, uncomplicated (principal)
CPT/HCPCS: 71271

== ENCOUNTER → 2025-10-20 15:21 | Outpatient (BNV) | payer MEDICARE, MEDICAID, SELFPAY | PROVIDERS: PCP Internal Medicine; Visit Provider Radiology Diagnostic Radiology | DX: Z12.2 Encounter for screening for malignant neoplasm of respiratory organs (principal); Z87.891 Personal history of nicotine dependence | CPT/HCPCS: 71271 ==